=== PATIENT | female | born 1960 | race Two or more races ===

== ENCOUNTER 2017-09-08 18:27 | Inpatient (IN) | payer MEDICAID, OTHER ==
[~2017-09-08] VITALS: Ht 154.9 cm; Wt 67.6 kg
[~2017-09-08 18:27] MED LIST: ACET650S26 GT; ALBU2.5V13 IH; ALBU2.5V38 IH; ALEN70TA3 GT; AMIN30LI2 GT; ASCO-340 GT; BACL10TA GT; BISA-79 RC; CALC-34 GT; CARB-93 GT; CHOL100062 GT; DOCU-141 GT; DULO30CA2 GT; ENTA200T GT; EPOE1VIA6 SQ; FAMO20TA8 GT; FLUD0.1T3 GT; FOLI1TAB16 GT; INSU100V10 SQ; MAGN400O21 GT; METF500T4 GT; METO25TA6 GT; MULT1TAB11 GT; NA P133E RC; SIMV5TAB6 GT; TRAM50TA GT; ZINC220T GT
--- NOTE | 2017-09-08 18:40 | NUR ---
FROM SCR: WOUND TO BACK OF HEAD EVAL. PER [facility]ANS hot knife cutter REPORT "UNKNOWN, ETIOLOGY". DENY FALL. WOUND PRESENT FOR 2 DAYS. NAD NOTED, VSS, RESP EVEN AND UNLABORED, PT PUT ON MONITOR, WAITING FOR MD EVAL.
[2017-09-08] MEDS ORDERED: VANCOMYCIN 1 GM VIAL ONE ×2 (18:59→22:10)
[2017-09-08] MEDS ORDERED: ACETAMINOPHEN 650 MG/SUPP.RECT RC ONE ×3 (18:59→19:27)
[2017-09-08] MEDS ORDERED: VANCOMYCIN 1 GM in IV D5W 250 ML IV ONE (19:00)
[2017-09-08] MEDS ORDERED: IV NS 0.9% 500 ML BAG IV ONE (19:00)
[2017-09-08 19:16] LABS: BASOPHILS # (AUTO) 0.1 /CMM (0.0-0.2); BASOPHILS % (AUTO) 1.2 % (0.0-2.0); EOSINOPHILS # (AUTO) 0.1 /CMM (0.0-0.7); EOSINOPHILS % (AUTO) 0.7 % (0.0-6.0); HEMATOCRIT 29 % (33-45); HEMOGLOBIN 9.6 g/dL (11.5-14.8); LYMPHOCYTES % (AUTO) 23.1 % (20.0-44.0); MEAN CORPUSCULAR HEMOGLOBIN 29 PG (26.0-33.0); MEAN CORPUSCULAR HGB CONC 33 g/dl (31.0-36.0); MEAN CORPUSCULAR VOLUME 87 fL (82-100); MONOCYTES # (AUTO) 0.5 /CMM (0.1-1.30); MONOCYTES % (AUTO) 5.4 % (2.0-12.0); NEUTROPHILS # (AUTO) 5.8 /CMM (1.8-8.9); NEUTROPHILS % (AUTO) 69.6 % (43.0-81.0); PLATELET COUNT (AUTO) 94 /CMM (150-450); RDW COEFFICIENT OF VARIATION 21.2 (11.5-15.0); RED BLOOD CELL COUNT(AUTO) 3.31 MIL/uL (4.0-5.2); WHITE BLOOD COUNT (AUTO) 8.5 K/uL (4.3-11.0)
[2017-09-08] MEDS ORDERED: CYCL5TAB GT (19:22)
[2017-09-08] MEDS ORDERED: BLOO-668 IN (19:22)
[2017-09-08] MEDS ORDERED: INSU100I26 SQ (19:22)
[2017-09-08] MEDS ORDERED: NUT.237L30 GT (19:22)
[2017-09-08] MEDS ORDERED: CLON0.1T GT (19:22)
[2017-09-08] MEDS ORDERED: INSU100V3 SQ (19:22)
[2017-09-08] MEDS ORDERED: OMEP20CA10 GT (19:22)
[2017-09-08] MEDS ORDERED: IPRA0.2S9 IH ×2 (19:22)
[2017-09-08] MEDS ORDERED: ATOR10TA GT (19:22)
[2017-09-08] MEDS ORDERED: POLY15DR40 EACHEYE (19:22)
[2017-09-08] MEDS ORDERED: LISI-607 GT (19:22)
[2017-09-08] MEDS ORDERED: ZINC220C8 GT (19:22)
[2017-09-08] MEDS ORDERED: CHLO473M5 MM (19:22)
[2017-09-08] MEDS ORDERED: MAGN400T26 GT (19:22)
[2017-09-08 19:29] LABS: CALCIUM, SERUM 8.9 mg/dL (8.5-10.1); CARBON DIOXIDE 24 mmol/L (21-32); CHLORIDE 94 mmol/L (98-107); CREATININE 0.8 mg/dL (0.6-1.3); GLUCOSE 204 mg/dL (74-106); POTASSIUM 4.8 mmol/L (3.5-5.1); SODIUM SERUM 126 mmol/L (136-145); UREA NITROGEN, BLOOD 47 mg/dL (7-18)
[2017-09-08 19:34] LABS: ALANINE AMINOTRANSFERASE 9 U/L (12-78); ALBUMIN 2.6 g/dL (3.4-5.0); ALKALINE PHOSPHATASE 111 U/L (46-116); ASPARTATE AMINOTRANSFERASE 15 U/L (15-37); BILIRUBIN,DIRECT 0.2 mg/dL (0.0-0.2); BILIRUBIN,TOTAL 0.4 mg/dL (0.2-1.0)
[2017-09-08 19:37] LABS: INR 0.95 (0.85-1.15); TROPONIN I < 0.017 ng/mL (0.00-0.056)
[2017-09-08 20:07] LABS: BAND % (MANUAL) 4 % (0.0-5.0); LYMPHOCYTES % (MANUAL) 17 % (16-48); MONOCYTES % (MANUAL) 6 % (0-11.0); NEUTROPHILS % (MANUAL) 73 (42-76)
--- NOTE | 2017-09-08 20:19 | NUR ---
PT GOING TO RM 116-2, REPORT GIVEN TO ALVA DHALIWAL
[2017-09-08] MEDS ORDERED: IV NS 0.9% 1,000 ML IV PRN (20:52)
[2017-09-08] MEDS ORDERED: MAG HYDROX/AL HYDROX/SIMETH 30 ML UDC GT PRN (21:00)
[2017-09-08] MEDS ORDERED: ONDANSETRON HCL/PF 4 MG/2 ML VIAL IVP PRN (21:00)
[2017-09-08] MEDS: ENOXAPARIN SODIUM 30 MG/0.3 ML DISP.SYRIN SQ SCH (21:00)
[2017-09-08] MEDS ORDERED: HYDROCODONE/APAP 5/325MG 1 EACH TABLET GT PRN (21:00)
[2017-09-08] MEDS ORDERED: MAGNESIUM HYDROXIDE 30 ML UDC GT PRN (21:00)
[2017-09-08] MEDS: PIPERACILLIN /TAZOBACTAM 3.375 G in IV D5W 50 ML IV SCH (21:00)
[2017-09-08] MEDS ORDERED: Z GUARD REMEDY 2 OZ OINT TP PRN (21:00)
[2017-09-08] MEDS ORDERED: MORPHINE SULFATE INJ 2 MG/ML DISP.SYRIN IV PRN (21:00)
[2017-09-08 21:30] VITALS: BP 143/72
[2017-09-08] MEDS ORDERED: ALBUTEROL FS 2.5 MG/0.5 ML VIAL.NEB NEB PRN (21:30)
[2017-09-08] MEDS ORDERED: IPRATROPIUM NEB FS 0.5 MG/2.5 ML AMPUL.NEB NEB PRN (21:30)
--- NOTE | 2017-09-08 21:30 | NUR ---
RN NOTE RECEIVED PATIENT FROM ER VIA GREYS[facility], DX CELLULITIS OF THE HEAD, PATIENT IS OBTUNDED, AWAKE, NO RESPIRATORY DISTRESS NOTED, MULTIPLE WOUNDS ON THE BACK OF THE HEAD AND ON THE SIDE, PICTURES TAKEN, DR LING ORDERED WOUND CARE CONSULT, VITAL SIGNS TAKEN, NO S/S OF PAIN NOTED, RIGHT AC 18 GAUGE, NO S/S OF INFECTION/INFILTRATION NOTED, ALL SAFETY MEASURES TAKEN, CALL LIGHT WITHIN REACH, SIDE RAILS UP X 2, BED IN THE LOWEST POSITION, WILL CONTINUE TO MONITOR PATIENT
[2017-09-08] MEDS: VANCOMYCIN 1 GM in IV D5W 250 ML IV ONE ×2 (22:00→22:46)
[2017-09-08] MEDS ORDERED: PIPERACILLIN /TAZOBACTAM 3.375 G VIAL IV ONE (22:10)
--- NOTE | 2017-09-08 22:12 | NUR ---
RN NOTE LOW PLATELETS, LOW PTT Addendum: 09/08/17 at 2356 by PEPE AGUILAR RN lovenox was not administered
--- NOTE | 2017-09-08 22:30 | NUR ---
rn note patient received vanco in er
[2017-09-08] MEDS: GLYTROL 1,000 ML BAG GT PRN (23:23)
[2017-09-08] MEDS ORDERED: DEXTROSE 50%-WATER 50 ML DISP.SYRIN IV PRN (23:30)
[2017-09-09] VITALS: BP 104/58
[2017-09-09] MEDS ORDERED: IPRATROPIUM NEB FS 0.5 MG/2.5 ML AMPUL.NEB IH PRN
[2017-09-09] MEDS ORDERED: CLONIDINE HCL 0.1 MG TABLET GT PRN
[2017-09-09] MEDS ORDERED: BLOOD SUGAR DIAGNOSTIC 1 EACH STRIP IN SCH
[2017-09-09] MEDS ORDERED: BISACODYL (5 MG) 5 MG TABLET.DR GT PRN
[2017-09-09] MEDS ORDERED: MAGNESIUM HYDROXIDE 30 ML UDC GT PRN
[2017-09-09] MEDS ORDERED: CYCLOBENZAPRINE 10 MG TABLET PO PRN
[2017-09-09] MEDS ORDERED: ALBUTEROL FS 2.5 MG/3 ML VIAL.NEB IH PRN
[2017-09-09] MEDS ORDERED: EPOETIN ALFA (10,000 UNIT) 10,000 UNIT/ML VIAL SQ SCH
[2017-09-09] MEDS ORDERED: NA PHOS,M-B/NA PHOS,DI-BA 1 EA ENEMA RC PRN
[2017-09-09] MEDS: INSULIN REGULAR, HUMAN 100 UNIT/ML 3 ML VIAL SQ PRN ×5 (00:16→23:17)
[2017-09-09] MEDS: BACLOFEN (10 MG) 10 MG TABLET GT SCH ×5 (00:17→23:09)
[2017-09-09] MEDS: ALBUTEROL FS 2.5 MG/0.5 ML VIAL.NEB IH SCH ×4 (01:52→19:23)
[2017-09-09] MEDS: IPRATROPIUM NEB FS 0.5 MG/2.5 ML AMPUL.NEB IH SCH ×4 (01:52→19:23)
[2017-09-09 03:50] LABS: APPEARANCE,URINE CLEAR (CLEAR); BILIRUBIN,URINE NEGATIVE (NEGATIVE); BLOOD, URINE NEGATIVE Ery/uL (NEGATIVE); COLOR,URINE YELLOW (YELLOW); KETONES,URINE NEGATIVE (NEGATIVE); LEUKOCYTE ESTERASE ,URINE NEGATIVE (NEGATIVE); NITRITE, URINE NEGATIVE (NEGATIVE); PROTEIN,URINE NEGATIVE (NEGATIVE); UGLUCOSE NEGATIVE (NEGATIVE); UROBILINOGEN,URINE 0.2 EU/dL (0.2)
[2017-09-09] MEDS ORDERED: PIPERACILLIN /TAZOBACTAM 3.375 G VIAL IV ONE (03:56)
[2017-09-09 04:00] VITALS: BP_SYST 113; BP_SYST 99; BP_DIAS 51; BP_DIAS 64
[2017-09-09] MEDS: PIPERACILLIN /TAZOBACTAM 3.375 G in IV D5W 50 ML IV SCH ×3 (04:46→17:43)
[2017-09-09] MEDS: TRAMADOL HCL 50 MG TABLET GT SCH ×3 (04:46→21:31)
[2017-09-09] MEDS: BLOOD SUGAR DIAGNOSTIC 1 EACH STRIP IN SCH ×5 (05:35→23:15)
--- NOTE | 2017-09-09 06:40 | NUR ---
RN NOTE NO ACUTE CHANGES DURING MY SHIFT, OBTUNDED, NO RESPIRATORY DISTRESS NOTED, ONGOING IV FLUIDS, ONGOING G-TUBE FEEDING, ALL SAFETY MEASURES TAKEN, CALL LIGHT WITHIN REACH, BED IN THE LOWEST POSITION, WILL ENDORSE TO AM SHIFT
[2017-09-09 06:58] LABS: BASOPHILS % (AUTO) 0.2 % (0.0-2.0); EOSINOPHILS % (AUTO) 0.5 % (0.0-6.0); HEMATOCRIT 28 % (33-45); HEMOGLOBIN 9.3 g/dL (11.5-14.8); LYMPHOCYTES # (AUTO) 0.9 /CMM (0.8-4.8); MEAN CORPUSCULAR HEMOGLOBIN 29 PG (26.0-33.0); MEAN CORPUSCULAR HGB CONC 33 g/dl (31.0-36.0); MEAN CORPUSCULAR VOLUME 88 fL (82-100); MONOCYTES # (AUTO) 0.4 /CMM (0.1-1.30); MONOCYTES % (AUTO) 4.3 % (2.0-12.0); NEUTROPHILS # (AUTO) 7.6 /CMM (1.8-8.9); PLATELET COUNT (AUTO) 83 /CMM (150-450); RDW COEFFICIENT OF VARIATION 21.6 (11.5-15.0); RED BLOOD CELL COUNT(AUTO) 3.17 MIL/uL (4.0-5.2); WHITE BLOOD COUNT (AUTO) 8.9 K/uL (4.3-11.0)
[2017-09-09 07:00] LABS: THYROID STIMULATING HORMONE 1.689 uIU/mL (0.358-3.74)
[2017-09-09 07:02] LABS: CALCIUM, SERUM 7.8 mg/dL (8.5-10.1); CREATININE 0.8 mg/dL (0.6-1.3); PHOSPHORUS 4.2 mg/dL (2.5-4.9); POTASSIUM 4.9 mmol/L (3.5-5.1)
[2017-09-09] MEDS ORDERED: FEE PK DOSING 1 MIN EA MC ONE (07:37)
[2017-09-09 08:00] VITALS: BP 103/56
--- NOTE | 2017-09-09 08:00 | NUR ---
SENIOR ENGINEERING ASSOCIATE NOTE PATIENT IN BED , OBTUNDED WITH TRACH TO VENT SETTING ORDERED AMBU BAG AT HOB AT ALL MARIKA, ON TELE MONITOR SR 76 , WITH JACINTO CATH TO GRAVITY WITH YELLOW COLOR URINE, ON IVF ORDERED WITH G TUBE FEEDING ORDERED , KEEP HOB ELEVATED AT ALL TIME, BED IN LOWEST AND LOCKED POSITION ,WILL CONT TO MONITOR CLOSELY
[2017-09-09 08:20] LABS: BAND % (MANUAL) 1 % (0.0-5.0); LYMPHOCYTES % (MANUAL) 5 % (16-48); MONOCYTES % (MANUAL) 5 % (0-11.0); NEUTROPHILS % (MANUAL) 89 (42-76)
[2017-09-09] MEDS: MAGNESIUM OXIDE 400 MG TABLET GT SCH ×2 (08:54→17:00)
[2017-09-09] MEDS: CHLORHEXIDINE GLUCONATE 15 ML UDC MM SCH ×2 (08:54→21:30)
[2017-09-09] MEDS: METFORMIN 500 MG TABLET GT SCH ×2 (08:54→17:00)
[2017-09-09] MEDS: LACTOBACILLUS RHAMNOSUS GG 1 EACH CAP.SPRINK GT SCH ×2 (08:54→17:00)
[2017-09-09] MEDS: ZINC SULFATE 220 MG CAPSULE GT SCH (08:54)
[2017-09-09] MEDS: CARBIDOPA/LEVODOPA 25/100 MG 1 UDTAB GT SCH ×3 (08:54→17:00)
[2017-09-09] MEDS: CHOLECALCIFEROL 1,000 UNIT TABLET (VIT D3) GT SCH (08:54)
[2017-09-09] MEDS: DOCUSATE SODIUM 100 MG CAPSULE PO SCH ×2 (08:54→17:00)
[2017-09-09] MEDS ORDERED: EPOETIN ALFA (10,000 UNIT) 10,000 UNIT/ML VIAL SQ ONE (09:00)
[2017-09-09] MEDS: MULTIVITAMIN LIQ 5 ML UDC GT SCH (09:00)
[2017-09-09] MEDS: LISINOPRIL (5MG) 5 MG TABLET GT SCH (09:00)
[2017-09-09] MEDS ORDERED: ASCORBIC ACID SYRUP 500 MG/5 ML UDC GT SCH (09:00)
[2017-09-09] MEDS: PROSOURCE / PROSTAT (PYXIS) 30 ML UDC GT SCH (09:01)
[2017-09-09] MEDS: VANCOMYCIN 1 GM in IV D5W 250 ML IV SCH ×2 (10:06→21:30)
--- NOTE | 2017-09-09 11:24 | NUR ---
PATIENT IS UNSTABLE. NURSE WILL LET US KNOW WHEN PATIENT IS MORE STABLE.
[2017-09-09 12:00] VITALS: BP_SYST 136; BP_DIAS 65; BP_DIAS 69
--- NOTE | 2017-09-09 12:00 | NUR ---
POCKETBOOK MAKER NOTE SPOKE WITH JOHNIE COOPER NOTIFIED THAT T 101.1. TYLENOL AND COOLING MEASURE GIVEN ALSO AWARE THAT PER NIGH SHIFT NURSE LOVENOX WAS HELD PLATELETS 94 STATED ITS OK , CONSENT FOR HEAD DEBRIDEMENT WOUND DONE , MARK CALLE INDUSTRIAL SALES REPRESENTATIVE DONE AT BEDSIDE
[2017-09-09] MEDS: ACETAMINOPHEN 650 MG/20.3 ML UDC GT PRN (12:03)
--- NOTE | 2017-09-09 15:27 | NUR ---
OBSTETRICS NURSE PRACTITIONER NOTE SPOKE WITH DIETITIAN OK TO INCREAS TO 50 ML PER HOUR G TUBE MAX GOAL 60, ALSO NOTED THAT G TUBE WITH BABOON IS OUT ,CALLED TO MARIKA COOPER RN DNP STATED THAT WILL COME SOON TO INSERT OTHER G TUBE, WILL F\U
[2017-09-09 16:00] VITALS: BP 113/64
--- NOTE | 2017-09-09 16:50 | NUR ---
YRIS CALLE NOTE MOMO COOPER DNP AT BEDSIDE, NEW G TUBE PLACED , WILL F\U WITH X RAY OF ABDOMEN TO VERIFY PLACEMENT HOLD ALL MEDS TILL G TUBE PLACEMENT IS VERIFIED Addendum: 09/09/17 at 1707 by STEPHANIE GREEN RN CT HEAD DONE ORDERED
[2017-09-09] MEDS ORDERED: DIATR MEGLU/DIATRIZOATE SODIUM 30 ML BOTTLE (GASTROGRAPHIN) ONE (17:13)
[2017-09-09] MEDS: IV LR 1000 ML 1,000 ML IV PRN (17:28)
[2017-09-09 20:00] VITALS: BP 107/59
[2017-09-09] MEDS: ENOXAPARIN SODIUM 30 MG/0.3 ML DISP.SYRIN SQ SCH (21:00)
--- NOTE | 2017-09-09 21:11 | NUR ---
RN NOTE HELD LOVENOX DUE TO LOW PLATELETS, IS AWARE
--- NOTE | 2017-09-09 21:52 | NUR ---
RN NOTE LANTUS IS NOT AVAILABLE, CAR STOWER TUSHAR WILL BRING MED ONCE AVAILABLE
[2017-09-09] MEDS ORDERED: INSULIN GLARGINE, 100 UNIT/ML CARTRIDGE SQ SCH (22:00)
[2017-09-09] MEDS ORDERED: ATORVASTATIN 10 MG TABLET GT SCH (22:00)
[2017-09-09] MEDS ORDERED: INSULIN GLARGINE, 100 UNIT/ML CARTRIDGE SQ ONE (22:19)
[2017-09-10] VITALS: BP 108/65
[2017-09-10] MEDS: PIPERACILLIN /TAZOBACTAM 3.375 G in IV D5W 50 ML IV SCH ×3 (01:28→12:29)
[2017-09-10] MEDS: IPRATROPIUM NEB FS 0.5 MG/2.5 ML AMPUL.NEB IH SCH ×3 (01:43→13:09)
[2017-09-10] MEDS: ALBUTEROL FS 2.5 MG/0.5 ML VIAL.NEB IH SCH ×3 (01:43→13:09)
[2017-09-10 04:00] VITALS: BP 122/68
[2017-09-10] MEDS: TRAMADOL HCL 50 MG TABLET GT SCH ×2 (05:07→12:33)
[2017-09-10] MEDS: BACLOFEN (10 MG) 10 MG TABLET GT SCH ×2 (05:07→12:29)
[2017-09-10] MEDS: ACETAMINOPHEN 650 MG/20.3 ML UDC GT PRN (05:07)
[2017-09-10] MEDS: GLYTROL 1,000 ML BAG GT PRN (05:08)
[2017-09-10] MEDS: IV LR 1000 ML 1,000 ML IV PRN (05:08)
[2017-09-10] MEDS: BLOOD SUGAR DIAGNOSTIC 1 EACH STRIP IN SCH ×2 (05:09→12:33)
[2017-09-10] MEDS: INSULIN REGULAR, HUMAN 100 UNIT/ML 3 ML VIAL SQ PRN ×2 (05:14→12:30)
--- NOTE | 2017-09-10 07:13 | NUR ---
RN NOTE PATIENT IS STABLE, NO CHANGES ON MY SHIFT, NO RESPIRATORY DISTRESS NOTED, NO PAIN OR DISCOMFORT, ALL SAFETY MEASURES TAKEN, CALL LIGHT WITHIN REACH, BED IN THE LOWEST POSITION, WILL ENDORSE TO AM SHIFT
[2017-09-10 07:34] LABS: BASOPHILS % (AUTO) 0.2 % (0.0-2.0); EOSINOPHILS # (AUTO) 0.1 /CMM (0.0-0.7); HEMATOCRIT 26 % (33-45); HEMOGLOBIN 8.6 g/dL (11.5-14.8); MEAN CORPUSCULAR HEMOGLOBIN 29 PG (26.0-33.0); MEAN CORPUSCULAR HGB CONC 33 g/dl (31.0-36.0); MEAN CORPUSCULAR VOLUME 89 fL (82-100); MONOCYTES # (AUTO) 0.3 /CMM (0.1-1.30); MONOCYTES % (AUTO) 5.3 % (2.0-12.0); NEUTROPHILS # (AUTO) 4.2 /CMM (1.8-8.9); NEUTROPHILS % (AUTO) 75.5 % (43.0-81.0); PLATELET COUNT (AUTO) 87 /CMM (150-450); RDW COEFFICIENT OF VARIATION 21.4 (11.5-15.0); RED BLOOD CELL COUNT(AUTO) 2.96 MIL/uL (4.0-5.2); WHITE BLOOD COUNT (AUTO) 5.6 K/uL (4.3-11.0)
[2017-09-10 07:55] LABS: CALCIUM, SERUM 7.7 mg/dL (8.5-10.1); CREATININE 0.7 mg/dL (0.6-1.3); PHOSPHORUS 3.1 mg/dL (2.5-4.9); POTASSIUM 4.1 mmol/L (3.5-5.1)
[2017-09-10 08:00] VITALS: BP 107/55
--- NOTE | 2017-09-10 08:14 | NUR ---
CANCER REGISTRY COORDINATOR NOTE PATIENT IN BED , OBTUNDED WITH TRACH TO VENT SETTING ORDERED AMBU BAG AT HOB AT ALL MARIKA, ON TELE MONITOR SR 98, WITH JACINTO CATH TO GRAVITY WITH YELLOW COLOR URINE, ON IVF ORDERED WITH G TUBE FEEDING ORDERED , KEEP HOB ELEVATED AT ALL TIME, BED IN LOWEST AND LOCKED POSITION ,WILL CONT TO MONITOR CLOSELY ,FACE IS LIGHTLY EDEMATOUS MARIKA ALLISON DNP AT BEDSIDE, NO NEW ORDER GIVEN , RT AC HL INTACT ,ON IVF ORDERED
[2017-09-10 08:46] LABS: LYMPHOCYTES % (MANUAL) 20 % (16-48); MONOCYTES % (MANUAL) 5 % (0-11.0); NEUTROPHILS % (MANUAL) 75 (42-76)
[2017-09-10] MEDS ORDERED: LACT1CAP72 GT (08:51)
[2017-09-10] MEDS ORDERED: ENOX30DI SQ (08:51)
[2017-09-10] MEDS ORDERED: RXVAN XX (08:51)
[2017-09-10] MEDS ORDERED: PIPE3.379 IV (08:51)
[2017-09-10] MEDS ORDERED: ALLA266C2 TP (08:51)
--- NOTE | 2017-09-10 08:58 | NUR ---
discharge order in,cm notified ,rn alerted.
[2017-09-10] MEDS ORDERED: ASCORBIC ACID 500 MG TABLET GT SCH (09:00)
[2017-09-10] MEDS: MULTIVITAMIN LIQ 5 ML UDC GT SCH (09:00)
[2017-09-10] MEDS: LISINOPRIL (5MG) 5 MG TABLET GT SCH (09:00)
--- NOTE | 2017-09-10 09:00 | NUR ---
SENIOR INSTRUMENTATION ENGINEER NOTE SEEN B MARIKA COOPER DNP AWARE THAT FACE IS EDEMATOUS NO NEW ORDER GIVEN AT THSF TIME WILL F\U
[2017-09-10] MEDS: CHOLECALCIFEROL 1,000 UNIT TABLET (VIT D3) GT SCH (09:29)
[2017-09-10] MEDS: METFORMIN 500 MG TABLET GT SCH (09:29)
[2017-09-10] MEDS: DOCUSATE SODIUM 100 MG CAPSULE PO SCH (09:30)
[2017-09-10] MEDS: ZINC SULFATE 220 MG CAPSULE GT SCH (09:30)
[2017-09-10] MEDS: LACTOBACILLUS RHAMNOSUS GG 1 EACH CAP.SPRINK GT SCH (09:31)
[2017-09-10] MEDS: CARBIDOPA/LEVODOPA 25/100 MG 1 UDTAB GT SCH ×2 (09:33→12:29)
[2017-09-10] MEDS: MAGNESIUM OXIDE 400 MG TABLET GT SCH (09:33)
[2017-09-10] MEDS: PROSOURCE / PROSTAT (PYXIS) 30 ML UDC GT SCH (09:33)
[2017-09-10] MEDS: VANCOMYCIN 1 GM in IV D5W 250 ML IV SCH (09:39)
[2017-09-10] MEDS: CHLORHEXIDINE GLUCONATE 15 ML UDC MM SCH (09:41)
--- NOTE | 2017-09-10 11:00 | NUR ---
DIRECTOR OF EDUCATION NOTE RT AC HL NOTED WITH SWELLING , NEW HL ON RT NAND LEW 24 INSERTED WITH GOOD BLOOD RETURN ,WILL MONITOR CLOSELY
--- NOTE | 2017-09-10 11:00 | NUR ---
ADA ACCOMMODATION CONSULTANT NOTE CALLED TO [facility], REPORT GIVEN SPOKE WITH TYREE CALLE Addendum: 09/10/17 at 1159 by STEPHANIE GREEN RN DAUGHTER WAS NOTIFIED BY CHARGE NURSE CY THAT PATIENT WILL BE TRANSFER TO [facility]
[2017-09-10 12:00] VITALS: BP 105/55
--- NOTE | 2017-09-10 14:52 | NUR ---
OFFICE HELPER NOTE ALL NEEDS ATTENDED STILL FACE EDESEDEMATOUS MARIKA COOPER DNP AWARE
[2017-09-10 16:00] VITALS: BP 105/55
--- NOTE | 2017-09-10 16:13 | NUR ---
COMPUTER APPLICATION DEVELOPER NOTE AMBULANCE ARRIVED REPOT GIVEN ,TELE REMOVED OK TO LEAVE HL O RT HAND PATIENT, WILL HAVE IV ATB, WENT TO SNF WITH STABLE CONDITION. T RECHECK 98.9 Addendum: 09/10/17 at 1616 by STEPHANIE GREEN RN HL O RT HAND INTACT NO REDNESS ,NO SWELLING NO BLEEDING NOTED
[2017-09-10] MEDS ORDERED: VANCOMYCIN 0.75 GM in IV D5W 250 ML IV SCH (21:00)
[2017-09-11] MEDS ORDERED: MULTIVIT, IRON, MIN NO. 8, FA 1 TAB GT SCH (09:00)
[2017-09-11] MEDS ORDERED: EPOETIN ALFA (10,000 UNIT) 10,000 UNIT/ML VIAL SQ SCH (15:00)
[2017-09-14] MEDS ORDERED: ALENDRONATE 70 MG TABLET GT SCH
== END 2017-09-10 16:05 | DRG 720 ==
LOC: ER 18:30 → TELE1 20:37
PROVIDERS: ADMIT Nurse Practitioner Acute Care; ATTEND Nurse Practitioner Acute Care
PROC: 5A1945Z Respiratory Ventilation, 24-96 Consecutive Hours (ICD-10-PCS; principal; 2017-09-08)
PROC: 0JB10ZZ Excision of Face Subcutaneous Tissue and Fascia, Open Approach (ICD-10-PCS; 2017-09-09)
PROC: 0JB00ZZ Excision of Scalp Subcutaneous Tissue and Fascia, Open Approach (ICD-10-PCS; 2017-09-09)
DX: A41.9 Sepsis, unspecified organism (principal); E43 Unspecified severe protein-calorie malnutrition; Z99.11 Dependence on respirator [ventilator] status; J96.10 Chronic respiratory failure, unspecified whether with hypoxia or hypercapnia; R53.2 Functional quadriplegia; G35 Multiple sclerosis; E87.2 Acidosis; D68.59 Other primary thrombophilia; F03.90 Unspecified dementia, unspecified severity, without behavioral disturbance, psychotic disturbance, mood disturbance, and anxiety; R13.10 Dysphagia, unspecified; E87.1 Hypo-osmolality and hyponatremia; G20 Parkinson's disease; L03.811 Cellulitis of head [any part, except face]; H60.11 Cellulitis of right external ear; D63.8 Anemia in other chronic diseases classified elsewhere; E11.9 Type 2 diabetes mellitus without complications; E66.9 Obesity, unspecified; E78.5 Hyperlipidemia, unspecified; Z86.73 Personal history of transient ischemic attack (TIA), and cerebral infarction without residual deficits; I10 Essential (primary) hypertension; E86.1 Hypovolemia; Z74.01 Bed confinement status; F09 Unspecified mental disorder due to known physiological condition; E88.09 Other disorders of plasma-protein metabolism, not elsewhere classified; Z68.28 Body mass index [BMI] 28.0-28.9, adult; Z79.4 Long term (current) use of insulin
CPT/HCPCS: 31720; 36415; 70450-TC; 71045-TC; 74018; 80048-TC; 80061-TC; 80076-TC; 80202-TC; 81000-TC; 82746; 82962-TC; 83540-TC; 83605-TC; 83735-TC; 84100-TC; 84443-TC; 84484-TC; 85025-TC; 85730-TC; 87040-TC; 87070-TC; 87081-TC; 87086-TC; 87186-TC; 94003-TC; 94760-TC; 99082-TC; A4606; A6253; A6402; A6403; J0885; J1815; J2543; J3370; J7030; J7040; J7060; J7120; Q9963; Z7610

== ENCOUNTER 2020-06-24 20:55 | Inpatient (IN) | payer MEDICAID, OTHER ==
[~2020-06-24] VITALS: Ht 152.4 cm; Wt 62.6 kg
[~2020-06-24 20:55] MED LIST changes: +ALLA266C2 TP; +ATOR10TA GT; +BLOO-668 IN; -CALC-34 GT; +CHLO473M5 MM; +CLON0.1T GT; +CYCL5TAB GT; -DULO30CA2 GT; +ENOX30DI SQ; -ENTA200T GT; -FAMO20TA8 GT; -FLUD0.1T3 GT; -FOLI1TAB16 GT; +INSU100I26 SQ; -INSU100V10 SQ; +INSU100V3 SQ; +IPRA0.2S9 IH; +LACT1CAP72 GT; +LISI-607 GT; +MAGN400T26 GT; +METF-440 GT; -METF500T4 GT; -METO25TA6 GT; +NUT.237L30 GT; +OMEP20CA15 GT; +PIPE3.379 IV; +POLY15DR40 EACHEYE; +RXVAN XX; -SIMV5TAB6 GT; +ZINC1CAP2 GT; -ZINC220T GT
--- NOTE | 2020-06-24 21:11 | NUR ---
[facility] FROM [facility] FOR EVALUATION OF FECER AND TACHYCARDIA. PT WAS TESTED + FOR COVID TWO DAYS AGO. PT W/ RESPIRATORY FAILURE AND VENT DEPENDENT. WAS TRANSFERRED TO BED 6. RT AT BED SIDE TO SET UP THE VENTILATOR. PT WAS PLACED ON B[employer]ODUCTS CHECKER.
[2020-06-24] MEDS ORDERED: PIPERACILLIN /TAZOBACTAM 3.375 G in IV D5W 50 ML IV ONE (21:30)
[2020-06-24] MEDS ORDERED: IV NS 0.9% 500 ML BAG IV ONE (21:30)
[2020-06-24] MEDS ORDERED: VANCOMYCIN HCL 1.25 GM in IV D5W 260 ML IV ONE (21:30)
[2020-06-24] MEDS ORDERED: HYDR-4384 PO (21:39)
[2020-06-24] MEDS ORDERED: CYAN500T64 GT (21:39)
[2020-06-24] MEDS ORDERED: APIX2.5T GT (21:39)
[2020-06-24] MEDS ORDERED: ALBU6.7H9 INH ×2 (21:39)
[2020-06-24] MEDS ORDERED: OMEG1CAP GT (21:39)
[2020-06-24] MEDS ORDERED: GABA-532 PO (21:39)
[2020-06-24] MEDS ORDERED: NUT.250L18 GT (21:39)
--- NOTE | 2020-06-24 21:58 | NUR ---
RT pt received on mechanical vent with current settings. trached, portex 8. vent plugged in to red outlet. trach secure and patent. ambu bag and spare trach at bedside. has MDI tx accdto transport RT. alarms on and audible. small peace thick secretions suctioned via trach. no sob, no resp distress. will continue to monitor t/o shift. Addendum: 06/24/20 at 2158 by SHANE HERNANDEZ RT Amended: Links added.
[2020-06-24] MEDS ORDERED: PIPERACILLIN /TAZOBACTAM 3.375 G VIAL IV ONE (22:02)
[2020-06-24] MEDS ORDERED: VANCOMYCIN 1 GM VIAL ONE (22:02)
[2020-06-24] MEDS ORDERED: VANCOMYCIN 500 MG VIAL ONE (22:02)
[2020-06-24 22:05] LABS: BILIRUBIN,URINE NEGATIVE (NEGATIVE); COLOR,URINE YELLOW (YELLOW); LEUKOCYTE ESTERASE ,URINE LARGE (NEGATIVE); NITRITE, URINE NEGATIVE (NEGATIVE); PH,URINE 6.5 (5.0-8.0); PROTEIN,URINE NEGATIVE (NEGATIVE); UGLUCOSE NEGATIVE (NEGATIVE); UROBILINOGEN,URINE 0.2 EU/dL (0.2)
[2020-06-24] MEDS ORDERED: CEFTRIAXONE 1 G in IV D5W 50 ML IV ONE (22:30)
[2020-06-24] MEDS ORDERED: IV NS 0.9% 1,000 ML BAG IV ONE ×2 (22:30→23:00)
[2020-06-24 22:44] LABS: BACTERIA,URINE Many /HPF (None Seen); SQUAMOUS EPITHELIAL CELL,UR Moderate /HPF (None Seen); WBC,URINE 51-80 /HPF (0-3)
[2020-06-24 23:02] LABS: BASOPHILS % (AUTO) 0.3 % (0.0-2.0); LYMPHOCYTES # (AUTO) 1.9 /CMM (0.8-4.8); MONOCYTES # (AUTO) 0.3 /CMM (0.1-1.30); NEUTROPHILS # (AUTO) 3.6 /CMM (1.8-8.9)
[2020-06-24 23:06] LABS: EOSINOPHILS % (AUTO) 0.6 % (0.0-6.0); HEMATOCRIT 31 % (33-45); HEMOGLOBIN 9.8 g/dL (11.5-14.8); LYMPHOCYTES % (AUTO) 32.2 % (20.0-44.0); MEAN CORPUSCULAR HGB CONC 31 g/dl (31.0-36.0); MEAN CORPUSCULAR VOLUME 91 fL (82-100); MONOCYTES % (AUTO) 5.4 % (2.0-12.0); NEUTROPHILS % (AUTO) 61.5 % (43.0-81.0); PLATELET COUNT (AUTO) 90 /CMM (150-450); RED BLOOD CELL COUNT(AUTO) 3.46 MIL/uL (4.0-5.2); WHITE BLOOD COUNT (AUTO) 5.8 K/uL (4.3-11.0)
[2020-06-24 23:24] LABS: CALCIUM, SERUM 8.2 mg/dL (8.5-10.1); CARBON DIOXIDE 20 mmol/L (21-32); CHLORIDE 110 mmol/L (98-107); CREATININE 0.7 mg/dL (0.6-1.3); GLUCOSE 92 mg/dL (74-106); POTASSIUM 4.3 mmol/L (3.5-5.1); SODIUM SERUM 144 mmol/L (136-145); UREA NITROGEN, BLOOD 23 mg/dL (7-18)
[2020-06-24 23:37] LABS: ALANINE AMINOTRANSFERASE 41 U/L (12-78); ALBUMIN 1.9 g/dL (3.4-5.0); ALKALINE PHOSPHATASE 262 U/L (46-116); ASPARTATE AMINOTRANSFERASE 52 U/L (15-37); B-TYPE NATRIURETIC PEPTIDE 517 PG/ML (0-125); BILIRUBIN,DIRECT 0.2 mg/dL (0.0-0.2); BILIRUBIN,TOTAL 0.3 mg/dL (0.2-1.0); TOTAL PROTEIN, SERUM 5.9 g/dL (6.4-8.2)
[2020-06-24] MEDS ORDERED: CEFTRIAXONE 1GM BAG (ER ONLY) 50 ML IV ONE (23:43)
[2020-06-25 00:48] LABS: BAND % (MANUAL) 1 % (0.0-5.0); LYMPHOCYTES % (MANUAL) 38 % (16-48); MONOCYTES % (MANUAL) 6 % (0-11.0); NEUTROPHILS % (MANUAL) 55 (42-76)
[2020-06-25] MEDS ORDERED: MORPHINE SULFATE INJ 10 MG/ML DISP.SYRIN IV PRN (01:30)
[2020-06-25] MEDS ORDERED: ONDANSETRON HCL/PF 4 MG/2 ML VIAL IV PRN (01:30)
[2020-06-25] MEDS ORDERED: DEXTROSE 50%-WATER 50 ML DISP.SYRIN IV PRN (01:30)
[2020-06-25] MEDS ORDERED: LORAZEPAM INJ 2 MG/ML VIAL IV PRN (01:30)
[2020-06-25] MEDS: IV NS 0.9% 1,000 ML IV PRN (01:36)
--- NOTE | 2020-06-25 06:06 | NUR ---
PT WAS CLEANED , DRIED AND REPOSITIONED. WARM BLANKET APPLIED AND KEPT PT IN COMFORTABLE POSITION. WILL CONT TO MONITOR ,
[2020-06-25 06:28] LABS: BASOPHILS % (AUTO) 0.2 % (0.0-2.0); EOSINOPHILS % (AUTO) 0.1 % (0.0-6.0); HEMATOCRIT 30 % (33-45); HEMOGLOBIN 9.6 g/dL (11.5-14.8); LYMPHOCYTES % (AUTO) 13.8 % (20.0-44.0); MEAN CORPUSCULAR HGB CONC 32 g/dl (31.0-36.0); MEAN CORPUSCULAR VOLUME 90 fL (82-100); MONOCYTES # (AUTO) 0.4 /CMM (0.1-1.30); MONOCYTES % (AUTO) 5.6 % (2.0-12.0); NEUTROPHILS # (AUTO) 5.9 /CMM (1.8-8.9); NEUTROPHILS % (AUTO) 80.3 % (43.0-81.0); PLATELET COUNT (AUTO) 87 /CMM (150-450); RED BLOOD CELL COUNT(AUTO) 3.36 MIL/uL (4.0-5.2); WHITE BLOOD COUNT (AUTO) 7.4 K/uL (4.3-11.0)
[2020-06-25 06:40] LABS: CALCIUM, SERUM 7.8 mg/dL (8.5-10.1); CREATININE 0.7 mg/dL (0.6-1.3); MAGNESIUM 2.3 mg/dL (1.8-2.4); POTASSIUM 3.8 mmol/L (3.5-5.1)
[2020-06-25] MEDS: BLOOD SUGAR DIAGNOSTIC 1 EACH STRIP IN SCH ×3 (06:49→19:17)
[2020-06-25] MEDS ORDERED: PANTOPRAZOLE 40 MG VIAL ONE (08:42)
[2020-06-25] MEDS ORDERED: ENOXAPARIN SODIUM 30 MG/0.3 ML DISP.SYRIN ONE (08:42)
[2020-06-25] MEDS ORDERED: PANTOPRAZOLE 40 MG VIAL IV SCH (09:00)
[2020-06-25] MEDS ORDERED: ENOXAPARIN SODIUM 30 MG/0.3 ML DISP.SYRIN SQ SCH (09:00)
[2020-06-25] MEDS ORDERED: CEFTRIAXONE 2 G in IV D5W 50 ML IV SCH (09:00)
--- NOTE | 2020-06-25 11:34 | NUR ---
DR. PASCAL AT BEDSIDE. NOTIFIED ABOUT LOW PLATELET FOR LOVENOX USE. ORDERED TO HOLD LOVENOX. NOTED AND CARRIED OUT
[2020-06-25] MEDS ORDERED: BISACODYL (5 MG) 5 MG TABLET.DR GT PRN (12:30)
[2020-06-25] MEDS: ALBUTEROL FS 2.5 MG/3 ML VIAL.NEB NEB SCH ×2 (13:30→19:30)
--- NOTE | 2020-06-25 16:16 | NUR ---
PT CARE RENDERED. REPOSITIONED. PT HAD A SMALL FORMED BOWEL MOVEMENT. VSS
[2020-06-25] MEDS ORDERED: HYDROCODONE/APAP 5/325MG TABLET ONE (17:26)
[2020-06-25] MEDS ORDERED: BACLOFEN (10 MG) 10 MG TABLET ONE (17:26)
[2020-06-25] MEDS ORDERED: DOCUSATE SODIUM LIQ 100 MG/10 ML UDC ONE (17:26)
[2020-06-25] MEDS: DOCUSATE SODIUM 100 MG CAPSULE PO SCH (17:30)
[2020-06-25] MEDS: MAGNESIUM OXIDE 400 MG TABLET GT SCH (17:30)
[2020-06-25] MEDS ORDERED: GLUCERNA 1.2 1,000 ML BOTTLE NG PRN (17:30)
[2020-06-25] MEDS: BACLOFEN (10 MG) 10 MG TABLET GT SCH (17:31)
[2020-06-25] MEDS: HYDROCODONE/APAP 5/325MG TABLET PO SCH (17:31)
[2020-06-25] MEDS: APIXABAN 2.5 MG TABLET GT SCH (17:40)
--- NOTE | 2020-06-25 19:21 | NUR ---
ASSUMED CARE. PT AAOX1, O2 SAT 100%. PT TOLERATING CURRENT VENT SETTING AC-16, TV-500, FIO2-40%, PEEP-5. NO ACUTE DISTRESS NOTED, RESP EVEN AND UNLABORED. NO PAIN OR DISCOMFORT NOTED AT THIS TIME. PT REMAINS ON CARDIAC MONITORING, CONTINUOUS POX. CALL LIGHT WITHIN REACH. WILL CONTINUE TO MONITOR PT CLOSELY. REPOSITIONED PT FOR COMFORT.
[2020-06-25] MEDS: GLUCERNA 1.2 1,000 ML BOTTLE NG PRN (19:28)
[2020-06-25] MEDS: INSULIN GLARGINE, 100 UNIT/ML CARTRIDGE SQ SCH (21:10)
--- NOTE | 2020-06-25 22:58 | NUR ---
PT RESTING QUIETLY, NO ACUTE DISTRESS NOTED, RESP EVEN AND UNLABORE. NO PAIN OR DISCOMFORT NOTED AT THIS TIME. CALL LIGHT WITHIN REACH. WILL CONTINUE TO MONITOR PT CLOSELY.
--- NOTE | 2020-06-25 23:46 | NUR ---
TOTAL PT CARE DONE. REPOSITIONED PT FOR COMFORT. SUCTIONED PT ORALLY.
[2020-06-26] MEDS ORDERED: HYDROCODONE/APAP 5/325MG TABLET ONE ×2 (00:02→06:41)
[2020-06-26] MEDS ORDERED: BACLOFEN (10 MG) 10 MG TABLET ONE ×2 (00:03→06:41)
[2020-06-26] MEDS: HYDROCODONE/APAP 5/325MG TABLET PO SCH ×4 (00:35→17:10)
[2020-06-26] MEDS: BACLOFEN (10 MG) 10 MG TABLET GT SCH ×4 (00:35→17:11)
--- NOTE | 2020-06-26 00:36 | NUR ---
PT MEDICATED ORDERED.
[2020-06-26] MEDS: BLOOD SUGAR DIAGNOSTIC 1 EACH STRIP IN SCH ×4 (00:40→17:17)
[2020-06-26] MEDS: ALBUTEROL FS 2.5 MG/3 ML VIAL.NEB NEB SCH ×4 (01:06→20:27)
--- NOTE | 2020-06-26 02:13 | NUR ---
TOTAL PT CARE DONE. REPOSITIONED PT FOR COMFORT. SUCTIONED PT ORALLY.
[2020-06-26 05:11] LABS: BASOPHILS % (AUTO) 0.3 % (0.0-2.0); EOSINOPHILS % (AUTO) 0.3 % (0.0-6.0); HEMATOCRIT 28 % (33-45); HEMOGLOBIN 8.9 g/dL (11.5-14.8); LYMPHOCYTES # (AUTO) 1.8 /CMM (0.8-4.8); LYMPHOCYTES % (AUTO) 23.3 % (20.0-44.0); MEAN CORPUSCULAR HGB CONC 32 g/dl (31.0-36.0); MEAN CORPUSCULAR VOLUME 91 fL (82-100); MONOCYTES # (AUTO) 0.4 /CMM (0.1-1.30); MONOCYTES % (AUTO) 4.7 % (2.0-12.0); NEUTROPHILS # (AUTO) 5.6 /CMM (1.8-8.9); NEUTROPHILS % (AUTO) 71.4 % (43.0-81.0); PLATELET COUNT (AUTO) 101 /CMM (150-450); RED BLOOD CELL COUNT(AUTO) 3.11 MIL/uL (4.0-5.2); WHITE BLOOD COUNT (AUTO) 7.9 K/uL (4.3-11.0)
[2020-06-26 05:33] LABS: CALCIUM, SERUM 7.6 mg/dL (8.5-10.1); CREATININE 0.5 mg/dL (0.6-1.3); POTASSIUM 3.6 mmol/L (3.5-5.1)
--- NOTE | 2020-06-26 06:15 | NUR ---
TOTAL PT CARE DONE. REPOSITIONED PT FOR COMFORT. SUCTIONED PT ORALLY.
[2020-06-26] MEDS ORDERED: DEXTROSE 50%-WATER 50 ML DISP.SYRIN ONE (06:38)
--- NOTE | 2020-06-26 06:39 | NUR ---
lab called regarding bs-54. donna ariza dnp made aware. pt medicated 1amp d50 as ordered.
--- NOTE | 2020-06-26 07:42 | NUR ---
report given to am shift chris daniel
[2020-06-26] MEDS ORDERED: ALBUTEROL FS 2.5 MG/0.5 ML VIAL.NEB ONE (08:00)
[2020-06-26] MEDS ORDERED: IPRATROPIUM NEB FS 0.5 MG/2.5 ML AMPUL.NEB ONE ×2 (08:00→13:16)
[2020-06-26] MEDS: INSULIN GLARGINE, 100 UNIT/ML CARTRIDGE SQ SCH ×2 (09:00→21:00)
[2020-06-26] MEDS: DOCUSATE SODIUM 100 MG CAPSULE PO SCH ×2 (09:00→17:10)
[2020-06-26] MEDS: MAGNESIUM OXIDE 400 MG TABLET GT SCH ×2 (09:00→17:10)
[2020-06-26] MEDS: APIXABAN 2.5 MG TABLET GT SCH ×2 (11:16→17:00)
[2020-06-26] MEDS: FAMOTIDINE/PF INJ 20 MG/2 ML VIAL IV SCH ×2 (11:20→21:56)
[2020-06-26] MEDS: METFORMIN 500 MG TABLET GT SCH (11:20)
[2020-06-26] MEDS ORDERED: FAMOTIDINE/PF INJ 20 MG/2 ML VIAL IV ONE (11:21)
[2020-06-26] MEDS ORDERED: ALBUTEROL FS 2.5 MG/3 ML VIAL.NEB ONE (13:15)
[2020-06-26] MEDS ORDERED: ENOXAPARIN SODIUM 40 MG/0.4 ML DISP.SYRIN SQ SCH (14:00)
--- NOTE | 2020-06-26 14:02 | NUR ---
report given to kris perez for tayo.
--- NOTE | 2020-06-26 14:30 | NUR ---
TELE/RN NOTES RECEIVED REPORT FROM ALBERT ADAME RN. PATIENT IS ON TRACH VENT DEPENDENT AT THE PRESCRIBED SETTINGS. INITIAL ASSESSMENT WAS DONE. INITIAL V/S BP 103/64 P 91 TEMP 98.2 SAO2 100. PATIENT IN NO APPARENT RESPIRATORY DISTRESS NOTED. NO SIGN AND SYMPTOM OF PAIN NOTED AT THIS TIME. WILL CONTINUE TO MONITOR.
--- NOTE | 2020-06-26 17:08 | NUR ---
TELE/RN NOTES HGB8.9 HCT 28 PLATELET 101 ELIQUIS 2.5 WAS WITH HELD.
[2020-06-26] MEDS: IV NS 0.9% 1,000 ML IV PRN (17:25)
--- NOTE | 2020-06-26 18:43 | NUR ---
TELE/RN NOTES PATIENT IS ON BED. PATIENT IS ON TRACH VENT DEPENDENT AT THE PRESCRIBED SETTINGS. PATIENT IN NO APPARENT RESPIRATORY DISTRESS NOTED. NO SIGN AND SYMPTOM OF PAIN NOTED AT THIS TIME. TELE MONITOR. READING SINUS RHYTHM/SINUS TACH 109 BPM. SAFETY PRECAUTION WAS IN PLACED. SIDE RAILS UP X2. CALL LIGHT WITHIN REACH. WILL ENDORSED TO JAVA PROGRAMMER FOR [place].
[2020-06-26] MEDS ORDERED: DEXTROSE 50%-WATER 50 ML DISP.SYRIN IV PRN (19:00)
[2020-06-26] MEDS ORDERED: INSULIN REGULAR, HUMAN 100 UNIT/ML 3 ML VIAL SQ PRN (19:00)
--- NOTE | 2020-06-26 19:30 | NUR ---
TELE/RN OPENING NOTES RECEIVED PATIENT IN BED RESTING. PATIENT IS ALERT AND ORIENTED X 0 NON VERBAL. PATIENT IS TOLERATING VENT SETTING WELL, PATIENT IN NO SIGNS OF DISTRESS NOTED. PATIENT HAS IV ACCESS ON RIGHT WRIST #18G RUNNING NS AT 75ML/HR AND G TUBE IN PLACE RUNNING GLUCERNA 1.2 AT 55ML/HR. SAFETY MEASURES ARE IN PLACE, BED IS LOCKED AND PLACED IN THE LOWEST POSITION, SIDE RAILS UP X 3, CALL LIGHT IS WITHIN REACH. WILL CONTINUE TO MONITOR THROUGH OUT SHIFT.
[2020-06-26 22:00] VITALS: BP 108/59
[2020-06-26] MEDS ORDERED: CEFTRIAXONE 2 G in IV D5W 50 ML IV SCH (22:00)
[2020-06-27] VITALS: BP 125/69
[2020-06-27] MEDS ORDERED: BLOOD SUGAR DIAGNOSTIC 1 EACH STRIP IN SCH
[2020-06-27] MEDS: BACLOFEN (10 MG) 10 MG TABLET GT SCH ×4 (00:21→19:00)
[2020-06-27] MEDS: HYDROCODONE/APAP 5/325MG TABLET PO SCH ×4 (00:22→19:01)
--- NOTE | 2020-06-27 00:22 | NUR ---
RT TRACHED PT RECVD WITH PORTEX 8 CUFFED TRACH ON [facility] VENT ON ORDERED SETTINGS. VENT PLUGGED INTO RED OUTLET. ALARMS ON AND AUDIBLE WITH SPARE TRACH AND AMBU BAG AT BEDSIDE. SUCTION PRN. NO SOB OR RESPIRATORY DISTRESS NOTED AT THIS TIME. Addendum: 06/27/20 at 0428 by HARI FIELD RT Amended: Links added.
[2020-06-27] MEDS: BLOOD SUGAR DIAGNOSTIC 1 EACH STRIP IN SCH ×4 (00:44→19:02)
[2020-06-27] MEDS: ALBUTEROL FS 2.5 MG/3 ML VIAL.NEB NEB SCH ×4 (01:30→18:58)
[2020-06-27 04:00] VITALS: BP 115/65
[2020-06-27] MEDS: GLUCERNA 1.2 1,000 ML BOTTLE NG PRN (05:59)
[2020-06-27] MEDS: IV NS 0.9% 1,000 ML IV PRN ×2 (06:00→20:01)
--- NOTE | 2020-06-27 06:40 | NUR ---
TELE/RN CLOSING NOTES PATIENT IN BED RESTING. PATIENT IS ALERT AND ORIENTED X 0 NON VERBAL. PATIENT IS TOLERATING VENT SETTING WELL, PATIENT IN NO SIGNS OF DISTRESS NOTED. PATIENT HAS IV ACCESS ON RIGHT WRIST #18G RUNNING NS AT 75ML/HR AND G TUBE IN PLACE RUNNING GLUCERNA 1.2 AT 55ML/HR TOLERATING WELL. ALL PATIENTS NEEDS HAVE BEEN MET DURING SHIFT. SAFETY MEASURES ARE IN PLACE, BED IS LOCKED AND PLACED IN THE LOWEST POSITION, SIDE RAILS UP X 3, CALL LIGHT IS WITHIN REACH. WILL ENDORSE CARE TO DAY SHIFT NURSE.
[2020-06-27 07:00] LABS: BASOPHILS % (AUTO) 0.5 % (0.0-2.0); EOSINOPHILS % (AUTO) 0.5 % (0.0-6.0); HEMATOCRIT 29 % (33-45); HEMOGLOBIN 8.6 g/dL (11.5-14.8); LYMPHOCYTES # (AUTO) 1.6 /CMM (0.8-4.8); MEAN CORPUSCULAR HGB CONC 30 g/dl (31.0-36.0); MEAN CORPUSCULAR VOLUME 94 fL (82-100); MONOCYTES # (AUTO) 0.3 /CMM (0.1-1.30); NEUTROPHILS # (AUTO) 2.4 /CMM (1.8-8.9); PLATELET COUNT (AUTO) 71 /CMM (150-450); RED BLOOD CELL COUNT(AUTO) 3.08 MIL/uL (4.0-5.2); WHITE BLOOD COUNT (AUTO) 4.3 K/uL (4.3-11.0)
[2020-06-27 07:35] LABS: CALCIUM, SERUM 7.8 mg/dL (8.5-10.1); CREATININE 0.5 mg/dL (0.6-1.3); MAGNESIUM 2.7 mg/dL (1.8-2.4); POTASSIUM 4.3 mmol/L (3.5-5.1)
[2020-06-27 08:00] VITALS: BP 99/51
--- NOTE | 2020-06-27 08:00 | NUR ---
TELE/RN OPENING NOTES RECEIVED PATIENT IN BED RESTING. PATIENT IS ALERT AND ORIENTED X 0 NON VERBAL. PATIENT IS TOLERATING ORDERED VENT SETTINGS WELL, PATIENT IN NO SIGNS OF DISTRESS NOTED. PATIENT HAS IV ACCESS ON RIGHT WRIST #18G RUNNING NS AT 75ML/HR AND G TUBE IN PLACE RUNNING GLUCERNA 1.2 AT 55ML/HR. HOB ELEVATED. ON DROPLET ISOLATION PRECAUTIONS.SAFETY MEASURES ARE IN PLACE, BED IS LOCKED AND PLACED IN THE LOWEST POSITION, SIDE RAILS UP X 3, CALL LIGHT IS WITHIN REACH. WILL CONTINUE TO MONITOR
[2020-06-27] MEDS: MAGNESIUM OXIDE 400 MG TABLET GT SCH ×2 (11:12→19:03)
[2020-06-27] MEDS: DOCUSATE SODIUM 100 MG CAPSULE PO SCH ×2 (11:13→19:03)
[2020-06-27] MEDS: METFORMIN 500 MG TABLET GT SCH (11:13)
[2020-06-27] MEDS: FAMOTIDINE/PF INJ 20 MG/2 ML VIAL IV SCH ×2 (11:13→22:26)
[2020-06-27] MEDS: INSULIN GLARGINE, 100 UNIT/ML CARTRIDGE SQ SCH ×2 (11:22→22:45)
[2020-06-27] MEDS: APIXABAN 2.5 MG TABLET GT SCH ×2 (11:23→18:27)
--- NOTE | 2020-06-27 11:40 | NUR ---
RT TRACH CHANGE WITH PORTEX 8 CUFFED TRACH DONE DUE TO BROKEN CLIENT EXPERIENCE ADMINISTRATOR BALLOON WITH LEAD RT AT BEDSIDE. PT INFORMED OF PROCEDURE AND PT IS PRE HYPEROXYGENATED. TRACH CHANGED WITH NO COMPLICATIONS AND MINIMAL BLEEDING. CUFF INFLATED, TRACH PATENT AND SECURED. BILATERAL BREATH SOUNDS AND BILATERAL CHEST RISE OBSERVED. NO SOB OR RESPIRATORY DISTRESS NOTED AT THIS TIME. SPARE TRACH AND AMBU BAG AT BEDSIDE. ALVA LING AND STAGE BUILDER INFORMED. Addendum: 06/27/20 at 1149 by HARI FIELD RT Amended: Links added.
[2020-06-27 12:00] VITALS: BP 108/68
[2020-06-27 13:22] LABS: BAND % (MANUAL) 1 % (0.0-5.0); LYMPHOCYTES % (MANUAL) 37 % (16-48); MONOCYTES % (MANUAL) 8 % (0-11.0); NEUTROPHILS % (MANUAL) 54 (42-76)
[2020-06-27 16:00] VITALS: BP 99/50
--- NOTE | 2020-06-27 16:30 | NUR ---
RT HHN tx not given at this time due to pending PCR results. No signs of SOB or respiratory distress noted.
[2020-06-27 20:00] VITALS: BP 125/59
[2020-06-27] MEDS ORDERED: CEFTRIAXONE 2 G in IV D5W 50 ML IV SCH (21:00)
--- NOTE | 2020-06-27 23:48 | NUR ---
PT RESTING IN BED ON MECH VENT TOLERATING VENT SETTINGS ORDERED. WITH NO DISTRESS NOTED.PT IS AFEBRILE.WITH BUE/BLE CONTRACTURES WITH SWOLLEN BUE AND RT ARM MULTIPLE BLISTERS (MOSTLY OPEN AND SOME ARE STILL UNOPEN) WITH WEEPING THE WHOLE SHIFT.INITIAL WOUND TX DONE BY CLEANSING WITH NS,COVERED WITH VASELINE DRESSING AND WRAPPED WITH KERLIX.AWAITING FOR WOUND CONSULT.ELEVATED BUE /BLE AFLOAT WITH PILLOWS.TURNED EVERY TWO HRS. ENDORSED TO NIGHT NURSE CARE.
--- NOTE | 2020-06-27 23:49 | NUR ---
RN NOTE ASSUMED CARE OF PT FROM ALVA LING. WILL MONITOR PATIENT
[2020-06-28] VITALS (7 sets, daily range): BP systolic 86–138; BP diastolic 43–80
[2020-06-28] MEDS: BACLOFEN (10 MG) 10 MG TABLET GT SCH ×5 (00:34→23:38)
[2020-06-28] MEDS: HYDROCODONE/APAP 5/325MG TABLET PO SCH ×5 (00:34→17:46)
[2020-06-28] MEDS: BLOOD SUGAR DIAGNOSTIC 1 EACH STRIP IN SCH ×5 (00:46→23:46)
[2020-06-28] MEDS: ALBUTEROL FS 2.5 MG/3 ML VIAL.NEB NEB SCH ×4 (01:30→19:30)
--- NOTE | 2020-06-28 03:00 | NUR ---
RN NOTE PT SLEEPING IN BED COMFORTABLY WITHOUT SIGNS OF DISTRESS, PAIN OR DISCOMFORT. TOLERATING VENT SETTINGS WELL, SAFETY MEASURES IN PLACE, WILL CONTINUE TO MONITOR.
[2020-06-28] MEDS: GLUCERNA 1.2 1,000 ML BOTTLE NG PRN (04:01)
--- NOTE | 2020-06-28 06:53 | NUR ---
RN NOTE NO ACUTE CHANGES OBSERVED OVERNIGHT. NON VERBAL BUT RESPONSIVE TO VERBAL AND TACTILE STIMULI. PT RESTING IN BED ON MECH VENT AND TOLERATING SETTINGS. WITH NO SIGNS DISTRESS NOTED. NO SIGNS OF PAIN OR DISCOMFORT. JACINTO CATHETER PATENT AND IN PLACE DRAINING CLEAR YELLOW URINE. SR ON THE MONITOR. GT PATENT AND FLUSHED. WITH TUBE FEEDING RUNNING ORDERED @55CC/HOUR AND TOLERATING WELL WITHOUT RESIDUAL. WITH IVF RUNNING ORDERED WITHOUT COMPLICATIONS NOTED AT SITE. WOUND CONSULT PENDING, TURNED AND REPOSITIONED TOLERATED, ALL NEEDS MET AND ATTENDED TO, SAFETY MEASURES IN PLACE PER PROTOCOL, BED LOCKED AND IN LOW POSITION, SIDE RAILS UP X 2, WILL ENDORSE TO MORNING RN FOR [place].
--- NOTE | 2020-06-28 07:30 | NUR ---
RN OPENING NOTE PT IS OBTUNDED AND RESTING IN BED ON MECH VENT TOLERATING VENT SETTINGS ORDERED. PT SHOWS NO DISTRESS AND BREATHING IS EVEN AND UNLABORED. PT HAS VENESSA #18 THAT IS RUNNING NS AT 75 ML/HR AND WITH NO SIGNS OF INFILTRATION OR INFECTION. . PT HAS G TUBE RUNNING GLUCERNA 1.2 AT 55ML/HR, CHECKED FOR PLACEMENT AND PATENCY. JACINTO CATH DRAINING CLEAR AND YELLOW URINE TO GRAVITY. PT HAS PT IS AFEBRILE WITH BUE/BLE CONTRACTURES WITH SWOLLEN BUE AND RT ARM MULTIPLE BLISTERS (MOSTLY OPEN AND SOME ARE STILL CLOSED) WITH WEEPING NOTED, IS COVERED WITH DRSG AND KERLIX. WOUND CONSULT ORDERED FOR THURSDAY 06/29. BUE /BLE ARE ELEVATED WITH PILLOWS. PT WILL TURNED EVERY TWO HRS. ALL SAFETY PRECAUTIONS IN PLACE. WILL MONITOR PT
[2020-06-28] MEDS: METFORMIN 500 MG TABLET GT SCH (09:26)
[2020-06-28] MEDS: FAMOTIDINE/PF INJ 20 MG/2 ML VIAL IV SCH ×2 (09:26→20:43)
[2020-06-28] MEDS: DOCUSATE SODIUM 100 MG CAPSULE PO SCH (09:27)
[2020-06-28] MEDS: MAGNESIUM OXIDE 400 MG TABLET GT SCH ×2 (09:27→17:29)
[2020-06-28] MEDS: APIXABAN 2.5 MG TABLET GT SCH ×2 (09:30→17:30)
[2020-06-28] MEDS: INSULIN GLARGINE, 100 UNIT/ML CARTRIDGE SQ SCH ×2 (09:39→20:53)
[2020-06-28] MEDS ORDERED: DOCUSATE SODIUM LIQ 100 MG/10 ML UDC PO SCH (10:37)
[2020-06-28] MEDS: IV NS 0.9% 1,000 ML IV PRN (12:57)
--- NOTE | 2020-06-28 13:49 | NUR ---
RN NOTE PT TEMP OF 99.9 F; WILL ADMIN TYLENOL PER PROTOCOL
[2020-06-28] MEDS: ACETAMINOPHEN 650 MG/20.3 ML UDC GT PRN (13:50)
--- NOTE | 2020-06-28 14:00 | NUR ---
RN NOTE ADMINISTERED TYLENOL 650MG AND COOLING MEASURES WERE PUT IN PLACE. WILL REASSESS TEMP IN 1HR
[2020-06-28] MEDS: MEROPENEM 1 G in IV NS 0.9% 100 ML IV SCH ×2 (16:00→20:16)
[2020-06-28] MEDS: DOCUSATE SODIUM LIQ 100 MG/10 ML UDC GT SCH (17:29)
--- NOTE | 2020-06-28 18:11 | NUR ---
RN NOTE PT TEMP OF 99.5 F. COOLING MEASURES STILL IN PLACE. WILL CONTINUE TO MONITOR
--- NOTE | 2020-06-28 18:12 | NUR ---
RN NOTE PT TEMP 99.7. WILL ENDORSE TYLENOL 650MG DUE AT 1950 TO ONCOMING NURSE
--- NOTE | 2020-06-28 19:00 | NUR ---
RN CLOSING NOTE PT STABLE. NO SOB OR RESP DISTRESS, MECHANICAL VENT SETTINGS PER MD ORDER. OTHER THAN LOW GRADE FEVER, NO CHANGES TO PT STATUS DURING SHIFT. COOLING MEASURES IMPLEMENTED AND ENDORSED [place] TO ONCOMING NURSE. ALL PT SAFETY PRECAUTIONS IN PLACE
--- NOTE | 2020-06-28 19:20 | NUR ---
RN OPENING NOTE RECEIVED PATIENT IN BED RESTING OBTUNDED,ON MECHANICAL VENT ON SETTING TRACH PORTEX #8 AC 16 FIO2 40% PEEP 5 O2:100% ON G-TUBE FEEDING GLUCERNA 1.2 55CC/HR CHECKED PLACEMENT IN PLACE NO RESIDUAL NOTED ON JACINTO CATHETER URINE RUNNING YELLOW AND CLEAR BY GRAVITY,IV SITE IS ON LEFT UPPER ARM MID LINE ON NORMAL SALINE 0.9% IV HYDRATION 75CC/HR HEAD OF BED ELEVATED,SAFETY MEASURE IMPLEMENT CONTINUE TO MONITOR
--- NOTE | 2020-06-28 21:00 | NUR ---
RN NOTE HELD INSULIN LANTUS LONG ACTING 20 UNIT BLOOD SUGAR IS 72 CONTINUE TO MONITOR.
[2020-06-28] MEDS: INSULIN REGULAR, HUMAN 100 UNIT/ML 3 ML VIAL SQ PRN (23:47)
[2020-06-29] VITALS: BP 143/71
[2020-06-29] MEDS: HYDROCODONE/APAP 5/325MG TABLET PO SCH ×4 (00:09→17:43)
[2020-06-29] MEDS: ALBUTEROL FS 2.5 MG/3 ML VIAL.NEB NEB SCH ×4 (01:30→19:23)
[2020-06-29] MEDS: GLUCERNA 1.2 1,000 ML BOTTLE NG PRN ×2 (03:03→22:30)
[2020-06-29] MEDS: IV NS 0.9% 1,000 ML IV PRN ×2 (03:35→22:44)
[2020-06-29 04:00] VITALS: BP 145/85
[2020-06-29] MEDS: MEROPENEM 1 G in IV NS 0.9% 100 ML IV SCH ×3 (04:18→20:01)
[2020-06-29] MEDS: BLOOD SUGAR DIAGNOSTIC 1 EACH STRIP IN SCH ×4 (05:17→23:45)
[2020-06-29] MEDS: INSULIN REGULAR, HUMAN 100 UNIT/ML 3 ML VIAL SQ PRN ×2 (05:20→12:07)
[2020-06-29] MEDS: BACLOFEN (10 MG) 10 MG TABLET GT SCH ×3 (05:38→18:00)
--- NOTE | 2020-06-29 06:43 | NUR ---
RN CLOSING NOTE PATIENT REMAINS ON MECHANICAL VENT ON SETTING TRACH PORTEX #8 AC 16 TV [id number] 40% PEEP 5 O2:100% ON G-TUBE FEEDING GLUCERNA 1.2 55CC/HR ON JACINTO CATHETER URINE RUNNING YELLOW AND CLEAR BY GRAVITY,IV SITE IS ON LEFT UPPER ARM MID LINE ON NORMAL SALINE 0.9% IV HYDRATION 75CC/HR HEAD OF BED ELEVATED ALL THE TIME,ALL DUE MEDS GIVEN MD ORDERED,SAFETY MEASURE IMPLEMENTED,ENDORSE NEXT COMING SHIFT FOR CONTINUATION OF CARE.
--- NOTE | 2020-06-29 07:00 | NUR ---
RN Opening note PT IS OBTUNDED AND RESTING IN BED ON MECH VENT TOLERATING VENT SETTINGS ORDERED. PT SHOWS NO DISTRESS AND BREATHING IS EVEN AND UNLABORED. HOB ELEVATED AT ALL TIMES. PT HAS VENESSA #18 THAT IS RUNNING NS AT 75 ML/HR AND WITH NO SIGNS OF INFILTRATION OR INFECTION. . PT HAS G TUBE RUNNING GLUCERNA 1.2 AT 55ML/HR, CHECKED FOR PLACEMENT AND PATENCY. JACINTO CATH DRAINING CLEAR AND YELLOW URINE TO GRAVITY. PT IS AFEBRILE WITH BUE/BLE CONTRACTURES WITH SWOLLEN BUE AND RT ARM MULTIPLE BLISTERS (MOSTLY OPEN AND SOME ARE STILL CLOSED) WITH WEEPING NOTED, IS COVERED WITH DRSG AND KERLIX. BUE /BLE ARE ELEVATED WITH PILLOWS. PT WILL TURNED EVERY TWO HRS. ALL SAFETY PRECAUTIONS IN PLACE. WILL CONT TO MONITOR
[2020-06-29 08:00] VITALS: BP 153/80
[2020-06-29] MEDS: DOCUSATE SODIUM LIQ 100 MG/10 ML UDC GT SCH ×2 (09:33→16:40)
[2020-06-29] MEDS: FAMOTIDINE/PF INJ 20 MG/2 ML VIAL IV SCH ×2 (09:34→20:01)
[2020-06-29] MEDS: METFORMIN 500 MG TABLET GT SCH (09:34)
[2020-06-29] MEDS: APIXABAN 2.5 MG TABLET GT SCH ×2 (09:34→16:43)
[2020-06-29] MEDS: MAGNESIUM OXIDE 400 MG TABLET GT SCH ×2 (09:34→16:41)
[2020-06-29] MEDS: INSULIN GLARGINE, 100 UNIT/ML CARTRIDGE SQ SCH ×2 (09:37→20:26)
[2020-06-29 12:00] VITALS: BP 112/60
[2020-06-29 16:00] VITALS: BP 112/60
[2020-06-29] MEDS: ACETAMINOPHEN 650 MG/20.3 ML UDC GT PRN (16:40)
--- NOTE | 2020-06-29 18:56 | NUR ---
RN CLOSING NOTE PT IS OBTUNDED AND RESTING IN BED ON MECH VENT TOLERATING VENT SETTINGS ORDERED. PT SHOWS NO DISTRESS AND BREATHING IS EVEN AND UNLABORED. BLOOD SUGAR WITHIN NORMAL LIMITS. NOTED WITH TEMP OF 99.1 , ADMINISTERED TYLENOL PER MAR. HOB ELEVATED AT ALL TIMES. PT HAS VENESSA #18 THAT IS RUNNING NS AT 75 ML/HR AND WITH NO SIGNS OF INFILTRATION OR INFECTION. . PT HAS G TUBE RUNNING GLUCERNA 1.2 AT 55ML/HR, CHECKED FOR PLACEMENT AND PATENCY. JACINTO CATH DRAINING CLEAR AND YELLOW URINE TO GRAVITY. PT WITH BUE/BLE CONTRACTURES WITH SWOLLEN BUE AND RT ARM MULTIPLE BLISTERS (MOSTLY OPEN AND SOME ARE STILL CLOSED) WITH WEEPING NOTED, IS COVERED WITH DRSG AND KERLIX. BUE /BLE ARE ELEVATED WITH PILLOWS. PT WILL TURNED EVERY TWO HRS. PATIENT HAD A LARGE BM. ALL SAFETY PRECAUTIONS IN PLACE. ENDORSED TO COMPLIANCE DIRECTOR ALVA REYNA.
--- NOTE | 2020-06-29 19:00 | NUR ---
RN OPENING NOTE RECEIVED PATIENT IN BED RESTING OBTUNDED,ON MECHANICAL VENT ON SETTING TRACH PORTEX #8 AC 16 FIO2 40% PEEP 5 O2:97% ON G-TUBE FEEDING GLUCERNA 1.2 55CC/HR CHECKED PLACEMENT IN PLACE NO RESIDUAL NOTED ON JACINTO CATHETER URINE RUNNING YELLOW AND CLEAR BY GRAVITY,IV SITE IS ON LEFT UPPER ARM MID LINE,AND RIGHT FOOT INTACT PATIENT ON NORMAL SALINE 0.9% IV HYDRATION 75CC/HR HEAD OF BED ELEVATED,SAFETY MEASURE IMPLEMENT,BUE AND BLE EDEMA +2 CONTINUE TO MONITOR
[2020-06-29 20:00] VITALS: BP 110/62
--- NOTE | 2020-06-29 20:52 | NUR ---
RN NOTE HELD INSULIN LANTUS 20 UNIT BLOOD SUGAR IS 91 CONTINUE TO MONITOR
[2020-06-30] VITALS: BP 113/62
[2020-06-30] MEDS: HYDROCODONE/APAP 5/325MG TABLET PO SCH ×5 (00:11→23:22)
[2020-06-30] MEDS: BACLOFEN (10 MG) 10 MG TABLET GT SCH ×5 (00:11→23:22)
[2020-06-30] MEDS: ALBUTEROL FS 2.5 MG/3 ML VIAL.NEB NEB SCH ×4 (01:40→22:00)
[2020-06-30 04:00] VITALS: BP 146/77
--- NOTE | 2020-06-30 04:00 | NUR ---
RN NOTE ACETAMINOPHEN 650MG PRN GIVEN FOR TEMP 100.0 CONTINUE TO MONITOR.
[2020-06-30] MEDS: MEROPENEM 1 G in IV NS 0.9% 100 ML IV SCH (04:29)
[2020-06-30] MEDS: ACETAMINOPHEN 650 MG/20.3 ML UDC GT PRN (04:35)
[2020-06-30] MEDS: BLOOD SUGAR DIAGNOSTIC 1 EACH STRIP IN SCH ×4 (05:46→23:22)
[2020-06-30] MEDS: INSULIN REGULAR, HUMAN 100 UNIT/ML 3 ML VIAL SQ PRN ×3 (05:50→18:24)
--- NOTE | 2020-06-30 06:00 | NUR ---
RN NOTE TEMPERATURE IS 98.9 CONTINUE TO MONITOR.
--- NOTE | 2020-06-30 06:40 | NUR ---
RN CLOSING NOTE PATIENT REMAINS ON OBTUNDED CONFUSED ON MECHANICAL VENT NO SOB NOT ACUTE DISTRESS NOTED,ALL DUE MEDS GIVEN MD ORDERED KEPT CLEAN AND DRY ALL THE TIME,ON G-TUBE FEEDING GLUCERNA 1.2 55CC/HR,JACINTO CATHETER IN PLACE,URINE DRAINING YELLOW AND CLEAR,KEPT COMFORTABLE,HEAD OF THE BED ELEVATED ALL THE TIME FOR PREVENT ASPIRATION,ALL NEEDS MET.ENDORSE NEXT COMING SHIFT FOR CONTINUATION OF CARE
--- NOTE | 2020-06-30 07:30 | NUR ---
BUILDING SPECIALIST OPENING NOTES Patient received in bed and in obtunded state. Patient is on mechanical vent and does not show any s/s of. Gtube feeding of Glucerna running at 55 cc/hour. Livingston intact and patent and draining clear yellow urine. Gtube placement checked and patent. Head of bed kept elevated for aspiration precaution. respiratory distress. Patient will be monitored. Bed is in lowest and locked position.
[2020-06-30 08:00] VITALS: BP 129/70
[2020-06-30] MEDS: MAGNESIUM OXIDE 400 MG TABLET GT SCH ×2 (09:28→18:06)
[2020-06-30] MEDS: DOCUSATE SODIUM LIQ 100 MG/10 ML UDC GT SCH ×2 (09:28→18:06)
[2020-06-30] MEDS: FAMOTIDINE/PF INJ 20 MG/2 ML VIAL IV SCH (09:29)
[2020-06-30] MEDS: INSULIN GLARGINE, 100 UNIT/ML CARTRIDGE SQ SCH ×2 (09:33→21:39)
[2020-06-30] MEDS: METFORMIN 500 MG TABLET GT SCH (09:37)
--- NOTE | 2020-06-30 09:50 | NUR ---
Spoke to Dr Lovett regarding patient's eliquis bid. Informed MD of patient's last platletts count. Per MD to give the eliquis. No s/s of bleeding noted.
--- NOTE | 2020-06-30 10:15 | NUR ---
WOUND CARE CONSULT: REVIEWED CHART, NURSING DOCUMENTATION AND PHOTOS WHICH INDICATE RT ARM BLISTERING AND SKIN TEAR WHICH WAS PRESENT ON ADMISSION. RECOMMENDATIONS MADE FOR WOUND CARE AND SKIN PROTECTION. DISCUSSED WITH NURSING STAFF. FIRST STEP LOW AIRLOSS MATTRESS ORDERED. MD IN AGREEMENT WITH PLAN OF CARE.
[2020-06-30] MEDS ORDERED: Z GUARD REMEDY 2 OZ OINT TP PRN (10:30)
[2020-06-30] MEDS: Z GUARD REMEDY 2 OZ OINT TP SCH (11:10)
[2020-06-30] MEDS: APIXABAN 2.5 MG TABLET GT SCH ×2 (11:17→18:23)
[2020-06-30 12:00] VITALS: BP 146/87
[2020-06-30] MEDS ORDERED: DOSING PER PHARMACY-AMIKACI IV XX PRN (12:30)
[2020-06-30] MEDS ORDERED: AMIKACIN 800 MG in IV D5W 100 ML IV SCH (14:00)
[2020-06-30 15:16] LABS: CREATININE 0.7 mg/dL (0.6-1.3); POTASSIUM 4.7 mmol/L (3.5-5.1)
[2020-06-30] MEDS: IV NS 0.9% 1,000 ML IV PRN (15:23)
[2020-06-30] MEDS: GLUCERNA 1.2 1,000 ML BOTTLE NG PRN (15:23)
[2020-06-30 18:00] VITALS: BP 113/70
--- NOTE | 2020-06-30 19:42 | NUR ---
COIL INSPECTOR CLOSING NOTES Patient resting in bed and is in obtunded state. Patient is on mechanical vent and does not show any s/s of respiratory distress. Gtube placement checked and patent.Gtube feeding of Glucerna running at 55 cc/hour. Livingston intact and patent and draining clear yellow urine and noted with 1300 cc of clear yellow urine during shift. IV site patent and free of s.s of infiltration. Patient noted with one BM which was formed in consistency. Gtube placement checked and patent. Head of bed kept elevated for aspiration precaution.Bed is in lowest and locked position. Endorsed to next shift for [place].
[2020-06-30 20:00] VITALS: BP_SYST 113; BP_SYST 131; BP_DIAS 62; BP_DIAS 70
[2020-06-30] MEDS ORDERED: FAMOTIDINE (20 MG) 20 MG TABLET GT SCH (21:00)
[2020-07-01] VITALS (7 sets, daily range): BP systolic 90–158; BP diastolic 48–97
[2020-07-01] MEDS: ALBUTEROL FS 2.5 MG/3 ML VIAL.NEB NEB SCH ×4 (01:55→21:37)
[2020-07-01] MEDS: HYDROCODONE/APAP 5/325MG TABLET PO SCH ×4 (06:36→23:10)
[2020-07-01] MEDS: BACLOFEN (10 MG) 10 MG TABLET GT SCH ×4 (06:37→23:09)
[2020-07-01] MEDS: BLOOD SUGAR DIAGNOSTIC 1 EACH STRIP IN SCH ×4 (06:37→23:27)
[2020-07-01] MEDS: INSULIN REGULAR, HUMAN 100 UNIT/ML 3 ML VIAL SQ PRN ×3 (06:51→23:11)
--- NOTE | 2020-07-01 07:30 | NUR ---
PT RECEIVED RESTING COMFORTABLY IN BED. NO S/S OR C/O PAIN OR DISCOMFORT NOTED. SIDE RAILS UP X2, CALL LIGHT LEFT WITHIN REACH. WILL CONTINUE PLAN OF CARE.
[2020-07-01] MEDS: DOCUSATE SODIUM LIQ 100 MG/10 ML UDC GT SCH ×2 (08:22→16:58)
[2020-07-01] MEDS: METFORMIN 500 MG TABLET GT SCH (08:22)
[2020-07-01] MEDS: PANTOPRAZOLE 40 MG/PACK PACK GT SCH (08:22)
[2020-07-01] MEDS: MAGNESIUM OXIDE 400 MG TABLET GT SCH ×2 (08:22→16:58)
[2020-07-01] MEDS: APIXABAN 2.5 MG TABLET GT SCH ×2 (08:23→17:00)
[2020-07-01] MEDS: Z GUARD REMEDY 2 OZ OINT TP SCH (08:34)
[2020-07-01] MEDS: INSULIN GLARGINE, 100 UNIT/ML CARTRIDGE SQ SCH ×2 (08:37→21:02)
[2020-07-01 13:22] LABS: CALCIUM, SERUM 8.6 mg/dL (8.5-10.1); CREATININE 0.6 mg/dL (0.6-1.3); POTASSIUM 4.9 mmol/L (3.5-5.1)
--- NOTE | 2020-07-01 19:17 | NUR ---
CHANGE OF SHIFT REPORT PT RESTING COMFORTABLY IN BED. NO S/S OR C/O PAIN OR DISTRESS NOTED. SIDE RAILS UP X2, CALL LIGHT LEFT WITHIN REACH. PT KEPT CLEAN, DRY, AND COMFORTABLE. NO SIGNIFICANT CHANGES SINCE PREVIOUS SHIFT. WILL GIVE REPORT TO BING CALLE.
--- NOTE | 2020-07-01 20:11 | NUR ---
SALES DESIGNER OPENING NOTE Patient is obtund. HOB elevated. Vent dependent: Portex8 AC16 TV500 HnI125% PEEP5. Tele monitor reading sinus rhythm. No acute distress or SOB noted. Skin is warm, pink, dry, appropriate for ethnicity. Skin tear noted on right arm. Dressing clean, dry, intact. 2+ edema noted on bilateral upper and lower extremities. IV site VENESSA midline, saline locked. IV patent and intact, no signs of redness or infiltration. G tube in place, patent and intact, no residual. Gtube feeding running glucerna @ 55 ml/hr. Patient tolerating well. No redness around G-tube site. Livingston catheter in place. Urine output clear and yellow, no sediment. Bed in low position, wheels locked, turn and reposition q2h, side rails up x2, call light within reach.
[2020-07-02] VITALS (7 sets, daily range): BP systolic 80–116; BP diastolic 45–71
[2020-07-02] MEDS: ALBUTEROL FS 2.5 MG/3 ML VIAL.NEB NEB SCH ×4 (01:45→19:51)
[2020-07-02] MEDS: AMIKACIN 750 MG in IV D5W 100 ML IV SCH (02:17)
[2020-07-02] MEDS: INSULIN REGULAR, HUMAN 100 UNIT/ML 3 ML VIAL SQ PRN ×4 (05:16→23:12)
[2020-07-02] MEDS: BLOOD SUGAR DIAGNOSTIC 1 EACH STRIP IN SCH ×4 (05:16→23:12)
[2020-07-02] MEDS: BACLOFEN (10 MG) 10 MG TABLET GT SCH ×4 (05:17→23:12)
[2020-07-02] MEDS: HYDROCODONE/APAP 5/325MG TABLET PO SCH ×4 (05:22→23:12)
--- NOTE | 2020-07-02 06:19 | NUR ---
CAFETERIA CLERK CLOSING NOTE Patient is obtund. HOB elevated. Vent dependent: Portex8 AC16 TV500 FwD822% PEEP5. Tele monitor reading sinus rhythm. No acute distress or SOB noted. Afebrile. Wound dressing changed. IV site VENESSA midline, saline locked. IV patent and intact, no signs of redness or infiltration. G tube in place, patent and intact, no residual. Gtube feeding running glucerna @ 55 ml/hr. Patient tolerating well. No redness around G-tube site. Livingston catheter in place. Urine output clear and yellow, output 1000 ml. Bed in low position, wheels locked, turn and reposition q2h, side rails up x2, call light within reach. Will endorse to oncoming nurse.
[2020-07-02 06:22] LABS: CALCIUM, SERUM 8.6 mg/dL (8.5-10.1); CREATININE 0.7 mg/dL (0.6-1.3); POTASSIUM 4.6 mmol/L (3.5-5.1)
--- NOTE | 2020-07-02 07:30 | NUR ---
RN OPENING NOTE PT LYING IN BED OBTUNDED ON VENT SETTINGS ORDERED PER MD, PORTEX 8, 16, TV 500, FIO2 40%, PEEP 5, TOLERATING WELL, NO SIGN OF RESP DISTRESS OR SOB. PT IS AFEBRILE. PT HAS VENESSA MIDLINE FLUSHED, INTACT AND PATENT WITH NO SIGNS OF INFILTRATION OR INFECTION. G TUBE CHECKED FOR PLACEMENT, INTACT AND PATENT, GLUCERNA 1.2 RUNNING AT 55ML/HR. JACINTO CATH IN PLACE, DRAINING CLEAR YELLOW URINE TO GRAVITY. ALL PT SAFETY PRECAUTIONS IN PLACE, BED LOCKED AND IN LOWEST POSITION, SR UP x3, BED ALARM ON, CALL TSANG WITHIN REACH. WILL CONTINUE TO MONITOR
[2020-07-02] MEDS: DOCUSATE SODIUM LIQ 100 MG/10 ML UDC GT SCH ×2 (09:01→16:21)
[2020-07-02] MEDS: MAGNESIUM OXIDE 400 MG TABLET GT SCH ×2 (09:01→16:21)
[2020-07-02] MEDS: Z GUARD REMEDY 2 OZ OINT TP SCH (09:01)
[2020-07-02] MEDS: PANTOPRAZOLE 40 MG/PACK PACK GT SCH (09:02)
[2020-07-02] MEDS: METFORMIN 500 MG TABLET GT SCH (09:02)
[2020-07-02] MEDS: APIXABAN 2.5 MG TABLET GT SCH ×2 (09:36→16:24)
[2020-07-02] MEDS: INSULIN GLARGINE, 100 UNIT/ML CARTRIDGE SQ SCH ×2 (09:38→20:56)
[2020-07-02] MEDS ORDERED: AMIKACIN IV (12:44)
[2020-07-02] MEDS: GLUCERNA 1.2 1,000 ML BOTTLE NG PRN (12:47)
[2020-07-02] MEDS: ACETAMINOPHEN 650 MG/20.3 ML UDC GT PRN ×2 (13:57→20:51)
[2020-07-02 14:05] LABS: CALCIUM, SERUM 8.7 mg/dL (8.5-10.1); CREATININE 0.7 mg/dL (0.6-1.3); POTASSIUM 4.9 mmol/L (3.5-5.1)
--- NOTE | 2020-07-02 15:12 | NUR ---
RN NOTE PT GIVEN TYLENOL 650MG AT 1400 FOR 99.5 F TEMP, COOLING MEASURES IN PLACE. AT 1500 TEMP OF 100.8 F AND BP OF 82/44, PER DR PASCAL ORDER NS 500MG BOLUS AT 125ML/HR, COOLING MEASURES STILL IN PLACE. WILL REASSESS SHORTLY
[2020-07-02] MEDS ORDERED: IV NS 0.9% 500 ML IV ONE (15:30)
--- NOTE | 2020-07-02 16:15 | NUR ---
RN NOTE PER DR. PASCAL, PT NOT TO BE DISCHARGED TODAY; POSSIBLY TOMORROW. PT TEMP OF 100.9 F, AND BP OF NS 500ML BOLUS @ 125 ML/HR. COOLING MEASURES IN PLACE. WILL CONTIMUE TO MONITOR
--- NOTE | 2020-07-02 19:00 | NUR ---
RN CLOSING NOTE PT IN STABLE CONDITION. PT ON VENT SETTINGS PER MD ORDER, NO SIGNS OF RESP DISTRESS OR SOB. PT TEMP NOW AT 98.7 F AND BP OF 90/48. PT NS BOLUS AT 125ML/HR STILL RUNNING. ALL PT SAFETY PRECAUTIONS IN PLACE. POSSIBLE DISCHARGE TOMORROW 07/03. WILL ENDORSE [place] TO ONCOMING NURSE
--- NOTE | 2020-07-02 19:15 | NUR ---
kiln furniture saw tender opening notes received patient in bed obtunded eyes open . vent dependent tolerating well, no respiratory distress present, continuous pulse ox at bedside 02 sat 100%. vent alarms audible, ambu bag at bedside, plugged into red emergency plug, head of elevated for aspiration precautions, gtube intact with proper placement, no residuals tolerating well, nguyen catheter intact and draining with proper alignment. on phototypesetting equipment monitor sr 72, oriented to staff and call light and kept within reach, all needs attended at this time, will continue to monitor and attend to needs. iv site to left foot removed not working.no s/s of infiltration, midline to left upper arm intact and patent.
--- NOTE | 2020-07-02 20:57 | NUR ---
thresher broomcorn notes accucheck is 86 lantus held to prevent hypoglycemic episode, will continue to monitor. tylenol prn given noted with low grade fever 99.4. cooling measures maintained will continue to monitor.
[2020-07-03] VITALS (9 sets, daily range): BP systolic 90–125; BP diastolic 42–74
[2020-07-03] MEDS: ALBUTEROL FS 2.5 MG/3 ML VIAL.NEB NEB SCH ×4 (01:58→20:53)
[2020-07-03] MEDS: GLUCERNA 1.2 1,000 ML BOTTLE NG PRN ×2 (03:40→23:52)
[2020-07-03] MEDS: HYDROCODONE/APAP 5/325MG TABLET PO SCH ×4 (05:10→23:46)
[2020-07-03] MEDS: BACLOFEN (10 MG) 10 MG TABLET GT SCH ×4 (05:10→23:46)
[2020-07-03] MEDS: BLOOD SUGAR DIAGNOSTIC 1 EACH STRIP IN SCH ×4 (05:18→23:46)
[2020-07-03] MEDS: INSULIN REGULAR, HUMAN 100 UNIT/ML 3 ML VIAL SQ PRN ×4 (05:20→23:48)
--- NOTE | 2020-07-03 06:45 | NUR ---
hospitality internship closing notes patient in bed obtunded eyes open . vent dependent tolerating well, no respiratory distress present, continuous pulse ox at bedside 02 sat 100%. vent alarms audible, ambu bag at bedside, plugged into red emergency plug, head of elevated for aspiration precautions, gtube intact with proper placement, no residuals tolerating well, nguyen catheter intact and draining with proper alignment. on phototypesetting equipment monitor sr 74, call light kept within reach, all needs attended at this time, will continue to monitor and attend to needs.no s/s of infiltration, midline to left upper arm intact and patent, repositioned q2hr sacral skin remains intact. remains afebrile at this time.
[2020-07-03 07:58] LABS: CREATININE 0.7 mg/dL (0.6-1.3); POTASSIUM 4.7 mmol/L (3.5-5.1)
[2020-07-03] MEDS: APIXABAN 2.5 MG TABLET GT SCH ×2 (09:00→17:59)
[2020-07-03] MEDS: PANTOPRAZOLE 40 MG/PACK PACK GT SCH (09:15)
[2020-07-03] MEDS: DOCUSATE SODIUM LIQ 100 MG/10 ML UDC GT SCH ×2 (09:15→17:59)
[2020-07-03] MEDS: MAGNESIUM OXIDE 400 MG TABLET GT SCH ×2 (09:15→18:00)
[2020-07-03] MEDS: METFORMIN 500 MG TABLET GT SCH (09:15)
[2020-07-03] MEDS: INSULIN GLARGINE, 100 UNIT/ML CARTRIDGE SQ SCH ×2 (09:49→23:47)
[2020-07-03] MEDS: Z GUARD REMEDY 2 OZ OINT TP SCH (09:51)
[2020-07-03 12:45] LABS: CALCIUM, SERUM 8.8 mg/dL (8.5-10.1); CREATININE 0.7 mg/dL (0.6-1.3); POTASSIUM 4.5 mmol/L (3.5-5.1)
[2020-07-03] MEDS: AMIKACIN 750 MG in IV D5W 100 ML IV SCH (15:02)
[2020-07-03] MEDS: ACETAMINOPHEN 650 MG/20.3 ML UDC GT PRN (15:50)
--- NOTE | 2020-07-03 16:51 | NUR ---
TELE/RN NOTE DR PASCAL IS MADE AWARE OF ALL VITAL SIGNS (STARTING 1600). WAITING FOR A NEW ORDER FROM MD. Addendum: 07/03/20 at 1739 by JODIE MARTINEZ RN RN NOTE PER DR PASCAL NO NEW ORDERS DESPITE THE TEMP STILL 100F. CASE MANAGEMENT IS AWARE.
--- NOTE | 2020-07-03 17:55 | NUR ---
RN NOTE BLOOD SUGAR 124. NO COVERAGE GIVEN.
--- NOTE | 2020-07-03 17:55 | NUR ---
RN NOTE PER DR NAIDA GORE TO GIVE ELIQUIS 2.5 MG.
--- NOTE | 2020-07-03 19:00 | NUR ---
ALVA NOTE TEMP STILL 100F DESPITE COOLING MEASURES AND TYLENOL ADMINISTRATION. Addendum: 07/03/20 at 1919 by JODIE MARTINEZ RN INSIDE SALES CONSULTANT ENDORSED.
--- NOTE | 2020-07-03 19:18 | NUR ---
TELE/RN CLOSING NOTE THE PATIENT IS TRACH AND VENT DEPENDENT AND TOLERATES SETTINGS WELL. OBTUNDED. GT FEEDING GLUCERNA 1.2 INFUSING AT 55ML/HR AND NO RESIDUAL NOTED. ABDOMEN SOFT AND NON-DISTENDED. JACINTO CATH PRESENT AND DRAINING CLEAR, YELLOW COLOR URINE. NO BLADDER DISTENSION NOTED. VENESSA MIDLINE G 18 PATENT AND SALINE LOCKED. BED LOW AND LOCKED. SIDE RAILS UP X3. CALL LIGHT WITHIN REACH. WILL ENDORSE TO POTABLE WATER TREATMENT OPERATOR.
--- NOTE | 2020-07-03 20:31 | NUR ---
TARUN/RN PATIENT HAS TEMP, 101.9, OBTAINED ORDER TO HOLD D/C FROM DR. HYMAN, CLINICAL DOCUMENT IMPROVEMENT EDUCATOR FOR DR. PASCAL. OBTAINED BLOOD CULTURE X2, UA AND CULTURE, AND LABS WELL.
[2020-07-03 21:10] LABS: BASOPHILS % (AUTO) 0.5 % (0.0-2.0); EOSINOPHILS % (AUTO) 0.7 % (0.0-6.0); HEMATOCRIT 25 % (33-45); HEMOGLOBIN 7.8 g/dL (11.5-14.8); LYMPHOCYTES # (AUTO) 1.2 /CMM (0.8-4.8); LYMPHOCYTES % (AUTO) 24.1 % (20.0-44.0); MEAN CORPUSCULAR HGB CONC 31 g/dl (31.0-36.0); MEAN CORPUSCULAR VOLUME 89 fL (82-100); MONOCYTES # (AUTO) 0.3 /CMM (0.1-1.30); MONOCYTES % (AUTO) 5.2 % (2.0-12.0); NEUTROPHILS # (AUTO) 3.6 /CMM (1.8-8.9); NEUTROPHILS % (AUTO) 69.5 % (43.0-81.0); PLATELET COUNT (AUTO) 90 /CMM (150-450); RED BLOOD CELL COUNT(AUTO) 2.81 MIL/uL (4.0-5.2); WHITE BLOOD COUNT (AUTO) 5.2 K/uL (4.3-11.0)
[2020-07-03 21:26] LABS: CALCIUM, SERUM 8.6 mg/dL (8.5-10.1); CARBON DIOXIDE 26 mmol/L (21-32); CHLORIDE 106 mmol/L (98-107); CREATININE 0.7 mg/dL (0.6-1.3); GLUCOSE 187 mg/dL (74-106); POTASSIUM 5.1 mmol/L (3.5-5.1); SODIUM SERUM 140 mmol/L (136-145); UREA NITROGEN, BLOOD 22 mg/dL (7-18)
[2020-07-03 21:32] LABS: ALANINE AMINOTRANSFERASE 29 U/L (12-78); ALBUMIN 1.8 g/dL (3.4-5.0); ALKALINE PHOSPHATASE 230 U/L (46-116); ASPARTATE AMINOTRANSFERASE 26 U/L (15-37); BILIRUBIN,TOTAL 0.3 mg/dL (0.2-1.0); MAGNESIUM 1.9 mg/dL (1.8-2.4); PHOSPHORUS 4.7 mg/dL (2.5-4.9); TOTAL PROTEIN, SERUM 5.6 g/dL (6.4-8.2)
[2020-07-03 21:56] LABS: BAND % (MANUAL) 6 % (0.0-5.0); EOSINOPHILS % (MANUAL) 1 % (0-4); LYMPHOCYTES % (MANUAL) 23 % (16-48); MONOCYTES % (MANUAL) 5 % (0-11.0); NEUTROPHILS % (MANUAL) 65 (42-76)
--- NOTE | 2020-07-03 22:13 | NUR ---
TARUN/RN TEMP 101.9, TYLENOL ORDERED WAS GIVEN, COOLING MEASURES STARTED, URINE SPECIMEN FROM F/C WAS OBTAINED ORDERED.
[2020-07-04] VITALS: BP 119/59
[2020-07-04 00:20] LABS: BILIRUBIN,DIRECT 0.2 mg/dL (0.0-0.2)
[2020-07-04 01:42] LABS: BILIRUBIN,URINE NEGATIVE (NEGATIVE); COLOR,URINE YELLOW (YELLOW); LEUKOCYTE ESTERASE ,URINE TRACE (NEGATIVE); NITRITE, URINE NEGATIVE (NEGATIVE); PH,URINE 7.5 (5.0-8.0); PROTEIN,URINE NEGATIVE (NEGATIVE); UGLUCOSE NEGATIVE (NEGATIVE); UROBILINOGEN,URINE 0.2 EU/dL (0.2)
[2020-07-04] MEDS: ALBUTEROL FS 2.5 MG/3 ML VIAL.NEB NEB SCH ×4 (02:32→19:47)
[2020-07-04 02:47] LABS: BACTERIA,URINE Moderate /HPF (None Seen); RBC,URINE 0-2 /HPF (0-2); SQUAMOUS EPITHELIAL CELL,UR Few /HPF (None Seen); WBC,URINE 21-50 /HPF (0-3); YEAST,URINE Many /HPF (None Seen)
[2020-07-04 04:26] VITALS: BP 141/68
--- NOTE | 2020-07-04 05:52 | NUR ---
TARUN/RN MORNING CARE WAS DONE, TOTAL LINEN CHANGED DONE, GOOD SKIN CARE DONE, REPOSITIONED TO COMFORT, HOB ELEVATED, ALL NEEDS ATTENDED AT THIS TIME, WILL CONTINUE TO MONITOR.
[2020-07-04] MEDS: INSULIN REGULAR, HUMAN 100 UNIT/ML 3 ML VIAL SQ PRN ×4 (06:21→23:29)
[2020-07-04] MEDS: BLOOD SUGAR DIAGNOSTIC 1 EACH STRIP IN SCH ×4 (06:23→23:28)
[2020-07-04] MEDS: HYDROCODONE/APAP 5/325MG TABLET PO SCH ×4 (06:24→23:35)
[2020-07-04] MEDS: BACLOFEN (10 MG) 10 MG TABLET GT SCH ×4 (06:24→23:35)
[2020-07-04 07:17] LABS: CALCIUM, SERUM 9.1 mg/dL (8.5-10.1); CREATININE 0.6 mg/dL (0.6-1.3); POTASSIUM 4.4 mmol/L (3.5-5.1)
--- NOTE | 2020-07-04 07:30 | NUR ---
RN CLOSING NOTE THE PATIENT IS TRACH AND VENT DEPENDENT AND TOLERATES SETTINGS WELL. OBTUNDED. GT FEEDING GLUCERNA 1.2 INFUSING AT 55ML/HR AND NO RESIDUAL NOTED. ABDOMEN SOFT AND NON-DISTENDED. JACINTO CATH PRESENT AND DRAINING CLEAR, YELLOW COLOR URINE. NO BLADDER DISTENSION NOTED. VENESSA MIDLINE G 18 PATENT AND SALINE LOCKED. BED LOW AND LOCKED. SIDE RAILS UP X3. CALL LIGHT WITHIN REACH. WILL MONITOR AND PROVIDE TREATMENT. Addendum: 07/04/20 at 0941 by BELTRAN JOINER RN RN OPENING NOTE
[2020-07-04 08:00] VITALS: BP 128/75
[2020-07-04] MEDS: MAGNESIUM OXIDE 400 MG TABLET GT SCH ×2 (08:57→17:21)
[2020-07-04] MEDS: METFORMIN 500 MG TABLET GT SCH (08:57)
[2020-07-04] MEDS: PANTOPRAZOLE 40 MG/PACK PACK GT SCH (08:57)
[2020-07-04] MEDS: DOCUSATE SODIUM LIQ 100 MG/10 ML UDC GT SCH ×2 (08:57→17:21)
[2020-07-04] MEDS: INSULIN GLARGINE, 100 UNIT/ML CARTRIDGE SQ SCH ×2 (08:59→21:00)
[2020-07-04] MEDS: Z GUARD REMEDY 2 OZ OINT TP SCH (09:00)
[2020-07-04] MEDS: APIXABAN 2.5 MG TABLET GT SCH ×2 (09:43→17:23)
--- NOTE | 2020-07-04 09:50 | NUR ---
DOCTOR INFORMED OF LOW LATELET COUNT (90). MD ORDERED TO GIVE PRESCRIBED ELIQUIS 2.5MG. MEDICATION ADMINISTERED, WILL CONT TO MONITOR PATIENT.
[2020-07-04 12:00] VITALS: BP 83/48
[2020-07-04] MEDS: ACETAMINOPHEN 650 MG/20.3 ML UDC GT PRN ×2 (15:52→20:54)
[2020-07-04 16:00] VITALS: BP 91/43
[2020-07-04 17:18] LABS: BASOPHILS % (AUTO) 0.8 % (0.0-2.0); EOSINOPHILS % (AUTO) 0.8 % (0.0-6.0); HEMATOCRIT 27 % (33-45); HEMOGLOBIN 8.3 g/dL (11.5-14.8); LYMPHOCYTES # (AUTO) 1.8 /CMM (0.8-4.8); MEAN CORPUSCULAR HGB CONC 31 g/dl (31.0-36.0); MEAN CORPUSCULAR VOLUME 91 fL (82-100); MONOCYTES # (AUTO) 0.4 /CMM (0.1-1.30); MONOCYTES % (AUTO) 7.4 % (2.0-12.0); NEUTROPHILS # (AUTO) 2.7 /CMM (1.8-8.9); PLATELET COUNT (AUTO) 96 /CMM (150-450); RED BLOOD CELL COUNT(AUTO) 2.97 MIL/uL (4.0-5.2)
[2020-07-04 17:24] LABS: CREATININE 0.8 mg/dL (0.6-1.3); POTASSIUM 4.8 mmol/L (3.5-5.1)
[2020-07-04 18:04] LABS: BAND % (MANUAL) 10 % (0.0-5.0); EOSINOPHILS % (MANUAL) 1 % (0-4); LYMPHOCYTES % (MANUAL) 34 % (16-48); MONOCYTES % (MANUAL) 7 % (0-11.0); NEUTROPHILS % (MANUAL) 48 (42-76)
--- NOTE | 2020-07-04 18:32 | NUR ---
RN CLOSING NOTE THE PATIENT IS TRACH AND VENT DEPENDENT AND TOLERATES SETTINGS WELL. OBTUNDED. GT FEEDING GLUCERNA 1.2 INFUSING AT 55ML/HR AND NO RESIDUAL NOTED. ABDOMEN SOFT AND NON-DISTENDED. JACINTO CATH PRESENT AND DRAINING CLEAR, YELLOW COLOR URINE. NO BLADDER DISTENSION NOTED. VENESSA MIDLINE G 18 PATENT AND SALINE LOCKED. BED LOW AND LOCKED. SIDE RAILS UP X3. CALL LIGHT WITHIN REACH. WILL ENDORSE TO STEEL SPAR OPERATOR NURSE FOR [place]
--- NOTE | 2020-07-04 19:00 | NUR ---
RN NOTE RECEIVED PATIENT IN BED, OBTUNDED. PATIENT IN NO S/SX OF ACUTE DISTRESS AT THIS TIME. PATIENT IS TRACHE CONNECTED TO MECHANICAL VENT WITH SETTINGS PRESCRIBED, TOLERATING WELL, SATURATION AT 99%. PATIENT SR ON THE MONITOR, HR IS 76. NOTED VENESSA MIDLINE, PATENT AND FLUSHING WELL. NO S/S OF INFECTION. NOTED GTUBE INTACT AND PATENT, WITH TUBE FEEDING OF GLUCERNA REGULATED AT 55 ML/HR. JACINTO CATHETER CONNECTED DRAINING TO A CLEAR, YELLOW OUTPUT. SAFETY MEASURES IMPLEMENTED PER PROTOCOL. PATIENT BED ALARM IS ON. HEAD OF BED ELEVATED. BED IS LOCKED, IN LOWEST POSITION AND SIDE RAILS UP. CALL LIGHT WITHIN REACH OF THE PATIENT. WILL CONTINUE TO MONITOR AND REASSESS FOR ANY CHANGES.
[2020-07-04 20:00] VITALS: BP 111/68
--- NOTE | 2020-07-04 20:00 | NUR ---
RN NOTE NOTED T 103 DEG F, COOLING MEASURES PROVIDED. PRN ACETAMINOPHEN ADMINISTERED PER ORDERS. WILL CONTINUE TO MONITOR STATUS.
[2020-07-04] MEDS ORDERED: MEROPENEM 500 MG in IV NS 0.9% 50 ML IV ONE (21:00)
[2020-07-04] MEDS: GLUCERNA 1.2 1,000 ML BOTTLE NG PRN (23:35)
[2020-07-05] VITALS: BP 86/42
--- NOTE | 2020-07-05 | NUR ---
RN NOTE NOTED TEMP 102.9 DEG. CONTINUOUS COOLING MEASURES PROVIDED. WILL CONTINUE TO MONITOR. Addendum: 07/05/20 at 0338 by GREG VALLADARES RN TEMP RECHECKED, 100.1. CONTINUOUS COOLING MEASURES GIVEN. CURRENT BP 86/42. REPOSITIONED AND BLE ELEVATED. BP RECHECKED, REVEALED 100/49.
[2020-07-05] MEDS: ALBUTEROL FS 2.5 MG/3 ML VIAL.NEB NEB SCH ×4 (01:34→19:47)
[2020-07-05] MEDS: ACETAMINOPHEN 650 MG/20.3 ML UDC GT PRN ×3 (03:08→16:36)
[2020-07-05 04:00] VITALS: BP 93/45
--- NOTE | 2020-07-05 04:15 | NUR ---
METAL TESTER NOTES Patient noted with fever of 102, provided non medical nursing interventions such as cooling measures and also given prn tylenol. Informed PATTERN KEEPER Demitry with no new orders and to continue to monitor. Patient rechecked and noted with temp of 99.1.
[2020-07-05] MEDS ORDERED: MEROPENEM 1 G in IV NS 0.9% 100 ML IV SCH (05:00)
[2020-07-05] MEDS: MEROPENEM 500 MG in IV NS 0.9% 100 ML IV SCH ×2 (05:25→12:53)
[2020-07-05] MEDS: BACLOFEN (10 MG) 10 MG TABLET GT SCH ×3 (05:26→17:55)
[2020-07-05] MEDS: HYDROCODONE/APAP 5/325MG TABLET PO SCH ×3 (05:26→17:58)
[2020-07-05] MEDS: BLOOD SUGAR DIAGNOSTIC 1 EACH STRIP IN SCH ×3 (06:33→17:55)
[2020-07-05] MEDS: INSULIN REGULAR, HUMAN 100 UNIT/ML 3 ML VIAL SQ PRN ×3 (06:36→17:57)
--- NOTE | 2020-07-05 06:52 | NUR ---
RN NOTE SPUTUM FOR RESPIRATORY CULTURE COLLECTED BY RT. PLACED IN FRIDGE. LAB WAS NOTIFIED.
[2020-07-05 07:17] LABS: BASOPHILS # (AUTO) 0.1 /CMM (0.0-0.2); BASOPHILS % (AUTO) 0.8 % (0.0-2.0); EOSINOPHILS % (AUTO) 0.8 % (0.0-6.0); HEMATOCRIT 24 % (33-45); HEMOGLOBIN 7.4 g/dL (11.5-14.8); LYMPHOCYTES % (AUTO) 22.3 % (20.0-44.0); MEAN CORPUSCULAR HGB CONC 31 g/dl (31.0-36.0); MEAN CORPUSCULAR VOLUME 92 fL (82-100); MONOCYTES # (AUTO) 0.3 /CMM (0.1-1.30); MONOCYTES % (AUTO) 3.7 % (2.0-12.0); NEUTROPHILS # (AUTO) 6.6 /CMM (1.8-8.9); NEUTROPHILS % (AUTO) 72.4 % (43.0-81.0); PLATELET COUNT (AUTO) 86 /CMM (150-450); RED BLOOD CELL COUNT(AUTO) 2.57 MIL/uL (4.0-5.2); WHITE BLOOD COUNT (AUTO) 9.1 K/uL (4.3-11.0)
[2020-07-05 07:29] LABS: CALCIUM, SERUM 8.7 mg/dL (8.5-10.1); PHOSPHORUS 4.1 mg/dL (2.5-4.9)
--- NOTE | 2020-07-05 07:40 | NUR ---
ELECTRICAL LOGGER OPENING NOTES Patient received in bed in stable condition. Patient is on mechanical ventilator with 02 saturation of 97%. Livingston cath intact and hanging to gravity with clear yellow urine. HOB kept elevated for aspiration precautions. Gtube patent and placement checked. No facial grimacing noted. Gtube feeding running at 55 cc/hour , suzy well with residual of 5 cc. Will continue to monitor. Call light with in reach
[2020-07-05 08:00] VITALS: BP 86/51
[2020-07-05] MEDS: APIXABAN 2.5 MG TABLET GT SCH ×2 (09:00→16:29)
[2020-07-05] MEDS: MAGNESIUM OXIDE 400 MG TABLET GT SCH ×2 (10:32→16:36)
[2020-07-05] MEDS: PANTOPRAZOLE 40 MG/PACK PACK GT SCH (10:32)
[2020-07-05] MEDS: METFORMIN 500 MG TABLET GT SCH (10:32)
[2020-07-05] MEDS: DOCUSATE SODIUM LIQ 100 MG/10 ML UDC GT SCH ×2 (10:32→16:36)
[2020-07-05] MEDS: INSULIN GLARGINE, 100 UNIT/ML CARTRIDGE SQ SCH (10:54)
[2020-07-05] MEDS: Z GUARD REMEDY 2 OZ OINT TP SCH (10:55)
[2020-07-05 12:00] VITALS: BP 93/53
[2020-07-05 12:32] LABS: BAND % (MANUAL) 5 % (0.0-5.0); LYMPHOCYTES % (MANUAL) 19 % (16-48); MONOCYTES % (MANUAL) 1 % (0-11.0); NEUTROPHILS % (MANUAL) 75 (42-76)
[2020-07-05 13:54] LABS: CALCIUM, SERUM 8.3 mg/dL (8.5-10.1); CREATININE 0.9 mg/dL (0.6-1.3); POTASSIUM 4.9 mmol/L (3.5-5.1)
[2020-07-05 16:00] VITALS: BP 116/57
--- NOTE | 2020-07-05 16:50 | NUR ---
KEY SANDER NOTES Patient noted with fever of 102, provided non medical nursing interventions such as cooling measures and also given prn tylenol. Informed SHEET METAL WORKER Demitry with no new orders and to continue to monitor. Patient rechecked and noted with temp of 99.1.
--- NOTE | 2020-07-05 19:40 | NUR ---
WATER VALVE REPAIRER CLOSING NOTES Patient in bed in stable condition. Patient is on mechanical ventilator with 02 saturation of 95%. Livingston cath intact and hanging to gravity with clear yellow urine and noted with output of 800 cc during shift. HOB kept elevated for aspiration precautions. Gtube feeding running at 55cc /hour.Will endorse to next shift for [place]
[2020-07-05 20:00] VITALS: BP 92/54
[2020-07-06] VITALS (7 sets, daily range): BP systolic 91–116; BP diastolic 46–63
[2020-07-06] MEDS: MEROPENEM 500 MG in IV NS 0.9% 100 ML IV SCH ×4 (00:46→23:08)
[2020-07-06] MEDS: ACETAMINOPHEN 650 MG/20.3 ML UDC GT PRN ×3 (00:47→23:08)
[2020-07-06] MEDS: INSULIN GLARGINE, 100 UNIT/ML CARTRIDGE SQ SCH ×3 (01:17→23:56)
[2020-07-06] MEDS: INSULIN REGULAR, HUMAN 100 UNIT/ML 3 ML VIAL SQ PRN ×5 (01:17→23:57)
[2020-07-06] MEDS: HYDROCODONE/APAP 5/325MG TABLET PO SCH ×4 (01:21→17:38)
[2020-07-06] MEDS: BACLOFEN (10 MG) 10 MG TABLET GT SCH ×5 (01:21→23:07)
[2020-07-06] MEDS: BLOOD SUGAR DIAGNOSTIC 1 EACH STRIP IN SCH ×4 (01:22→17:31)
[2020-07-06] MEDS: ALBUTEROL FS 2.5 MG/3 ML VIAL.NEB NEB SCH ×4 (01:31→18:49)
[2020-07-06 06:22] LABS: BASOPHILS % (AUTO) 0.5 % (0.0-2.0); EOSINOPHILS % (AUTO) 0.2 % (0.0-6.0); HEMATOCRIT 27 % (33-45); HEMOGLOBIN 8.4 g/dL (11.5-14.8); LYMPHOCYTES # (AUTO) 1.3 /CMM (0.8-4.8); LYMPHOCYTES % (AUTO) 20.2 % (20.0-44.0); MEAN CORPUSCULAR HGB CONC 32 g/dl (31.0-36.0); MEAN CORPUSCULAR VOLUME 89 fL (82-100); MONOCYTES # (AUTO) 0.4 /CMM (0.1-1.30); MONOCYTES % (AUTO) 5.3 % (2.0-12.0); NEUTROPHILS # (AUTO) 4.9 /CMM (1.8-8.9); NEUTROPHILS % (AUTO) 73.8 % (43.0-81.0); PLATELET COUNT (AUTO) 89 /CMM (150-450); RED BLOOD CELL COUNT(AUTO) 2.98 MIL/uL (4.0-5.2); WHITE BLOOD COUNT (AUTO) 6.7 K/uL (4.3-11.0)
[2020-07-06 07:05] LABS: CALCIUM, SERUM 8.4 mg/dL (8.5-10.1); CREATININE 0.8 mg/dL (0.6-1.3); POTASSIUM 4.3 mmol/L (3.5-5.1)
--- NOTE | 2020-07-06 07:30 | NUR ---
RN OPENING NOTE RECEIVED PT IN BED, OBTUNDED. ON VENT SETTINGS PORTEX 8, AC:16, TV: 500, FIO2: 40%, PEEP :5 TOLERATING WELL. NO SOB OR ANY SIGNS OF RESP DISTRESS. VENESSA MIDLINE INTACT, PATENT AND FLUSHED. G TUBE CHECKED FOR PLACEMENT, INTACT AND PATENT. NO RESIDUAL. GLUCERNA 1.2 RUNNING AT 55ML/HR, TOLERATING FEEDING WELL. JACINTO CATH IN PLACE, DRAINING CLEAR YELLOW URINE TO GRAVITY. SAFETY PRECAUTIONS IN PLACE. CALL LIGHT WITHIN REACH. BED LOCKED AND IN LOWEST POSITION WITH SIDE RAILS UP x3. BED ALARM ON. WILL CONTINUE TO MONITOR
[2020-07-06] MEDS: MAGNESIUM OXIDE 400 MG TABLET GT SCH ×2 (08:27→17:36)
[2020-07-06] MEDS: PANTOPRAZOLE 40 MG/PACK PACK GT SCH (08:27)
[2020-07-06] MEDS: METFORMIN 500 MG TABLET GT SCH (08:29)
[2020-07-06] MEDS: DOCUSATE SODIUM LIQ 100 MG/10 ML UDC GT SCH ×2 (08:29→17:36)
[2020-07-06] MEDS: Z GUARD REMEDY 2 OZ OINT TP SCH (09:23)
[2020-07-06] MEDS: APIXABAN 2.5 MG TABLET GT SCH ×2 (09:41→17:38)
--- NOTE | 2020-07-06 10:49 | NUR ---
MANAGER OF PLANNING NOTE RECEIVED PATIENT FROM RYLAND CALLE. PATIENT IN BED RESTING COMFORTABLY. PATIENT ON VENT, TOLERATING VENT SETTINGS WELL. PATIENT IN NO ACUTE DISTRESS. NO SOB NOTED. PATIENT BREATHING IS EVEN AND UNLABORED. PATIENT BED IS LOCKED AND IN LOWEST POSITION. CALL LIGHT WITHIN REACH. WILL CONTINUE TO MONITOR.
--- NOTE | 2020-07-06 10:51 | NUR ---
GAVE REPORT TO ALVA TURNER FOR TRANSFER OF CARE.
[2020-07-06] MEDS: GLUCERNA 1.2 1,000 ML BOTTLE NG PRN (11:05)
[2020-07-06 13:36] LABS: CREATININE 0.8 mg/dL (0.6-1.3); POTASSIUM 4.5 mmol/L (3.5-5.1)
--- NOTE | 2020-07-06 16:30 | NUR ---
WAGE AND SALARY SPECIALIST NOTE PATIENT TEMPERATURE 102F. IMPLEMENTED COOLING MEASURES.
--- NOTE | 2020-07-06 18:48 | NUR ---
COMMUNICATIONS PROGRAM MANAGER CLOSING NOTE PATIENT IN BED RESTING COMFORTABLY. PATIENT ON VENT, TOLERATING VENT SETTINGS WELL. PATIENT IN NO ACUTE DISTRESS. NO SOB NOTED. PATIENT BREATHING IS EVEN AND UNLABORED. PATIENT KEPT CLEAN, DRY, AND COMFORTABLE THROUGHOUT SHIFT. TURNED AND REPOSITIONED Q2H. PATIENT BED IS LOCKED AND IN LOWEST POSITION. CALL LIGHT WITHIN REACH. WILL ENDORSE CARE TO PM SHIFT FOR [place].
--- NOTE | 2020-07-06 19:00 | NUR ---
RN OPENING NOTE RECEIVED PATIENT IN BED RESTING OBTUNDED,CONTRACTED,ON MECHANICAL VENT ON TRACH SETTING PORTEX #8 AC 16 TV500 FIO2:40% PEEP 5 ON G-TUBE FEEDING GLUCERNA 1.2 55CC/HR CHECKED PLACEMENT IN PLACE,NO RESIDUAL, HEAD THE BED ELEVATED,JACINTO CATHETER IN PLACE URINE DRAINING YELLOW AND CLEAR,IV SITE IS ON LEFT UPPER ARM MID LINE INTACT PATENT,CONTINUE TO MONITOR.
--- NOTE | 2020-07-06 20:00 | NUR ---
RN CLOSING NOTE REPORT GIVEN TO LUIS MIGUEL CALLE PATIENT TRANSFER TO [facility] UN[facility] ROOM 329.
[2020-07-07] VITALS: BP 103/55
[2020-07-07] MEDS: BLOOD SUGAR DIAGNOSTIC 1 EACH STRIP IN SCH ×4 (00:04→17:48)
--- NOTE | 2020-07-07 00:40 | NUR ---
MS/TELE/RN NORCO NOT ADMINISTERED AT 00:00 PATIENT WAS COMFORTABLE AND SLEEPING.
[2020-07-07] MEDS: ALBUTEROL FS 2.5 MG/3 ML VIAL.NEB NEB SCH ×4 (00:55→19:23)
--- NOTE | 2020-07-07 01:05 | NUR ---
MS/TELE/RN PATIENT WAS RECEIVED AT AROUND 20:10 Addendum: 07/07/20 at 0112 by TOREY RUANO RN PATIENT WAS RECEIVED AT AROUND 20:10 BY BED FROM [facility]. PATIENT WAS AWAKE, NON VERBAL, ON MECHANICAL VENTILATOR, ON GTUBE FEEDING, NO DISTRESS NOTED, MADE COMFORTABLE IN BED, HOB ELEVATED, TYLENOL 650 MG VIA G TUBE WAS GIVEN FOR TEMP 102.7, COOLING MEASURES STARTED, WILL MONITOR.
[2020-07-07 04:00] VITALS: BP 104/45
[2020-07-07] MEDS: MEROPENEM 500 MG in IV NS 0.9% 100 ML IV SCH ×3 (05:06→21:35)
[2020-07-07] MEDS: HYDROCODONE/APAP 5/325MG TABLET PO SCH ×4 (06:00→18:00)
[2020-07-07] MEDS: BACLOFEN (10 MG) 10 MG TABLET GT SCH ×3 (07:35→17:33)
[2020-07-07] MEDS: INSULIN REGULAR, HUMAN 100 UNIT/ML 3 ML VIAL SQ PRN ×3 (07:38→17:48)
--- NOTE | 2020-07-07 07:38 | NUR ---
PULP GRINDER AND BLENDER OPENING NOTES RECEIVED PATIENT IN BED AWAKE IN NO ACUTE SIGNS OF DISTRESS. HOB ELEVATED. OBTUNDED, NON-VERBAL AND RESPONSIVE TO TACTILE AND PAIN STIMULI. ON TRACH CONNECTED TO MECHANICAL VENT AT SETTINGS OF : PORTEX #8 AC 16 TV 500 FIO2 40% AND PEEP 5, TOLERATING SETTINGS WELL WITH NO SOB NOTED. EXTERNAL DOCK ATTENDANT SHOWS NSR WITH HR ON THE 70'S. G-TUBE IN PLACE WITH FEEDING OF GLUCERNA 1.2 AT 55 ML/HR, TOLERATING WELL. ASPIRATION PRECAUTIONS MAINTAINED. LEFT UPPER ARM MID LINE INTACT PATENT. JACINTO CATHETER IN PLACE DRAINING YELLOW AND CLEAR URINE TO GRAVITY. ALL SAFETY MEASURES IN PLACE; BED IN LOWEST LOCKED POSITION W/ SR UP X2. CALL LIGHT W/IN REACH. WILL CONTINUE TO MONITOR PT.
[2020-07-07 08:00] VITALS: BP 115/73
[2020-07-07 08:17] LABS: CALCIUM, SERUM 8.2 mg/dL (8.5-10.1); CREATININE 0.8 mg/dL (0.6-1.3); POTASSIUM 4.5 mmol/L (3.5-5.1)
[2020-07-07] MEDS: DOCUSATE SODIUM LIQ 100 MG/10 ML UDC GT SCH ×2 (08:57→17:33)
[2020-07-07] MEDS: MAGNESIUM OXIDE 400 MG TABLET GT SCH ×2 (08:57→17:33)
[2020-07-07] MEDS: METFORMIN 500 MG TABLET GT SCH (08:58)
[2020-07-07] MEDS: APIXABAN 2.5 MG TABLET GT SCH ×2 (08:58→17:34)
[2020-07-07] MEDS: PANTOPRAZOLE 40 MG/PACK PACK GT SCH (08:58)
[2020-07-07] MEDS: Z GUARD REMEDY 2 OZ OINT TP SCH (08:59)
[2020-07-07] MEDS: INSULIN GLARGINE, 100 UNIT/ML CARTRIDGE SQ SCH ×2 (09:06→21:58)
[2020-07-07] MEDS: GLUCERNA 1.2 1,000 ML BOTTLE NG PRN (09:15)
[2020-07-07] MEDS: ACETAMINOPHEN 650 MG/20.3 ML UDC GT PRN (09:24)
--- NOTE | 2020-07-07 09:24 | NUR ---
RN NOTES PT NOTED WITH ELEVATED TEMP OF 99.9F THIS MORNING. PRN TYLENOL 650 MG/20.3 ML ADMINISTERED VIA GT. COOLING MEASURES DONE. WILL CONTINUE TO MONITOR PT.
[2020-07-07 12:00] VITALS: BP 117/57
[2020-07-07 16:00] VITALS: BP 104/53
--- NOTE | 2020-07-07 16:31 | NUR ---
RN NOTES COVID 19 RAPID TESTING DONE AND BROUGHT SPECIMEN TO LAB. WILL F/U RESULTS
--- NOTE | 2020-07-07 19:01 | NUR ---
SUGAR CANE PLANTER CLOSING NOTES PATIENT IN BED AWAKE AT THIS TIME. HOB ELEVATED. NON-VERBAL AND RESPONSIVE TO TACTILE AND PAIN STIMULI. ON TRACH CONNECTED TO MECHANICAL VENT AT SETTINGS OF : PORTEX #8 AC 16 TV 500 FIO2 40% AND PEEP 5, TOLERATING SETTINGS WELL WITH NO SOB NOTED. EXTERNAL MOVEMENT ASSEMBLER SHOWS NSR WITH HR ON THE 70'S. G-TUBE IN PLACE WITH FEEDING OF GLUCERNA 1.2 AT 55 ML/HR, TOLERATING WELL. ASPIRATION PRECAUTIONS MAINTAINED. LEFT UPPER ARM MID LINE INTACT PATENT. JACINTO CATHETER IN PLACE DRAINING YELLOW AND CLEAR URINE TO GRAVITY, JACINTO CARE DONE. PT TURNED AND REPOSITIONED Q 2HRS AND PRN. KEPT CLEAN, DRY AND COMFORTABLE. ALL SAFETY MEASURES IN PLACE; BED IN LOWEST LOCKED POSITION W/ SR UP X2. CALL LIGHT W/IN REACH. WILL ENDORSE TO SUPERINTENDENT DRIVERS NURSE FOR [place].
[2020-07-07 20:00] VITALS: BP 128/82
--- NOTE | 2020-07-07 20:56 | NUR ---
MS/TELE/RN DURING INITIAL SHIFT ROUNDING, PATIENT WAS SLEEPING, APPEAR COMFORTABLE, NO SIGNS OF DISTRESS NOTED, MECHANICAL VENTILATOR WORKING WELL, G TUBE FEEDING INFUSING, HOB ELEVATED. WILL MONITOR.
[2020-07-08] VITALS: BP 102/51
[2020-07-08] MEDS: INSULIN REGULAR, HUMAN 100 UNIT/ML 3 ML VIAL SQ PRN ×2 (00:59→06:32)
[2020-07-08] MEDS: BLOOD SUGAR DIAGNOSTIC 1 EACH STRIP IN SCH ×3 (01:00→12:15)
[2020-07-08] MEDS: BACLOFEN (10 MG) 10 MG TABLET GT SCH ×3 (01:01→12:00)
[2020-07-08] MEDS: HYDROCODONE/APAP 5/325MG TABLET PO SCH ×3 (01:02→12:00)
[2020-07-08] MEDS: ALBUTEROL FS 2.5 MG/3 ML VIAL.NEB NEB SCH ×2 (01:15→08:55)
[2020-07-08] MEDS: GLUCERNA 1.2 1,000 ML BOTTLE NG PRN (03:41)
[2020-07-08 04:00] VITALS: BP 130/67
--- NOTE | 2020-07-08 04:24 | NUR ---
MS/TELE/RN MORNING CARE WAS DONE, TOTAL LINEN CHANGE, SKIN CARE DONE. ORAL CARE DONE, REPOSITIONED TO COMFORT. WILL CONTINUE TO MONITOR.
[2020-07-08] MEDS: MEROPENEM 500 MG in IV NS 0.9% 100 ML IV SCH ×2 (04:50→13:00)
[2020-07-08 08:00] VITALS: BP 110/71
[2020-07-08] MEDS: DOCUSATE SODIUM LIQ 100 MG/10 ML UDC GT SCH (08:14)
[2020-07-08] MEDS: Z GUARD REMEDY 2 OZ OINT TP SCH (08:15)
[2020-07-08] MEDS: METFORMIN 500 MG TABLET GT SCH (08:15)
[2020-07-08] MEDS: PANTOPRAZOLE 40 MG/PACK PACK GT SCH (08:15)
[2020-07-08] MEDS: MAGNESIUM OXIDE 400 MG TABLET GT SCH (08:15)
[2020-07-08] MEDS: APIXABAN 2.5 MG TABLET GT SCH (08:16)
[2020-07-08] MEDS: INSULIN GLARGINE, 100 UNIT/ML CARTRIDGE SQ SCH (08:17)
--- NOTE | 2020-07-08 11:00 | NUR ---
BURN NURSE NOTES REPORT GIVEN TO JORDYN CALLE AT THE DISCHARGING FACILITY.
--- NOTE | 2020-07-08 12:30 | NUR ---
BROOM HANDLE DIPPER NOTES PATIENT DISCHARGED TO [facility] IN STABLE CONDITION. SAFETY MEASURES IN PLACE. MIDLINE LEFT IN PLACE PATIENT TO CONTINUE IV MEDICATIONS AT THE FACILITY. DISCHARGE PROTOCOL FOLLOWED. PATIENT DISCHARGED WITH AMBULANCE WITH RT. PATIENT WITH NO BELONGINGS.
== END 2020-07-08 12:00 | DRG 720 ==
LOC: ER 20:58 → TRANSITION 06-25 01:43 → TELE1 06-26 14:11 → TELE 07-06 20:14
PROVIDERS: ADMIT Legal Medicine; ATTEND Legal Medicine
PROC: 5A1955Z Respiratory Ventilation, Greater than 96 Consecutive Hours (ICD-10-PCS; principal; 2020-06-25)
PROC: 05HY33Z Insertion of Infusion Device into Upper Vein, Percutaneous Approach (ICD-10-PCS; 2020-06-27)
DX: A41.51 Sepsis due to Escherichia coli [E. coli] (principal); J96.20 Acute and chronic respiratory failure, unspecified whether with hypoxia or hypercapnia; Z93.1 Gastrostomy status; N39.0 Urinary tract infection, site not specified; E78.5 Hyperlipidemia, unspecified; I48.20 Chronic atrial fibrillation, unspecified; Z79.01 Long term (current) use of anticoagulants; Z86.73 Personal history of transient ischemic attack (TIA), and cerebral infarction without residual deficits; Z99.11 Dependence on respirator [ventilator] status; G93.1 Anoxic brain damage, not elsewhere classified; R53.2 Functional quadriplegia; G92 Toxic encephalopathy; Z20.822 Contact with and (suspected) exposure to COVID-19; D68.59 Other primary thrombophilia; E11.36 Type 2 diabetes mellitus with diabetic cataract; Z93.0 Tracheostomy status; Z79.4 Long term (current) use of insulin; R13.10 Dysphagia, unspecified; G20 Parkinson's disease; F02.80 Dementia in other diseases classified elsewhere, unspecified severity, without behavioral disturbance, psychotic disturbance, mood disturbance, and anxiety; Z79.899 Other long term (current) drug therapy; Z79.83 Long term (current) use of bisphosphonates; Z16.12 Extended spectrum beta lactamase (ESBL) resistance; Z88.8 Allergy status to other drugs, medicaments and biological substances; Z79.51 Long term (current) use of inhaled steroids; I48.91 Unspecified atrial fibrillation; F09 Unspecified mental disorder due to known physiological condition; I10 Essential (primary) hypertension; D69.6 Thrombocytopenia, unspecified; D63.8 Anemia in other chronic diseases classified elsewhere
CPT/HCPCS: 31720; 36415; 71045-TC; 80048-TC; 80053-TC; 80076-TC; 80150; 80202-TC; 81001; 82248-TC; 82728-TC; 82962-TC; 83605-TC; 83735-TC; 83880; 84100-TC; 84484-TC; 85025-TC; 85730-TC; 87040-TC; 87070-TC; 87081-TC; 87086-TC; 87186-TC; 94003-TC; 94760-TC; 94762-TC; 94799-TC; 99082-TC; A4623; A6253; A6403; A7526; C9113; C9803; G0378; J0278; J0696; J1650; J1815; J2185; J2543; J3370; J3490; J7030; J7040; J7050; J7060; U0003

== ENCOUNTER 2022-05-06 16:10 | Inpatient (IN) | payer MEDICAID ==
[~2022-05-06] VITALS: Ht 154.9 cm; Wt 69.4 kg
[~2022-05-06 16:10] MED LIST changes: -ACET650S26 GT; -ALBU2.5V13 IH; -ALBU2.5V38 IH; +ALBU6.7H9 INH; -ALLA266C2 TP; +APIX2.5T GT; -ASCO-340 GT; -ATOR10TA GT; -CARB-93 GT; -CHLO473M5 MM; -CHOL100062 GT; -CLON0.1T GT; +CYAN500T9 GT; -CYCL5TAB GT; -ENOX30DI SQ; +GABA-532 PO; +HYDR-4384 PO; -IPRA0.2S9 IH; -LACT1CAP72 GT; -LISI-607 GT; -MULT1TAB11 GT; -NUT.237L30 GT; +NUT.250L18 GT; +OMEG1CAP GT; -PIPE3.379 IV; -POLY15DR40 EACHEYE; -RXVAN XX; -TRAM50TA GT; -ZINC1CAP2 GT
--- NOTE | 2022-05-06 16:17 | NUR ---
THERESE PETERSON Unit 19 "From [facility] and rehab Abnormal Labs Low H/H Needs Tx". To ER bed 12, hooked to monitor, RT at bedside, vent settings of AC/VC, Fio2: 40%, VT 500ml, Rate: 12 PEEP: 5. kept comfortable. awating md irizarry
--- NOTE | 2022-05-06 17:16 | NUR ---
dr Mason at bedside
[2022-05-06 17:49] LABS: BASOPHILS % (AUTO) 0.4 % (0.0-2.0); EOSINOPHILS % (AUTO) 1.1 % (0.0-6.0); HEMATOCRIT 23 % (33-45); LYMPHOCYTES # (AUTO) 0.9 K/uL (0.8-4.8); LYMPHOCYTES % (AUTO) 24.5 % (20.0-44.0); MEAN CORPUSCULAR HGB CONC 31 g/dl (31.0-36.0); MEAN CORPUSCULAR VOLUME 89 fL (82-100); MONOCYTES # (AUTO) 0.3 K/uL (0.1-1.30); MONOCYTES % (AUTO) 7.8 % (2.0-12.0); NEUTROPHILS # (AUTO) 2.3 K/uL (1.8-8.9); NEUTROPHILS % (AUTO) 66.2 % (43.0-81.0); RED BLOOD CELL COUNT(AUTO) 2.53 MIL/uL (4.0-5.2); WHITE BLOOD COUNT (AUTO) 3.5 K/uL (4.3-11.0)
[2022-05-06 17:53] LABS: CALCIUM, SERUM 9.3 mg/dL (8.5-10.1); CARBON DIOXIDE 26 mmol/L (21-32); CHLORIDE 107 mmol/L (98-107); CREATININE 0.5 mg/dL (0.6-1.3); GLUCOSE 73 mg/dL (74-106); POTASSIUM 3.7 mmol/L (3.5-5.1); SODIUM SERUM 141 mmol/L (136-145); UREA NITROGEN, BLOOD 34 mg/dL (7-18)
[2022-05-06 17:59] LABS: ALANINE AMINOTRANSFERASE 79 U/L (12-78); ALBUMIN 2.6 g/dL (3.4-5.0); ALKALINE PHOSPHATASE 283 U/L (46-116); ASPARTATE AMINOTRANSFERASE 55 U/L (15-37); BILIRUBIN,DIRECT 0.2 mg/dL (0.0-0.2); BILIRUBIN,TOTAL 0.5 mg/dL (0.2-1.0); LIPASE 23 U/L (73-393); TOTAL PROTEIN, SERUM 7.6 g/dL (6.4-8.2)
[2022-05-06 18:03] LABS: HEMOGLOBIN 6.9 g/dL (11.5-14.8); PLATELET COUNT (AUTO) 48 K/uL (150-450)
--- NOTE | 2022-05-06 18:14 | NUR ---
rapid covid swab done and sent to lab
[2022-05-06] MEDS ORDERED: ALBU4TAB6 GT (18:15)
[2022-05-06] MEDS ORDERED: SENN-175 GT (18:15)
[2022-05-06] MEDS ORDERED: PIOG30TA10 GT (18:15)
[2022-05-06] MEDS ORDERED: ATOR20TA GT (18:15)
[2022-05-06] MEDS ORDERED: ALOG6.25 GT (18:15)
[2022-05-06] MEDS ORDERED: CALC-1180 GT (18:15)
[2022-05-06] MEDS ORDERED: ASCO500C17 GT (18:15)
[2022-05-06] MEDS ORDERED: MULT-134 GT (18:15)
[2022-05-06] MEDS ORDERED: FLUD0.1T GT (18:15)
[2022-05-06] MEDS ORDERED: FERR325T23 GT (18:15)
[2022-05-06] MEDS ORDERED: ARGI1POW13 GT (18:15)
[2022-05-06] MEDS ORDERED: CHLO473M3 MM (18:15)
--- NOTE | 2022-05-06 19:17 | NUR ---
ENDORSEMENT GIVEN TO KIMANI CALLE FOR [place]
--- NOTE | 2022-05-06 19:50 | NUR ---
RT pt received on mechanical vent with current settings. trach, shiley 8 coviden. small peace thick secretions suctioned via trach. vent plugged in to red outlet. ambu bag at bedside. no sob, no resp distress.
[2022-05-06] MEDS ORDERED: VANCOMYCIN 1 GM in IV D5W 250 ML IV ONE (20:00)
[2022-05-06] MEDS ORDERED: PIPERACILLIN /TAZOBACTAM 3.375 G in IV D5W 50 ML IV ONE (20:00)
[2022-05-06] MEDS ORDERED: PIPERACILLIN /TAZOBACTAM 3.375 G VIAL IV ONE (20:02)
[2022-05-06] MEDS ORDERED: VANCOMYCIN 1 GM VIAL ONE (20:22)
--- NOTE | 2022-05-06 21:42 | NUR ---
VERBAL TELEPHONE CONSENT OBTAINED FROM DAUGHTER ANURADHA VASQUEZ. WITNESSED BY TWO RNS. CONSENT FORM SIGNED AND PLACED IN PT CHART.
--- NOTE | 2022-05-06 22:00 | NUR ---
PT PRETRANSFUSION RECTAL TEMP 94.4. DR WILDER MADE AWARE AND INFORMED TO PROCEED WITH INITIATING TRANSFUSION AND APPLYING WARMING MEASURES FOR PATIENT.
--- NOTE | 2022-05-06 22:05 | NUR ---
PRBC BLOOD TRANSFUSION STARTED. BP 136/77 P59 T R16 T 94.4. SHER WILDER AWARE OF HYPOTHERMAI. WILL MONITOR FOR ANY ADVERSE REACTIONS.
--- NOTE | 2022-05-06 22:07 | NUR ---
Walter baltazar in ED - 05/06/22 at 2207 by ROSEMARYBBSHIRLEY PT PLACED ON BEAR HUGGER FOR WARMING
--- NOTE | 2022-05-06 22:08 | NUR ---
PT PLACED ON BEAR HUGGER FOR TREATMENT OF HYPOTHERMIA
[2022-05-06 22:41] LABS: BAND % (MANUAL) 7 % (0.0-5.0); BASOPHILS % (MANUAL) 0 % (0.0-2.0); EOSINOPHILS % (MANUAL) 2 % (0-4); LYMPHOCYTES % (MANUAL) 19 % (16-48); MONOCYTES % (MANUAL) 8 % (0-11.0); NEUTROPHILS % (MANUAL) 64 (42-76)
[2022-05-06] MEDS ORDERED: BISACODYL (5 MG) 5 MG TABLET.DR GT PRN (23:00)
--- NOTE | 2022-05-06 23:20 | NUR ---
CALLED OFFICE OF DR PASCAL, LEFT VOICEMAIL FOR ADMISSION
--- NOTE | 2022-05-06 23:29 | NUR ---
PT CONTINUE WITH BLOOD TRANSFUSION, NO REACTIONS NOTED.
[2022-05-07] MEDS ORDERED: MAG HYDROX/AL HYDROX/SIMETH 30 ML UDC PO PRN
[2022-05-07] MEDS ORDERED: MAGNESIUM HYDROXIDE 30 ML UDC PO PRN
[2022-05-07] MEDS ORDERED: IV NS 0.9% 1,000 ML IV ONE
[2022-05-07] MEDS ORDERED: ALBUTEROL FS 2.5 MG/3 ML VIAL.NEB NEB PRN
[2022-05-07] MEDS ORDERED: ONDANSETRON HCL/PF 4 MG/2 ML VIAL IVP PRN
[2022-05-07] MEDS ORDERED: Z GUARD REMEDY 4 OZ OINT TP PRN
[2022-05-07] MEDS ORDERED: IPRATROPIUM NEB FS 0.5 MG/2.5 ML AMPUL.NEB NEB PRN
[2022-05-07] MEDS ORDERED: ACETAMINOPHEN 325 MG TABLET PO PRN
[2022-05-07] MEDS ORDERED: ZOLPIDEM TARTRATE 5 MG TABLET PO PRN
--- NOTE | 2022-05-07 00:20 | NUR ---
PALLET STONE INSERTER NOTE RECEIVED REPORT FROM WIND TURBINE PERFORMANCE ENGINEER DENISHA FOR THIS PATIENT. PATIENT'S ADMITTING DIAGNOSIS IS SEVERE SEPSIS AND ANEMIA. PATIENT HAS CRITICAL LAB VALUE FOR PLATELET: 48; PATIENT'S BODY TEMPERATURE WAS 94.4F @2200 ACCORDING TO ER RECORD. THEN, PATIENT WAS ON "BEAR HUGGER" TO INCREASE HER BODY TEMPERATURE. PATIENT'S BODY TEMPERATURE NOW IS 95.0 F RECTALLY. CONCERNING THE PATIENT'S CRITICAL CONDITION, REPORTED TO CHARGE NURSE ALVA BURGOS. PER MY NURSING JUDGEMENT, IT IS NOT SAFE TO PUT THIS PATIENT INTO TELEMETRY UNIT. THIS PATIENT NEEDS HIGHER LEVEL OF CARE. CHARGE NURSE NOE CALLED ALVA PENA, CHEF ASSISTANT OZ. WAITING FOR RESULT.
[2022-05-07] MEDS ORDERED: IV NS 0.9% 500 ML BAG IV ONE (00:30)
--- NOTE | 2022-05-07 00:38 | NUR ---
NOTED WITH BP IN 80S 85/50 HR 55. NOTIFIED STOKER MECHANIC MEÑO. WITH ORDER TO GIVE 1L NS BOLUS.
--- NOTE | 2022-05-07 00:45 | NUR ---
DONE WITH BLOOD TRANSFUSION. NO REACTIONS NOTED. BOLUS IS BEING GIVEN DUE TO LOW BP.
--- NOTE | 2022-05-07 00:45 | NUR ---
JACINTO CATH INSERTED, URINE COLLECTED, SENT TO LAB
[2022-05-07] MEDS ORDERED: PIPERACILLIN /TAZOBACTAM 3.375 G in IV D5W 50 ML IV SCH ×2 (02:00→12:00)
--- NOTE | 2022-05-07 02:00 | NUR ---
REPORT GIVEN TO ALVA HILARIO. PT GOING TO ROOM 111-1
--- NOTE | 2022-05-07 02:18 | NUR ---
PT TRANSFERRED TO 111-1 PER ACLS PROTOCOL. NO DISTRESS NOTED
--- NOTE | 2022-05-07 02:18 | NUR ---
RT pt transported to floor via ambu bag with no complications. placed back on vent with settings. no sob or distress noted.
--- NOTE | 2022-05-07 02:20 | NUR ---
RN NOTES ADMITTED A FEMALE PATIENT FROM ER VIA [facility] WITH DIAGNOSIS OF ANEMIA. WITH TRACH CONNECTED TO MV WITH PRESCRIBED SETTINGS. VITAL SIGNS TAKEN AND RECORDED. SAFELY TRANSFER TO BED. BODY ASSESSMENT DONE. PICTURE TAKEN AND FILED. IV ACCESS AT R UA #18 PATENT FLUSHES WELL. WITH JACINTO CONNECTED TO URINE BAG DRAINING YELLOWISH URINE. ALL SAFETY MEASURES IN PLACE. HOB ELEVATED. CALL LIGHT WITHIN REACH. WILL CLOSELY MONITOR THE PATIENT
[2022-05-07] MEDS: EPOETIN ALFA (10,000 UNIT) 10,000 UNIT/ML VIAL SQ SCH (03:00)
[2022-05-07] MEDS ORDERED: PIPERACILLIN /TAZOBACTAM 3.375 G VIAL IV ONE (03:05)
--- NOTE | 2022-05-07 03:36 | NUR ---
RN CLEINA Called [facility] to verify if Epogen was given yesterday, Monday. Spoke to Fatimah and she confirmed that Epogen dose was given at the facility yesterday May 06, 2022. Primary RN Елена made notified
[2022-05-07 04:00] VITALS: BP 110/60
[2022-05-07 04:57] LABS: ABG BASE EXCESS -4.3 mmol/L; ABG OXYGEN SATURATION 99.1 % (92.0-98.5); ABG PCO2 28.7 mmHg (35.0-45.0); ABG PH 7.442 (7.350-7.450); ABG PO2 158.6 mmHg (75.0-100.0); AaDO2 93.6 mmHg; COHb 0.4 % (0.5-1.5); MetHb 0.3 % (0.0-1.5); O2Hb 98.4 % (94.0-97.0); PEEP,BG 5 cm H2O; SITE, ABG Right Radial; VT, ABG 500 mL
[2022-05-07] MEDS: BLOOD SUGAR DIAGNOSTIC 1 EACH STRIP IN SCH ×4 (05:23→18:42)
[2022-05-07] MEDS: BACLOFEN (10 MG) 10 MG TABLET GT SCH ×3 (05:23→20:23)
[2022-05-07] MEDS: INSULIN REGULAR, HUMAN 100 UNIT/ML 3 ML VIAL SQ PRN (05:34)
[2022-05-07 06:46] LABS: BASOPHILS % (AUTO) 0.3 % (0.0-2.0); EOSINOPHILS % (AUTO) 0.5 % (0.0-6.0); HEMATOCRIT 24 % (33-45); HEMOGLOBIN 7.5 g/dL (11.5-14.8); LYMPHOCYTES # (AUTO) 0.6 K/uL (0.8-4.8); LYMPHOCYTES % (AUTO) 15.5 % (20.0-44.0); MEAN CORPUSCULAR HGB CONC 32 g/dl (31.0-36.0); MEAN CORPUSCULAR VOLUME 89 fL (82-100); MONOCYTES # (AUTO) 0.3 K/uL (0.1-1.30); MONOCYTES % (AUTO) 7.5 % (2.0-12.0); NEUTROPHILS # (AUTO) 2.9 K/uL (1.8-8.9); NEUTROPHILS % (AUTO) 76.2 % (43.0-81.0); RED BLOOD CELL COUNT(AUTO) 2.66 MIL/uL (4.0-5.2); WHITE BLOOD COUNT (AUTO) 3.8 K/uL (4.3-11.0)
[2022-05-07 06:54] LABS: BILIRUBIN,URINE NEGATIVE (NEGATIVE); COLOR,URINE YELLOW (YELLOW); LEUKOCYTE ESTERASE ,URINE 3+ (NEGATIVE); NITRITE, URINE POSITIVE (NEGATIVE); PH,URINE 7.5 (5.0-8.0); PROTEIN,URINE 2+ mg/dl (NEGATIVE); UGLUCOSE NEGATIVE (NEGATIVE); UROBILINOGEN,URINE 0.2 EU/dL (0.2)
[2022-05-07 06:55] LABS: PLATELET COUNT (AUTO) 42 K/uL (150-450)
[2022-05-07 07:04] LABS: CALCIUM, SERUM 8.4 mg/dL (8.5-10.1); CREATININE 0.5 mg/dL (0.6-1.3); POTASSIUM 3.9 mmol/L (3.5-5.1)
[2022-05-07 07:09] LABS: ALBUMIN 2.3 g/dL (3.4-5.0); BILIRUBIN,DIRECT 0.2 mg/dL (0.0-0.2); BILIRUBIN,TOTAL 0.6 mg/dL (0.2-1.0); MAGNESIUM 2.1 mg/dL (1.8-2.4); PHOSPHORUS 4.9 mg/dL (2.5-4.9); TOTAL PROTEIN, SERUM 6.9 g/dL (6.4-8.2)
[2022-05-07 07:12] LABS: BACTERIA,URINE 4+ /HPF (None Seen); WBC,URINE TOO NUMEROUS TO COUN /HPF (0-3)
[2022-05-07 07:14] LABS: THYROID STIMULATING HORMONE 87.002 uIU/mL (0.358-3.74)
[2022-05-07 08:00] VITALS: BP 112/71
[2022-05-07] MEDS: CALCIUM CARB 600MG /VIT D 1 EACH TABLET GT SCH (08:24)
[2022-05-07] MEDS: DOCUSATE SODIUM 100 MG CAPSULE PO SCH ×2 (08:24→17:20)
[2022-05-07] MEDS: CHLORHEXIDINE GLUCONATE 15 ML UDC MM SCH ×2 (08:24→20:23)
[2022-05-07] MEDS: FERROUS SULFATE (325 MG) 325 MG/TAB TABLET GT SCH (08:24)
[2022-05-07] MEDS: FLUDROCORTISONE 0.1 MG TABLET GT SCH (08:24)
[2022-05-07] MEDS: PANTOPRAZOLE 40 MG VIAL IV SCH (08:25)
[2022-05-07] MEDS: VANCOMYCIN 1 GM in IV D5W 250ml IV SCH ×2 (09:52→17:19)
[2022-05-07] MEDS: LEVOTHYROXINE INJ 100 MCG VIAL IV SCH (09:52)
--- NOTE | 2022-05-07 11:13 | NUR ---
procalcitonin 2.8 md notified.
[2022-05-07 12:00] VITALS: BP 108/71
[2022-05-07] MEDS ORDERED: GLUCERNA 1.2 1,000 ML BOTTLE GT SCH (13:30)
[2022-05-07 13:36] LABS: LYMPHOCYTES % (MANUAL) 15 % (16-48); MONOCYTES % (MANUAL) 4 % (0-11.0); NEUTROPHILS % (MANUAL) 81 (42-76)
[2022-05-07] MEDS: MEROPENEM 500 MG in IV NS 0.9% 50 ML IV SCH ×2 (14:13→20:24)
[2022-05-07] MEDS: INSULIN GLARGINE, 100 UNIT/ML CARTRIDGE SQ SCH ×2 (14:16→20:41)
[2022-05-07 16:00] VITALS: BP 116/73
[2022-05-07] MEDS: GLUCERNA 1.2 1,000 ML BOTTLE GT SCH (16:55)
[2022-05-07] MEDS: CYANOCOBALAMIN 500 MCG TABLET GT SCH (17:20)
--- NOTE | 2022-05-07 19:00 | NUR ---
RN CLOSING NOTE VENT PATIENT WITH TRACH CONNECTED TO MV WITH PRESCRIBED SETTINGS. PATIENT IS OBTUNDED A/O X1. VITAL SIGNS WITHIN DERIK. NO S/S OF SOB OR DISTRESS. IV ACCESS AT R UA #18 PATENT FLUSHES WELL. G TUBE FEEDING GLUCERNA RATE OF 40ML/HOUR. JACINTO CONNECTED TO URINE BAG DRAINING YELLOWISH URINE. ALL SAFETY MEASURES IN PLACE. HOB ELEVATED. CALL LIGHT WITHIN REACH. PATIENT ENDORSED TO THE FITTER PLACER NURSE FOR [place].
--- NOTE | 2022-05-07 19:20 | NUR ---
RN NOTES RECEIVED REPORT FROM MORNING SHIFT. PATIENT IN BED OBTUNDED. WITH TRACH CONNECTED TO MV WITH PRESCRIBED SETTINGS. GT PATENT CONNECTED TO CONTINUOS GT FEEDING. JACINTO CATH CONNECTED TO URINE BAG DRAINING YELLOWISH URINE. VITAL SIGNS TAKEN AND RECORDED. ALL SAFETY IN PLACE AT ALL TIMES. HOB ELEVATED CALL LIGHT WITHIN REACH. WILL CLOSELY MONITOR THE PATIENT
[2022-05-07 20:00] VITALS: BP 101/61
[2022-05-07] MEDS: SENNOSIDES 8.6 MG TABLET GT SCH (22:09)
[2022-05-08] VITALS: BP 122/66
[2022-05-08] MEDS: BLOOD SUGAR DIAGNOSTIC 1 EACH STRIP IN SCH ×4 (00:39→18:26)
[2022-05-08] MEDS: VANCOMYCIN 1 GM in IV D5W 250ml IV SCH ×3 (00:40→16:42)
[2022-05-08] MEDS: INSULIN REGULAR, HUMAN 100 UNIT/ML 3 ML VIAL SQ PRN ×2 (00:40→05:10)
--- NOTE | 2022-05-08 01:01 | NUR ---
RN NOTES SPIRAL TUBE WINDER CAME TO DRAW VANCOMYCIN TROUGH, VANCOMYCIN ALREADY STARTED WILL READ FALSE HIGH RESULT. WILL INFORMED PHARMACY IN THE MORNING.
[2022-05-08 04:00] VITALS: BP 99/60
[2022-05-08] MEDS: MEROPENEM 500 MG in IV NS 0.9% 50 ML IV SCH ×3 (04:14→21:31)
[2022-05-08] MEDS: BACLOFEN (10 MG) 10 MG TABLET GT SCH ×3 (04:19→21:32)
[2022-05-08 05:51] LABS: BASOPHILS % (AUTO) 0.9 % (0.0-2.0); EOSINOPHILS % (AUTO) 0.5 % (0.0-6.0); HEMATOCRIT 27 % (33-45); HEMOGLOBIN 8.4 g/dL (11.5-14.8); LYMPHOCYTES # (AUTO) 0.8 K/uL (0.8-4.8); LYMPHOCYTES % (AUTO) 17.1 % (20.0-44.0); MEAN CORPUSCULAR HGB CONC 32 g/dl (31.0-36.0); MEAN CORPUSCULAR VOLUME 92 fL (82-100); MONOCYTES # (AUTO) 0.3 K/uL (0.1-1.30); MONOCYTES % (AUTO) 5.8 % (2.0-12.0); NEUTROPHILS # (AUTO) 3.4 K/uL (1.8-8.9); NEUTROPHILS % (AUTO) 75.7 % (43.0-81.0); RED BLOOD CELL COUNT(AUTO) 2.89 MIL/uL (4.0-5.2); WHITE BLOOD COUNT (AUTO) 4.5 K/uL (4.3-11.0)
[2022-05-08 06:18] LABS: PLATELET COUNT (AUTO) 41 K/uL (150-450)
--- NOTE | 2022-05-08 07:00 | NUR ---
WORKFORCE SERVICES REPRESENTATIVE OPENING NOTES: RECEIVED PT IN BED OBTUNDED ON MECHANICAL VENT PRESCRIBED CHEST RISING SYMMETRICALLY. NO S/S OF RESPIRATORY DISTRESS. PULP MILL TEAM LEADER READS SB WITH HR41 BPM AT THIS TIME. PT. ON JACINTO CATH DRAINING YELLOW URINE VIA GRAVITY. PT. HAS GTUBE WITH GLUCERNA RUNNING AT 40ML/HR. NO RESIDUAL NOTED. IV ACCESS ON RICKY SALINE LOCK GAUGE 18 PATENT AND FLUSHING WELL. IV SITE DRESSINGS C/D/I, WITH NO S/S OF INFILTRATION. SAFETY MEASURES IN PLACE: BED IN LOWEST & LOCKED POSITION, HOB ELEVATED AT 30 DEGREES, SIDE RAILS UP X3. WILL CONTINUE TO MONITOR PT. FOR ANY CHANGES.
[2022-05-08] MEDS: LEVOTHYROXINE INJ 100 MCG VIAL IV SCH (07:48)
[2022-05-08 08:00] VITALS: BP 118/54
[2022-05-08] MEDS: DOCUSATE SODIUM 100 MG CAPSULE PO SCH ×2 (08:17→17:01)
[2022-05-08] MEDS: FLUDROCORTISONE 0.1 MG TABLET GT SCH (08:17)
[2022-05-08] MEDS: FERROUS SULFATE (325 MG) 325 MG/TAB TABLET GT SCH (08:17)
[2022-05-08] MEDS: CALCIUM CARB 600MG /VIT D 1 EACH TABLET GT SCH (08:17)
[2022-05-08] MEDS: CHLORHEXIDINE GLUCONATE 15 ML UDC MM SCH ×2 (08:17→21:31)
[2022-05-08] MEDS: PANTOPRAZOLE 40 MG VIAL IV SCH (08:17)
[2022-05-08 08:45] LABS: CALCIUM, SERUM 8.4 mg/dL (8.5-10.1); CARBON DIOXIDE 22 mmol/L (21-32); CREATININE 0.7 mg/dL (0.6-1.3); GLUCOSE 113 mg/dL (74-106); MAGNESIUM 2.4 mg/dL (1.8-2.4); PHOSPHORUS 4.2 mg/dL (2.5-4.9); POTASSIUM 3.9 mmol/L (3.5-5.1); SODIUM SERUM 143 mmol/L (136-145); UREA NITROGEN, BLOOD 27 mg/dL (7-18)
[2022-05-08] MEDS: INSULIN GLARGINE, 100 UNIT/ML CARTRIDGE SQ SCH ×2 (08:52→21:00)
[2022-05-08 09:04] LABS: EOSINOPHILS % (MANUAL) 1 % (0-4); LYMPHOCYTES % (MANUAL) 17 % (16-48); MONOCYTES % (MANUAL) 2 % (0-11.0); NEUTROPHILS % (MANUAL) 80 (42-76)
[2022-05-08 12:00] VITALS: BP 121/58
[2022-05-08 16:00] VITALS: BP 97/42
[2022-05-08] MEDS: CYANOCOBALAMIN 500 MCG TABLET GT SCH (17:01)
[2022-05-08] MEDS: DEXTROSE 50%-WATER 50 ML DISP.SYRIN IV PRN (18:26)
--- NOTE | 2022-05-08 18:42 | NUR ---
RN NOTES: CHECKED BLOOD SUGAR 35 REPEAT IT 42 MG/DL.D50 GIVEN IV THEN RECHECKED BS 108 MG/DL
--- NOTE | 2022-05-08 19:13 | NUR ---
RN CLOSING NOTE VENT PATIENT WITH TRACH CONNECTED TO MV WITH PRESCRIBED SETTINGS. PATIENT IS OBTUNDED A/O X1. VITAL SIGNS WITHIN DERIK. NO S/S OF SOB OR DISTRESS. IV ACCESS AT R UA #18 PATENT FLUSHES WELL. G TUBE FEEDING GLUCERNA RATE OF 40ML/HOUR. JACINTO CONNECTED TO URINE BAG DRAINING YELLOWISH URINE. ALL SAFETY MEASURES IN PLACE. HOB ELEVATED. CALL LIGHT WITHIN REACH. PATIENT ENDORSED TO THE TALLOW MAKER NURSE FOR [place].
--- NOTE | 2022-05-08 19:15 | NUR ---
RN OPENING NOTES RECEIVED PATIENT ON BED AWAKE,OBTUNDED, ON MECHANICAL VENTILATOR WITH SETTINGS AC- 16, TV- 500, FIO2- 40%, PEEP- 5, SATING ST 98%. RESPIRATORY EVEN AND UNLABORED, NO SOB NOTED. NO S/S OF DISTRESS NOTED. AFEBRILE. NOTED WITH RICKY #18 PERIPHERAL LINE, INTACT, PATENT. FLUSHED WITH NS. G-TUBE PATENT AND INTACT, VERIFIED PLACEMENT BY AUSCULTATION, NO RESIDUAL NOTED UPON ASPIRATION, RUNNING WIT GLUCERNA 1.2 @ 40 ML/HR. HEAD OF BED WILL KEEP ELEVATED. JACINTO CATHETER INTACT, PATENT DRAINING WITH CLEAR YELLOW URINE OUTPUT VIA GRAVITY. ALL SAFETY PRECAUTION PROVIDED. BED IN LOWEST POSITION, LOCKED. CALL LIGHT WITH IN REACH. CONTINUE TO MONITOR
[2022-05-08 20:00] VITALS: BP 143/72
[2022-05-08] MEDS: SENNOSIDES 8.6 MG TABLET GT SCH (21:32)
--- NOTE | 2022-05-08 21:45 | NUR ---
RN NOTES PATIENT NOTED WITH BLOOD SUGAR 108 mg/dL, NOTIFIED DYE HOUSE WHEEL OPERATOR KIYA WILDER, HOLD LANTUS 38 UNITS.
[2022-05-09] VITALS: BP 134/69
[2022-05-09] MEDS: INSULIN REGULAR, HUMAN 100 UNIT/ML 3 ML VIAL SQ PRN ×2 (00:34→05:57)
[2022-05-09] MEDS: BLOOD SUGAR DIAGNOSTIC 1 EACH STRIP IN SCH ×4 (00:34→18:02)
--- NOTE | 2022-05-09 00:35 | NUR ---
RN NOTES BLOOD SUGAR 71 mg/dL, NO INSULIN COVERAGE PER SLIDING SCALE, NO S/S OF HYPOGLYCEMIA NOTED. CONTINUE TO MONITOR
[2022-05-09] MEDS: GLUCERNA 1.2 1,000 ML BOTTLE GT SCH (00:37)
[2022-05-09 04:00] VITALS: BP 125/65
[2022-05-09] MEDS: BACLOFEN (10 MG) 10 MG TABLET GT SCH ×3 (04:50→22:01)
[2022-05-09] MEDS: MEROPENEM 500 MG in IV NS 0.9% 50 ML IV SCH ×3 (04:51→22:01)
[2022-05-09] MEDS: DEXTROSE 50%-WATER 50 ML DISP.SYRIN IV PRN (05:45)
--- NOTE | 2022-05-09 05:45 | NUR ---
RN NOTES NOTED WITH BLOOD SUGAR 32 mg/dL, D50 GIVEN. CONTINUE TO MONITOR.
[2022-05-09 06:22] LABS: BASOPHILS % (AUTO) 0.5 % (0.0-2.0); EOSINOPHILS % (AUTO) 1.1 % (0.0-6.0); HEMATOCRIT 30 % (33-45); HEMOGLOBIN 9.4 g/dL (11.5-14.8); LYMPHOCYTES # (AUTO) 1.5 K/uL (0.8-4.8); LYMPHOCYTES % (AUTO) 32.4 % (20.0-44.0); MEAN CORPUSCULAR HGB CONC 31 g/dl (31.0-36.0); MEAN CORPUSCULAR VOLUME 93 fL (82-100); MONOCYTES # (AUTO) 0.5 K/uL (0.1-1.30); MONOCYTES % (AUTO) 10.8 % (2.0-12.0); NEUTROPHILS # (AUTO) 2.5 K/uL (1.8-8.9); NEUTROPHILS % (AUTO) 55.2 % (43.0-81.0); RED BLOOD CELL COUNT(AUTO) 3.26 MIL/uL (4.0-5.2); WHITE BLOOD COUNT (AUTO) 4.6 K/uL (4.3-11.0)
--- NOTE | 2022-05-09 06:29 | NUR ---
RN NOTES BLOOD SUGAR RECHECKED, OBTAINED 132 mg/dL, NO S/S OF HYPOGLYCEMIA NOTED. CONTINUE TO MONITOR.
[2022-05-09 06:45] LABS: CALCIUM, SERUM 8.2 mg/dL (8.5-10.1); CREATININE 0.7 mg/dL (0.6-1.3); MAGNESIUM 2.7 mg/dL (1.8-2.4); PHOSPHORUS 4.3 mg/dL (2.5-4.9); POTASSIUM 4.2 mmol/L (3.5-5.1)
--- NOTE | 2022-05-09 07:04 | NUR ---
SOC FROM THE LAB CALLED TO INFORM OF PLATELET COUNT OF 41. INFORMED, NO FURTHER ORDERS NOTED.
[2022-05-09 07:05] LABS: PLATELET COUNT (AUTO) 41 K/uL (150-450)
--- NOTE | 2022-05-09 07:20 | NUR ---
AM TELE OPENING NOTES: RECEIVED PATIENT IN BED, ASLEEP BUT EASILY AROUSES TO VOICE AND TACTILE STIMULI. PATIENT IS OBTUNDED. ON MECHANICAL VENT WITH SETTING FOLLOWS: AC 16, TV 500, FI02 40%, PEEP 5. NO RESPIRATORY DISTRESS NOTED, WITH OXYGEN SATURATION OF 100%. ON SB WITH HR OF 58 ON TELE MONITOR. HAS IV ACCESS ON RIGHT UPPER ARM MIDLINE, INTACT, FLUSHES WELL, WITH NO S/S INFILTRATION NOTED. G-TUBE FEEDING OF GLUCERNA 1.2 RUNNING @ 40 ML/HR. G-TUBE SITE PATENT, IN PLACE, FLUSHES WELL, NO RESIDUAL NOTED. HOB KEPT ELEVATED. BED LOCKED AND IN LOWEST POSITION. ALL SAFETY MEASURES IN PLACE. CALL LIGHT WITHIN REACH. WILL CONTINUE TO MONITOR PATIENT THROUGHOUT SHIFT.
[2022-05-09] MEDS: LEVOTHYROXINE SODIUM 100 MCG TABLET GT SCH (07:49)
[2022-05-09 08:00] VITALS: BP 137/65
[2022-05-09] MEDS: FLUDROCORTISONE 0.1 MG TABLET GT SCH (08:08)
[2022-05-09] MEDS: CALCIUM CARB 600MG /VIT D 1 EACH TABLET GT SCH (08:08)
[2022-05-09] MEDS: DOCUSATE SODIUM 100 MG CAPSULE PO SCH ×2 (08:08→16:05)
[2022-05-09] MEDS: FERROUS SULFATE (325 MG) 325 MG/TAB TABLET GT SCH (08:08)
[2022-05-09] MEDS: PANTOPRAZOLE 40 MG VIAL IV SCH (08:09)
[2022-05-09] MEDS: CHLORHEXIDINE GLUCONATE 15 ML UDC MM SCH ×2 (08:09→22:01)
[2022-05-09] MEDS: INSULIN GLARGINE, 100 UNIT/ML CARTRIDGE SQ SCH ×2 (08:15→21:00)
--- NOTE | 2022-05-09 08:34 | NUR ---
LANTUS INSULIN NOT GIVEN DUE TO LOW BLOOD GLUCOSE EARLIER, CHECKED PATIENT'S BLOOD GLUCOSE RIGHT NOW AND IT WAS 108 MG/DL.
[2022-05-09] MEDS ORDERED: VANCOMYCIN 1 GM in IV D5W 250ml IV SCH (10:00)
[2022-05-09] MEDS ORDERED: GLUCERNA 1.2 1,000 ML BOTTLE GT SCH (10:30)
[2022-05-09 12:00] VITALS: BP 141/66
--- NOTE | 2022-05-09 12:18 | NUR ---
WOUND CARE CONSULT: PT PRESETS WITH SACRAL SCARRING AND DEEP TISSUE INJURY AROUND SCAR, OCCIPITAL UNSTAGEABLE PRESSURE ULCER WELL SCARRING/DISCOLORATION TO HEELS WITH ESCHAR TO LEFT HEEL, ALL PRESENT ON ADMISSION. DR MCCANN AND DR GRIGSBY CALLED FOR SURGICAL AND DPM CONSULTS. RECOMMENDATIONS MADE FOR SKIN PROTECTION. DISCUSSED WITH NURSING STAFF. MD IN AGREEMENT WITH PLAN OF CARE. Addendum: 05/09/22 at 1223 by JAIME ESCAMILLA WNDNU SCARRING ALSO NOTED TO HIPS.
[2022-05-09 16:00] VITALS: BP 139/62
[2022-05-09] MEDS: CYANOCOBALAMIN 500 MCG TABLET GT SCH (17:10)
--- NOTE | 2022-05-09 18:47 | NUR ---
METER READING CLERK CLOSING NOTES: PATIENT IN BED, OBTUNDED WITH MECHANICAL VENT WITH SETTINGS ORDERED. NO RESPIRATORY DISTRESS NOTED THROUGHOUT SHIFT. RIGHT UPPER ARM MIDLINE INTACT, FLUSHES WELL, NO S/S INFILTRATION NOTED. HOB KEPT ELEVATED. G-TUBE IN PLACE, NO RESIDUAL AND FLUSHES WELL. ON GLUCERNA 1.2 @ 55 ML/HR ORDERED BY MD. CALL LIGHT WITHIN REACH. ALL NEEDS MET AND ANTICIPATED. BED LOCKED AND IN LOWEST POSITION. WILL ENDORSE TO INCOMING NURSE FOR CONTINUITY OF CARE.
[2022-05-09 20:00] VITALS: BP 150/76
[2022-05-09] MEDS: SENNOSIDES 8.6 MG TABLET GT SCH (22:01)
--- NOTE | 2022-05-09 22:24 | NUR ---
DR. KIYA WILDER INFORMED BLOOD GLUCOSE 122 DUE FOR LANTUS 38 UNITS WITH NO PARAMETERS WITH ORDER TO HOLD DOSE FOR 05/09/22 2100 DOSE.
[2022-05-09] MEDS: EPOETIN ALFA (10,000 UNIT) 10,000 UNIT/ML VIAL SQ SCH (22:39)
[2022-05-10] VITALS: BP 151/83
[2022-05-10] MEDS: BLOOD SUGAR DIAGNOSTIC 1 EACH STRIP IN SCH ×4 (00:40→17:42)
[2022-05-10 04:00] VITALS: BP 156/82
[2022-05-10] MEDS: MEROPENEM 500 MG in IV NS 0.9% 50 ML IV SCH ×2 (05:14→12:04)
[2022-05-10] MEDS: BACLOFEN (10 MG) 10 MG TABLET GT SCH ×2 (05:14→12:01)
[2022-05-10] MEDS: INSULIN REGULAR, HUMAN 100 UNIT/ML 3 ML VIAL SQ PRN ×3 (06:38→17:49)
[2022-05-10] MEDS: VANCOMYCIN 500 MG in IV D5W 100ml IV SCH ×2 (06:59→17:45)
--- NOTE | 2022-05-10 07:00 | NUR ---
RN CLOSING NOTES: OBTUNDED, TRACH AND VENT WORKING AT PRESCRIBED SETTINGS. GT PATENT IN PLACE, IV ON RICKY INTACT, NO COMPLICATIONS. NO SIDE EFFECTS TO ABX. HOB ELEVATED SEMI-ZAMORA POSITION, BILATERAL HALF SIDE RAILS UPX2, BED IN LOW POSITION, LOCKED, EXIT ALARM ON. CALL LIGHT IN REACH. JACINTO CATH IN PLACE YELLOW CLEAN URINE. KEPT CLEAN AND COMFORTABLE. ALL NEEDS MET.
--- NOTE | 2022-05-10 07:00 | NUR ---
SPOKE TO [facility] PHARMACIST INFORMED VANCOMYCIN ORDER STATES IF VANCO THROUGH MORE THAN 20, HOLD AND CALL PHARMACY AND THAT [facility] WAS INFORMED THAT VANCO THROUGH WAS 42 ON 05/09/22 0530AM PER AKILAH [facility] IS OK TO GIVE VANCOMYCIN DOSE OF 500MG SCHEDULED 0600 DUE TO "ITS BEEN MORE THAN 24 HOURS." DANYELL PHARMACIST STATED: "OK TO GIVE BECAUSE ITS A RE-DOSE AND ITS BEEN HOLD FOR 24 HOURS."
[2022-05-10 07:19] LABS: BASOPHILS % (AUTO) 0.3 % (0.0-2.0); EOSINOPHILS % (AUTO) 0.9 % (0.0-6.0); HEMATOCRIT 31 % (33-45); HEMOGLOBIN 9.7 g/dL (11.5-14.8); LYMPHOCYTES # (AUTO) 0.9 K/uL (0.8-4.8); LYMPHOCYTES % (AUTO) 16.4 % (20.0-44.0); MEAN CORPUSCULAR HGB CONC 32 g/dl (31.0-36.0); MEAN CORPUSCULAR VOLUME 92 fL (82-100); MONOCYTES # (AUTO) 0.4 K/uL (0.1-1.30); MONOCYTES % (AUTO) 8.1 % (2.0-12.0); NEUTROPHILS % (AUTO) 74.3 % (43.0-81.0); RED BLOOD CELL COUNT(AUTO) 3.34 MIL/uL (4.0-5.2); WHITE BLOOD COUNT (AUTO) 5.4 K/uL (4.3-11.0)
--- NOTE | 2022-05-10 07:25 | NUR ---
AM TELE OPENING NOTES: RECEIVED PATIENT IN BED, ASLEEP BUT RESPONDS TO VOICE AND TOUCH. PATINE IS OBTUNDED WITH MECHANICAL VENT WITH PORTEX # 8 WITH VENT SETTING FOLLOWS: AC 16, TV 500, FI02 40%, PEEP 5. NO SOB NOTED, BREATHING EVEN AND UNLABORED. WITH OXYGEN SATURATION OF 100%. ON SR WITH HR OF 66 ON TELE MONITOR. PATIENT HAS IV ACCESS ON RIGHT UPPER ARM MIDLINE, INTACT, FLUSHES WELL, WITH NO S/S INFILTRATION NOTED. G-TUBE SITE PATENT, IN PLACE, FLUSHES WELL, WITH 10 ML OF RESIDUAL NOTED. G-TUBE FEEDING OF GLUCERNA 1.2 RUNNING @ 55 ML/HR. . HOB KEPT ELEVATED. BED LOCKED AND IN LOWEST POSITION. ALL SAFETY MEASURES IMPLEMENTED. CALL LIGHT WITHIN REACH. WILL CONTINUE TO MONITOR PATIENT THROUGHOUT SHIFT.
[2022-05-10 07:27] LABS: PLATELET COUNT (AUTO) 46 K/uL (150-450)
[2022-05-10 07:32] LABS: CALCIUM, SERUM 8.4 mg/dL (8.5-10.1); CREATININE 0.8 mg/dL (0.6-1.3); MAGNESIUM 2.6 mg/dL (1.8-2.4); PHOSPHORUS 3.8 mg/dL (2.5-4.9); POTASSIUM 4.5 mmol/L (3.5-5.1)
[2022-05-10] MEDS: LEVOTHYROXINE SODIUM 100 MCG TABLET GT SCH (07:49)
[2022-05-10 08:00] VITALS: BP 143/66
[2022-05-10] MEDS ORDERED: PANTOPRAZOLE 40 MG/PACK PACK GT SCH (09:00)
[2022-05-10] MEDS: FLUDROCORTISONE 0.1 MG TABLET GT SCH (09:22)
[2022-05-10] MEDS: FERROUS SULFATE (325 MG) 325 MG/TAB TABLET GT SCH (09:22)
[2022-05-10] MEDS: DOCUSATE SODIUM 100 MG CAPSULE PO SCH ×2 (09:22→17:23)
[2022-05-10] MEDS: CALCIUM CARB 600MG /VIT D 1 EACH TABLET GT SCH (09:22)
[2022-05-10] MEDS: CHLORHEXIDINE GLUCONATE 15 ML UDC MM SCH (09:23)
[2022-05-10] MEDS: INSULIN GLARGINE, 100 UNIT/ML CARTRIDGE SQ SCH (09:42)
[2022-05-10 12:00] VITALS: BP 142/77
[2022-05-10 12:47] LABS: OCCULT BLOOD STOOL NEGATIVE (NEGATIVE)
--- NOTE | 2022-05-10 14:06 | NUR ---
RECEIVED DISCHARGE ORDER FOR THE PATIENT PER DR. PASCAL. DISCHARGE PAPERWORK STARTED. TRIED TO CALL FAMILY MEMBER BUT UNABLE TO SPEAK WITH A RELATIVE, CHARGE NURSE TRIED SEVERAL TIMES. [facility] , SPOKE WITH FLAKITA WILSON RN AND GAVE FULL REPORT FOR THE PATIENT AND THE EXPECTED BODY TRIMMER UPHOLSTERER TIME FROM THE FACILITY @ 4:00 PM.
--- NOTE | 2022-05-10 15:15 | NUR ---
CLEANED THE PATIENT AND GOT HER READY FOR THE TRANSFER. TOOK PICTURES OF THE PATIENT'S SKIN CONDITION FOR DOCUMENTATION PURPOSES AND PLACED IN THE CHART. JUVENCIO HAS NO RESPIRATORY DISTRESS NOTED.
[2022-05-10 16:00] VITALS: BP 121/69
[2022-05-10 17:12] LABS: BASOPHILS % (MANUAL) 0 % (0.0-2.0); EOSINOPHILS % (MANUAL) 1 % (0-4); LYMPHOCYTES % (MANUAL) 14 % (16-48); MONOCYTES % (MANUAL) 6 % (0-11.0); NEUTROPHILS % (MANUAL) 79 (42-76)
[2022-05-10] MEDS: CYANOCOBALAMIN 500 MCG TABLET GT SCH (17:23)
--- NOTE | 2022-05-10 18:47 | NUR ---
RN CLOSING NOTES: PATINE IN BED WITH MECHANICAL VENT ORDERED. NO RESPIRATORY DISTRESS NOTED THROUGHPUT SHIFT WITH OXYGEN SATURATION OF 100%. ON SR WITH HR OF 60 ON TELE MONITOR. IV SITE INTACT ON RIGHT UPPER ARM MIDLINE. G-TUBE FEEDING ORDERED, G-TUBE IN PLACE, INTACT AND NO RESIDUAL NOTED. HOB KEPT ELEVATED. ALL NEEDS MET AND ANTICIPATED. CALL LIGHT WITHIN REACH.
--- NOTE | 2022-05-10 19:30 | NUR ---
RECEIVED PATIENT IN BED, ASLEEP BUT RESPONDS TO VOICE AND TOUCH. PATINE IS OBTUNDED WITH MECHANICAL VENT WITH PORTEX # 8 WITH VENT SETTING FOLLOWS: AC 16, TV 500, FI02 40%, PEEP 5. NO SOB NOTED, BREATHING EVEN AND UNLABORED. WITH OXYGEN SATURATION OF 100%. ON SR WITH HR at 60's ON TELE MONITOR. PATIENT HAS IV ACCESS ON RIGHT UPPER ARM MIDLINE, INTACT, FLUSHES WELL, WITH NO S/S INFILTRATION NOTED. G-TUBE SITE PATENT, IN PLACE, FLUSHES WELL, WITH 10 ML OF RESIDUAL NOTED. G-TUBE FEEDING OF GLUCERNA 1.2 infusing @ 55 ML/HR. . HOB KEPT ELEVATED. BED LOCKED AND IN LOWEST POSITION. ALL SAFETY MEASURES IMPLEMENTED. CALL LIGHT WITHIN REACH. WILL CONTINUE PLAN OF CARE.
[2022-05-10 20:00] VITALS: BP 129/62
--- NOTE | 2022-05-10 20:10 | NUR ---
RECEIVED DISCHARGE ORDER FOR THE PATIENT PER DR. PASCAL. DISCHARGE PAPERWORK DONE. [facility] BY AM RN. ML AND FC KEPT IN PLACE REQUESTED. TELE MONITOR REMOVED. PATIENT STABLE. V/S TAKEN. T 97.7, HR 60, RESP, 16, SPO2 97, BP 129/62. DISCHARGED VIA GURNEY WITH PAPERS AND REPORT GIVEN TO [facility] PERSONNEL.
[2022-05-11] MEDS ORDERED: ALENDRONATE 70 MG TABLET PO SCH (06:00)
== END 2022-05-10 23:55 | DRG 720 ==
LOC: ER 16:12 → TELE 22:34 → TELE1 05-07 01:18
PROVIDERS: ADMIT Nurse Practitioner Acute Care; ATTEND Nurse Practitioner Acute Care
PROC: 5A1955Z Respiratory Ventilation, Greater than 96 Consecutive Hours (ICD-10-PCS; principal; 2022-05-06)
PROC: 30233N1 Transfusion of Nonautologous Red Blood Cells into Peripheral Vein, Percutaneous Approach (ICD-10-PCS; 2022-05-06)
DX: A41.9 Sepsis, unspecified organism (principal); J95.851 Ventilator associated pneumonia; J44.0 Chronic obstructive pulmonary disease with (acute) lower respiratory infection; G93.41 Metabolic encephalopathy; R40.3 Persistent vegetative state; L89.156 Pressure-induced deep tissue damage of sacral region; G93.1 Anoxic brain damage, not elsewhere classified; D61.818 Other pancytopenia; R65.20 Severe sepsis without septic shock; Z93.0 Tracheostomy status; R53.2 Functional quadriplegia; I48.0 Paroxysmal atrial fibrillation; L89.896 Pressure-induced deep tissue damage of other site; L03.811 Cellulitis of head [any part, except face]; R13.10 Dysphagia, unspecified; Z93.1 Gastrostomy status; Z79.83 Long term (current) use of bisphosphonates; Z79.899 Other long term (current) drug therapy; G35 Multiple sclerosis; J96.10 Chronic respiratory failure, unspecified whether with hypoxia or hypercapnia; Z99.11 Dependence on respirator [ventilator] status; L90.5 Scar conditions and fibrosis of skin; Z86.73 Personal history of transient ischemic attack (TIA), and cerebral infarction without residual deficits; Z74.01 Bed confinement status; E11.36 Type 2 diabetes mellitus with diabetic cataract; E78.5 Hyperlipidemia, unspecified; G20 Parkinson's disease; F02.80 Dementia in other diseases classified elsewhere, unspecified severity, without behavioral disturbance, psychotic disturbance, mood disturbance, and anxiety; I11.0 Hypertensive heart disease with heart failure; I50.9 Heart failure, unspecified; M81.0 Age-related osteoporosis without current pathological fracture; F32.A Depression, unspecified; R74.01 Elevation of levels of liver transaminase levels; Z20.822 Contact with and (suspected) exposure to COVID-19; F09 Unspecified mental disorder due to known physiological condition
CPT/HCPCS: 31720; 36415; 36600; 71045-TC; 80048-TC; 80061-TC; 80076-TC; 80202-TC; 81001; 82272-TC; 82803-TC; 82962-TC; 83540-TC; 83605-TC; 83690-TC; 83735-TC; 84100-TC; 84443-TC; 84484-TC; 85025-TC; 85730-TC; 86850-TC; 87040-TC; 87081-TC; 87086-TC; 94002-TC; 94003-TC; 94760-TC; 94762-TC; 94799-TC; A6253; A6403; A7526; C9113; C9803; G0378; J0885; J1815; J2185; J2543; J3370; J7030; J7050; J7060; P9016

== ENCOUNTER 2022-05-24 19:31 | Inpatient (IN) | payer MEDICAID ==
[~2022-05-24] VITALS: Ht 172.7 cm; Wt 72.1 kg
[~2022-05-24 19:31] MED LIST changes: +ALBU4TAB6 GT; +ALOG6.25 GT; -APIX2.5T GT; +ARGI1POW13 GT; +ASCO500C17 GT; +ATOR20TA GT; +CALC-1180 GT; +CHLO473M3 MM; +FERR325T23 GT; +FLUD0.1T GT; -GABA-532 PO; +HYDR-4384 GT; -HYDR-4384 PO; -MAGN400T26 GT; -METF-440 GT; +MULT-134 GT; -OMEG1CAP GT; +PIOG30TA10 GT; +SENN-175 GT
--- NOTE | 2022-05-24 19:35 | NUR ---
SABINA Garcia FROM [facility] FOR BRADYCARDIA. PT TRACH; RT AT PT'S BEDSIDE SETTING UP VENT SETTINGS. GTUBE INTACT. PT AWAKE AND NONVERBAL. CONNECTED PT TO POX AND MONITOR. SAFETY MEASURES IN PLACE.
--- NOTE | 2022-05-24 19:37 | NUR ---
PT TOLERATING VENT SETTINGS WELL AT 100% A/C VC FIO2 40% VT 500 RR 16 PEEP 5
--- NOTE | 2022-05-24 19:40 | NUR ---
DR. LAW CORNEJO AT PT'S BEDSIDE FOR EVAL
--- NOTE | 2022-05-24 19:45 | NUR ---
rt called to er for vent dependent pt. pt placed on vent on settings received from the facility. ac 16 500 40% +5. Addendum: 05/24/22 at 2036 by BLANCA SÁNCHEZ RT Amended: Links added.
--- NOTE | 2022-05-24 20:05 | NUR ---
JAYA #22G S/L. SHUTTLE FILLER AT PT'S BEDSIDE. COVID ANTIGEN SWAB COLLECTED AND SENT TO LAB
--- NOTE | 2022-05-24 20:07 | NUR ---
NURSING ASSOCIATE AT PT'S BEDSIDE
--- NOTE | 2022-05-24 20:11 | NUR ---
COVID SWAB COLLECTED
--- NOTE | 2022-05-24 20:28 | NUR ---
RECTAL TEMP 92.0F; DR. LAW CORNEJO AWARE. INITIATED WARMING MEASURES AND WILL REASSESS.
--- NOTE | 2022-05-24 20:45 | NUR ---
APPLIED BEAR HUGGER BLANKET FOR WARMING MEASURES
[2022-05-24 20:48] LABS: BASOPHILS % (AUTO) 0.2 % (0.0-2.0); HEMATOCRIT 22 % (33-45); LYMPHOCYTES # (AUTO) 0.7 K/uL (0.8-4.8); LYMPHOCYTES % (AUTO) 24.2 % (20.0-44.0); MEAN CORPUSCULAR HGB CONC 31 g/dl (31.0-36.0); MEAN CORPUSCULAR VOLUME 92 fL (82-100); MONOCYTES # (AUTO) 0.2 K/uL (0.1-1.30); MONOCYTES % (AUTO) 5.8 % (2.0-12.0); NEUTROPHILS % (AUTO) 68.8 % (43.0-81.0); RED BLOOD CELL COUNT(AUTO) 2.38 MIL/uL (4.0-5.2)
[2022-05-24 20:54] LABS: MAGNESIUM 3.5 mg/dL (1.8-2.4)
[2022-05-24 21:02] LABS: HEMOGLOBIN 6.8 g/dL (11.5-14.8); PLATELET COUNT (AUTO) 26 K/uL (150-450)
[2022-05-24 21:11] LABS: ALANINE AMINOTRANSFERASE 33 U/L (12-78); ALBUMIN 2.3 g/dL (3.4-5.0); ALKALINE PHOSPHATASE 307 U/L (46-116); ASPARTATE AMINOTRANSFERASE 25 U/L (15-37); BILIRUBIN,DIRECT 0.2 mg/dL (0.0-0.2); BILIRUBIN,TOTAL 0.4 mg/dL (0.2-1.0); CALCIUM, SERUM 8.2 mg/dL (8.5-10.1); CARBON DIOXIDE 30 mmol/L (21-32); CHLORIDE 100 mmol/L (98-107); CREATININE 0.8 mg/dL (0.6-1.3); GLUCOSE 145 mg/dL (74-106); POTASSIUM 3.9 mmol/L (3.5-5.1); SODIUM SERUM 134 mmol/L (136-145); TOTAL PROTEIN, SERUM 6.8 g/dL (6.4-8.2); UREA NITROGEN, BLOOD 77 mg/dL (7-18)
--- NOTE | 2022-05-24 21:17 | NUR ---
[facility] PAGED PER DR DE LA CRUZ
--- NOTE | 2022-05-24 21:26 | NUR ---
PROGRAM DIRECTOR/AIR PERSONALITY AT PT'S BEDSIDE
--- NOTE | 2022-05-24 21:26 | NUR ---
DR PSACAL PAGEAbdulaziz
[2022-05-24] MEDS ORDERED: LEVOTHYROXINE INJ 100 MCG VIAL IV SCH (21:30)
[2022-05-24 21:31] LABS: EOSINOPHILS % (MANUAL) 2 % (0-4); LYMPHOCYTES % (MANUAL) 27 % (16-48); MONOCYTES % (MANUAL) 7 % (0-11.0); NEUTROPHILS % (MANUAL) 64 (42-76)
[2022-05-24 21:43] LABS: DIGOXIN < 0.20 ng/mL (0.90-2.00)
[2022-05-24] MEDS ORDERED: ONDANSETRON HCL/PF 4 MG/2 ML VIAL IV PRN (22:00)
[2022-05-24] MEDS ORDERED: ACETAMINOPHEN 650 MG/20.3 ML UDC GT PRN (22:00)
[2022-05-24] MEDS ORDERED: MORPHINE SULFATE INJ 2 MG/ML DISP.SYRIN IV PRN (22:00)
--- NOTE | 2022-05-24 22:40 | NUR ---
GAINED PHONE VERBAL CONSENT FROM ANURADHA VASQUEZ (DAUGHTER) [phone] WITH 2 RN WITNESS. ANURADHA VERBALIZED UNDERSTANDING.
--- NOTE | 2022-05-24 23:43 | NUR ---
SYNTHROID 200MCG NOT AVAILABLE. JAMIE CALLE PIPE MAKER AWARE AND WILL CONTACT ON-CALL PHARMACY
[2022-05-24] MEDS: BLOOD SUGAR DIAGNOSTIC 1 EACH STRIP IN SCH (23:55)
--- NOTE | 2022-05-25 03:15 | NUR ---
INITIATED RBC BLOOD TRANSFUSION X1 UNIT @ RAC #20G S/L PATENT AND INTACT. BP 156/77 HR 53 RR16 RECTAL TEMP 92.0. BEAR HUGGER WARMING MEASURES CONTINUED. WILL MONITOR FOR ADVERSE REACTIONS
--- NOTE | 2022-05-25 03:45 | NUR ---
INITIATED F/C 16FR WITH URINE RETURNED. LARGE INCONTINENT URINE AND SMALL BM NOTED. PT KEPT CLEAN AND DRY. REPOSITIONED PT. SAFETY MEASURES CONTINUED.
--- NOTE | 2022-05-25 04:15 | NUR ---
PT TOLERATING BLOOD TRANSFUSION WELL. VSS. NO ADVERSE REACTIONS NOTED. NO PHLEBITIST OR IV INFILTRATION NOTED TO RAC #20G. WILL CONTINUE BLOOD TRANSFUSION AND MONITOR CLOSELY.
--- NOTE | 2022-05-25 05:10 | NUR ---
PER RBC PROTOCOL, MORNING LABS 0500 TO BE DRAWN AFTER RBC 1 UNIT COMPLETED; LAB AWARE. RBC STILL TRANFUSING; PT TOLERATING WELL.
[2022-05-25] MEDS: BLOOD SUGAR DIAGNOSTIC 1 EACH STRIP IN SCH ×2 (06:16→12:00)
--- NOTE | 2022-05-25 06:30 | NUR ---
RBC BLOOD X1 UNIT TRANSFUSION COMPLETED. NO ADVERSE REACTION NOTED. VSS
[2022-05-25] MEDS: IV D5/ 0.9% NACL 1,000 ML IV PRN ×2 (07:15→22:04)
--- NOTE | 2022-05-25 07:19 | NUR ---
DR. JEEVAN CORNEJO CARDIO AT PT'S BEDSIDE
[2022-05-25] MEDS ORDERED: ASCO500T10 GT (08:10)
[2022-05-25] MEDS ORDERED: ACET650S26 GT (08:10)
[2022-05-25] MEDS ORDERED: CALC1TAB30 GT (08:10)
[2022-05-25] MEDS ORDERED: ACET-2605 GT (08:10)
[2022-05-25 08:52] LABS: BASOPHILS % (AUTO) 0.2 % (0.0-2.0); EOSINOPHILS % (AUTO) 0.3 % (0.0-6.0); HEMATOCRIT 23 % (33-45); LYMPHOCYTES # (AUTO) 0.5 K/uL (0.8-4.8); LYMPHOCYTES % (AUTO) 18.5 % (20.0-44.0); MEAN CORPUSCULAR HGB CONC 31 g/dl (31.0-36.0); MEAN CORPUSCULAR VOLUME 91 fL (82-100); MONOCYTES # (AUTO) 0.2 K/uL (0.1-1.30); MONOCYTES % (AUTO) 6.2 % (2.0-12.0); NEUTROPHILS % (AUTO) 74.8 % (43.0-81.0); RED BLOOD CELL COUNT(AUTO) 2.47 MIL/uL (4.0-5.2); WHITE BLOOD COUNT (AUTO) 2.7 K/uL (4.3-11.0)
[2022-05-25 09:19] LABS: PLATELET COUNT (AUTO) 33 K/uL (150-450)
[2022-05-25 09:30] LABS: CALCIUM, SERUM 8.3 mg/dL (8.5-10.1); CREATININE 0.8 mg/dL (0.6-1.3); MAGNESIUM 3.5 mg/dL (1.8-2.4); POTASSIUM 3.5 mmol/L (3.5-5.1)
[2022-05-25] MEDS ORDERED: ACETAMINOPHEN 650 MG/20.3 ML UDC GT PRN (10:00)
[2022-05-25] MEDS ORDERED: BISACODYL (5 MG) 5 MG TABLET.DR GT PRN (10:00)
[2022-05-25] MEDS ORDERED: MAGNESIUM HYDROXIDE 30 ML UDC GT PRN (10:00)
[2022-05-25] MEDS ORDERED: ACETAMINOPHEN ES 500 MG TABLET GT PRN (10:00)
[2022-05-25] MEDS ORDERED: PANTOPRAZOLE 40 MG VIAL ONE (10:58)
[2022-05-25] MEDS: PANTOPRAZOLE 40 MG VIAL IV SCH (11:00)
[2022-05-25] MEDS: LEVOTHYROXINE INJ 100 MCG VIAL IV SCH (11:10)
[2022-05-25] MEDS ORDERED: BACLOFEN (10 MG) 10 MG TABLET ONE (15:38)
[2022-05-25] MEDS ORDERED: HYDROCODONE/APAP 5/325MG TABLET ONE (15:38)
[2022-05-25] MEDS: BACLOFEN (10 MG) 10 MG TABLET GT SCH ×2 (15:50→20:25)
[2022-05-25] MEDS: HYDROCODONE/APAP 5/325MG TABLET GT SCH ×2 (15:50→20:24)
[2022-05-25 16:00] LABS: BAND % (MANUAL) 1 % (0.0-5.0); LYMPHOCYTES % (MANUAL) 20 % (16-48); NEUTROPHILS % (MANUAL) 75 (42-76)
[2022-05-25 16:01] LABS: MONOCYTES % (MANUAL) 4 % (0-11.0)
--- NOTE | 2022-05-25 16:47 | NUR ---
room assigned. 111.2 admitting aware.
--- NOTE | 2022-05-25 16:53 | NUR ---
report given to Pam CALLE to continue care.
--- NOTE | 2022-05-25 18:50 | NUR ---
BIG DATA PLATFORM ARCHITECT NOTE ADMIT 62 YEARS OLD FEMALE TO TARUN UNIT FOR TARUN MONITORING AT ROOM 112-1 CONTRACTED,NON VERBAL ON MECHANICAL VENT SETTING PRESCIBED HAS G-TUBE SITE JACINTO IN PLACE,URINE DRAINING BY GRAVITY,WILL ENDORSE NEXT COMING SHIFT FOR CONTINUATION OF CARE.
--- NOTE | 2022-05-25 18:53 | NUR ---
wheeled patient via gurney accompanied by RN and emt in no distress. RN assigned at bedside to assume care.
[2022-05-25 19:10] VITALS: BP 113/62
[2022-05-25 20:00] VITALS: BP 132/75
[2022-05-25] MEDS: ALBUTEROL FS 2.5 MG/3 ML VIAL.NEB NEB SCH (20:46)
[2022-05-25] MEDS ORDERED: INSULIN GLARGINE, 100 UNIT/ML CARTRIDGE SQ SCH (21:00)
[2022-05-25] MEDS: ATORVASTATIN 10 MG TABLET GT SCH (22:00)
[2022-05-25] MEDS: SENNOSIDES 8.6 MG TABLET GT SCH (22:00)
[2022-05-25] MEDS: CHLORHEXIDINE GLUCONATE 15 ML UDC MM SCH (22:03)
[2022-05-26] VITALS: BP 152/86
[2022-05-26] MEDS: BLOOD SUGAR DIAGNOSTIC 1 EACH STRIP IN SCH ×4 (00:03→17:17)
[2022-05-26] MEDS: DEXTROSE 50%-WATER 50 ML DISP.SYRIN IV PRN (00:11)
--- NOTE | 2022-05-26 00:33 | NUR ---
RN NOTE INFORMED DR. PASCAL THAT PATIENT HAD A HYPOGLYCEMIC EPISODE FOR MIDNIGHT ACCU CHECK. BS 45, REPEAT BS 47. PATIENT WAS NOT ON IVF D/T NEEDING NEW IV LINE. NEW LINE INSERTED AND GIVEN D10 PER PROTOCOL. WILL REASSESS BS AFTER INFUSION AND CONTINUE D5NS@75.
[2022-05-26] MEDS: ALBUTEROL FS 2.5 MG/3 ML VIAL.NEB NEB SCH ×4 (01:34→19:43)
[2022-05-26 04:00] VITALS: BP 147/90
[2022-05-26] MEDS: HYDROCODONE/APAP 5/325MG TABLET GT SCH ×3 (04:29→21:00)
[2022-05-26] MEDS: BACLOFEN (10 MG) 10 MG TABLET GT SCH ×3 (04:29→21:00)
[2022-05-26] MEDS: INSULIN REGULAR, HUMAN 100 UNIT/ML 3 ML VIAL SQ PRN ×2 (06:39→17:25)
--- NOTE | 2022-05-26 07:30 | NUR ---
TD RN AM NOTE PATIENT IN BED, OBTUNDED, PT WITH SHILEY 8 CUFFED TRACH TO MECHANICAL VENT, SETTING ORDERED, AC 16 TV 500 FIO2 40 PEEP 5. O2 SAT 100%. NO SOB, NO DISTRESS, BREATHING EVEN, RESPIRATION UNLABORED.SR HR 60, ON MONITOR, NO SIGNS OF PAIN, WITH RIGHT HAND G 22 IV ACCESS WITH D5NS AT 75 ML/HR INFUSING WELL. LEFT AC IV ACCESS PULLED OUT. RIGHT AC G 22 FLUSHES WELL, SITE CLEAR. G TUBE CLAMPED AT THIS TIME, CHECKED FOR PLACEMENT, FLUSHED BUT LEAKING. JACINTO CATH IN PLACE, DRAINING TO YELLOW COLORED URINE.SEE NURSING FLOWSHEET FOR SKIN ISSUES. HAS MULTIPLE WOUNDS, FOR WOUND CONSULT, SAFETY MEASURES IN PLACE. BED LOW/LOCKED. HOB 3O DEG, SR UP X 2, CALL LIGHT WITHIN REACH. WILL CONTINUE TO MONITOR.
--- NOTE | 2022-05-26 07:41 | NUR ---
RN CLOSING NOTE OBTUNDED. ON MECHANICAL VENT. NO CHANGES IN VENT SETTINGS. NO S/S PAIN NOTED. SINUS TOI/ SINUS RHYTHM ON THE MONITOR. GTUBE CLAMPED, LEAKING AT INSERTION SITE. IVF NOW RUNNING. WOUND PHOTOS TAKEN, WOUND CONSULT PENDING.
[2022-05-26 08:00] VITALS: BP 141/81
[2022-05-26] MEDS ORDERED: OMEPRAZOLE 20 MG CAPSULE.DR GT SCH (09:00)
[2022-05-26] MEDS: PIOGLITAZONE HCL 15 MG TABLET GT SCH (09:00)
[2022-05-26] MEDS: CHLORHEXIDINE GLUCONATE 15 ML UDC MM SCH ×2 (09:19→21:19)
[2022-05-26] MEDS: PANTOPRAZOLE 40 MG VIAL IV SCH (09:19)
--- NOTE | 2022-05-26 09:30 | NUR ---
RN NOTES UNABLE TO GIVE ALL MEDICATIONS VIA GTUBE DUE TO LEAKING.
[2022-05-26 09:40] LABS: CALCIUM, SERUM 8.4 mg/dL (8.5-10.1); CREATININE 0.8 mg/dL (0.6-1.3); POTASSIUM 2.9 mmol/L (3.5-5.1)
[2022-05-26 10:07] LABS: THYROID STIMULATING HORMONE 28.937 uIU/mL (0.358-3.74)
--- NOTE | 2022-05-26 10:45 | NUR ---
RN NOTES DR. PASCAL AT BEDSIDE. WILL REPLETE POTASSIUM ONCE MIDLINE IS PLACED. AWARE THAT G TUBE IS LEAKING.
[2022-05-26 12:00] VITALS: BP 139/80
[2022-05-26] MEDS: LEVOTHYROXINE INJ 100 MCG VIAL IV SCH (12:05)
[2022-05-26] MEDS: IV D5/ 0.9% NACL 1,000 ML IV PRN (12:28)
[2022-05-26 16:00] VITALS: BP 160/91
[2022-05-26] MEDS: POTASSIUM CL. PREMIX PERIPHER. 50 ML IV SCH ×2 (16:35→17:16)
[2022-05-26] MEDS: CYANOCOBALAMIN 500 MCG TABLET GT SCH (17:16)
[2022-05-26] MEDS: FLUDROCORTISONE 0.1 MG TABLET GT SCH (17:16)
--- NOTE | 2022-05-26 18:31 | NUR ---
TD RN CLOSING NOTE PATIENT IN BED, OBTUNDED, PT WITH SHILEY 8 CUFFED TRACH TO MECHANICAL VENT, SETTING ORDERED, AC 16 TV 500 FIO2 40 PEEP 5. O2 SAT 100%. NO SOB, NO DISTRESS, BREATHING EVEN, RESPIRATION UNLABORED.SR HR 60, ON MONITOR, NO SIGNS OF PAIN, WITH LEFT UPPER ARM MIDLINE G 18 WITH D5NS AT 75 ML/HR INFUSING WELL. RIGHT AC G 22 AND LEFT HAND G 22 IV ACCESS, BOTH, FLUSHES WELL, SITE CLEAR. G TUBE CLAMPED AT THIS TIME, CHECKED FOR PLACEMENT, FLUSHED BUT LEAKING. JACINTO CATH IN PLACE, DRAINING TO YELLOW COLORED URINE. 600 ML OUTPUT. HAS MULTIPLE WOUNDS, FOR WOUND CONSULT, SAFETY MEASURES IN PLACE. BED LOW/LOCKED. HOB 3O DEG, SR UP X 2, CALL LIGHT WITHIN REACH. PM CARE AND WOUND TREATMENT PERFORMED EARLIER, TURNED AND REPOSITIONED Q 2 HOURS. CALL LIGHT WITHIN REACH. WILL ENDORSE TO NEXT SHIFT FOR [place].
--- NOTE | 2022-05-26 19:34 | NUR ---
RN OPENING NOTE PT OBTUNDED. SKIN IS PALE AND DRY. RESPIRATIONS EVEN AND UNLABORED ON VENT. WOUNDS NOTED ON R HEEL, SACRUM, HEAD, AND R AC. PT IS NPO AND GTUBE CLAMPED DUE TO LEAKING. VENESSA MIDLINE INTACT AND PATENT. BED LOCKED AND AT LOWEST POSITION. X2 SIDE RAILS UP AND CALL LIGHT WITHIN REACH.
[2022-05-26 20:00] VITALS: BP 160/89
[2022-05-26] MEDS: SENNOSIDES 8.6 MG TABLET GT SCH (21:11)
[2022-05-26] MEDS: ATORVASTATIN 10 MG TABLET GT SCH (21:11)
--- NOTE | 2022-05-26 22:19 | NUR ---
RN NOTE UNABLE TO ADMINISTER GTUBE MEDICATIONS DUE TO LEAKING. MD AWARE.
[2022-05-27] VITALS: BP 159/94
[2022-05-27] MEDS: BLOOD SUGAR DIAGNOSTIC 1 EACH STRIP IN SCH ×4 (00:28→23:19)
[2022-05-27] MEDS: INSULIN REGULAR, HUMAN 100 UNIT/ML 3 ML VIAL SQ PRN ×4 (00:34→23:23)
--- NOTE | 2022-05-27 00:37 | NUR ---
BLOOD SUGAR AT 12MN IS 217 MG/DL 4 UNITS OF REGULAR INSULIN GIVEN PER SLIDING .PTS ON D5 NS
[2022-05-27] MEDS: ALBUTEROL FS 2.5 MG/3 ML VIAL.NEB NEB SCH ×4 (01:38→19:46)
[2022-05-27] MEDS: IV D5/ 0.9% NACL 1,000 ML IV PRN ×2 (02:24→19:01)
--- NOTE | 2022-05-27 03:13 | NUR ---
RN NOTE WOUNDS LOCATED ON HEAD, SACRUM AND R AC. WOUNDS COVERED WITH DRESSING AND PICTURES TAKEN AND PLACED IN PT CHART.
[2022-05-27 04:00] VITALS: BP 157/93
[2022-05-27] MEDS: HYDROCODONE/APAP 5/325MG TABLET GT SCH ×3 (05:00→21:00)
[2022-05-27] MEDS: BACLOFEN (10 MG) 10 MG TABLET GT SCH ×3 (05:00→21:00)
--- NOTE | 2022-05-27 07:33 | NUR ---
RN OPENING NOTE PT OBTUNDED. SKIN IS PALE AND DRY. RESPIRATIONS EVEN AND UNLABORED ON VENT. WOUNDS NOTED ON SACRUM, HEAD, AND R AC. WOUNDS WERE CLEANED AND DRESSING APPLIED. GTUBE REMAINS CLAMPED DUE TO LEAKING. WAS UNABLE TO GIVE MEDS DUE TO GTUBE ISSUES. VENESSA MIDLINE INTACT AND PATENT. BED LOCKED AND AT LOWEST POSITION. X2 SIDE RAILS UP AND CALL LIGHT WITHIN REACH.
[2022-05-27 08:00] VITALS: BP 122/75
--- NOTE | 2022-05-27 08:14 | NUR ---
RN NOTE PT RECEIVED IN BED, OBTUNDED. TRACH IN PLACE WITH VENT SETTINGS TOLERATED WELL. PT IN NPO STATUS. VENESSA ML IN PLACE WITH IVF D5 NS @75CC/HR. SAFETY MEASURES FOLLOWED. WILL CONTINUE TO MONITOR.
--- NOTE | 2022-05-27 08:46 | NUR ---
WOUND CARE CONSULT; PT RESTING AT THIS TIME. REVIEWED CHART, NURSING DOCUMENTATION AND PHOTOS WHICH INDICATE MULTIPLE SKIN ISSUES. AREAS OF DISCOLORATION, SCARRING AND WOUNDS, PRESENT ON ADMISSION. DEFER TO SURGICAL TEAM OF DR MCCANN FOR WOUND TREATMENT. DISCUSSED SKIN PROTECTION WITH NURSING STAFF. PT IS ON [place] ISOFLEX LOW AIRLOSS BED. MD IN AGREEMENT WITH PLAN OF CARE.
[2022-05-27] MEDS: Z GUARD REMEDY 4 OZ OINT TP SCH (09:00)
[2022-05-27] MEDS: PIOGLITAZONE HCL 15 MG TABLET GT SCH (09:00)
[2022-05-27] MEDS ORDERED: Z GUARD REMEDY 4 OZ OINT TP PRN (09:00)
[2022-05-27 09:38] LABS: BASOPHILS % (AUTO) 0.3 % (0.0-2.0); EOSINOPHILS % (AUTO) 0.1 % (0.0-6.0); HEMATOCRIT 24 % (33-45); HEMOGLOBIN 7.1 g/dL (11.5-14.8); LYMPHOCYTES # (AUTO) 0.8 K/uL (0.8-4.8); LYMPHOCYTES % (AUTO) 16.7 % (20.0-44.0); MEAN CORPUSCULAR HGB CONC 30 g/dl (31.0-36.0); MEAN CORPUSCULAR VOLUME 95 fL (82-100); MONOCYTES # (AUTO) 0.3 K/uL (0.1-1.30); MONOCYTES % (AUTO) 6.4 % (2.0-12.0); NEUTROPHILS # (AUTO) 3.9 K/uL (1.8-8.9); NEUTROPHILS % (AUTO) 76.5 % (43.0-81.0); RED BLOOD CELL COUNT(AUTO) 2.52 MIL/uL (4.0-5.2); WHITE BLOOD COUNT (AUTO) 5.1 K/uL (4.3-11.0)
[2022-05-27 09:48] LABS: CALCIUM, SERUM 7.7 mg/dL (8.5-10.1); CREATININE 0.7 mg/dL (0.6-1.3); POTASSIUM 3.2 mmol/L (3.5-5.1)
[2022-05-27 09:55] LABS: ALBUMIN 2.1 g/dL (3.4-5.0); BILIRUBIN,TOTAL 0.6 mg/dL (0.2-1.0); MAGNESIUM 2.8 mg/dL (1.8-2.4); PHOSPHORUS 2.5 mg/dL (2.5-4.9); TOTAL PROTEIN, SERUM 6.7 g/dL (6.4-8.2)
[2022-05-27 10:52] LABS: PLATELET COUNT (AUTO) 38 K/uL (150-450)
[2022-05-27 11:01] LABS: BAND % (MANUAL) 15 % (0.0-5.0); LYMPHOCYTES % (MANUAL) 21 % (16-48); MONOCYTES % (MANUAL) 4 % (0-11.0); NEUTROPHILS % (MANUAL) 60 (42-76)
[2022-05-27] MEDS: PANTOPRAZOLE 40 MG VIAL IV SCH (11:04)
[2022-05-27] MEDS: CHLORHEXIDINE GLUCONATE 15 ML UDC MM SCH ×2 (11:04→21:39)
[2022-05-27] MEDS: LEVOTHYROXINE INJ 100 MCG VIAL IV SCH (11:04)
[2022-05-27 12:00] VITALS: BP 131/71
[2022-05-27 16:00] VITALS: BP 143/79
[2022-05-27] MEDS: POTASSIUM CL. PREMIX PERIPHER. 50 ML IV SCH ×4 (16:34→19:48)
[2022-05-27] MEDS: FLUDROCORTISONE 0.1 MG TABLET GT SCH (18:00)
[2022-05-27] MEDS: CYANOCOBALAMIN 500 MCG TABLET GT SCH (18:00)
--- NOTE | 2022-05-27 19:28 | NUR ---
RN NOTES RECEIVED PT FOR CONTINUITY OF CARE. PATIENT A/OX0 IN NO S/SX OF ACUTE DISTRESS AT THIS TIME; CURRENTLY ON MECHANICAL VENT; SETTING PRESCRIBED, WITH 02 SAT >95% AT THIS TIME. WITH IV ACCESS ON L UA MIDLINE#18 PATENT, INTACT AND FLUSHING WELL. WITH RUNNING FLUID PRESCRIBED. ON NPO. WITH PEG TUBE ; CLAMPED AT THIS TIME. WILL ENSURE SAFETY MEASURES WITHIN THE SHIFT. PATIENT BED ALARM IS ON. HEAD OF BED ELEVATED. BED IS LOCKED, IN LOWEST POSITION AND SIDE RAILS UP. CALL LIGHT WITHIN REACH OF THE PATIENT. WILL CONTINUE TO MONITOR AND REASSESS FOR ANY CHANGES AND WILL CARRY OUT ANY ONGOING AND ACTIVE MD ORDER.
[2022-05-27 20:00] VITALS: BP 145/89
--- NOTE | 2022-05-27 20:01 | NUR ---
RN NOTE PT RESTING IN BED, OBTUNDED. TRACH IN PLACE WITH VENT SETTINGS TOLERATED WELL. PT IN NPO STATUS. VENESSA ML IN PLACE WITH IVF D5 NS @75CC/HR. DUE MEDICATIONS GIVEN, AM/PM CARE DONE. SAFETY MEASURES FOLLOWED. WILL CONTINUE TO MONITOR.
[2022-05-27] MEDS: SENNOSIDES 8.6 MG TABLET GT SCH (21:40)
[2022-05-27] MEDS: ATORVASTATIN 10 MG TABLET GT SCH (21:40)
[2022-05-27] MEDS ORDERED: SILVER NITRATE APPLICATOR 1 EA BOX TP SCH (22:00)
[2022-05-28] VITALS (7 sets, daily range): BP systolic 122–161; BP diastolic 63–93
[2022-05-28] MEDS: ALBUTEROL FS 2.5 MG/3 ML VIAL.NEB NEB SCH ×4 (01:52→19:43)
--- NOTE | 2022-05-28 04:00 | NUR ---
RN NOTES PATIENT REMAINED TO BE IN NO SIGNS OF ACUTE RESPIRATORY DISTRESS , VITAL SIGNS STABLE AT THIS TIME. REGULAR TURNING AND REPOSITIONING DONE, SUCTIONING DONE, WOUND CARE AND AM PATIENT CARE RENDERED WILL CONTINUE TO MONITOR AND REASSESS FOR ANY CHANGES THROUGHOUT THE SHIFT.
[2022-05-28] MEDS: HYDROCODONE/APAP 5/325MG TABLET GT SCH ×3 (04:15→21:00)
[2022-05-28] MEDS: BACLOFEN (10 MG) 10 MG TABLET GT SCH ×3 (04:15→21:00)
[2022-05-28] MEDS: IV D5/ 0.9% NACL 1,000 ML IV PRN ×2 (04:44→18:05)
[2022-05-28] MEDS: BLOOD SUGAR DIAGNOSTIC 1 EACH STRIP IN SCH ×3 (05:22→17:28)
[2022-05-28] MEDS: INSULIN REGULAR, HUMAN 100 UNIT/ML 3 ML VIAL SQ PRN ×2 (05:24→17:30)
--- NOTE | 2022-05-28 06:21 | NUR ---
RT Pt recvd on current vent settings of AC rr 16, vt 500, Fio2 40% peep +5 and trach is patent and secured. Suction done Q2/PRN, Neb tx given and suzy well. trach care done and buck changed. No SOB or respiratory distress noted throughout shift. Vent is plugged into red outlet with alarms on and audible. Spare trach and ambu bag at bedside.
--- NOTE | 2022-05-28 06:25 | NUR ---
RN NOTES CALLED [phone] (BRADY;PT'S SISTER) TO SECURE CONSENT FOR WOUND DEBRIDEMENT OF THE SCALP, SHE MENTIONED TO CALL PT'S DAUGHTER. CALLED [phone] (ANURADHA; PT'S DAUGHTER) ROUTED TO , FULL. WILL ENDORSE TO AM SHIFT TO FOLLOW THROUGH AND SECURE CONSENT. GEOPHYSICAL PARTY CHIEF MADE AWARE.
--- NOTE | 2022-05-28 06:38 | NUR ---
RN CLOSING NOTE: PATIENT REMAINS IN ROOM IN NO SIGNS OF RESPIRATORY DISTRESS, PATIENT STILL ON MECH VENT; SETTINGS PRESCRIBED;TOLERATING WELL SATURATING @ >95% SP02. SAFETY MEASURES IMPLEMENTED, BED IN LOWEST POSITION, LOCKED, SIDE RAILS UP, CALL LIGHT WITHIN REACH. ALL NEEDS AND ORDERS ADDRESSED DURING THE SHIFT. IV ACCESS MAINTAINED INTACT, SECURED AND FLUSHING WELL. PATIENT KEPT CLEAN AND COMFORTABLE WITHIN THE SHIFT. PLAN FOR WOUND DEBRIDEMENT OF SCALP; NEEDS TO SECURE CONSENT. PATIENT ENDORSED TO INCOMING SHIFT RN WITH STABLE VITAL SIGN AND FOR CONTINUITY OF CARE.
[2022-05-28] MEDS: PANTOPRAZOLE 40 MG VIAL IV SCH (08:09)
[2022-05-28] MEDS: CHLORHEXIDINE GLUCONATE 15 ML UDC MM SCH (08:09)
[2022-05-28] MEDS: LEVOTHYROXINE INJ 100 MCG VIAL IV SCH (08:10)
[2022-05-28] MEDS: Z GUARD REMEDY 4 OZ OINT TP SCH (08:16)
[2022-05-28] MEDS: PIOGLITAZONE HCL 15 MG TABLET GT SCH (08:16)
--- NOTE | 2022-05-28 11:30 | NUR ---
telephone consent for serial wound debridement of scalp. agreed by daughter Leslie Del Rosario. confirmed by 2 rn's.
[2022-05-28] MEDS ORDERED: ALBUTEROL FS 2.5 MG/0.5 ML VIAL.NEB NEB PRN (15:30)
[2022-05-28] MEDS: FLUDROCORTISONE 0.1 MG TABLET GT SCH (17:29)
[2022-05-28] MEDS: CYANOCOBALAMIN 500 MCG TABLET GT SCH (17:29)
--- NOTE | 2022-05-28 18:17 | NUR ---
RN NOTE PT RESTING IN BED, OBTUNDED. TRACH IN PLACE WITH VENT SETTINGS TOLERATED WELL. PT IN NPO STATUS. VENESSA ML IN PLACE WITH IVF D5 NS @75CC/HR. DUE MEDICATION TAKEN. AM/PM CARE DONE. SAFETY MEASURES FOLLOWED. WILL CONTINUE TO MONITOR. V/S STABLE. PT NOT IN DISTRESS.
--- NOTE | 2022-05-28 20:06 | NUR ---
CRYOGENICS REPAIRER OPENING NOTES: RECEIVED PATIENT AWAKE IN BED BED IN LOW POSITION CALL LIGHTS WITHIN REACH, NO COMPLAIN OF PAIN AND DISCOMFORT AT THIS TIME, ON MECHANICAL VENT SATURATING WELL, G TUBE FEEDING WAS LEAKING ON NPO, ON [id number] WITH FIRST DEGREE AV BLOCK NO SYMPTOMS WAS OBSERVED, PATIENT ON JACINTO CATHETER-100CC URINE OUTPUT, PATIENT KEPT CLEAN AND DRY ALL NEEDS MET WILL CONTINUE TO MONITOR.
[2022-05-28] MEDS: SENNOSIDES 8.6 MG TABLET GT SCH (22:00)
[2022-05-28] MEDS: ATORVASTATIN 10 MG TABLET GT SCH (22:00)
--- NOTE | 2022-05-28 22:30 | NUR ---
RN NOTES: ROUTINE AND BEDTIME MEDICATION VIA G TUBE NOT GIVEN , PATIENT ON NPO HOLD DUE TO G TUBE LEAKING.
[2022-05-29] VITALS (10 sets, daily range): BP systolic 114–170; BP diastolic 50–88
[2022-05-29] MEDS: CHLORHEXIDINE GLUCONATE 15 ML UDC MM SCH ×3 (00:33→21:35)
[2022-05-29] MEDS: INSULIN REGULAR, HUMAN 100 UNIT/ML 3 ML VIAL SQ PRN ×3 (00:40→12:05)
--- NOTE | 2022-05-29 00:41 | NUR ---
RN NOTES: BLOOD SUGAR-148/ NO INSULIN GIVEN PATIENT ON NPO.
[2022-05-29] MEDS: ALBUTEROL FS 2.5 MG/3 ML VIAL.NEB NEB SCH ×4 (01:36→19:52)
[2022-05-29] MEDS: hydrALAZINE HCL IV 20 MG VIAL IV PRN ×2 (02:32→08:45)
[2022-05-29] MEDS: BACLOFEN (10 MG) 10 MG TABLET GT SCH ×3 (05:00→20:08)
[2022-05-29] MEDS: HYDROCODONE/APAP 5/325MG TABLET GT SCH ×3 (05:00→20:08)
--- NOTE | 2022-05-29 05:06 | NUR ---
RN NOTES: ROUTINE MEDICATION FOR 0500AM NOT GIVEN PATIENT ON NPO, G TUBE FEEDING IS LEAKING,
[2022-05-29] MEDS: BLOOD SUGAR DIAGNOSTIC 1 EACH STRIP IN SCH ×4 (06:00→17:25)
--- NOTE | 2022-05-29 06:45 | NUR ---
LOGISTICS PLANNER CLOSING NOTES: PATIENT SLEEP IN BED COMFORTABLY, AROUSABLE TO VERBAL STIMULI, PATIENT IS OBTUNDED OPENS EYES, NO COMPLAIN OF PAIN AND DISCOMFORT AT THIS TIME, ON MECHANICAL VENT SATURATING WELL, ON TELE MONITOR- SR60, IV LINE AT VENESSA ML WITH ONGOING D5 1/2 NSS@75ML/HR INFUSING WELL, PATIENT ON NPO DUE TO G TUBE LEAKING FOR GI CONSULTATION FOR FURTHER EVAL, PATIENT REMAIN STABLE THROUGHOUT THE SHIFT, PATIENT KEPT CLEAN AND DRY ALL NEEDS MET ENDORSE TO INCOMING SHIFT.
--- NOTE | 2022-05-29 07:00 | NUR ---
RN NOTES: BLOOD SUGAR-161/ 3 UNITS REGULAR INSULIN GIVEN PER SLIDING SCALE
--- NOTE | 2022-05-29 07:41 | NUR ---
HOME RESTORATION SERVICE CLEANER OPENING NOTES: RECEIVED PT AWAKE IN BED. NON VERBAL AND UNABLE TO FOLLOW COMMAND. NO SIGNS OF PAIN OR DISCOMFORT AT THIS TIME. PT IS ON A VENTILATOR ON PRESCRIBED SETTINGS AND TOLERATING IT WELL. IV ACCESS ON VENESSA MIDLINE PATENT AND INTACT. ENDORSED FROM PREVIOUS SHIFT THAT PT GT IS LEAKING AWAITING GI CONSULT SO PT REMAINS NPO. HOB ELEVATED TO 30-45 DEGREES. SIDERAILS UP AT ALL TIMES. BET SET AT ITS LOWEST SETTING. WILL CONTINUE TO MONITOR.
[2022-05-29 07:58] LABS: BASOPHILS % (AUTO) 0.2 % (0.0-2.0); EOSINOPHILS % (AUTO) 0.4 % (0.0-6.0); HEMATOCRIT 22 % (33-45); LYMPHOCYTES # (AUTO) 0.5 K/uL (0.8-4.8); LYMPHOCYTES % (AUTO) 12.2 % (20.0-44.0); MEAN CORPUSCULAR HGB CONC 30 g/dl (31.0-36.0); MEAN CORPUSCULAR VOLUME 93 fL (82-100); MONOCYTES # (AUTO) 0.3 K/uL (0.1-1.30); MONOCYTES % (AUTO) 7.4 % (2.0-12.0); NEUTROPHILS # (AUTO) 3.3 K/uL (1.8-8.9); NEUTROPHILS % (AUTO) 79.8 % (43.0-81.0); WHITE BLOOD COUNT (AUTO) 4.1 K/uL (4.3-11.0)
[2022-05-29 08:14] LABS: HEMOGLOBIN 6.8 g/dL (11.5-14.8); PLATELET COUNT (AUTO) 27 K/uL (150-450)
[2022-05-29 08:22] LABS: CALCIUM, SERUM 7.6 mg/dL (8.5-10.1); CREATININE 0.7 mg/dL (0.6-1.3)
[2022-05-29] MEDS: PIOGLITAZONE HCL 15 MG TABLET GT SCH (08:27)
--- NOTE | 2022-05-29 08:27 | NUR ---
TECHNICAL MANAGER CHEMICAL PLANT NOTE UNABLE TO ADMINISTER N MEDS VIA G TUBE G TUBE SITE IS LEAKING AWAITING T FOR GI CONSULT
[2022-05-29] MEDS: PANTOPRAZOLE 40 MG VIAL IV SCH (08:31)
[2022-05-29] MEDS: LEVOTHYROXINE INJ 100 MCG VIAL IV SCH (08:34)
[2022-05-29] MEDS: Z GUARD REMEDY 4 OZ OINT TP SCH (08:39)
[2022-05-29] MEDS: IV D5/ 0.9% NACL 1,000 ML IV PRN (08:51)
[2022-05-29 08:56] LABS: POTASSIUM 2.6 mmol/L (3.5-5.1)
[2022-05-29] MEDS: POTASSIUM CL. PREMIX PERIPHER. 50 ML IV SCH ×4 (09:34→12:43)
--- NOTE | 2022-05-29 09:54 | NUR ---
NURSE PRN NOTES: NOTIFIED MD FAIZA JAMIL THAT PT POTASSIUM IS AT 2.6. MD ORDERED POTASSIUM 40MED IV DRIP. ALSO INFORMED MD THAT HGB IS AT 6.8. MD ORDERED 1 PACKED RBC. NOTED AND CARRIED OUT.
--- NOTE | 2022-05-29 11:58 | NUR ---
telephone operator chief note rounds made ,still leakage from g tube site dr thompson rn separator operator notified will monitor keep clean dry
--- NOTE | 2022-05-29 12:33 | NUR ---
FRUIT PITTER NOTES: PT SEEN AND EVALUATED BY FAIZA JAMIL NP AND STATED IT IS OK TO GIVE MEDICATION ONLY THROUGH THE GT UNTIL GI CONSULT.
--- NOTE | 2022-05-29 13:15 | NUR ---
CONFLICTS ANALYST NOTES: PT SEEN BY DR. ARITA REGARDING PTS GT SITE LEAKING YELLOW BILE. STATED WOULD NEED SURGICAL CONSULT. AWAITING FOR FURTHER ORDERS.
--- NOTE | 2022-05-29 14:52 | NUR ---
telegraph editor note called to blood bank blood not ready yet will f\u
--- NOTE | 2022-05-29 16:00 | NUR ---
telecommunications professional note blood transfusion 1 unit prbc started to infuse, no adverse reaction noted at this time
[2022-05-29] MEDS: FLUDROCORTISONE 0.1 MG TABLET GT SCH (17:00)
[2022-05-29] MEDS: CYANOCOBALAMIN 500 MCG TABLET GT SCH (17:00)
--- NOTE | 2022-05-29 17:00 | NUR ---
telemetry monitor note unable to administer med via g tube ,g tube site with leaking will f\u
[2022-05-29] MEDS: DEXTROSE 50%-WATER 50 ML DISP.SYRIN IV PRN (17:42)
--- NOTE | 2022-05-29 18:25 | NUR ---
SHEEP CLIPPER NOTES: BLOOD SUGAR RECHECKED AND WAS 79 AT THIS TIME. WILL CONTINUE TO MONITOR.
--- NOTE | 2022-05-29 18:26 | NUR ---
DOG HAIR CLIPPER NOTE CONT ON BLOOD TRANSFUSIONS [id number], G TUBE SITE IS LEAKING ,DRY DRESSING APPLIED , WITH TRACH TO VENT SETTING ORDERED , TRACH CARE DONE ORAL AND TRACH SUCTION DONE , BED IN LOWEST AND LOCKED POSITION , VENESSA MID LINE IN PLACE ,WILL CONT TO MONITOR CLOSELY
--- NOTE | 2022-05-29 19:02 | NUR ---
BIOMEDICAL ENGINEERING PROFESSOR NOTES: BLOOD TRANSFUSION 1 UNIT PACKED RBC ENDED. TOLERATED INFUSION WELL WITH NO ADVERSE REACTION NOTED.
--- NOTE | 2022-05-29 19:30 | NUR ---
RADAR ENGINEER OPENING NOTES: RECEIVED PATIENT AWAKE IN BED. NO DISCOMFORT AT THIS TIME, ON MECHANICAL VENT SATURATING WELL, G TUBE FEEDING WAS LEAKING ON NPO, ON TELE MONITOR READING SR-64 WITH FIRST DEGREE AV BLOCK NO SYMPTOMS WAS OBSERVED, PATIENT ON JACINTO CATHETER PATIENT KEPT CLEAN AND DRY ALL NEEDS MET WILL CONTINUE TO MONITOR.
--- NOTE | 2022-05-29 20:10 | NUR ---
RN NOTE GTUBE SITE LEAKING, UNABLE TO GIVE MEDS
[2022-05-29] MEDS: SENNOSIDES 8.6 MG TABLET GT SCH (22:00)
[2022-05-29] MEDS: ATORVASTATIN 10 MG TABLET GT SCH (22:00)
[2022-05-30] VITALS: BP 145/82
[2022-05-30] MEDS: BLOOD SUGAR DIAGNOSTIC 1 EACH STRIP IN SCH ×4 (00:02→17:52)
[2022-05-30] MEDS: INSULIN REGULAR, HUMAN 100 UNIT/ML 3 ML VIAL SQ PRN ×3 (00:02→13:13)
[2022-05-30] MEDS: ALBUTEROL FS 2.5 MG/3 ML VIAL.NEB NEB SCH ×4 (02:11→20:02)
[2022-05-30 02:28] LABS: BAND % (MANUAL) 10 % (0.0-5.0); BASOPHILS % (MANUAL) 0 % (0.0-2.0); EOSINOPHILS % (MANUAL) 0 % (0-4); LYMPHOCYTES % (MANUAL) 14 % (16-48); MONOCYTES % (MANUAL) 7 % (0-11.0); NEUTROPHILS % (MANUAL) 69 (42-76)
[2022-05-30 04:00] VITALS: BP 135/67
[2022-05-30] MEDS: BACLOFEN (10 MG) 10 MG TABLET GT SCH ×4 (05:00→21:47)
[2022-05-30] MEDS: HYDROCODONE/APAP 5/325MG TABLET GT SCH ×4 (05:00→21:40)
--- NOTE | 2022-05-30 06:36 | NUR ---
RN CLOSING NOTE PT SLEEPING IN BED. NO SIGNIFICANT CHANGE T/O THE NIGHT. VS STABLE. ALL PO MEDS HELD DUE TO LEAKING G TUBE. . PM CARE DONE, TURN AND REPOSITIONED. WILL ENDORSE TO AM SHIFT FOR [place].
--- NOTE | 2022-05-30 07:20 | NUR ---
RN note Received patient in bed. On mechanical ventilation, SpO2 100% with Fio2 40%. Suction and repositioning have been done. IV site is dry and intact with D5NS running at 75mL/hr. Call bai is placed within reach. Bed is locked and placed in the lowest position. All safety measures have been implemented. Will continue care and monitoring.
[2022-05-30] MEDS: IV D5/ 0.9% NACL 1,000 ML IV PRN (07:39)
[2022-05-30 08:00] VITALS: BP 147/80
[2022-05-30] MEDS: PANTOPRAZOLE 40 MG VIAL IV SCH (09:00)
[2022-05-30] MEDS: CHLORHEXIDINE GLUCONATE 15 ML UDC MM SCH ×2 (09:18→21:42)
[2022-05-30] MEDS: Z GUARD REMEDY 4 OZ OINT TP SCH (09:18)
[2022-05-30 12:00] VITALS: BP 154/81
[2022-05-30] MEDS: LEVOTHYROXINE INJ 100 MCG VIAL IV SCH (12:12)
--- NOTE | 2022-05-30 15:37 | NUR ---
RN notes Dressing to G-tube was changed this morning and observed that there's no leakage from the site since this morning. Aspirated the g-tube and there is yellowish fluid from the tube. Instilled 20mL normal saline without any leakage noted. Informed charge nurse Soon. Also noticed that there's leakage from the nguyen catheter. Patency of the nguyen is confirmed and the nguyen balloon is fully inflated. Still has leakage from nguyen. Removed the nguyen and will wait for passage of urine. Informed Dr. Lovett about all these findings at 15:33.
--- NOTE | 2022-05-30 15:50 | NUR ---
RN notes Obtained order from Dr. Lovett that I can start administering medications via the G-tube. Will continue to monitor the leakage.
[2022-05-30 16:00] VITALS: BP 159/80
[2022-05-30] MEDS: Potassium Chloride 20 MEQ in IV D5W 1,000 ML IV SCH (16:24)
[2022-05-30] MEDS: FLUDROCORTISONE 0.1 MG TABLET GT SCH (17:53)
[2022-05-30] MEDS: CYANOCOBALAMIN 500 MCG TABLET GT SCH (17:53)
--- NOTE | 2022-05-30 18:06 | NUR ---
RN notes Medications have been administered via G-tube. Aspirated 5mL yellowish fluid without leakage noted. Will continue monitoring.
--- NOTE | 2022-05-30 18:40 | NUR ---
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 Consent is obtained from daughter Leslie Del Rosario ([phone]), witnessed by charge nurse Soon.
--- NOTE | 2022-05-30 19:28 | NUR ---
RN note Patient is resting in bed without signs of distress. On mechanical ventilation, SpO2 100% with Fio2 40%. Suction and repositioning have been done. Tracheostomy care has been performed. IV site is dry and intact with D5 & KCL 20mEq running at 75mL/hr. Call bai is placed within reach. Bed is locked and placed in the lowest position. All safety measures have been implemented. For NPO tonight at [place]. Will endorse PM nurse to continue care and monitoring.
--- NOTE | 2022-05-30 19:30 | NUR ---
ICT PROJECT MANAGER OPENING NOTES: RECEIVED PATIENT AWAKE IN BED. NO DISCOMFORT AT THIS TIME, ON MECHANICAL VENT SATURATING WELL, G TUBE FEEDING INTACT, NO RESIDUAL AT THIS TIME. PER MORNING RN OK TO GIVE MEDS VIA GTUBE, NO LONGER LEAKING, ON TELE MONITOR READING SR. IV ACCESS VENESSA M/L RUNNING D5+KCI@75ML/HR. ALL SAFETY MEASURES IN PLACE: BED LOCKED AND IN LOWEST POSITION, CALL LIGHT WITHIN REACH, SIDE RAILS UP, BED ALARM ON.WILL CONTINUE TO MONITOR FOR [place].
--- NOTE | 2022-05-30 19:48 | NUR ---
RN NOTE DR. RODRIGUEZ CALLED AND ORDERED STAT H&H AND BMP. IF HGB IS BELOW 7.0 SPEAK WITH PRIMARY TEAM FOR TRANSFUSION. BMP TO VERIFY K+ LEVEL.
[2022-05-30 20:00] VITALS: BP_SYST 133; BP_SYST 156; BP_DIAS 43; BP_DIAS 62
[2022-05-30 20:35] LABS: HEMOGLOBIN 8.4 g/dL (11.5-14.8)
[2022-05-30 20:43] LABS: CALCIUM, SERUM 7.5 mg/dL (8.5-10.1); CREATININE 0.7 mg/dL (0.6-1.3); POTASSIUM 3.2 mmol/L (3.5-5.1)
[2022-05-30] MEDS: SENNOSIDES 8.6 MG TABLET GT SCH (21:40)
[2022-05-30] MEDS: ATORVASTATIN 10 MG TABLET GT SCH (21:42)
[2022-05-31] VITALS (9 sets, daily range): BP systolic 109–172; BP diastolic 64–88
[2022-05-31] MEDS: BLOOD SUGAR DIAGNOSTIC 1 EACH STRIP IN SCH ×4 (00:05→17:17)
[2022-05-31] MEDS: INSULIN REGULAR, HUMAN 100 UNIT/ML 3 ML VIAL SQ PRN ×3 (00:06→12:10)
[2022-05-31] MEDS: ALBUTEROL FS 2.5 MG/3 ML VIAL.NEB NEB SCH ×4 (01:20→20:12)
[2022-05-31] MEDS: Potassium Chloride 20 MEQ in IV D5W 1,000 ML IV SCH ×2 (03:42→17:18)
[2022-05-31] MEDS: BACLOFEN (10 MG) 10 MG TABLET GT SCH ×3 (04:18→21:45)
[2022-05-31] MEDS: HYDROCODONE/APAP 5/325MG TABLET GT SCH ×3 (04:18→21:45)
[2022-05-31 06:09] LABS: CALCIUM, SERUM 7.9 mg/dL (8.5-10.1); CREATININE 0.6 mg/dL (0.6-1.3); POTASSIUM 3.1 mmol/L (3.5-5.1)
[2022-05-31 06:21] LABS: BASOPHILS % (AUTO) 0.2 % (0.0-2.0); EOSINOPHILS % (AUTO) 0.9 % (0.0-6.0); HEMATOCRIT 28 % (33-45); HEMOGLOBIN 8.6 g/dL (11.5-14.8); LYMPHOCYTES # (AUTO) 0.7 K/uL (0.8-4.8); LYMPHOCYTES % (AUTO) 17.1 % (20.0-44.0); MEAN CORPUSCULAR HGB CONC 31 g/dl (31.0-36.0); MEAN CORPUSCULAR VOLUME 93 fL (82-100); MONOCYTES # (AUTO) 0.2 K/uL (0.1-1.30); MONOCYTES % (AUTO) 4.7 % (2.0-12.0); NEUTROPHILS # (AUTO) 3.1 K/uL (1.8-8.9); NEUTROPHILS % (AUTO) 77.1 % (43.0-81.0); RED BLOOD CELL COUNT(AUTO) 2.98 MIL/uL (4.0-5.2); WHITE BLOOD COUNT (AUTO) 4.1 K/uL (4.3-11.0)
--- NOTE | 2022-05-31 06:45 | NUR ---
DOPE WEIGH OPERATOR CLOSING NOTES NO SIGNIFICANT CHANGES NOTED ON THIS SHIFT, WILL ENDORSE TO MORNING SHIFT NURSE FOR CONTINUITY OF CARE .
[2022-05-31 07:49] LABS: PLATELET COUNT (AUTO) 23 K/uL (150-450)
--- NOTE | 2022-05-31 08:11 | NUR ---
DAIRY HUSBANDMAN OPENING NOTES: RECEIVED PATIENT AWAKE IN BED. NO DISCOMFORT AT THIS TIME, ON MECHANICAL VENT SATURATING WELL, NO RESIDUAL AT THIS TIME. , ON TELE MONITOR READING SR. IV ACCESS VENESSA M/L RUNNING D5+KCI@75ML/HR. ALL SAFETY MEASURES IN PLACE: BED LOCKED AND IN LOWEST POSITION, CALL LIGHT WITHIN REACH, SIDE RAILS UP, BED ALARM ON.
[2022-05-31] MEDS: PANTOPRAZOLE 40 MG VIAL IV SCH (08:46)
[2022-05-31] MEDS: CHLORHEXIDINE GLUCONATE 15 ML UDC MM SCH ×2 (08:46→21:00)
[2022-05-31] MEDS: Z GUARD REMEDY 4 OZ OINT TP SCH (08:47)
[2022-05-31] MEDS: LEVOTHYROXINE INJ 100 MCG VIAL IV SCH (08:47)
[2022-05-31] MEDS: PIOGLITAZONE HCL 15 MG TABLET GT SCH (08:48)
[2022-05-31 11:14] LABS: BAND % (MANUAL) 12 % (0.0-5.0); LYMPHOCYTES % (MANUAL) 22 % (16-48); MONOCYTES % (MANUAL) 5 % (0-11.0); NEUTROPHILS % (MANUAL) 61 (42-76)
[2022-05-31] MEDS: POTASSIUM CL. PREMIX PERIPHER. 50 ML IV SCH ×2 (12:10→13:17)
[2022-05-31] MEDS: CYANOCOBALAMIN 500 MCG TABLET GT SCH (17:17)
[2022-05-31] MEDS: FLUDROCORTISONE 0.1 MG TABLET GT SCH (17:17)
--- NOTE | 2022-05-31 18:41 | NUR ---
RN OPENING NOTES: RECEIVED PATIENT AWAKE IN BED. NO DISCOMFORT AT THIS TIME, ON MECHANICAL VENT SATURATING WELL, G TUBE FEEDING INTACT, NO RESIDUAL AT THIS TIME. PER MORNING RN OK TO GIVE MEDS VIA GTUBE, NO LONGER LEAKING, ON TELE MONITOR READING SR. IV ACCESS VENESSA M/L RUNNING D5+KCI@75ML/HR. [facility] ARE PENDING CALLED BLOOD BACK AT 1800 PER TECH THEY HAVE BEEN ORDERED AND WILL THAW FOR APPROX 2-3HRS. ALL SAFETY MEASURES IN PLACE: BED LOCKED AND IN LOWEST POSITION, CALL LIGHT WITHIN REACH, SIDE RAILS UP, BED ALARM ON.WILL ENDORSE TO NIGHT NURSE FOR [place]
[2022-05-31] MEDS: SENNOSIDES 8.6 MG TABLET GT SCH (21:45)
[2022-05-31] MEDS: ATORVASTATIN 10 MG TABLET GT SCH (21:46)
[2022-06-01] VITALS (7 sets, daily range): BP systolic 126–156; BP diastolic 62–87
--- NOTE | 2022-06-01 00:28 | NUR ---
RN NOTE PT PLASMA TRANSFUSION COMPLTE. PT TOLERATED WELL NO REACTION
[2022-06-01] MEDS: INSULIN REGULAR, HUMAN 100 UNIT/ML 3 ML VIAL SQ PRN ×4 (00:30→17:29)
[2022-06-01] MEDS: BLOOD SUGAR DIAGNOSTIC 1 EACH STRIP IN SCH ×4 (00:30→17:28)
[2022-06-01] MEDS: ALBUTEROL FS 2.5 MG/3 ML VIAL.NEB NEB SCH ×4 (01:18→20:01)
[2022-06-01] MEDS: BACLOFEN (10 MG) 10 MG TABLET GT SCH ×3 (05:00→20:59)
[2022-06-01] MEDS: HYDROCODONE/APAP 5/325MG TABLET GT SCH ×3 (05:00→20:59)
[2022-06-01] MEDS: Potassium Chloride 20 MEQ in IV D5W 1,000 ML IV SCH ×2 (06:29→21:05)
--- NOTE | 2022-06-01 06:56 | NUR ---
SUPERVISOR POWDERED METAL CLOSING NOTES NO SIGNIFICANT CHANGES NOTED ON THIS SHIFT, WILL ENDORSE TO MORNING SHIFT NURSE FOR CONTINUITY OF CARE .
[2022-06-01 07:45] LABS: BASOPHILS % (AUTO) 0.1 % (0.0-2.0); EOSINOPHILS % (AUTO) 0.9 % (0.0-6.0); HEMATOCRIT 27 % (33-45); HEMOGLOBIN 8.6 g/dL (11.5-14.8); LYMPHOCYTES # (AUTO) 0.6 K/uL (0.8-4.8); LYMPHOCYTES % (AUTO) 10.6 % (20.0-44.0); MEAN CORPUSCULAR HGB CONC 32 g/dl (31.0-36.0); MEAN CORPUSCULAR VOLUME 92 fL (82-100); MONOCYTES # (AUTO) 0.2 K/uL (0.1-1.30); MONOCYTES % (AUTO) 4.4 % (2.0-12.0); NEUTROPHILS # (AUTO) 4.7 K/uL (1.8-8.9); RED BLOOD CELL COUNT(AUTO) 2.96 MIL/uL (4.0-5.2); WHITE BLOOD COUNT (AUTO) 5.6 K/uL (4.3-11.0)
[2022-06-01 07:48] LABS: CREATININE 0.6 mg/dL (0.6-1.3); MAGNESIUM 1.9 mg/dL (1.8-2.4); PHOSPHORUS 3.3 mg/dL (2.5-4.9); POTASSIUM 3.6 mmol/L (3.5-5.1)
[2022-06-01] MEDS: CHLORHEXIDINE GLUCONATE 15 ML UDC MM SCH ×2 (08:14→20:59)
[2022-06-01] MEDS: PANTOPRAZOLE 40 MG VIAL IV SCH (08:14)
[2022-06-01] MEDS: LEVOTHYROXINE INJ 100 MCG VIAL IV SCH (08:14)
[2022-06-01] MEDS: Z GUARD REMEDY 4 OZ OINT TP SCH (08:14)
[2022-06-01] MEDS: PIOGLITAZONE HCL 15 MG TABLET GT SCH (08:14)
[2022-06-01 08:48] LABS: PLATELET COUNT (AUTO) 42 K/uL (150-450)
--- NOTE | 2022-06-01 17:00 | NUR ---
RN NOTE LEFT MESSAGE IN DR. PASCAL OFFICE TO CALL DR GRIGSBY REGARDING TOMORROWS PROCEDURE (PEG PLACEMENT), ALSO SENT MESSAGE WITH DR BLOOM NUMBER.
[2022-06-01 17:20] LABS: BAND % (MANUAL) 8 % (0.0-5.0); EOSINOPHILS % (MANUAL) 3 % (0-4); LYMPHOCYTES % (MANUAL) 9 % (16-48); MONOCYTES % (MANUAL) 4 % (0-11.0); NEUTROPHILS % (MANUAL) 76 (42-76)
[2022-06-01] MEDS: FLUDROCORTISONE 0.1 MG TABLET GT SCH (17:28)
[2022-06-01] MEDS: CYANOCOBALAMIN 500 MCG TABLET GT SCH (17:28)
[2022-06-01] MEDS: ATORVASTATIN 10 MG TABLET GT SCH (21:06)
[2022-06-01] MEDS: SENNOSIDES 8.6 MG TABLET GT SCH (21:06)
[2022-06-02 00:13] VITALS: BP 125/71
[2022-06-02] MEDS: BLOOD SUGAR DIAGNOSTIC 1 EACH STRIP IN SCH ×4 (00:19→18:06)
[2022-06-02] MEDS: INSULIN REGULAR, HUMAN 100 UNIT/ML 3 ML VIAL SQ PRN ×2 (00:22→18:07)
[2022-06-02] MEDS: ALBUTEROL FS 2.5 MG/3 ML VIAL.NEB NEB SCH ×4 (01:53→20:03)
[2022-06-02] MEDS: BACLOFEN (10 MG) 10 MG TABLET GT SCH ×3 (05:00→21:04)
[2022-06-02] MEDS: HYDROCODONE/APAP 5/325MG TABLET GT SCH ×3 (05:00→21:04)
[2022-06-02 05:27] VITALS: BP 135/84
--- NOTE | 2022-06-02 07:15 | NUR ---
RN notes Received patient in bed. Patient is obtunded, facial expression is normal. Telemetry showed SR 60/min. Spo2 100% with FiO2 40% through mechanical ventilator. Left UA ML is dry and intact with D5 + 20mEq Kcl running at 75mL/hr. Kept NPO for surgery today. Call bai is placed within reach. Bed is locked and placed in the lowest position. All safety measures have been implemented. Will continue monitoring and care.
[2022-06-02 08:00] VITALS: BP 159/84
[2022-06-02] MEDS: PIOGLITAZONE HCL 15 MG TABLET GT SCH (09:00)
[2022-06-02] MEDS: LEVOTHYROXINE INJ 100 MCG VIAL IV SCH (09:19)
[2022-06-02] MEDS: PANTOPRAZOLE 40 MG VIAL IV SCH (09:19)
[2022-06-02] MEDS: CHLORHEXIDINE GLUCONATE 15 ML UDC MM SCH ×2 (09:19→21:03)
[2022-06-02] MEDS: Z GUARD REMEDY 4 OZ OINT TP SCH (09:19)
--- NOTE | 2022-06-02 10:00 | NUR ---
RN notes- blood taking Anesthesiologist ordered blood taking for CBC, chemistry and INR. Would follow.
--- NOTE | 2022-06-02 10:30 | NUR ---
RN notes Blood is taken and sent.
[2022-06-02 11:04] LABS: BASOPHILS % (AUTO) 0.2 % (0.0-2.0); EOSINOPHILS % (AUTO) 1.3 % (0.0-6.0); HEMATOCRIT 26 % (33-45); HEMOGLOBIN 7.9 g/dL (11.5-14.8); LYMPHOCYTES # (AUTO) 0.5 K/uL (0.8-4.8); LYMPHOCYTES % (AUTO) 13.8 % (20.0-44.0); MEAN CORPUSCULAR HGB CONC 30 g/dl (31.0-36.0); MEAN CORPUSCULAR VOLUME 94 fL (82-100); MONOCYTES # (AUTO) 0.2 K/uL (0.1-1.30); NEUTROPHILS # (AUTO) 3.2 K/uL (1.8-8.9); NEUTROPHILS % (AUTO) 80.7 % (43.0-81.0)
[2022-06-02 11:28] LABS: CREATININE 0.7 mg/dL (0.6-1.3); POTASSIUM 3.7 mmol/L (3.5-5.1)
[2022-06-02] MEDS: Potassium Chloride 20 MEQ in IV D5W 1,000 ML IV SCH (11:36)
[2022-06-02 11:39] LABS: PLATELET COUNT (AUTO) 37 K/uL (150-450)
[2022-06-02 12:00] VITALS: BP 150/82
[2022-06-02] MEDS ORDERED: ANESTHESIA TRAY IN PYXIS 1 EA TRAY MC ONE (12:04)
[2022-06-02 12:39] LABS: BAND % (MANUAL) 6 % (0.0-5.0); BASOPHILS % (MANUAL) 0 % (0.0-2.0); EOSINOPHILS % (MANUAL) 0 % (0-4); LYMPHOCYTES % (MANUAL) 9 % (16-48); MONOCYTES % (MANUAL) 4 % (0-11.0); NEUTROPHILS % (MANUAL) 81 (42-76)
--- NOTE | 2022-06-02 12:46 | NUR ---
RN note - surgery preparation Received phone calls from OR nurse Maurice about witholding surgery for now with respect to low platelet count in patient. Further, type and screen has and we need to take another one. Outlet Manager ordered one unit of platelet to be infused in the OR. Will inform OR staff once we got the T&S and platelet ready note from lab staff. Will follow.
[2022-06-02 16:00] VITALS: BP 129/57
--- NOTE | 2022-06-02 17:39 | NUR ---
Rn notes- Order from Anesthesiologist Dr. Tamayo Received a call from Dr. Tamayo about the preparation of patient for surgery. Told doctor that the unit of platelet that we requested was not given yet because surgery staff told us that they would give the platelet to patient. Dr. Tamayo ordered transfusion of one unit of platelet tomorrow at 0400, and have blood drawn at 0600 for CBC & BMP. At 0900, they will send the patient for surgery.
[2022-06-02] MEDS: CYANOCOBALAMIN 500 MCG TABLET GT SCH (18:06)
[2022-06-02] MEDS: FLUDROCORTISONE 0.1 MG TABLET GT SCH (18:06)
--- NOTE | 2022-06-02 18:34 | NUR ---
RN notes Patient is obtunded, facial expression is normal. Telemetry showed SR 69/min. Spo2 100% with FiO2 40% through mechanical ventilator. Left UA ML is dry and intact with D5 + 20mEq Kcl running at 75mL/hr. Meds given at 1800, continue NPO for surgery.. Call bai is placed within reach. Bed is locked and placed in the lowest position. All safety measures have been implemented. Will continue monitoring and care.
--- NOTE | 2022-06-02 19:10 | NUR ---
RN NOTES RECEIVED REPORT FROM MORNING RN. PATIENT IN BED. ON TRACH CONNECTED TO MV WITH PRESCRIBED SETTINGS. WITH IV ACCESS AT VENESSA MIDLINE WITH ONGOING IVF D5 WITH 20 MEQ KCL RUNNING AT 75ML/HR. WITH GT PATIENT STILL ON NPO EXCEPT MEDS. FOR POSSIBLE GT PLACEMENT IN AM. FOR PLATELET TRANSFUSION PRIOR TO SURGERY. ALL SAFETY MEASURES IN PLACE AT ALL TIMES. HOB ELEVATED AT ALL TIMES. CALL LIGHT WITHIN REACH. WILL CLOSELY MONITOR THE PATIENT
[2022-06-02 20:00] VITALS: BP 145/57
[2022-06-02] MEDS: SENNOSIDES 8.6 MG TABLET GT SCH (21:04)
[2022-06-02] MEDS: ATORVASTATIN 10 MG TABLET GT SCH (21:04)
[2022-06-03] VITALS: BP 139/74
[2022-06-03] MEDS: BLOOD SUGAR DIAGNOSTIC 1 EACH STRIP IN SCH ×5 (00:27→23:24)
[2022-06-03] MEDS: INSULIN REGULAR, HUMAN 100 UNIT/ML 3 ML VIAL SQ PRN ×5 (00:28→23:28)
[2022-06-03] MEDS: Potassium Chloride 20 MEQ in IV D5W 1,000 ML IV SCH ×2 (00:30→11:29)
[2022-06-03] MEDS: ALBUTEROL FS 2.5 MG/3 ML VIAL.NEB NEB SCH ×4 (01:18→20:22)
[2022-06-03 04:00] VITALS: BP 132/68
[2022-06-03] MEDS: HYDROCODONE/APAP 5/325MG TABLET GT SCH ×3 (05:00→20:28)
[2022-06-03] MEDS: BACLOFEN (10 MG) 10 MG TABLET GT SCH ×3 (05:00→20:27)
--- NOTE | 2022-06-03 05:55 | NUR ---
RN NOTES 1 UNIT PLATELET STARTED. NO TRANSFUSION REACTION NOTED AT THIS TIME. WILL CONTINUE TO MONITOR
--- NOTE | 2022-06-03 06:45 | NUR ---
RN NOTES PLATELET COMPLETED NO REACTION NOTED.
--- NOTE | 2022-06-03 07:07 | NUR ---
RN NOTES PATIENT ON TRACH CONNECTED TO MV TOLERATING WELL. FOR OR TODAY FOR PEG INSERTION CONSENT 2 CHART. PATIENT ON NPO. IV ACCESS AT L UA PATENT RUNNING D5 WITH 30 MEQ KCL @70ML/HR. ALL SAFETY MEASURES IN PLACE. HOB ELEVATED. CALL LIGHT WITHIN REACH. WILL ENDORSED TO MORNING SHIFT FOR [place]
--- NOTE | 2022-06-03 07:20 | NUR ---
RN OPEN NOTE PATIENT IS IN BED OBTUNED PATIENT ON TRACH CONNECTED TO MV TOLERATING WELL.PATIENTR SCHEDULED FOR PEG INSERTION CONSENT IN CHART . PATIENT IS NPO BUT MEDS IV ACCESS AT L UA PATENT RUNNING D5 WITH 20 MEQ KCL @75ML/HR. ALL SAFETY MEASURES IN PLACE. HOB ELEVATED. CALL LIGHT WITHIN REACH. WILL CONTINUE TO MONITOR
[2022-06-03 08:00] VITALS: BP 141/84
[2022-06-03 08:16] LABS: BASOPHILS % (AUTO) 0.7 % (0.0-2.0); EOSINOPHILS % (AUTO) 0.8 % (0.0-6.0); HEMATOCRIT 26 % (33-45); HEMOGLOBIN 8.2 g/dL (11.5-14.8); LYMPHOCYTES # (AUTO) 0.7 K/uL (0.8-4.8); LYMPHOCYTES % (AUTO) 15.7 % (20.0-44.0); MEAN CORPUSCULAR HGB CONC 31 g/dl (31.0-36.0); MEAN CORPUSCULAR VOLUME 90 fL (82-100); MONOCYTES # (AUTO) 0.2 K/uL (0.1-1.30); MONOCYTES % (AUTO) 5.6 % (2.0-12.0); NEUTROPHILS # (AUTO) 3.3 K/uL (1.8-8.9); NEUTROPHILS % (AUTO) 77.2 % (43.0-81.0); PLATELET COUNT (AUTO) 92 K/uL (150-450); RED BLOOD CELL COUNT(AUTO) 2.92 MIL/uL (4.0-5.2); WHITE BLOOD COUNT (AUTO) 4.3 K/uL (4.3-11.0)
[2022-06-03 08:31] LABS: CALCIUM, SERUM 7.5 mg/dL (8.5-10.1); CREATININE 0.6 mg/dL (0.6-1.3); POTASSIUM 3.8 mmol/L (3.5-5.1)
[2022-06-03] MEDS ORDERED: FENTANYL PF 100MCG/2ML AMPUL ONE (08:33)
[2022-06-03] MEDS ORDERED: ROCURONIUM BROMIDE 50 MG/5 ML ONE (08:34)
[2022-06-03] MEDS: CHLORHEXIDINE GLUCONATE 15 ML UDC MM SCH ×2 (08:46→20:27)
[2022-06-03] MEDS: PIOGLITAZONE HCL 15 MG TABLET GT SCH (08:46)
[2022-06-03] MEDS: PANTOPRAZOLE 40 MG VIAL IV SCH (08:46)
[2022-06-03] MEDS: LEVOTHYROXINE INJ 100 MCG VIAL IV SCH (08:47)
[2022-06-03] MEDS: Z GUARD REMEDY 4 OZ OINT TP SCH (08:59)
[2022-06-03] MEDS ORDERED: BUPIVACAINE MPF 0.5% W/EPI INJ 30 ML VIAL ONE (09:05)
[2022-06-03] MEDS ORDERED: BUPIVACAINE MPF W/EPI 0.25% 30 ML VIAL ONE (09:05)
[2022-06-03] MEDS ORDERED: BACITRACIN ZINC OINT PACKET 1 EA PACKET TP ONE (09:06)
[2022-06-03] MEDS ORDERED: LIDOCAINE 1% INJ 50 ML MDV IJ ONE (09:06)
--- NOTE | 2022-06-03 10:15 | NUR ---
rn note patient taken to the or for peg placement
--- NOTE | 2022-06-03 11:19 | NUR ---
rn note patient is back from the or . Bp 145/75 , hr 76 , resp 18 , temp 97.8 , o2 sat 98 % . order received to start D=G tube feeding at 30 ml /hr at 2 pm
[2022-06-03 12:08] VITALS: BP 137/78
[2022-06-03 12:54] LABS: BAND % (MANUAL) 11 % (0.0-5.0); LYMPHOCYTES % (MANUAL) 20 % (16-48); MONOCYTES % (MANUAL) 4 % (0-11.0); NEUTROPHILS % (MANUAL) 65 (42-76)
[2022-06-03] MEDS ORDERED: GLUCERNA 1.2 1,000 ML BOTTLE GT SCH ×2 (14:30→15:02)
[2022-06-03 16:00] VITALS: BP 96/59
[2022-06-03] MEDS: CYANOCOBALAMIN 500 MCG TABLET GT SCH (17:13)
[2022-06-03] MEDS: FLUDROCORTISONE 0.1 MG TABLET GT SCH (17:13)
--- NOTE | 2022-06-03 18:36 | NUR ---
RN CLOSING NOTE PATIENT IS IN BED OBTUNED PATIENT ON TRACH CONNECTED TO MV TOLERATING WELL. PATIENT HAS PEG PLACMENT TODAY AND STARTED ON GLUCERNA 20 ML /HR GRADUALLY INCREASE TOLARETD TO 40 ML/HR IV ACCESS AT VENESSA PATENT RUNNING D5 WITH 20 MEQ KCL @75ML/HR. ALL SAFETY MEASURES IN PLACE. HOB ELEVATED. CALL LIGHT WITHIN REACH. WILL ENDORSE SONG LYRICIST NURSE TO FALLOW POC
--- NOTE | 2022-06-03 19:30 | NUR ---
RN OPENING NOTE RECEIVED PATIENT IN BED, AWAKE, OBTUNDED. ON TRACH CONNECTED TO MV WITH PRESCRIBED SETTINGS, TOLERATING WELL. O2 SAT @ 99%. SR ON TELE MONITOR. NO S/SX OF ACUTE RESPI DISTRESS NOTED AT THIS TIME. NO SOB, BREATHING IS EVEN AND UNLABORED. IV ACCESS AT VENESSA MIDLINE, PATENT AND INTACT RUNNING D5 WITH 20 MEQ KCL AT 75 ML/HR. GT NOTED RUNNING GLUCERNA @ 20 CC/HJR, TOLERATING WELL. RESIDUAL OF 5 CC NOTED. ALL SAFETY MEASURES IN PLACE: BED LOCKED IN LOW POSITION, BED ALARM ON, HOB ELEVATED, CALL LIGHT WITHIN REACH. WILL CLOSELY MONITOR THE PATIENT
[2022-06-03 20:00] VITALS: BP 147/68
[2022-06-03] MEDS: SENNOSIDES 8.6 MG TABLET GT SCH (21:11)
[2022-06-03] MEDS: ATORVASTATIN 10 MG TABLET GT SCH (21:11)
[2022-06-04] VITALS: BP 134/69
[2022-06-04] MEDS: Potassium Chloride 20 MEQ in IV D5W 1,000 ML IV SCH ×2 (01:12→15:27)
[2022-06-04] MEDS: ALBUTEROL FS 2.5 MG/3 ML VIAL.NEB NEB SCH ×4 (01:46→19:57)
[2022-06-04 04:00] VITALS: BP 129/77
[2022-06-04] MEDS: HYDROCODONE/APAP 5/325MG TABLET GT SCH ×3 (04:34→21:48)
[2022-06-04] MEDS: BACLOFEN (10 MG) 10 MG TABLET GT SCH ×3 (04:35→21:47)
--- NOTE | 2022-06-04 04:42 | NUR ---
RN NOTE INCREASED GTF RATE @ 60 CC/HR FROM 20 CC/HR PER DOCTOR'S NOTE.
[2022-06-04] MEDS: BLOOD SUGAR DIAGNOSTIC 1 EACH STRIP IN SCH ×3 (05:40→17:20)
[2022-06-04] MEDS: INSULIN REGULAR, HUMAN 100 UNIT/ML 3 ML VIAL SQ PRN ×2 (05:42→17:45)
--- NOTE | 2022-06-04 05:57 | NUR ---
RN NOTE NO SIGNIFICANT CHANGE T/O THE NIGHT. PT REMAINED STABLE. GTF TOLERATING WELL. ALL DUE MEDS GIVEN. PM CARE DONE. TURNED AND REPOSITIONED, WILL ENDORSE TO AM SHIFT NURSE FOR [place].
[2022-06-04 08:00] VITALS: BP 121/64
[2022-06-04] MEDS: PANTOPRAZOLE 40 MG VIAL IV SCH (08:21)
[2022-06-04] MEDS: LEVOTHYROXINE INJ 100 MCG VIAL IV SCH (08:22)
[2022-06-04] MEDS: PIOGLITAZONE HCL 15 MG TABLET GT SCH (08:22)
[2022-06-04] MEDS: CHLORHEXIDINE GLUCONATE 15 ML UDC MM SCH ×2 (08:22→21:48)
[2022-06-04] MEDS: Z GUARD REMEDY 4 OZ OINT TP SCH (09:57)
[2022-06-04 12:00] VITALS: BP 108/61
[2022-06-04 16:00] VITALS: BP 123/65
[2022-06-04] MEDS: FLUDROCORTISONE 0.1 MG TABLET GT SCH (17:20)
[2022-06-04] MEDS: CYANOCOBALAMIN 500 MCG TABLET GT SCH (17:20)
--- NOTE | 2022-06-04 18:21 | NUR ---
RN NOTE PT IN BED, TRACH IN PLACE WITH VENT SETTINGS TOLERATING WELL. PT OBTUNDED. GT IN PLACE WITH FEEDING GLUCERNA 1.2 @60/HR. ASPIRATION PREC MAINTAINED. RESIDUALS LESS THAN 20CC. DUE MEDICATIONS GIVEN. AM/PM CARE RENDERED. V/S STABLE. WILL CONTINUE TO MONITOR.
[2022-06-04 20:33] VITALS: BP 118/65
[2022-06-04] MEDS: ATORVASTATIN 10 MG TABLET GT SCH (21:48)
[2022-06-04] MEDS: SENNOSIDES 8.6 MG TABLET GT SCH (21:48)
[2022-06-05] VITALS (25 sets, daily range): BP systolic 62–161; BP diastolic 35–120
[2022-06-05] MEDS: BLOOD SUGAR DIAGNOSTIC 1 EACH STRIP IN SCH ×5 (00:30→23:39)
[2022-06-05] MEDS: INSULIN REGULAR, HUMAN 100 UNIT/ML 3 ML VIAL SQ PRN ×2 (00:36→07:03)
[2022-06-05] MEDS: ALBUTEROL FS 2.5 MG/3 ML VIAL.NEB NEB SCH ×4 (02:18→19:57)
[2022-06-05] MEDS: Potassium Chloride 20 MEQ in IV D5W 1,000 ML IV SCH ×2 (03:41→17:42)
[2022-06-05] MEDS: BACLOFEN (10 MG) 10 MG TABLET GT SCH ×3 (06:13→21:00)
[2022-06-05] MEDS: HYDROCODONE/APAP 5/325MG TABLET GT SCH ×3 (06:13→21:00)
--- NOTE | 2022-06-05 07:25 | NUR ---
cornetist opening note received pt in bed. pt is obtunded and nonverbal. no signs of pain or discomfort noted at this time.pt is on trach with ordered settings tolerating well. pt has gtube. gtube intact, patent.no residual volume noted at this time. aspiration precautions maintained. all safety measures in place. bed locked and in lowest position. side rails up x2. bed alarm on.
[2022-06-05] MEDS: PIOGLITAZONE HCL 15 MG TABLET GT SCH (09:03)
[2022-06-05] MEDS: PANTOPRAZOLE 40 MG VIAL IV SCH (09:04)
[2022-06-05] MEDS: CHLORHEXIDINE GLUCONATE 15 ML UDC MM SCH ×2 (09:04→21:34)
[2022-06-05] MEDS: Z GUARD REMEDY 4 OZ OINT TP SCH (09:14)
[2022-06-05] MEDS: LEVOTHYROXINE INJ 100 MCG VIAL IV SCH (09:14)
--- NOTE | 2022-06-05 11:37 | NUR ---
rn note made rounds with Dr. Olmos. pt having watery stool/liquid diarrhea. ordered cdiff sample and to hold tube feeding for now. notified that bs is 234 and to hold insulin coverage for now
[2022-06-05 15:09] LABS: BASOPHILS % (AUTO) 0.1 % (0.0-2.0); EOSINOPHILS % (AUTO) 0.2 % (0.0-6.0); HEMATOCRIT 24 % (33-45); HEMOGLOBIN 7.3 g/dL (11.5-14.8); LYMPHOCYTES # (AUTO) 0.3 K/uL (0.8-4.8); MEAN CORPUSCULAR HGB CONC 31 g/dl (31.0-36.0); MEAN CORPUSCULAR VOLUME 91 fL (82-100); MONOCYTES # (AUTO) 0.1 K/uL (0.1-1.30); MONOCYTES % (AUTO) 4.7 % (2.0-12.0); NEUTROPHILS # (AUTO) 2.3 K/uL (1.8-8.9); RED BLOOD CELL COUNT(AUTO) 2.59 MIL/uL (4.0-5.2); WHITE BLOOD COUNT (AUTO) 2.7 K/uL (4.3-11.0)
[2022-06-05 15:25] LABS: CALCIUM, SERUM 7.9 mg/dL (8.5-10.1); CREATININE 0.7 mg/dL (0.6-1.3); MAGNESIUM 1.6 mg/dL (1.8-2.4); PHOSPHORUS 3.3 mg/dL (2.5-4.9); POTASSIUM 3.6 mmol/L (3.5-5.1)
[2022-06-05 16:23] LABS: PLATELET COUNT (AUTO) 48 K/uL (150-450)
--- NOTE | 2022-06-05 16:34 | NUR ---
rn note notified dr. vaca that platelet is 48 and manual bp is 79/50. will followup Addendum: 06/05/22 at 1753 by FEI LINDSEY RN ordered 500 ml normal saline bolus. orders noted and carried out
[2022-06-05] MEDS: FLUDROCORTISONE 0.1 MG TABLET GT SCH (17:15)
[2022-06-05] MEDS: CYANOCOBALAMIN 500 MCG TABLET GT SCH (17:15)
--- NOTE | 2022-06-05 17:30 | NUR ---
rn note held insulin coverage for 1800 per md
[2022-06-05] MEDS ORDERED: IV NS 0.9% 500 ML IV ONE ×3 (18:00→18:30)
--- NOTE | 2022-06-05 18:30 | NUR ---
rn note after 500 ml normal saline, bp remains 80/54.notified dr. vaca. ordered stat chest x-ray, another 500 ml normal saline bolus and to be transferred to ICU
--- NOTE | 2022-06-05 18:50 | NUR ---
rn note transferred patient to ICU via ACLS protocol. gave report to Marlin CALLE for continuity of care.notified dr. vaca gave orders for a stat chest xray, thoracentesis for tomorrow, Levophed and to keep MAP above 65. orders noted and endorsed to Marlin CALLE for continuity of care
--- NOTE | 2022-06-05 18:50 | NUR ---
RN NOTES GET PATIENT TRANSFERRED FROM [facility] ON LOW BP 66/39, P-70, PATIENT TOTAL CARE TRACHEA/VENT DEPENDENT. SHILEY-8, TV-500, P-5, AC-18, FIO2-40%, PATIENT TOLERATING SETTING WELL. GT CLAMPED, PER HOSPITALIST ORDER. PATIENT USING DIAPER. ASSIST TURN AND REPOSTION Q 2 HR. ENDORSED ONCOMING NURSE [place]. GET ORDER LEVOPHED, AND PICC LINE INSERTION.
[2022-06-05] MEDS ORDERED: NOREPINEPHRINE 8 MG in IV NS 0.9% 242 ML IV PRN (19:00)
[2022-06-05] MEDS ORDERED: NOREPINEPHRINE 32 MG in IV NS 0.9% 218 ML IV PRN (19:00)
[2022-06-05] MEDS: NOREPINEPHRINE 32 MG in IV NS 0.9% 218 ML IV PRN (19:24)
--- NOTE | 2022-06-05 20:00 | NUR ---
CORPORATE ETHICS OFFICER PER NUT SIFTER LOULOU OKAY TO TAKE OFF PEEP FOR HYPOTENSION; RT NOTIFIED
[2022-06-05] MEDS ORDERED: PHENYLEPHRINE 100 MG in IV NS 0.9% 240 ML IV PRN (21:00)
[2022-06-05] MEDS: ATORVASTATIN 10 MG TABLET GT SCH (21:31)
[2022-06-05] MEDS: SENNOSIDES 8.6 MG TABLET GT SCH (21:32)
[2022-06-06] VITALS (100 sets, daily range): BP systolic 72–149; BP diastolic 33–104
[2022-06-06] MEDS: ALBUTEROL FS 2.5 MG/3 ML VIAL.NEB NEB SCH ×4 (01:16→20:12)
[2022-06-06 03:51] LABS: BAND % (MANUAL) 9 % (0.0-5.0); BASOPHILS % (MANUAL) 0 % (0.0-2.0); EOSINOPHILS % (MANUAL) 0 % (0-4); LYMPHOCYTES % (MANUAL) 10 % (16-48); MONOCYTES % (MANUAL) 6 % (0-11.0); NEUTROPHILS % (MANUAL) 75 (42-76)
[2022-06-06 04:54] LABS: EOSINOPHILS % (AUTO) 0.3 % (0.0-6.0); HEMATOCRIT 22 % (33-45); LYMPHOCYTES # (AUTO) 0.6 K/uL (0.8-4.8); LYMPHOCYTES % (AUTO) 10.8 % (20.0-44.0); MEAN CORPUSCULAR HGB CONC 32 g/dl (31.0-36.0); MEAN CORPUSCULAR VOLUME 90 fL (82-100); MONOCYTES # (AUTO) 0.3 K/uL (0.1-1.30); MONOCYTES % (AUTO) 5.3 % (2.0-12.0); NEUTROPHILS # (AUTO) 4.3 K/uL (1.8-8.9); NEUTROPHILS % (AUTO) 83.6 % (43.0-81.0); PLATELET COUNT (AUTO) 56 K/uL (150-450); RED BLOOD CELL COUNT(AUTO) 2.42 MIL/uL (4.0-5.2); WHITE BLOOD COUNT (AUTO) 5.2 K/uL (4.3-11.0)
[2022-06-06 04:57] LABS: HEMOGLOBIN 6.9 g/dL (11.5-14.8)
[2022-06-06] MEDS: HYDROCODONE/APAP 5/325MG TABLET GT SCH ×3 (05:00→21:21)
[2022-06-06] MEDS: BACLOFEN (10 MG) 10 MG TABLET GT SCH ×3 (05:00→21:21)
[2022-06-06 05:18] LABS: CALCIUM, SERUM 7.7 mg/dL (8.5-10.1); CREATININE 0.7 mg/dL (0.6-1.3); MAGNESIUM 1.5 mg/dL (1.8-2.4); POTASSIUM 3.9 mmol/L (3.5-5.1)
[2022-06-06] MEDS: BLOOD SUGAR DIAGNOSTIC 1 EACH STRIP IN SCH ×3 (05:40→17:00)
[2022-06-06] MEDS: INSULIN REGULAR, HUMAN 100 UNIT/ML 3 ML VIAL SQ PRN ×3 (05:41→17:14)
--- NOTE | 2022-06-06 07:15 | NUR ---
STRAP CUTTING MACHINE OPERATOR Bedside report taken from [facility] nurse Hayde RN. pt awake, obtunded, nonverbal, moves bue and ble 0/5, contracted in ble. does not follow commands. perrla. pt has trach to vent, tolerating well, spo2 97%, aaron lung sounds clear/ diminished at bases. pt NSR on monitor, bue and ble pulses present. pt has peg, clamped at this time, pt NPO . pt incontinent , diaper in place. pt has wounds noted, see flow sheet. all lines traced. all drips verified. safety measures in place. will continue to monitor.
[2022-06-06 08:08] LABS: BAND % (MANUAL) 30 % (0.0-5.0); LYMPHOCYTES % (MANUAL) 13 % (16-48); METAMYELOCYTES % 3 % (0-0); MONOCYTES % (MANUAL) 1 % (0-11.0); MYELOCYTES % 3 % (0-0); NEUTROPHILS % (MANUAL) 50 (42-76)
[2022-06-06] MEDS: Potassium Chloride 20 MEQ in IV D5W 1,000 ML IV SCH ×2 (08:12→21:21)
[2022-06-06] MEDS: CHLORHEXIDINE GLUCONATE 15 ML UDC MM SCH ×2 (08:12→21:20)
[2022-06-06] MEDS: PIOGLITAZONE HCL 15 MG TABLET GT SCH (08:12)
[2022-06-06] MEDS: PANTOPRAZOLE 40 MG VIAL IV SCH (08:12)
[2022-06-06] MEDS: LEVOTHYROXINE INJ 100 MCG VIAL IV SCH (08:12)
[2022-06-06] MEDS: Z GUARD REMEDY 4 OZ OINT TP SCH (08:13)
[2022-06-06] MEDS: Magnesium 1GM/D5W 100ML PREMIX 100 ML IV SCH ×2 (09:21→10:04)
--- NOTE | 2022-06-06 16:15 | NUR ---
MACHINIST MATE Pt bathed and cleaned. linen change done. wound care and dressing change done per protocol. skin check done, no new wounds noted. pt tolerated well. vitals stable. will continue to monitor.
[2022-06-06] MEDS: FLUDROCORTISONE 0.1 MG TABLET GT SCH (17:00)
[2022-06-06] MEDS: CYANOCOBALAMIN 500 MCG TABLET GT SCH (17:00)
--- NOTE | 2022-06-06 19:13 | NUR ---
CLIENT RENEWAL SPECIALIST Bedside report given to [facility] nurse Sher CALLE. pt asleep, but arousable, opens eyes, nonverbal, does not track or follow commands. pt has trach to vent, pt tolerating well spo2 98%. all lines traced. all drips verified. pt clean and dry. safety measures in place. no signs of acute distress at this time.
[2022-06-06] MEDS: NOREPINEPHRINE 32 MG in IV NS 0.9% 218 ML IV PRN (19:44)
[2022-06-06] MEDS: SENNOSIDES 8.6 MG TABLET GT SCH (21:21)
[2022-06-06] MEDS: ATORVASTATIN 10 MG TABLET GT SCH (21:24)
[2022-06-07] VITALS (42 sets, daily range): BP systolic 105–136; BP diastolic 59–84
[2022-06-07] MEDS: BLOOD SUGAR DIAGNOSTIC 1 EACH STRIP IN SCH ×4 (00:24→17:07)
[2022-06-07] MEDS: INSULIN REGULAR, HUMAN 100 UNIT/ML 3 ML VIAL SQ PRN ×4 (00:26→17:43)
[2022-06-07] MEDS: ALBUTEROL FS 2.5 MG/3 ML VIAL.NEB NEB SCH ×4 (02:01→19:26)
[2022-06-07 04:02] LABS: BASOPHILS % (AUTO) 0.3 % (0.0-2.0); EOSINOPHILS % (AUTO) 0.7 % (0.0-6.0); HEMATOCRIT 23 % (33-45); HEMOGLOBIN 7.1 g/dL (11.5-14.8); LYMPHOCYTES # (AUTO) 0.4 K/uL (0.8-4.8); LYMPHOCYTES % (AUTO) 13.9 % (20.0-44.0); MEAN CORPUSCULAR HGB CONC 32 g/dl (31.0-36.0); MEAN CORPUSCULAR VOLUME 87 fL (82-100); MONOCYTES # (AUTO) 0.2 K/uL (0.1-1.30); MONOCYTES % (AUTO) 6.2 % (2.0-12.0); NEUTROPHILS % (AUTO) 78.9 % (43.0-81.0); RED BLOOD CELL COUNT(AUTO) 2.59 MIL/uL (4.0-5.2); WHITE BLOOD COUNT (AUTO) 2.6 K/uL (4.3-11.0)
[2022-06-07 04:15] LABS: CALCIUM, SERUM 7.6 mg/dL (8.5-10.1); CREATININE 0.8 mg/dL (0.6-1.3); PHOSPHORUS 2.7 mg/dL (2.5-4.9); POTASSIUM 4.1 mmol/L (3.5-5.1)
[2022-06-07 04:19] LABS: PLATELET COUNT (AUTO) 29 K/uL (150-450)
[2022-06-07] MEDS: BACLOFEN (10 MG) 10 MG TABLET GT SCH ×3 (05:18→20:35)
[2022-06-07] MEDS: HYDROCODONE/APAP 5/325MG TABLET GT SCH ×3 (05:18→20:35)
--- NOTE | 2022-06-07 07:40 | NUR ---
ICU/RN PT IS CHRONIC TRACH ON THE VENT AC MODE,FIO2-30%,SAT O2-99%.V/S STABLE.AFEBRILE.OFF LEVOPHED.PT IS OPEN EYES NOT FOLLOWS COMMAND.RIGHT UPPER ARM PICC LINE AND LEFT ARM ML. IV INFUSING ORDERED. NEW G-TUBE CLAMPED.F/C DRAINING WITH CLEAR YELLOW URINE.WONDS COVERED WITH DRESSING.SUCTION PROVIDED ,REPOSITION FOR COMFORT.LABS REVIEW. NOTIFIED.
[2022-06-07] MEDS: PANTOPRAZOLE 40 MG VIAL IV SCH (08:26)
[2022-06-07] MEDS: LEVOTHYROXINE INJ 100 MCG VIAL IV SCH (08:26)
[2022-06-07] MEDS: PIOGLITAZONE HCL 15 MG TABLET GT SCH (08:27)
[2022-06-07] MEDS: GLUCERNA 1.2 1,000 ML BOTTLE GT SCH (08:27)
[2022-06-07] MEDS: CHLORHEXIDINE GLUCONATE 15 ML UDC MM SCH ×2 (08:27→20:35)
[2022-06-07] MEDS: Z GUARD REMEDY 4 OZ OINT TP SCH (08:28)
[2022-06-07] MEDS: Potassium Chloride 20 MEQ in IV D5W 1,000 ML IV SCH ×2 (08:47→23:56)
--- NOTE | 2022-06-07 09:04 | NUR ---
ICU/RN DUE MEDS ARE GIVEN ORDERED. OK TO USE G-TUBE, FEEDING RESTARTED .
[2022-06-07 11:11] LABS: BAND % (MANUAL) 35 % (0.0-5.0); LYMPHOCYTES % (MANUAL) 22 % (16-48); MONOCYTES % (MANUAL) 6 % (0-11.0); NEUTROPHILS % (MANUAL) 32 (42-76)
[2022-06-07 11:12] LABS: EOSINOPHILS % (MANUAL) 1 % (0-4); METAMYELOCYTES % 2 % (0-0); MYELOCYTES % 2 % (0-0)
--- NOTE | 2022-06-07 14:49 | NUR ---
ICU/AIRCRAFT PARTS ASSEMBLER DRESSING DONE ORDERED.POST SURGICAL ABDOMINAL WOUND HAS SOME S/S DISCHARGE.NEW DRESSING APPLIED.PM CARE PROVIDED.REPOSITION FOR COMFORT.
--- NOTE | 2022-06-07 15:41 | NUR ---
ICU/RN OK TRANSFER PT TO TELE UNIT.WAITING FOR THE BED
[2022-06-07] MEDS: FLUDROCORTISONE 0.1 MG TABLET GT SCH (17:41)
[2022-06-07] MEDS: CYANOCOBALAMIN 500 MCG TABLET GT SCH (17:41)
--- NOTE | 2022-06-07 18:24 | NUR ---
ICU/RN DUE MEDS ARE GIVEN ORDERED.V/S STABLE,AFEBRILE.NO PAIN REPORTED AT THIS TIME.PT TRANSFERED TO TELE UNIT WITH RT .REPORT GIVEN TO JOSEMANUEL/ALVA
[2022-06-07] MEDS: SENNOSIDES 8.6 MG TABLET GT SCH (21:29)
[2022-06-07] MEDS: ATORVASTATIN 10 MG TABLET GT SCH (21:30)
[2022-06-08] VITALS (24 sets, daily range): BP systolic 63–158; BP diastolic 38–84
[2022-06-08] MEDS: ALBUTEROL FS 2.5 MG/3 ML VIAL.NEB NEB SCH ×4 (01:05→19:42)
[2022-06-08] MEDS: BLOOD SUGAR DIAGNOSTIC 1 EACH STRIP IN SCH ×4 (01:10→18:46)
[2022-06-08] MEDS: INSULIN REGULAR, HUMAN 100 UNIT/ML 3 ML VIAL SQ PRN ×4 (01:12→18:46)
[2022-06-08] MEDS: HYDROCODONE/APAP 5/325MG TABLET GT SCH ×3 (05:21→20:49)
[2022-06-08] MEDS: BACLOFEN (10 MG) 10 MG TABLET GT SCH ×3 (05:21→20:49)
[2022-06-08 06:07] LABS: BASOPHILS % (AUTO) 0.1 % (0.0-2.0); EOSINOPHILS % (AUTO) 0.4 % (0.0-6.0); HEMATOCRIT 25 % (33-45); HEMOGLOBIN 7.7 g/dL (11.5-14.8); LYMPHOCYTES # (AUTO) 0.2 K/uL (0.8-4.8); LYMPHOCYTES % (AUTO) 7.7 % (20.0-44.0); MEAN CORPUSCULAR HGB CONC 31 g/dl (31.0-36.0); MEAN CORPUSCULAR VOLUME 89 fL (82-100); MONOCYTES # (AUTO) 0.2 K/uL (0.1-1.30); MONOCYTES % (AUTO) 5.1 % (2.0-12.0); NEUTROPHILS # (AUTO) 2.6 K/uL (1.8-8.9); NEUTROPHILS % (AUTO) 86.7 % (43.0-81.0); RED BLOOD CELL COUNT(AUTO) 2.83 MIL/uL (4.0-5.2)
--- NOTE | 2022-06-08 06:42 | NUR ---
ARMATURE AND ROTOR WINDER CLOSING NOTES, PT CONTINUE ON MECHANICAL VENTILATOR, NO SOB/ACUTE DISTRESS NOTED, WITH OPTIMAL O2 SATURATION LEVEL, ALL DUE MEDS ARE GIVEN ORDERED, NSR-SINUS TOI IN TELE MONITOR, GTF INFUSING ORDERED TOLERATED WELL, NO RESIDUAL NOTED, V/S STABLE WITH LOW TEMPERATURE AND PLACED PT ON EKSHAWN HUGGER AND TEMPERATURE NORMAL AT THIS TIME, OTHERWISE NO SIGNIFICANT CHANGE IN CONDITION, WILL ENDORSE ENDORSE CONTINUITY OF CARE TO ONCOMING NURSE.
[2022-06-08 06:53] LABS: PLATELET COUNT (AUTO) 33 K/uL (150-450)
[2022-06-08 06:59] LABS: CALCIUM, SERUM 7.8 mg/dL (8.5-10.1); CREATININE 0.8 mg/dL (0.6-1.3); POTASSIUM 4.9 mmol/L (3.5-5.1)
--- NOTE | 2022-06-08 07:30 | NUR ---
TD RN AM NOTES PATIENT IN BED, OBTUNDED, PT WITH SHILEY 8 CUFFED TRACH TO MECHANICAL VENT, SETTING ORDERED, AC 16 TV 500 FIO2 30 PEEP 5. O2 SAT 100%. NO SOB, NO DISTRESS, BREATHING EVEN, RESPIRATION UNLABORED.SR HR 60, ON MONITOR, NO SIGNS OF PAIN, WITH LEFT UPPER ARM MIDLINE G 18 WITH D5W + 20 MEQS KCL AT 75 ML/HR INFUSING WELL. RICKY PICC LINE FLUSHES WELL, SITE CLEAR CDI DRESSING. G TUBE FEEDING GLUCERNA 1.2 AT 60 ML/HR ONGOING. CHECKED FOR PLACEMENT, 0 RESIDUAL. JACINTO CATH IN PLACE, DRAINING TO YELLOW COLORED URINE. 600 ML OUTPUT. HAS MULTIPLE WOUNDS, SEE NURSING FLOWSHEET. WILL DO PRESCRIBED WOUND CARE IN A WHILE, SAFETY MEASURES IN PLACE. BED LOW/LOCKED. HOB 3O DEG, SR UP X 2, CALL LIGHT WITHIN REACH. WILL TURN AND REPOSITION Q 2 HOURS. CALL LIGHT WITHIN REACH. WILL CONT TO MONITOR.
[2022-06-08] MEDS: Z GUARD REMEDY 4 OZ OINT TP SCH (09:18)
[2022-06-08] MEDS: CHLORHEXIDINE GLUCONATE 15 ML UDC MM SCH ×2 (09:25→20:49)
[2022-06-08] MEDS: PIOGLITAZONE HCL 15 MG TABLET GT SCH (09:25)
--- NOTE | 2022-06-08 09:30 | NUR ---
RN NOTES DUE MEDS GIVEN
[2022-06-08] MEDS: PANTOPRAZOLE 40 MG VIAL IV SCH (09:34)
--- NOTE | 2022-06-08 09:51 | NUR ---
RN NOTES TRANSFER TELEMETRY
[2022-06-08] MEDS ORDERED: IV D5W 1,000 ML IV PRN (11:00)
[2022-06-08] MEDS: LEVOTHYROXINE INJ 100 MCG VIAL IV SCH (12:09)
--- NOTE | 2022-06-08 16:37 | NUR ---
RN NOTES DR. LOULOU KENDALL, NOTIFIED ABOUT PT'S BP FOLLOWS 80/40, 79/31, 75/29, HR 54, O2 SAT 99% NEW ORDER RECEIVED TO GIVE NS 250 ML BOLUS.
[2022-06-08 16:49] LABS: BAND % (MANUAL) 24 % (0.0-5.0); EOSINOPHILS % (MANUAL) 1 % (0-4); LYMPHOCYTES % (MANUAL) 4 % (16-48); METAMYELOCYTES % 5 % (0-0); MONOCYTES % (MANUAL) 6 % (0-11.0); NEUTROPHILS % (MANUAL) 60 (42-76)
[2022-06-08] MEDS ORDERED: NOREPINEPHRINE 8 MG in IV NS 0.9% 242 ML IV PRN (17:00)
[2022-06-08] MEDS ORDERED: MIDODRINE HCL (5MG) 5 MG TABLET GT SCH (17:00)
[2022-06-08] MEDS ORDERED: IV NS 0.9% 250 ML IV ONE ×3 (17:00)
--- NOTE | 2022-06-08 17:05 | NUR ---
RN NOTES PATIENT TRANSFERRED TO ICU 260. BED SIDE REPORT GIVEN
[2022-06-08] MEDS: FLUDROCORTISONE 0.1 MG TABLET GT SCH (17:49)
[2022-06-08] MEDS: MIDODRINE HCL (5MG) 5 MG TABLET GT SCH (17:50)
[2022-06-08] MEDS: CYANOCOBALAMIN 500 MCG TABLET GT SCH (17:50)
--- NOTE | 2022-06-08 18:47 | NUR ---
BEAD WRAPPER NOTE: PT.'S BG AT 1825 IS 137 MG/DL. WILL HOLD INSULIN COVERAGE. TUBE FEEDING HELD FOR NOW DUE TO UNSTABLE BP. WILL CONTINUE TO MONITOR PT. FOR ANY CHANGES.
[2022-06-08] MEDS: IV D5W 1,000 ML IV PRN (19:02)
--- NOTE | 2022-06-08 19:10 | NUR ---
INSULATION BOARD BACK TENDERBEATER OUT NOTE: RECEIVED PT. IN BED FROM [facility]. TRANSFERRED FOR HYPOTENSION. PT. ON VENT/TRACH - SHILEY #8; AC - 16; VT - 500; FIO2 - 30%; PEEP - 5. NO S/S OF RESPIRATORY DISTRESS. KIDNEY TRIMMER READS NSR WITH HR OF 69 BPM AT THIS TIME. MULTIPLE SKIN ISSUES NOTED, WOUND TREATMENT DONE ORDERED. PT. HAS G-TUBE, FEEDING HELD AT THIS TIME. NO GASTRIC RESIDUAL NOTED. HAS JACINTO CATH WITH ROLDAN CLOUDY URINE WITH SEDIMENT NOTED. TOTAL OF 650 ML THIS SHIFT. IV ACCESS ON VENESSA MIDLINE, PATENT AND SALINE LOCKED; RICKY PICC LINE WITH D5W RUNNING AT 75 ML/HR AND LEVOPHED AT 0.04 MCG/KG/MIN. BP STABLE AT THIS TIME. IV SITE DRESSINGS C/D/I WITH NO S/S OF INFILTRATION. SAFETY MEASURES MAINTAINED: BED IN LOWEST AND LOCKED POSITION, HOB ELEVATED AT 30 DEGREES, BED ALARM ON, CALL LIGHT WITHIN REACH, SIDE RAILS UP X2. TURNED AND REPOSITIONED IN BED.ENDORSED CONTINUITY OF CARE TO BEEF CATTLE SPECIALIST RN TARA.
--- NOTE | 2022-06-08 20:24 | NUR ---
DATA LEAD. INITIAL ASSESSMENT. RECEIVED THE PT REST IN BED. TRACH TO VENT CONNECTED. TRACH MYRA#8.AC 16,TV 500,FIO2 30%,PEEP 5. SAT 98%. BARTACKER SHOWING NSR. IV RT UPPER ARM PICC LINE. LT UPPER ARM MID LINE. HOB ELEVATED. GT INTACT. ARSALAN UPPER EXTREMITY FLACCID, ARSALAN LOWER EXTREMITY CONTRACTED. TEMPERATURE 100. FC PATENT. WILL CONTINUE TO MONITOR VITALS.
[2022-06-08] MEDS: GLUCERNA 1.2 1,000 ML BOTTLE GT SCH (20:55)
[2022-06-08] MEDS: SENNOSIDES 8.6 MG TABLET GT SCH (21:02)
[2022-06-08] MEDS: ATORVASTATIN 10 MG TABLET GT SCH (21:02)
[2022-06-09] VITALS (26 sets, daily range): BP systolic 85–138; BP diastolic 46–84
[2022-06-09] MEDS: BLOOD SUGAR DIAGNOSTIC 1 EACH STRIP IN SCH ×4 (01:19→17:55)
[2022-06-09] MEDS: INSULIN REGULAR, HUMAN 100 UNIT/ML 3 ML VIAL SQ PRN ×5 (01:20→23:59)
[2022-06-09] MEDS: ALBUTEROL FS 2.5 MG/3 ML VIAL.NEB NEB SCH ×4 (01:28→19:50)
[2022-06-09 03:46] LABS: HEMOGLOBIN 7.1 g/dL (11.5-14.8)
[2022-06-09 03:56] LABS: HEMATOCRIT 23 % (33-45); MEAN CORPUSCULAR HGB CONC 32 g/dl (31.0-36.0); MEAN CORPUSCULAR VOLUME 87 fL (82-100)
[2022-06-09 04:01] LABS: CALCIUM, SERUM 7.6 mg/dL (8.5-10.1); POTASSIUM 5.1 mmol/L (3.5-5.1)
[2022-06-09 05:00] LABS: PLATELET COUNT (AUTO) 30 K/uL (150-450)
[2022-06-09] MEDS: HYDROCODONE/APAP 5/325MG TABLET GT SCH ×3 (05:30→21:09)
[2022-06-09] MEDS: BACLOFEN (10 MG) 10 MG TABLET GT SCH ×3 (05:30→21:09)
--- NOTE | 2022-06-09 05:47 | NUR ---
horticulture superintendent. am care given. remaining same ivf and gt feeding running. hob elevated, . afebrile. fc patent. urine draining. turn and reposition q2h. levophed off at 0400. blood pressure is stable. will continue to monitor vitals.
[2022-06-09 06:24] LABS: BAND % (MANUAL) 21 % (0.0-5.0); NEUTROPHILS % (MANUAL) 54 (42-76)
[2022-06-09 06:25] LABS: BASOPHILS % (MANUAL) 0 % (0.0-2.0); EOSINOPHILS % (MANUAL) 0 % (0-4); LYMPHOCYTES % (MANUAL) 19 % (16-48); MONOCYTES % (MANUAL) 6 % (0-11.0)
--- NOTE | 2022-06-09 07:10 | NUR ---
TALK SHOW HOST OPENING NOTE: RECEIVED PT. IN BED, OBTUNDED, OPENS EYES TO PAINFUL STIMULI. ON VENT/TRACH - SHILEY #8; AC - 16; VT - 500; FIO2 - 30%; PEEP - 5. NO S/S OF RESPIRATORY DISTRESS. BLOW PIT HELPER READS NSR WITH HR OF 62 BPM AT THIS TIME. MULTIPLE SKIN ISSUES NOTED, WILL DO WOUND TREATMENT ORDERED. PT. HAS G-TUBE, WITH GLUCERNA 1.2 RUNNING AT 60 ML/HR, 95 ML GASTRIC RESIDUAL NOTED. HAS JACINTO CATH WITH CLOUDY YELLOW URINE WITH SEDIMENT NOTED. IV ACCESS ON VENESSA MIDLINE, PATENT AND SALINE LOCKED; RICKY PICC LINE WITH D5W RUNNING AT 75 ML/HR. IV SITE DRESSINGS C/D/I WITH NO S/S OF INFILTRATION. SAFETY MEASURES IN PLACE: BED IN LOWEST AND LOCKED POSITION, HOB ELEVATED AT 30 DEGREES, BED ALARM ON, CALL LIGHT WITHIN REACH, SIDE RAILS UP X2. WILL TURN AND REPOSITION IN BED AT LEAST Q2H.WILL CONTINUE TO MONITOR PT. FOR ANY CHANGES.
[2022-06-09] MEDS: IV D5W 1,000 ML IV PRN ×2 (07:21→21:16)
[2022-06-09] MEDS: PANTOPRAZOLE 40 MG VIAL IV SCH (09:12)
[2022-06-09] MEDS: CHLORHEXIDINE GLUCONATE 15 ML UDC MM SCH ×2 (09:12→21:09)
[2022-06-09] MEDS: MIDODRINE HCL (5MG) 5 MG TABLET GT SCH ×3 (09:12→17:04)
[2022-06-09] MEDS: LEVOTHYROXINE INJ 100 MCG VIAL IV SCH (09:12)
[2022-06-09] MEDS: Z GUARD REMEDY 4 OZ OINT TP SCH (09:13)
[2022-06-09] MEDS: PIOGLITAZONE HCL 15 MG TABLET GT SCH (09:13)
--- NOTE | 2022-06-09 13:00 | NUR ---
WELLNESS HEALTH COACH NOTE: PT. NOTED TO HAVE A GASTRIC RESIDUAL OF 250 ML LIGHT BROWN LIQUID THAT RESEMBLES TUBE FEEDING AT 0800. TUBE FEEDING STOPPED. RECHECKED AT 1200 AND GASTRIC RESIDUAL STILL AT 200 ML, SAME COLOR. NOTIFIED FAIZA RIOS AND ORDERED REGLAN 10 MG TID VIA GTUBE. WILL FOLLOW ORDERS AND CONTINUE TO MONITOR PT.'S GASTRIC RESIDUAL AND S/S OF ASPIRATION.
[2022-06-09] MEDS: METOCLOPRAMIDE HCL 10 MG TABLET GT SCH ×2 (13:11→17:04)
[2022-06-09] MEDS: CEFEPIME 1 GM in IV D5W 50 ML IV SCH ×2 (14:04→21:12)
[2022-06-09] MEDS: CYANOCOBALAMIN 500 MCG TABLET GT SCH (17:02)
[2022-06-09] MEDS: FLUDROCORTISONE 0.1 MG TABLET GT SCH (17:04)
--- NOTE | 2022-06-09 18:40 | NUR ---
WAREHOUSE RECEIVING SUPERVISORCORDAGE SALES REPRESENTATIVE NOTE: TRANSFERRED PT. TO TELE ROOM 105-1 VIA HOSPITAL BED AT 1830. REPORT GIVEN TO CARBON CUTTER STEVE AT BEDSIDE. PT. REMAINS IN BED, OBTUNDED, OPENS EYES TO PAINFUL STIMULI. ON VENT/TRACH - SHILEY #8; AC - 16; VT - 500; FIO2 - 30%; PEEP - 0. NO S/S OF RESPIRATORY DISTRESS. JIG AND FIXTURE MAKER READS SINUS TOI WITH HR OF 58 BPM AT THIS TIME. WOUND TREATMENT DONE ORDERED. G-TUBE, WITH GLUCERNA 1.2 RUNNING AT 60 ML/HR, 60 ML GASTRIC RESIDUAL NOTED. JACINTO CATH DRAINED 1,500 ML CLOUDY YELLOW URINE WITH SEDIMENT THIS SHIFT. IV ACCESS ON VENESSA MIDLINE, PATENT AND SALINE LOCKED; RICKY PICC LINE WITH D5W RUNNING AT 75 ML/HR. IV SITE DRESSINGS C/D/I WITH NO S/S OF INFILTRATION. SAFETY MEASURES MAINTAINED: BED IN LOWEST AND LOCKED POSITION, HOB ELEVATED AT 30 DEGREES, BED ALARM ON, CALL LIGHT WITHIN REACH, SIDE RAILS UP X2. TURNED AND REPOSITIONED PT. IN BED AT LEAST Q2H. PT. BELONGINGS, MEDICATIONS AND CHART HANDED OVER AT BEDSIDE TO CARBON CUTTER STEVE. ENDORSED CONTINUITY OF CARE.
--- NOTE | 2022-06-09 18:42 | NUR ---
COMMUNITY HEALTH PROGRAM REPRESENTATIVE NOTE: RECEIVED PT FROM ICU, RECEIVED REPORT FROM CHARLY RN, PATIENT IN BED, OBTUNDED, OPENS EYES TO PAINFUL STIMULI. ON VENT/TRACH - SHILEY #8; AC - 16; VT - 500; FIO2 - 30%; PEEP - 5. NO S/S OF RESPIRATORY DISTRESS. LANDING SUPPORT SPECIALIST READS SB WITH HR OF 59 BPM AT THIS TIME. BP 131/63 HR 59 T 98.0 RR 16 02 SAT 98% . MULTIPLE SKIN ISSUES NOTED. PT. HAS G-TUBE, PATENT AND INTACT, NO RESIDUAL NOTED, FLUSHES WELL. HAS JACINTO CATH WITH CLEAR YELLOW URINE, IV ACCESS ON VENESSA MIDLINE, PATENT AND SALINE LOCKED; RICKY PICC LINE WITH D5W RUNNING AT 75 ML/HR. IV SITE DRESSINGS C/D/I WITH NO S/S OF INFILTRATION. SAFETY MEASURES IN PLACE: BED IN LOWEST AND LOCKED POSITION, HOB ELEVATED AT 30 DEGREES, BED ALARM ON, CALL LIGHT WITHIN REACH, SIDE RAILS UP X2. WILL ENDORSE TO CIRCULATION REPRESENTATIVE NURSE FOR [place].
[2022-06-09] MEDS: GLUCERNA 1.2 1,000 ML BOTTLE GT SCH (18:59)
--- NOTE | 2022-06-09 19:10 | NUR ---
RN NOTES RECEIVED REPORT FROM MORNING RN. PATIENT ON TRACH CONNECTED TO MV WITH PRESCRIBED SETTINGS SATI NG 99% NO SOB NO DISTRESS NOTED AT THIS TIME. WITH IV ACCESS ON R UA PICC VENESSA MIDLINE PATENT FLSUSHES WELL RUNNING D5W@ 75 MOL/HR. GT PATENT FLUSHES WELL ON CONTINUOS GT FEEDING @30CC/HR NO GASTRIC RESIDUAL NOTED AT THIS TIME. WITH JACINTO CATHETER CONNECTED TO URINE BAG DRAINING YELLOWISH URINE OUTPUT. ALL SAFETY MEASURES IN PLACE AT ALL TIMES. HOB ELEVATED. CALL LIGHT WITHIN REACH. WILL MARILYN MONITOR THE PATIENT
[2022-06-09] MEDS: SENNOSIDES 8.6 MG TABLET GT SCH (21:09)
[2022-06-09] MEDS: ATORVASTATIN 10 MG TABLET GT SCH (21:09)
--- NOTE | 2022-06-09 23:30 | NUR ---
RN NOTES PATIENT GT RESIDUA CHECK WITH 180CC RESIDUAL. TURNED OFF FEEDING WILL RECHECK AFTER 1 HOUR
[2022-06-10] VITALS: BP 127/56
[2022-06-10] MEDS: ALBUTEROL FS 2.5 MG/3 ML VIAL.NEB NEB SCH ×4 (01:28→19:44)
--- NOTE | 2022-06-10 01:30 | NUR ---
RN NOTES RESIDUAL CHECK WITH 30CC RESIDUAL TUBE FEEDING RESUMED
[2022-06-10 04:00] VITALS: BP 129/55
[2022-06-10] MEDS: CEFEPIME 1 GM in IV D5W 50 ML IV SCH ×3 (04:56→21:15)
[2022-06-10] MEDS: HYDROCODONE/APAP 5/325MG TABLET GT SCH ×3 (04:56→21:16)
[2022-06-10] MEDS: BACLOFEN (10 MG) 10 MG TABLET GT SCH ×3 (04:56→21:16)
[2022-06-10] MEDS: INSULIN REGULAR, HUMAN 100 UNIT/ML 3 ML VIAL SQ PRN ×3 (05:12→18:38)
[2022-06-10] MEDS: BLOOD SUGAR DIAGNOSTIC 1 EACH STRIP IN SCH ×4 (05:24→18:36)
[2022-06-10 06:45] LABS: BASOPHILS % (AUTO) 0.4 % (0.0-2.0); EOSINOPHILS % (AUTO) 0.6 % (0.0-6.0); HEMATOCRIT 25 % (33-45); HEMOGLOBIN 7.7 g/dL (11.5-14.8); LYMPHOCYTES # (AUTO) 0.5 K/uL (0.8-4.8); LYMPHOCYTES % (AUTO) 16.7 % (20.0-44.0); MEAN CORPUSCULAR HGB CONC 31 g/dl (31.0-36.0); MEAN CORPUSCULAR VOLUME 88 fL (82-100); MONOCYTES # (AUTO) 0.2 K/uL (0.1-1.30); MONOCYTES % (AUTO) 7.2 % (2.0-12.0); NEUTROPHILS # (AUTO) 2.3 K/uL (1.8-8.9); NEUTROPHILS % (AUTO) 75.1 % (43.0-81.0); RED BLOOD CELL COUNT(AUTO) 2.82 MIL/uL (4.0-5.2); WHITE BLOOD COUNT (AUTO) 3.1 K/uL (4.3-11.0)
--- NOTE | 2022-06-10 06:47 | NUR ---
RN NOTES PATIENT ON TRACH CONNECTED TO MV, NO SOB NO DISTRESS GT PATENT WITH 60CC GASTRIC RESIDUAL. IV ACCES PATENT FLUSHES WELL RUNNING D5W 75CC/HR. ALL SAFETY MEASURES IN PLACE AT ALL TIMES. HOB ELEVATED. CALL LIGHT WITHIN REACH. WILL ENDORSED TO MORNING SHIFT FOR [place]
[2022-06-10 06:57] LABS: PLATELET COUNT (AUTO) 30 K/uL (150-450)
[2022-06-10 07:06] LABS: CALCIUM, SERUM 8.5 mg/dL (8.5-10.1); CREATININE 0.8 mg/dL (0.6-1.3); POTASSIUM 4.5 mmol/L (3.5-5.1)
--- NOTE | 2022-06-10 07:21 | NUR ---
garnetter opening note received pt in bed. pt is obtunded and nonverbal.pt is on tele monitor sinus rhytm 52. no signs of pain or discomfort noted at this time.pt is on trach with ordered settings tolerating well. pt has picc line. pt has gtube. gtube intact, patent. aspiration precautions maintained. all safety measures in place. bed locked and in lowest position. side rails up x2. bed alarm on.
[2022-06-10 08:00] VITALS: BP 141/65
[2022-06-10] MEDS: MIDODRINE HCL (5MG) 5 MG TABLET GT SCH ×4 (09:00→16:59)
[2022-06-10] MEDS: PIOGLITAZONE HCL 15 MG TABLET GT SCH (09:10)
[2022-06-10] MEDS: METOCLOPRAMIDE HCL 10 MG TABLET GT SCH ×3 (09:11→16:59)
[2022-06-10] MEDS: PANTOPRAZOLE 40 MG VIAL IV SCH (09:11)
[2022-06-10] MEDS: LEVOTHYROXINE INJ 100 MCG VIAL IV SCH (09:11)
[2022-06-10] MEDS: CHLORHEXIDINE GLUCONATE 15 ML UDC MM SCH ×2 (09:11→21:16)
--- NOTE | 2022-06-10 09:54 | NUR ---
rn note order ct chest without contrast. notified md that patient is not stable due to low hr. md aware, and once stable have it done Addendum: 06/10/22 at 1137 by FEI LINDSEY RN spoke with dr. gallardo. low hr is stable, and to send ct chest without contrast completed
[2022-06-10] MEDS: Z GUARD REMEDY 4 OZ OINT TP SCH (10:41)
[2022-06-10 10:58] LABS: BAND % (MANUAL) 14 % (0.0-5.0); BASOPHILS % (MANUAL) 0 % (0.0-2.0); EOSINOPHILS % (MANUAL) 1 % (0-4); LYMPHOCYTES % (MANUAL) 16 % (16-48); MONOCYTES % (MANUAL) 14 % (0-11.0); NEUTROPHILS % (MANUAL) 65 (42-76)
[2022-06-10 12:00] VITALS: BP 134/62
--- NOTE | 2022-06-10 12:43 | NUR ---
rn note pt has rectal temp 93.8, placed a bear hugger and notified luc ariza
[2022-06-10] MEDS ORDERED: MIDODRINE HCL (5MG) 5 MG TABLET GT SCH (14:30)
--- NOTE | 2022-06-10 14:30 | NUR ---
rn note spoke with automotive specialty technician donna about elevated blood pressure. said to continue to give midodrine. automotive specialty technician aware that pt is edematous upper and lower extremities, notified automotive specialty technician that pt has rectal temp 93.8.rechecked temperature 96.1. ordered consult with [facility]-infectious disease doctor.pt foams in the mouth and to suction as needed. automotive specialty technician aware.no new orders given.
[2022-06-10 16:00] VITALS: BP 107/42
[2022-06-10] MEDS: CYANOCOBALAMIN 500 MCG TABLET GT SCH (17:01)
[2022-06-10] MEDS: FLUDROCORTISONE 0.1 MG TABLET GT SCH (17:01)
[2022-06-10] MEDS: IV D5W 1,000 ML IV PRN (17:45)
--- NOTE | 2022-06-10 19:09 | NUR ---
CARDIOLOGY NURSE PRACTITIONER CLOSING NOTE PT IN BED. PT OPENS EYES AND NONVERBAL. PT IS ON VENT/TRACH WITH ORDERED SETTINGS TOLERATING WELL. PT ON TELE MONITOR SR/SB 58. NO SIGNS OF PAIN OR DISCOMFORT NOTED AT THIS TIME. WOUND CARE COMPLETED. CLEAN AND DRY. PT HAS GTUBE, PATENT AND INTACT. NO RESIDUAL VOLUME NOTED. PT HAS R PICC LINE AND LEFT UA MIDLINE. IV INTACT, PATENT AND FLUSHES WELL. PT JACINTO CATH.YELLOW COLOR DRAINING TO GRAVITY. ALL SAFETY MEASURES IN PLACE: BED IN LOWEST AND LOCKED POSITION, HOB ELEVATED AT ALL TIMES. BED ALARM ON, CALL LIGHT WITHIN REACH, SIDE RAILS UP X2. ENDORSED TO GAS LEAK TESTER RN FOR CONTINUITY OF CARE.
--- NOTE | 2022-06-10 19:10 | NUR ---
RN NOTES RECEIVED REPORT FROM MORNING RN. PATIENT ON TRACH CONNECTED TO MV WITH PRESCRIBED SETTINGS SATING 99% NO SOB NO DISTRESS NOTED AT THIS TIME. WITH IV ACCESS ON R UA PICC VENESSA MIDLINE PATENT FLUSHES WELL RUNNING D5W@ 75 MOL/HR. GT PATENT FLUSHES WELL ON CONTINUOS GT FEEDING @60CC/HR NO GASTRIC RESIDUAL NOTED AT THIS TIME. WITH JACINTO CATHETER CONNECTED TO URINE BAG DRAINING YELLOWISH URINE OUTPUT. ALL SAFETY MEASURES IN PLACE AT ALL TIMES. HOB ELEVATED. CALL LIGHT WITHIN REACH. WILL CLOSELY MONITOR THE PATIENT
[2022-06-10 20:00] VITALS: BP 113/75
[2022-06-10] MEDS: SENNOSIDES 8.6 MG TABLET GT SCH (21:16)
[2022-06-10] MEDS: ATORVASTATIN 10 MG TABLET GT SCH (21:16)
[2022-06-10] MEDS: DOXYCYCLINE HYCLATE (100 MG) 100 MG TABLET PO SCH (21:16)
--- NOTE | 2022-06-10 22:30 | NUR ---
RN NOTES REMOVED MIDLINE ORDERED, PRESSURE APPLIED
[2022-06-11] VITALS: BP 99/49
[2022-06-11] MEDS: BLOOD SUGAR DIAGNOSTIC 1 EACH STRIP IN SCH ×4 (00:34→17:08)
[2022-06-11] MEDS: INSULIN REGULAR, HUMAN 100 UNIT/ML 3 ML VIAL SQ PRN ×4 (00:38→18:24)
[2022-06-11] MEDS: ALBUTEROL FS 2.5 MG/3 ML VIAL.NEB NEB SCH ×4 (00:49→19:50)
[2022-06-11 04:00] VITALS: BP 91/40
[2022-06-11] MEDS: BACLOFEN (10 MG) 10 MG TABLET GT SCH ×3 (04:45→21:47)
[2022-06-11] MEDS: CEFEPIME 1 GM in IV D5W 50 ML IV SCH ×3 (04:52→21:48)
[2022-06-11] MEDS: HYDROCODONE/APAP 5/325MG TABLET GT SCH ×3 (04:52→21:47)
--- NOTE | 2022-06-11 06:31 | NUR ---
RN NOTES PATIENT ON TRACH CONNECTED TO MV, NO SOB NO DISTRESS GT PATENT WITH NO GASTRIC RESIDUAL RUNNING GLUCERNA @ 60CC/HR. IV ACCES PATENT FLUSHES WELL RUNNING D5W 75CC/HR. ALL SAFETY MEASURES IN PLACE AT ALL TIMES. HOB ELEVATED. CALL LIGHT WITHIN REACH. WILL ENDORSED TO MORNING SHIFT FOR [place]
[2022-06-11 06:42] LABS: BASOPHILS % (AUTO) 0.4 % (0.0-2.0); EOSINOPHILS % (AUTO) 0.7 % (0.0-6.0); HEMATOCRIT 26 % (33-45); LYMPHOCYTES # (AUTO) 0.5 K/uL (0.8-4.8); LYMPHOCYTES % (AUTO) 12.8 % (20.0-44.0); MEAN CORPUSCULAR HGB CONC 31 g/dl (31.0-36.0); MEAN CORPUSCULAR VOLUME 87 fL (82-100); MONOCYTES # (AUTO) 0.2 K/uL (0.1-1.30); MONOCYTES % (AUTO) 4.5 % (2.0-12.0); NEUTROPHILS # (AUTO) 3.2 K/uL (1.8-8.9); NEUTROPHILS % (AUTO) 81.6 % (43.0-81.0); RED BLOOD CELL COUNT(AUTO) 2.93 MIL/uL (4.0-5.2)
[2022-06-11] MEDS: GLUCERNA 1.2 1,000 ML BOTTLE GT SCH (06:43)
[2022-06-11 06:50] LABS: CALCIUM, SERUM 8.3 mg/dL (8.5-10.1); CREATININE 0.8 mg/dL (0.6-1.3); POTASSIUM 4.8 mmol/L (3.5-5.1)
--- NOTE | 2022-06-11 07:10 | NUR ---
RN NOTE RECEIVED PATIENT IN BED RESTING OBTUNDED ON MECHANICAL VENT SETTING PRESCIBED,ON G-TUBE FEEDING,GLUCERNA 1.2 60CCC/HR CHECKED PLACEMENT IN PLACE NO RESIDUAL NOTED,JACINTO CATH IN PLACE,IV SITE RIGHT UPPER ARM PICC LINE INTACT PATENT ON D5W IV HYDRATION 75CC/HR,SAFETY MEASURE IMPLEMENT,HEAD OF THE BED ELEVATED,BED IN LOW POSITION AND LOCKED CONTINUE TO MONITOR.
[2022-06-11 07:54] LABS: PLATELET COUNT (AUTO) 32 K/uL (150-450)
[2022-06-11 08:00] VITALS: BP 122/74
[2022-06-11] MEDS: PIOGLITAZONE HCL 15 MG TABLET GT SCH (08:15)
[2022-06-11] MEDS: MIDODRINE HCL (5MG) 5 MG TABLET GT SCH ×2 (08:15→16:14)
[2022-06-11] MEDS: PANTOPRAZOLE 40 MG VIAL IV SCH (08:16)
[2022-06-11] MEDS: CHLORHEXIDINE GLUCONATE 15 ML UDC MM SCH ×2 (08:17→21:48)
[2022-06-11] MEDS: METOCLOPRAMIDE HCL 10 MG TABLET GT SCH ×3 (08:18→16:12)
[2022-06-11] MEDS: DOXYCYCLINE HYCLATE (100 MG) 100 MG TABLET PO SCH ×2 (08:28→21:48)
[2022-06-11] MEDS: Z GUARD REMEDY 4 OZ OINT TP SCH (08:30)
[2022-06-11] MEDS: LEVOTHYROXINE INJ 100 MCG VIAL IV SCH (08:39)
[2022-06-11 12:00] VITALS: BP 140/86
[2022-06-11] MEDS: IV D5W 1,000 ML IV PRN (12:47)
[2022-06-11] MEDS: IV 1/2NS 1000 ML 1,000 ML IV PRN (13:25)
[2022-06-11] MEDS ORDERED: IV 1/2NS 1000 ML 1,000 ML IV ONE ×2 (13:30)
[2022-06-11 16:00] VITALS: BP 127/62
[2022-06-11] MEDS: FLUDROCORTISONE 0.1 MG TABLET GT SCH (16:13)
[2022-06-11] MEDS: CYANOCOBALAMIN 500 MCG TABLET GT SCH (16:13)
[2022-06-11 17:52] LABS: BAND % (MANUAL) 16 % (0.0-5.0); LYMPHOCYTES % (MANUAL) 17 % (16-48); METAMYELOCYTES % 2 % (0-0); MONOCYTES % (MANUAL) 1 % (0-11.0); NEUTROPHILS % (MANUAL) 64 (42-76)
--- NOTE | 2022-06-11 18:36 | NUR ---
RN NOTE PATIENT REMAINS ON MECHANICAL VENT NON VERBAL ON G-TUBE ON JACINTO CATH NO SOB NOT ACUTE DISTRESS NOTED,ALL DUE MEDS GIVEN MD ORDERED KEPT CLEAN AND DRY ALL THE TIME,TURNED AND REPOSITIONED EVERY 2 HOURS,KEPT HEAD OF THE BED ELEVATED,WILL ENDORSE TO NEXT COMING SHIFT FOR CONTINUEATION OF CARE
--- NOTE | 2022-06-11 19:00 | NUR ---
RN NOTE Patient in bed, on semi leahy's, obtunded, in no acute distress, on trach shiley#8 connected to mechanical vent with prescribed settings, saturation at 98%, SR on the monitor, HR is 64. RICKY PICC intact, all hubs flushing well with 1/2 NS infusing at 75 ml/hr. Gtube in place, positive placement noted, no residual with Glucerna at 60 ml/hr. [place] catheter draining to a clear, yellow output. Aspiration and safety measures implemented, bed is locked and at lowest position, hob elevated, will cont to monitor and reassess.
[2022-06-11 20:00] VITALS: BP 92/48
[2022-06-11] MEDS: ATORVASTATIN 10 MG TABLET GT SCH (21:48)
[2022-06-11] MEDS: SENNOSIDES 8.6 MG TABLET GT SCH (21:49)
[2022-06-12] VITALS (17 sets, daily range): BP systolic 94–140; BP diastolic 46–80
[2022-06-12] MEDS: BLOOD SUGAR DIAGNOSTIC 1 EACH STRIP IN SCH ×4 (00:10→17:21)
[2022-06-12] MEDS: IV 1/2NS 1000 ML 1,000 ML IV PRN (00:27)
[2022-06-12] MEDS: ALBUTEROL FS 2.5 MG/3 ML VIAL.NEB NEB SCH ×4 (01:41→20:31)
[2022-06-12] MEDS: HYDROCODONE/APAP 5/325MG TABLET GT SCH ×3 (05:00→21:24)
[2022-06-12] MEDS: BACLOFEN (10 MG) 10 MG TABLET GT SCH ×3 (05:48→21:23)
[2022-06-12] MEDS: CEFEPIME 1 GM in IV D5W 50 ML IV SCH ×3 (05:50→21:22)
[2022-06-12] MEDS: INSULIN REGULAR, HUMAN 100 UNIT/ML 3 ML VIAL SQ PRN ×3 (06:13→17:29)
[2022-06-12] MEDS: GLUCERNA 1.2 1,000 ML BOTTLE GT SCH (06:32)
--- NOTE | 2022-06-12 07:15 | NUR ---
rn paralegal opening note received pt in bed. pt is obtunded and nonverbal.pt is on tele monitor sinus rhythm 68. no signs of pain or discomfort noted at this time.pt is on trach with ordered settings tolerating well. pt has picc line RICKY. Patient is on g tube feeding Glucerna running at 60 ml/hr . gtube intact, patent. Patient has surgical wound from the previous g tube removal with mod drainage and scalp wound .Patient is on aspiration all safety measures in place. bed locked and in lowest position. side rails up x2. bed alarm on, will continue to monitor
[2022-06-12 07:38] LABS: CALCIUM, SERUM 7.4 mg/dL (8.5-10.1); POTASSIUM 4.7 mmol/L (3.5-5.1)
[2022-06-12] MEDS: METOCLOPRAMIDE HCL 10 MG TABLET GT SCH ×3 (08:25→16:19)
[2022-06-12] MEDS: LEVOTHYROXINE INJ 100 MCG VIAL IV SCH (08:25)
[2022-06-12] MEDS: PANTOPRAZOLE 40 MG VIAL IV SCH (08:25)
[2022-06-12] MEDS: DOXYCYCLINE HYCLATE (100 MG) 100 MG TABLET PO SCH ×2 (08:25→21:24)
[2022-06-12] MEDS: MIDODRINE HCL (5MG) 5 MG TABLET GT SCH ×2 (08:25→16:19)
[2022-06-12] MEDS: CHLORHEXIDINE GLUCONATE 15 ML UDC MM SCH ×2 (08:26→21:22)
[2022-06-12] MEDS: Z GUARD REMEDY 4 OZ OINT TP SCH (08:26)
[2022-06-12] MEDS: PIOGLITAZONE HCL 15 MG TABLET GT SCH (08:26)
[2022-06-12 09:04] LABS: BASOPHILS % (AUTO) 0.3 % (0.0-2.0); EOSINOPHILS % (AUTO) 0.5 % (0.0-6.0); HEMATOCRIT 22 % (33-45); LYMPHOCYTES # (AUTO) 0.9 K/uL (0.8-4.8); LYMPHOCYTES % (AUTO) 20.8 % (20.0-44.0); MEAN CORPUSCULAR HGB CONC 31 g/dl (31.0-36.0); MEAN CORPUSCULAR VOLUME 87 fL (82-100); MONOCYTES # (AUTO) 0.2 K/uL (0.1-1.30); MONOCYTES % (AUTO) 3.7 % (2.0-12.0); NEUTROPHILS # (AUTO) 3.1 K/uL (1.8-8.9); NEUTROPHILS % (AUTO) 74.7 % (43.0-81.0); RED BLOOD CELL COUNT(AUTO) 2.56 MIL/uL (4.0-5.2); WHITE BLOOD COUNT (AUTO) 4.2 K/uL (4.3-11.0)
[2022-06-12 09:12] LABS: HEMOGLOBIN 6.9 g/dL (11.5-14.8); PLATELET COUNT (AUTO) 35 K/uL (150-450)
[2022-06-12] MEDS: FLUDROCORTISONE 0.1 MG TABLET GT SCH (17:22)
[2022-06-12] MEDS: CYANOCOBALAMIN 500 MCG TABLET GT SCH (17:22)
--- NOTE | 2022-06-12 18:24 | NUR ---
MD UROLOGIST CLOSING NOTE PT IN BED. PT OPENS EYES NON VERBAL PT IS ON VENT/TRACH WITH ORDERED SETTINGS TOLERATING WELL. PT ON TELE MONITOR SR/SB 65. NO SIGNS OF PAIN OR DISCOMFORT NOTED AT THIS TIME. WOUND CARE COMPLETED. CLEAN AND DRY. PT HAS GTUBE, PATENT AND INTACT. NO RESIDUAL VOLUME NOTED PT HAS R PICC LINE . IV INTACT, PATENT AND FLUSHES WELL 1/2 NS WAS RUNNING AT 75 ML/HR TILL 1600 , BLOODN TRUNSFUSION RUNNING QT 100 ML/HR , PATIENT TOLERATING BLOOD TRANSFUSION WELL. PT JACINTO CATH.YELLOW COLOR DRAINING TO GRAVITY. ALL SAFETY MEASURES IN PLACE: BED IN LOWEST AND LOCKED POSITION, HOB ELEVATED AT ALL TIMES. BED ALARM ON, CALL LIGHT WITHIN REACH, SIDE RAILS UP X2. ENDORSED TO ASSOCIATE PROFESSOR OF COMMUNICATION RN FOR CONTINUITY OF CARE.
[2022-06-12 18:35] LABS: BAND % (MANUAL) 10 % (0.0-5.0); LYMPHOCYTES % (MANUAL) 17 % (16-48); METAMYELOCYTES % 1 % (0-0); MONOCYTES % (MANUAL) 5 % (0-11.0); NEUTROPHILS % (MANUAL) 67 (42-76)
--- NOTE | 2022-06-12 19:30 | NUR ---
GENERAL FARMWORKER OPENING NOTE RECEIVED PT IN BED. PT OPENS EYES NON VERBAL PT IS ON VENT/TRACH WITH ORDERED SETTINGS TOLERATING WELL. PT ON TELE MONITOR SR. NO SIGNS OF PAIN OR DISCOMFORT NOTED AT THIS TIME. PT HAS GTUBE, PATENT AND INTACT. NO RESIDUAL VOLUME NOTED, PT HAS R PICC LINE . IV INTACT, PATENT AND FLUSHES WELL 1/2 NS WAS RUNNING AT 75 ML/HR, WITH BLOOD TRUNSFUSION RUNNING QT 100 ML/HR , PATIENT TOLERATING BLOOD TRANSFUSION WELL. PT JACINTO CATH. YELLOW COLOR DRAINING TO GRAVITY. ALL SAFETY MEASURES IN PLACE: BED IN LOWEST AND LOCKED POSITION, HOB ELEVATED AT ALL TIMES. BED ALARM ON, CALL LIGHT WITHIN REACH, SIDE RAILS UP X2. WILL CONTINUE TO MONITOR THROUGHOUT THE SHIFT.
[2022-06-12] MEDS: SENNOSIDES 8.6 MG TABLET GT SCH (21:22)
[2022-06-12] MEDS: ATORVASTATIN 10 MG TABLET GT SCH (21:24)
[2022-06-13] VITALS: BP 115/62
[2022-06-13] MEDS: BLOOD SUGAR DIAGNOSTIC 1 EACH STRIP IN SCH ×5 (00:16→23:57)
[2022-06-13] MEDS: INSULIN REGULAR, HUMAN 100 UNIT/ML 3 ML VIAL SQ PRN ×5 (00:17→23:59)
[2022-06-13] MEDS: ALBUTEROL FS 2.5 MG/3 ML VIAL.NEB NEB SCH ×4 (02:32→20:12)
[2022-06-13 04:00] VITALS: BP 130/70
[2022-06-13] MEDS: GLUCERNA 1.2 1,000 ML BOTTLE GT SCH (04:12)
[2022-06-13] MEDS: IV 1/2NS 1000 ML 1,000 ML IV PRN ×2 (04:13→18:03)
[2022-06-13] MEDS: BACLOFEN (10 MG) 10 MG TABLET GT SCH ×3 (04:59→22:20)
[2022-06-13] MEDS: HYDROCODONE/APAP 5/325MG TABLET GT SCH ×3 (04:59→22:20)
[2022-06-13] MEDS: CEFEPIME 1 GM in IV D5W 50 ML IV SCH ×3 (05:01→22:20)
[2022-06-13 06:28] LABS: CALCIUM, SERUM 8.1 mg/dL (8.5-10.1); CREATININE 0.7 mg/dL (0.6-1.3); POTASSIUM 4.1 mmol/L (3.5-5.1)
[2022-06-13 06:33] LABS: BASOPHILS % (AUTO) 0.5 % (0.0-2.0); EOSINOPHILS % (AUTO) 0.6 % (0.0-6.0); HEMATOCRIT 26 % (33-45); LYMPHOCYTES # (AUTO) 0.7 K/uL (0.8-4.8); LYMPHOCYTES % (AUTO) 15.9 % (20.0-44.0); MEAN CORPUSCULAR HGB CONC 32 g/dl (31.0-36.0); MEAN CORPUSCULAR VOLUME 87 fL (82-100); MONOCYTES # (AUTO) 0.1 K/uL (0.1-1.30); MONOCYTES % (AUTO) 3.3 % (2.0-12.0); NEUTROPHILS # (AUTO) 3.4 K/uL (1.8-8.9); NEUTROPHILS % (AUTO) 79.7 % (43.0-81.0); RED BLOOD CELL COUNT(AUTO) 2.92 MIL/uL (4.0-5.2); WHITE BLOOD COUNT (AUTO) 4.2 K/uL (4.3-11.0)
--- NOTE | 2022-06-13 06:53 | NUR ---
APPLICATION SUPPORT ANALYST CLOSING NOTE PT IN BED SLEEPING, OPENS EYES WHEN AROUSED, NON VERBAL PT ON VENT/TRACH WITH ORDERED SETTINGS TOLERATING WELL. PT ON TELE MONITOR SR. NO SIGNS OF PAIN OR DISCOMFORT NOTED AT THIS TIME. PT HAS GTUBE, PATENT AND INTACT WITH 20 RESIDUAL NOTED, PT HAS R PICC LINE . IV INTACT, PATENT AND FLUSHES WELL 1/2 NS WAS RUNNING AT 75 ML/HR, PT JACINTO CATH. YELLOW COLOR DRAINING TO GRAVITY. ALL DUE MEDS GIVEN, KEPT DRY AND CLEAN, ALL SAFETY MEASURES IN PLACE: BED IN LOWEST AND LOCKED POSITION, HOB ELEVATED AT ALL TIMES. BED ALARM ON, CALL LIGHT WITHIN REACH, SIDE RAILS UP X2. WILL ENDORSE TO AM SHIFT NURSE FOR CONTINUITY OF CARE.
--- NOTE | 2022-06-13 07:00 | NUR ---
CLINICAL PROJECT COORDINATOR OPENING NOTES: RECEIVED PATIENT IN BED ASLEEP, EASILY AROUSED WITH STIMULI. OBTUNDED. NO SOB OR CARDIAC DISTRESS NOTED,ON MECHANICAL VENT WITH CURRENT READING OF TV 500,FI02 30,AC 16. ON NEUROLOGY MANAGER WITH CURRENT READING OF SINUS RHYTHM @80 BPM. IV ACCESS ON RICKY MIDLINE PATENT, INTACT AND INFUSING 1/2 NS @75ML/HR. ON G TUBE FEEDING GLUCERNA 60ML/HR X 24 HRS. SAFETY MEASURES MAINTAINED: BED LOCKED AND IN LOWEST POSITION, SIDE RAILS UP X 3,CALL LIGHT IN EASY REACH AND WILL MONITOR PT ACCORDINGLY.
[2022-06-13 07:10] LABS: PLATELET COUNT (AUTO) 30 K/uL (150-450)
--- NOTE | 2022-06-13 07:30 | NUR ---
RN NOTES: PLATELET 30,REPORTED TO DR PASCAL,PENDING RESPONSE
[2022-06-13 08:00] VITALS: BP 121/60
[2022-06-13 08:04] LABS: BAND % (MANUAL) 10 % (0.0-5.0); LYMPHOCYTES % (MANUAL) 8 % (16-48); MONOCYTES % (MANUAL) 4 % (0-11.0); NEUTROPHILS % (MANUAL) 78 (42-76)
[2022-06-13] MEDS: CHLORHEXIDINE GLUCONATE 15 ML UDC MM SCH ×2 (08:33→22:21)
[2022-06-13] MEDS: PANTOPRAZOLE 40 MG VIAL IV SCH (08:33)
[2022-06-13] MEDS: DOXYCYCLINE HYCLATE (100 MG) 100 MG TABLET PO SCH ×2 (08:33→22:21)
[2022-06-13] MEDS: PIOGLITAZONE HCL 15 MG TABLET GT SCH (08:34)
[2022-06-13] MEDS: LEVOTHYROXINE INJ 100 MCG VIAL IV SCH (08:34)
[2022-06-13] MEDS: METOCLOPRAMIDE HCL 10 MG TABLET GT SCH ×3 (08:34→17:06)
[2022-06-13] MEDS: MIDODRINE HCL (5MG) 5 MG TABLET GT SCH ×2 (08:50→17:00)
[2022-06-13] MEDS: Z GUARD REMEDY 4 OZ OINT TP SCH (09:35)
[2022-06-13 12:00] VITALS: BP 119/62
--- NOTE | 2022-06-13 13:39 | NUR ---
RN NOTES: RECEIVED A CALL FROM LAB ([facility]) PROCALCITONIN 2.12, REPORT TO DR SON,ORDERED REPEAT BMP TOMORROW. ORDERS NOTED AND CARRIED OUT.
[2022-06-13 16:00] VITALS: BP 133/69
[2022-06-13] MEDS: CYANOCOBALAMIN 500 MCG TABLET GT SCH (17:05)
[2022-06-13] MEDS: FLUDROCORTISONE 0.1 MG TABLET GT SCH (17:06)
--- NOTE | 2022-06-13 18:47 | NUR ---
HEAD PIECE ASSEMBLER CLOSING NOTES:105 PATIENT IN BED ASLEEP, EASILY AROUSED WITH STIMULI. OBTUNDED. NO SOB OR CARDIAC DISTRESS NOTED,ON MECHANICAL VENT WITH CURRENT READING OF TV 500,FI02 30,AC 16. ON SPOT FACER WITH CURRENT READING OF SINUS RHYTHM @88 BPM. IV ACCESS ON RICKY MIDLINE PATENT, INTACT AND INFUSING 1/2 NS @75ML/HR. ON G TUBE FEEDING GLUCERNA 60ML/HR X 24 HRS NO RESIDUAL NOTED PRIOR GIVING MEDS.. ON ROUTINE PAIN MANAGEMENT ORDERED, WOUND CARE TREATMENT DONE.TURNED AND REPOSITIONED ORDERED AND NEEDED. SAFETY MEASURES MAINTAINED: BED LOCKED AND IN LOWEST POSITION, SIDE RAILS UP X 3,CALL LIGHT IN EASY REACH AND WILL MONITOR PT ACCORDINGLY.
[2022-06-13 20:00] VITALS: BP 155/89
[2022-06-13] MEDS: ATORVASTATIN 10 MG TABLET GT SCH (22:19)
[2022-06-13] MEDS: SENNOSIDES 8.6 MG TABLET GT SCH (22:20)
[2022-06-13] MEDS: hydrALAZINE HCL IV 20 MG VIAL IV PRN (22:33)
[2022-06-14] VITALS: BP_SYST 101; BP_SYST 106; BP_DIAS 53; BP_DIAS 63
[2022-06-14] MEDS: ALBUTEROL FS 2.5 MG/3 ML VIAL.NEB NEB SCH ×4 (01:20→20:05)
[2022-06-14] MEDS: GLUCERNA 1.2 1,000 ML BOTTLE GT SCH ×2 (01:52→20:30)
[2022-06-14 04:00] VITALS: BP 96/61
[2022-06-14] MEDS: CEFEPIME 1 GM in IV D5W 50 ML IV SCH ×3 (05:09→20:21)
[2022-06-14 05:47] LABS: BASOPHILS % (AUTO) 0.4 % (0.0-2.0); EOSINOPHILS % (AUTO) 0.4 % (0.0-6.0); HEMATOCRIT 24 % (33-45); HEMOGLOBIN 7.6 g/dL (11.5-14.8); LYMPHOCYTES # (AUTO) 0.6 K/uL (0.8-4.8); LYMPHOCYTES % (AUTO) 12.5 % (20.0-44.0); MEAN CORPUSCULAR HGB CONC 32 g/dl (31.0-36.0); MEAN CORPUSCULAR VOLUME 88 fL (82-100); MONOCYTES # (AUTO) 0.2 K/uL (0.1-1.30); MONOCYTES % (AUTO) 3.5 % (2.0-12.0); NEUTROPHILS # (AUTO) 4.1 K/uL (1.8-8.9); NEUTROPHILS % (AUTO) 83.2 % (43.0-81.0); WHITE BLOOD COUNT (AUTO) 4.9 K/uL (4.3-11.0)
--- NOTE | 2022-06-14 06:00 | NUR ---
RN CLOSING NOTE: OBTUNDED. TRACH AND VENT WORKING AT PRESCRIBED SETTINGS. GT IN PLACE PATENT, NO RESIDUAL. TOLERATED GT FORMULA WELL. ASPIRATION PRECAUTIONS MAINTAINED. ABDOMINAL SURGICAL WOUND WITH NAHOMY. WOUND CARE DONE ON AFFECTED AREAS. TOTAL CARE PROVIDED. IVF WITH PICC LINE ON RIGHT UPPER ARM PATENT WITH IVF. CONTINUES WITH GENERALIZED EDEMA. ELEVATED EXTREMITIES. KEPT CLEAN AND DRY. TURNED AND REPOSITIONED. HOB ELEVATED SEMI-ZAMORA'S POSITION, BILATERAL HALF SIDE RAILS UP X2. BED IN LOW POSITION, LOCKED, BED EXIT ALARM ON, CALL LIGHT IN REACH.
[2022-06-14 06:01] LABS: CREATININE 0.7 mg/dL (0.6-1.3); MAGNESIUM 1.7 mg/dL (1.8-2.4); PHOSPHORUS 3.6 mg/dL (2.5-4.9); POTASSIUM 4.4 mmol/L (3.5-5.1)
[2022-06-14] MEDS: BACLOFEN (10 MG) 10 MG TABLET GT SCH ×3 (06:03→20:22)
[2022-06-14] MEDS: HYDROCODONE/APAP 5/325MG TABLET GT SCH ×3 (06:04→20:22)
[2022-06-14 06:14] LABS: PLATELET COUNT (AUTO) 34 K/uL (150-450)
[2022-06-14] MEDS: BLOOD SUGAR DIAGNOSTIC 1 EACH STRIP IN SCH ×4 (06:35→23:41)
[2022-06-14] MEDS: INSULIN REGULAR, HUMAN 100 UNIT/ML 3 ML VIAL SQ PRN ×4 (06:37→23:44)
--- NOTE | 2022-06-14 07:39 | NUR ---
SUPERVISOR TURKEY FARM OPENING NOTES RECEIVED PT AWAKE IN BED. NON VERBAL AND UNABLE TO FOLLOW COMMAND. NO SIGNS OF PAIN OR DISCOMFORT AT THIS TIME. RESPIRATIONS ARE EQUAL AND UNLABORED WITH NO SOB. PT IS ON A VENTILATOR ON PRESCRIBED SETTINGS TOLERATING IT WELL. GT IS PATENT AND INTACT WITH NO RESIDUAL NOTED GTF GLUCERNA 60ML/HR RUNNING ORDERED. HOB ELEVATED TO 30-45 DEGREES. SIDERAILS UP AT ALL TIMES. CALL LIGHT WITHIN REACH. WILL CONTINUE CURRENT PLAN OF CARE.
[2022-06-14 08:00] VITALS: BP 96/53
[2022-06-14] MEDS: LEVOTHYROXINE INJ 100 MCG VIAL IV SCH (08:23)
[2022-06-14] MEDS: PANTOPRAZOLE 40 MG VIAL IV SCH (08:23)
[2022-06-14] MEDS: CHLORHEXIDINE GLUCONATE 15 ML UDC MM SCH ×2 (08:45→20:22)
[2022-06-14] MEDS: DOXYCYCLINE HYCLATE (100 MG) 100 MG TABLET PO SCH (08:46)
[2022-06-14] MEDS: MIDODRINE HCL (5MG) 5 MG TABLET GT SCH ×3 (08:46→17:25)
[2022-06-14] MEDS: METOCLOPRAMIDE HCL 10 MG TABLET GT SCH ×3 (08:46→17:25)
[2022-06-14] MEDS: PIOGLITAZONE HCL 15 MG TABLET GT SCH (08:46)
[2022-06-14] MEDS: Z GUARD REMEDY 4 OZ OINT TP SCH (09:16)
[2022-06-14] MEDS: IV 1/2NS 1000 ML 1,000 ML IV PRN (09:22)
[2022-06-14] MEDS: Magnesium 1GM/D5W 100ML PREMIX 100 ML IV SCH ×2 (10:39→11:51)
--- NOTE | 2022-06-14 11:43 | NUR ---
SUB ASSEMBLY TEAM WORKER NOTES DR. SON MADE PT ROUNDS. NOTIFIED ON ABD DRESSING WITH SMALL AMOUNT OF OOZING BLOOD HGB 7.6 , ORDERED OCCULT BLOOD STOOL SAMPLES AND DR SON WILL TALK WITH DR. GRIGSBY. BP 96/53, MD ORDERED TO CHANGE MIDODRINE 5MG FROM BID TO TID. BLOOD GRAM ANAEROBIC BLOOD CULTURE GRAM POSITIVE COCCI MD MARIAN ORDERED TO CONTINUE MAXIPINE IV. NOTED AND CARRIED OUT.
[2022-06-14 11:51] LABS: BAND % (MANUAL) 20 % (0.0-5.0); LYMPHOCYTES % (MANUAL) 17 % (16-48); MONOCYTES % (MANUAL) 3 % (0-11.0); NEUTROPHILS % (MANUAL) 60 (42-76)
[2022-06-14 12:00] VITALS: BP 110/55
--- NOTE | 2022-06-14 14:43 | NUR ---
RN NEUROSURGICAL NOTES OCCULT BLOOD STOOL SAMPLE COLLECTED ORDERED.
--- NOTE | 2022-06-14 14:47 | NUR ---
IMAGING NURSE NOTES INFORMED MD DR. SON ABOUT PT STILL HAVING EDEMA ON EXTREMITIES AND PERINEAL AREA. NO NEW ORDERS AT THIS TIME.
--- NOTE | 2022-06-14 15:07 | NUR ---
FEDERAL JUDICIAL LAW CLERK NOTES NEW ORDER FROM DR. SON TO D/C IVF. NOTED AND CARRIED OUT.
--- NOTE | 2022-06-14 15:09 | NUR ---
LEAFLET DISTRIBUTOR NOTES RELAYED LABS TO [facility] PROCALCITONIN AT 2.09H AND BLOOD CULTURE GRAM POSITIVE COCCI INCLUSTER. NEW ORDER TO D/C PICC LINE AND INSERT MIDLINE. NOTED AND CARRIED OUT.
[2022-06-14] MEDS ORDERED: PHYTONADIONE INJ 10 MG/1 ML AMPUL SQ ONE (15:30)
--- NOTE | 2022-06-14 15:57 | NUR ---
GRAPHIC DESIGN INTERN NOTE ABD US DONE ORDERED
[2022-06-14 16:00] VITALS: BP 104/47
[2022-06-14 16:18] LABS: D-DIMER 1.83 mg/L(FEU (0.17-0.50)
[2022-06-14] MEDS: VANCOMYCIN 1.25 GM in IV D5W 250 ML IV SCH (16:20)
--- NOTE | 2022-06-14 16:31 | NUR ---
FOOD COURT TEAM MEMBER NOTE UNABLE TO INSERT PERIPHERAL LINE PENNY FROM PICC LINE WILL INSERT MID LINE LATTER ON WILL F\U
--- NOTE | 2022-06-14 16:43 | NUR ---
HAND SIGN WRITER NOTES DR GRIGSBY AT BEDSIDE AND REMOVED NAHOMY FORM ABD SURGICAL SITE. NEW ORDER TO CLEAN ABD SURGICAL SITE WITH BETADINE AND PACK WET TO DRY. NOTED AND CARRIED OUT.
--- NOTE | 2022-06-14 16:50 | NUR ---
COMMUNITY MENTAL HEALTH WORKER NOTE DR GOMEZ NOTIFIED THAT PLATELETS IS 33 AWARE THAT SLIGHT OOZING BLOOD FROM SURGICAL INCISION ,NO NEW ORDER GIVEN AT THIS TIME
[2022-06-14 17:05] LABS: OCCULT BLOOD STOOL NEGATIVE (NEGATIVE)
--- NOTE | 2022-06-14 17:06 | NUR ---
FLIGHT ENGINEER PERFORMANCE QUALIFIED NOTES INFORMED DR. SON OF RICKY SWELLING. NEW ORDER TO DO A STAT ULTRASOUND OR RIGHT UPPER EXTREMITY STAT. NOTED AND CARRIED OUT.
[2022-06-14] MEDS: CYANOCOBALAMIN 500 MCG TABLET GT SCH (17:25)
[2022-06-14] MEDS: FLUDROCORTISONE 0.1 MG TABLET GT SCH (17:25)
--- NOTE | 2022-06-14 18:26 | NUR ---
SENIOR ENERGY MARKET COORDINATOR CLOSING NOTES PT IS AWAKE IN BED IN STABLE CONDITION,. NO SIGNS OF PAIN OR DISCOMFORT AT THIS TIME. PT IS ON PRESCIBRED VENT SETTINGS AND TOLERATING IT WELL. GTF RUNNING ON PRESCRIBED SETTINGS. IV ACCESS ON RICKY PICC LINE PATENT AND INTACT AWAITING MIDLINE PLACEMENT BEFORE REMOVING. HOB ELEVATED TO 30-45 DEGREES. SIDERAILS UP AT ALL TIMES. CALL LIGHT WITHIN REACH. WILL ENDORSE TO ONCOMING NURSE. Addendum: 06/14/22 at 1849 by ASPEN BAZZI LVN VICE PRESIDENT DIGITAL STRATEGIST AT BEDSIDE FOR DOPPLER SCAN OF RIGHT UPPER ARM. REPORT SHOWS NO DVT PRESENT.
--- NOTE | 2022-06-14 19:30 | NUR ---
RN opening notes Received Pt from morning nurse. Pt is obtunded. Pt is on [facility]. vent with O2 sat is 99%. No SOB. No S/S of distress noted. Tele monitor showed SR. Noted BUE and BLE sweeling. Per am nurse is aware and informed. PICC line is inplaced and will remove tonight for arm swelling. Midline will be inserted tonight per am nurse. Livingston cath is intact and draining yellow urine. Gtube feeing is running glucerna 60 ml/hr. abd dressing is intact, clean and dry. Safety precautions is maintained. Bed at low position, brakes locked, side rails upX3, hob elevated, bed alarm is on and call light is within reach. Will continue to monitor.
[2022-06-14 20:00] VITALS: BP 117/61
[2022-06-14] MEDS: ATORVASTATIN 10 MG TABLET GT SCH (22:29)
[2022-06-14] MEDS: SENNOSIDES 8.6 MG TABLET GT SCH (22:29)
--- NOTE | 2022-06-14 23:12 | NUR ---
RN notes Called and spoke with twin Dia regarding midline insertion. Radha informed midline insertion will be done tomorrow. charge nurse is aware and informed.
[2022-06-15] VITALS: BP 100/57
[2022-06-15] MEDS: ALBUTEROL FS 2.5 MG/3 ML VIAL.NEB NEB SCH ×4 (02:27→20:13)
[2022-06-15 04:00] VITALS: BP 116/64
--- NOTE | 2022-06-15 04:00 | NUR ---
RN notes SHER River at the bedside for midline insertion. VENESSA midline is clean, intact and flushes well.
[2022-06-15] MEDS: VANCOMYCIN 1.25 GM in IV D5W 250 ML IV SCH ×2 (04:01→15:13)
[2022-06-15] MEDS: HYDROCODONE/APAP 5/325MG TABLET GT SCH ×3 (04:10→21:13)
[2022-06-15] MEDS: BACLOFEN (10 MG) 10 MG TABLET GT SCH ×3 (04:10→21:13)
[2022-06-15] MEDS: BLOOD SUGAR DIAGNOSTIC 1 EACH STRIP IN SCH ×3 (05:33→17:30)
[2022-06-15] MEDS: INSULIN REGULAR, HUMAN 100 UNIT/ML 3 ML VIAL SQ PRN ×3 (05:35→17:34)
[2022-06-15] MEDS: CEFEPIME 1 GM in IV D5W 50 ML IV SCH ×3 (06:07→21:14)
--- NOTE | 2022-06-15 06:52 | NUR ---
RN closing notes Pt is resting in bed comfortably. Pt is obtunded. Pt is on [facility]. vent with O2 sat is 99%. No SOB. No S/S of distress noted. Tele monitor showed SBrady hr at 55. VENESSA midline is clean, intact and SL. PIcc removed per MD ordered. Livingston cath is intact and draining yellow urine 1700 ml. Gtube feeing is running glucerna 60 ml/hr with 0 residual. abd dressing is intact, clean and dry. Kept clean, dry and comfortable. Safety precautions is maintained. Bed at low position, brakes locked, side rails upX3, hob elevated, bed alarm is on and call light is within reach. Will endorse to am nurse for [place].
--- NOTE | 2022-06-15 07:13 | NUR ---
PATIENT IS RESTING, OPEN EYES, NON VERBAL, BUT AROUSABLE, SPO2-96% ON VENTILATOR WITH FIO2-30%
[2022-06-15 07:27] LABS: BASOPHILS % (AUTO) 0.5 % (0.0-2.0); EOSINOPHILS % (AUTO) 0.8 % (0.0-6.0); HEMATOCRIT 25 % (33-45); HEMOGLOBIN 7.7 g/dL (11.5-14.8); LYMPHOCYTES # (AUTO) 0.7 K/uL (0.8-4.8); LYMPHOCYTES % (AUTO) 16.9 % (20.0-44.0); MEAN CORPUSCULAR HGB CONC 32 g/dl (31.0-36.0); MEAN CORPUSCULAR VOLUME 88 fL (82-100); MONOCYTES # (AUTO) 0.2 K/uL (0.1-1.30); MONOCYTES % (AUTO) 4.2 % (2.0-12.0); NEUTROPHILS # (AUTO) 3.1 K/uL (1.8-8.9); NEUTROPHILS % (AUTO) 77.6 % (43.0-81.0); RED BLOOD CELL COUNT(AUTO) 2.78 MIL/uL (4.0-5.2); WHITE BLOOD COUNT (AUTO) 3.9 K/uL (4.3-11.0)
[2022-06-15 07:42] LABS: PLATELET COUNT (AUTO) 48 K/uL (150-450)
[2022-06-15 08:00] VITALS: BP 117/70
[2022-06-15 08:02] LABS: C-REACTIVE PROTEIN 5.6 mg/dL (0.0-0.9)
[2022-06-15 08:04] LABS: CALCIUM, SERUM 7.9 mg/dL (8.5-10.1); CREATININE 0.8 mg/dL (0.6-1.3); MAGNESIUM 2.2 mg/dL (1.8-2.4); PHOSPHORUS 2.8 mg/dL (2.5-4.9); POTASSIUM 4.2 mmol/L (3.5-5.1)
[2022-06-15] MEDS: METOCLOPRAMIDE HCL 10 MG TABLET GT SCH ×3 (08:05→16:06)
[2022-06-15] MEDS: PIOGLITAZONE HCL 15 MG TABLET GT SCH (08:05)
[2022-06-15] MEDS: PANTOPRAZOLE 40 MG VIAL IV SCH (08:05)
[2022-06-15] MEDS: CHLORHEXIDINE GLUCONATE 15 ML UDC MM SCH ×2 (08:05→21:14)
[2022-06-15] MEDS: MIDODRINE HCL (5MG) 5 MG TABLET GT SCH ×3 (08:12→16:06)
[2022-06-15 08:19] LABS: THYROID STIMULATING HORMONE 11.98 uIU/mL (0.358-3.74)
[2022-06-15] MEDS: Z GUARD REMEDY 4 OZ OINT TP SCH (09:07)
[2022-06-15] MEDS: LEVOTHYROXINE INJ 100 MCG VIAL IV SCH (09:31)
[2022-06-15 12:00] VITALS: BP 127/75
--- NOTE | 2022-06-15 13:54 | NUR ---
FURNITURE ARRANGER NOTES NOTED WITH ABDOMINAL FOLDS REDNESS, ORDER PLACED FOR WOUND CARE CONSULT. PICTURE TAKEN AND PLACED TO THE CHART. PLAN OF CARE CONTINUE.
[2022-06-15 16:00] VITALS: BP 124/79
[2022-06-15] MEDS: FLUDROCORTISONE 0.1 MG TABLET GT SCH (17:32)
[2022-06-15] MEDS: CYANOCOBALAMIN 500 MCG TABLET GT SCH (17:35)
--- NOTE | 2022-06-15 18:44 | NUR ---
PT IS AWAKE IN BED IN STABLE CONDITION,. NO SIGNS OF PAIN OR DISCOMFORT AT THIS TIME. PT IS ON PRESCIBRED VENT SETTINGS AND TOLERATING IT WELL. GTF RUNNING ON PRESCRIBED SETTINGS. IV ACCESS ON RICKY PICC LINE PATENT, HOB ELEVATED TO 30-45 DEGREES. SIDERAILS UP AT ALL TIMES. CALL LIGHT WITHIN REACH. WILL ENDORSE TO ONCOMING NURSE. -
--- NOTE | 2022-06-15 19:28 | NUR ---
RN OPENING NOTES; Received Pt in bed with eyes closed but easy to aroused,obtunded.on vent assist suzy well,satting 98% No sign sob/distress noted,no sign of pain/discomfort at this time, VENESSA midline patent and intact and SL. Livingston cath is intact and draining bradley urine no odor noted,. Gtube feeing is running glucerna 60 ml/hr with 0 residual.hob elevated at all time,Safety precautions is maintained. Bed at low position, brakes locked, side rails upx3.call light is within reach. Will continue to monitor.
[2022-06-15 20:00] VITALS: BP 126/71
[2022-06-15] MEDS: IPRATROPIUM NEB FS 0.5 MG/2.5 ML AMPUL.NEB NEB PRN (20:13)
[2022-06-15] MEDS: SENNOSIDES 8.6 MG TABLET GT SCH (21:14)
[2022-06-15] MEDS: ATORVASTATIN 10 MG TABLET GT SCH (21:14)
[2022-06-16] VITALS: BP 143/74
[2022-06-16] MEDS: INSULIN REGULAR, HUMAN 100 UNIT/ML 3 ML VIAL SQ PRN ×4 (00:10→17:24)
[2022-06-16] MEDS: BLOOD SUGAR DIAGNOSTIC 1 EACH STRIP IN SCH ×6 (00:12→17:24)
[2022-06-16] MEDS: ALBUTEROL FS 2.5 MG/3 ML VIAL.NEB NEB SCH ×4 (01:45→20:44)
[2022-06-16] MEDS: VANCOMYCIN 1.25 GM in IV D5W 250 ML IV SCH ×3 (03:13→16:24)
[2022-06-16 04:00] VITALS: BP 125/62
[2022-06-16 04:45] LABS: BAND % (MANUAL) 19 % (0.0-5.0); BASOPHILS % (MANUAL) 0 % (0.0-2.0); EOSINOPHILS % (MANUAL) 1 % (0-4); LYMPHOCYTES % (MANUAL) 11 % (16-48); MONOCYTES % (MANUAL) 6 % (0-11.0); NEUTROPHILS % (MANUAL) 63 (42-76)
[2022-06-16] MEDS: BACLOFEN (10 MG) 10 MG TABLET GT SCH ×3 (05:31→21:41)
[2022-06-16] MEDS: HYDROCODONE/APAP 5/325MG TABLET GT SCH ×3 (05:31→21:42)
[2022-06-16] MEDS: CEFEPIME 1 GM in IV D5W 50 ML IV SCH ×3 (05:32→20:45)
--- NOTE | 2022-06-16 06:20 | NUR ---
RN CLOSING NOTES; Pt in bed with eyes closed but easy to aroused,obtunded.on vent assist suzy well,satting 97.4% No sign sob/distress noted,no sign of pain/discomfort during shift,due meds given as order, VENESSA midline patent and intact SL. Livingston cath is intact and draining bradley urine no odor noted output 650ml, Gtube feeing is running glucerna 60 ml/hr with 0 residual.hob elevated at all time,Safety precautions is maintained. Bed at low position, brakes locked, side rails upx3.call light is within reach. Will endorsed to next shift.
[2022-06-16 06:31] LABS: BASOPHILS % (AUTO) 0.4 % (0.0-2.0); EOSINOPHILS % (AUTO) 0.6 % (0.0-6.0); HEMATOCRIT 26 % (33-45); LYMPHOCYTES # (AUTO) 0.5 K/uL (0.8-4.8); LYMPHOCYTES % (AUTO) 13.9 % (20.0-44.0); MEAN CORPUSCULAR HGB CONC 31 g/dl (31.0-36.0); MEAN CORPUSCULAR VOLUME 89 fL (82-100); MONOCYTES # (AUTO) 0.2 K/uL (0.1-1.30); MONOCYTES % (AUTO) 4.3 % (2.0-12.0); NEUTROPHILS # (AUTO) 2.9 K/uL (1.8-8.9); NEUTROPHILS % (AUTO) 80.8 % (43.0-81.0); RED BLOOD CELL COUNT(AUTO) 2.89 MIL/uL (4.0-5.2); WHITE BLOOD COUNT (AUTO) 3.6 K/uL (4.3-11.0)
[2022-06-16 06:49] LABS: PLATELET COUNT (AUTO) 24 K/uL (150-450)
[2022-06-16 07:07] LABS: IMMUNOGLOBULIN A, SERUM 381 mg/dL (87-352); IMMUNOGLOBULIN G, SERUM 1347 mg/dL (586-1602); IMMUNOGLOBULIN M, SERUM 108 mg/dL (26-217)
--- NOTE | 2022-06-16 07:45 | NUR ---
BIT WELDER OPENING NOTES RECEIVED PT ASLEEP, ROUSED BY TOUCH, AND NAME. OBTUNDED. ON MECHANICAL VENT, SATURATING 99-100%. NO S/S OR RESP DISTRESS. NO PAIN NOTED VIA FLACC AT THIS TIME. TELE MONITOR READING SINUS BRADYCARDIA, HR - 53. L UA ML, INTACT, SL. JACINTO CATH DRAINING CLEAR, DARK YELLOW, URINE. G TUBE FEEDING RUNNING GLUCERNA 1.2 @ 60ML/HR, 20 CC RESIDUAL NOTED. SAFETY MEASURES IN PLACE, HOB ELEVATED, SIDE RAILS UP X3, WILL CONT WITH PLAN OF CARE DURING SHIFT.
[2022-06-16 07:47] LABS: CALCIUM, SERUM 7.2 mg/dL (8.5-10.1); CREATININE 0.7 mg/dL (0.6-1.3); MAGNESIUM 1.8 mg/dL (1.8-2.4); PHOSPHORUS 2.7 mg/dL (2.5-4.9); POTASSIUM 4.1 mmol/L (3.5-5.1)
[2022-06-16 08:00] VITALS: BP 117/68
[2022-06-16] MEDS ORDERED: DEXTROSE 50%-WATER 50 ML DISP.SYRIN IV PRN (08:00)
[2022-06-16 08:06] LABS: *ANA ANTI-CENTROMERE B AB <0.2 AI (0.0-0.9); *ANA ANTI-DNA(DS) AB, QN <1 IU/mL (0-9); *ANA ANTI-JO-1 <0.2 AI (0.0-0.9); *ANA ANTICHROMATIN ANTIBODY <0.2 AI (0.0-0.9); *ANA RNP ANTIBODIES <0.2 AI (0.0-0.9); *ANA SJOGREN'S ANTI-SS-A <0.2 AI (0.0-0.9); *ANA SJOGREN'S ANTI-SS-B <0.2 AI (0.0-0.9); *ANAANTI-SCLERODERMA-70 AB <0.2 AI (0.0-0.9); *ANASMITH AB <0.2 AI (0.0-0.9)
[2022-06-16] MEDS: CHLORHEXIDINE GLUCONATE 15 ML UDC MM SCH ×2 (08:19→21:41)
[2022-06-16] MEDS: FERROUS SULFATE UDC 300 MG/5 ML UDC PO SCH (08:19)
[2022-06-16] MEDS: PANTOPRAZOLE 40 MG VIAL IV SCH (08:20)
[2022-06-16] MEDS: METOCLOPRAMIDE HCL 10 MG TABLET GT SCH ×3 (08:20→16:23)
[2022-06-16] MEDS: MIDODRINE HCL (5MG) 5 MG TABLET GT SCH ×3 (08:20→16:23)
[2022-06-16] MEDS: PIOGLITAZONE HCL 15 MG TABLET GT SCH (08:20)
[2022-06-16 09:24] LABS: D-DIMER 1.38 mg/L(FEU (0.17-0.50)
[2022-06-16] MEDS: Z GUARD REMEDY 4 OZ OINT TP SCH (09:29)
[2022-06-16] MEDS: LEVOTHYROXINE INJ 100 MCG VIAL IV SCH (11:48)
[2022-06-16 12:00] VITALS: BP 106/67
[2022-06-16 14:06] LABS: *SPE A/G RATIO 0.5 (0.7-1.7); *SPE ALPHA-1-GLOBULIN 0.4 g/dL (0.0-0.4); *SPE ALPHA-2-GLOBULIN 0.4 g/dL (0.4-1.0); *SPE BETA GLOBULIN 1.4 g/dL (0.7-1.3); *SPE M-SPIKE Not Observed g/dL (Not Observed)
[2022-06-16 16:00] VITALS: BP 106/67
[2022-06-16] MEDS: CYANOCOBALAMIN 500 MCG TABLET GT SCH (17:34)
[2022-06-16] MEDS: FLUDROCORTISONE 0.1 MG TABLET GT SCH (17:34)
--- NOTE | 2022-06-16 19:55 | NUR ---
TOOL REPAIRER BENCH CLOSING NOTES: PT ASLEEP, ROUSED BY TOUCH, AND NAME, OBTUNDED. ON MECHANICAL VENT, SATURATING 99-100%. NO S/S OR RESP DISTRESS. NO PAIN NOTED VIA FLACC AT THIS TIME. TELE MONITOR READING SINUS BRADYCARDIA, HR - 50. L UA ML, INTACT, SL. JACINTO CATH DRAINED CLEAR, DARK YELLOW, URINE= 1400 CC DURING SHIFT. CHANGED ABD AND G TUBE SITE DRESSING. G TUBE FEEDING RUNNING GLUCERNA 1.2 @ 60ML/HR, 20 CC RESIDUAL NOTED. KEPT PT CLEAN, DRY AND COMFORTABLE, DUE MEDS GIVEN. SAFETY MEASURES IN PLACE, HOB ELEVATED, SIDE RAILS UP X3, ENDORSED TO PM SHIFT.
[2022-06-16 20:17] LABS: BAND % (MANUAL) 18 % (0.0-5.0); LYMPHOCYTES % (MANUAL) 21 % (16-48); MONOCYTES % (MANUAL) 2 % (0-11.0); NEUTROPHILS % (MANUAL) 59 (42-76)
[2022-06-16] MEDS: SENNOSIDES 8.6 MG TABLET GT SCH (21:41)
[2022-06-16] MEDS: ATORVASTATIN 10 MG TABLET GT SCH (21:42)
[2022-06-16 22:00] VITALS: BP 132/71
[2022-06-17] MEDS: BLOOD SUGAR DIAGNOSTIC 1 EACH STRIP IN SCH ×7 (00:46→23:55)
[2022-06-17] MEDS: INSULIN REGULAR, HUMAN 100 UNIT/ML 3 ML VIAL SQ PRN ×5 (00:48→23:56)
[2022-06-17 00:52] VITALS: BP 140/69
[2022-06-17] MEDS: GLUCERNA 1.2 1,000 ML BOTTLE GT SCH (01:04)
[2022-06-17] MEDS: ALBUTEROL FS 2.5 MG/3 ML VIAL.NEB NEB SCH ×4 (01:48→20:07)
[2022-06-17] MEDS: VANCOMYCIN 1 GM in IV D5W 250ml IV SCH ×3 (04:20→16:26)
[2022-06-17] MEDS: BACLOFEN (10 MG) 10 MG TABLET GT SCH ×3 (05:11→20:44)
[2022-06-17] MEDS: HYDROCODONE/APAP 5/325MG TABLET GT SCH ×3 (05:11→20:44)
[2022-06-17] MEDS: CEFEPIME 1 GM in IV D5W 50 ML IV SCH ×3 (05:23→20:43)
[2022-06-17 05:27] VITALS: BP 143/73
--- NOTE | 2022-06-17 07:00 | NUR ---
SOFTWARE ADMINISTRATOR OPENING NOTES PATIENT LAYING IN BED, ALERT TO NAME, OBTUNDED, TOLERATING WELL ON MECHANICAL VENT, ON TELE MONITOR READING SINUS TOI 52. VENESSA MIDLINE INTACT, SALINE LOCKED. JACINTO CATHETER IN PLACE DRAINING CLEAR YELLOW URINE TO GRAVITY. G-TUBE IN PLACE RUNNING GLUCERNA 1.2 @ 60 ML/HR. SAFETY MEASURES IN PLACE: BED IN LOWEST LOCKED POSITION, SIDE RAILS UP X 2, CALL LIGHT WITHIN REACH. WILL CONTINUE TO MONITOR.
[2022-06-17 07:35] LABS: CALCIUM, SERUM 8.5 mg/dL (8.5-10.1); CREATININE 0.7 mg/dL (0.6-1.3); POTASSIUM 5.1 mmol/L (3.5-5.1)
--- NOTE | 2022-06-17 07:45 | NUR ---
WOUND CARE CONSULT: PT SEEN FOR ABDOMINAL SURGICAL WOUND. MILD ODOR NOTED WITH MOSTLY RED GRANULATION TISSUE AND SMALL AMOUNT OF YELLOW SLOUGH. DISCUSSED WOUND TREATMENT WITH SURGICAL TEAM CURRENTLY ON CASE. TREATMENT ORDERS UPDATED AND DISCUSSED WITH NURSING STAFF. IN AGREEMENT WITH PLAN OF CARE. Addendum: 06/17/22 at 0747 by JAIME ESCAMILLA WNDNU Amended: Links added.
--- NOTE | 2022-06-17 07:55 | NUR ---
END OF SHIFT REPORT Patient in bed, obtunded. Sinus lianet HR 50's in the Tele monitor. Trach intact, on mechanical vent. On IV abx. Afebrile. Gtube feeding at goal rate, tolerating well. Wound care done. Suction secretion. Livingston cath care, adequate urine output. Platelet low, no visible bleeding. Turned and repositioned q 2h. Endorsed to ALVA Rocha.
[2022-06-17 08:00] VITALS: BP 133/72
[2022-06-17] MEDS: FERROUS SULFATE UDC 300 MG/5 ML UDC PO SCH (08:46)
[2022-06-17] MEDS: PIOGLITAZONE HCL 15 MG TABLET GT SCH (08:47)
[2022-06-17] MEDS: CHLORHEXIDINE GLUCONATE 15 ML UDC MM SCH ×2 (08:49→20:44)
[2022-06-17] MEDS: MIDODRINE HCL (5MG) 5 MG TABLET GT SCH ×3 (08:49→16:31)
[2022-06-17] MEDS: PANTOPRAZOLE 40 MG VIAL IV SCH (08:49)
[2022-06-17] MEDS: METOCLOPRAMIDE HCL 10 MG TABLET GT SCH ×3 (08:50→16:30)
[2022-06-17] MEDS: DAKINS QUARTER STRENGTH (0.125%) 480 ML BOTTLE TOP SCH (08:50)
[2022-06-17] MEDS: Z GUARD REMEDY 4 OZ OINT TP SCH (08:51)
[2022-06-17] MEDS: LEVOTHYROXINE INJ 100 MCG VIAL IV SCH (08:54)
[2022-06-17 12:00] VITALS: BP 143/80
[2022-06-17] MEDS: IPRATROPIUM NEB FS 0.5 MG/2.5 ML AMPUL.NEB NEB PRN (13:42)
[2022-06-17 16:00] VITALS: BP 132/75
--- NOTE | 2022-06-17 16:26 | NUR ---
MATERIALS DIRECTOR NOTES PER PHARMACY, OK TO ADMINISTER VANCOMYCIN AT THIS TIME DUE. MEDICATION ADMINISTERED ORDERED.
[2022-06-17] MEDS: FLUDROCORTISONE 0.1 MG TABLET GT SCH (17:33)
[2022-06-17] MEDS: CYANOCOBALAMIN 500 MCG TABLET GT SCH (17:34)
--- NOTE | 2022-06-17 19:00 | NUR ---
BEAN SPROUT GROWER CLOSING NOTES PATIENT LAYING IN BED, OBTUNDED, TOLERATING WELL ON MECHANICAL VENT, ON TELE MONITOR READING SINUS RHYTHM 64. VENESSA MIDLINE INTACT, SALINE LOCKED. JACINTO CATHETER IN PLACE DRAINING CLEAR YELLOW URINE TO GRAVITY. G-TUBE IN PLACE RUNNING GLUCERNA 1.2 @ 60 ML/HR. SAFETY MEASURES IN PLACE: BED IN LOWEST LOCKED POSITION, SIDE RAILS UP X 2, CALL LIGHT WITHIN REACH. ALL NEEDS MET. TURNED Q2H. WILL ENDORSE TO TEST DIRECTOR FOR [place].
--- NOTE | 2022-06-17 19:30 | NUR ---
EVENT SALES REPRESENTATIVE OPENING NOTES RECEIVED PATIENT IN BED WITH EYES OPEN. OBTUNDED. BREATHING EVEN AND NON-LABORED. ON MECHANICAL VENT TOLERATING CURRENT SETTINGS WELL. NOT IN APPARENT DISTRESS. NO PAIN OR DISCOMFORT NOTED. ON TELE MONITOR READING SINUS BRADYCARDIA AT 56 BPM. HAS LEFT UPPER ARM MIDLINE WITH NS RUNNING TKO. NO S/S OF INFILTRATION NOTED. HAS INDWELLING JACINTO CATHETER DRAINING CLEAR YELLOW URINE TO BAG BY GRAVITY. HAS GLUCERNA G-TUBE FEEDING RUNNING AT 60 ML/HR. SAFETY PRECAUTIONS IN PLACE: BED LOCKED AND IN LOW POSITION, SIDE RAILS UP X3, CALL LIGHT WITHIN REACH. WILL CONTINUE POC.
[2022-06-17 20:00] VITALS: BP 126/76
--- NOTE | 2022-06-17 20:01 | NUR ---
HIGH SCHOOL COMBINATION TEACHER NOTES RECEIVED CALL FROM LAB, PLATELET 45. NO TRANSFUSION NEEDED AT THIS TIME. WILL CONTINUE TO MONITOR.
[2022-06-17] MEDS: SENNOSIDES 8.6 MG TABLET GT SCH (21:07)
[2022-06-17] MEDS: ATORVASTATIN 10 MG TABLET GT SCH (21:07)
[2022-06-18] VITALS: BP 130/86
[2022-06-18] MEDS: GLUCERNA 1.2 1,000 ML BOTTLE GT SCH ×2 (01:05→21:34)
[2022-06-18] MEDS: ALBUTEROL FS 2.5 MG/3 ML VIAL.NEB NEB SCH ×4 (02:01→19:38)
[2022-06-18 04:00] VITALS: BP 118/67
[2022-06-18] MEDS: VANCOMYCIN 1 GM in IV D5W 250ml IV SCH (04:00)
--- NOTE | 2022-06-18 04:01 | NUR ---
FIRE PREVENTION RESEARCH ENGINEER NOTES SPOKE W/ JAKI FROM [facility] TO VERIFY VANCO INFUSION. HOLD DOSE AT THIS TIME. NEXT THROUGH IS AT 0600.
[2022-06-18] MEDS: BACLOFEN (10 MG) 10 MG TABLET GT SCH ×3 (04:32→21:33)
[2022-06-18] MEDS: CEFEPIME 1 GM in IV D5W 50 ML IV SCH ×3 (04:33→20:59)
[2022-06-18] MEDS: HYDROCODONE/APAP 5/325MG TABLET GT SCH ×3 (04:33→21:00)
[2022-06-18] MEDS: BLOOD SUGAR DIAGNOSTIC 1 EACH STRIP IN SCH ×4 (06:06→23:58)
[2022-06-18] MEDS: INSULIN REGULAR, HUMAN 100 UNIT/ML 3 ML VIAL SQ PRN ×4 (06:17→23:53)
--- NOTE | 2022-06-18 06:46 | NUR ---
BARREL RIFLER BUTTON NOTES RESIDUAL: 0000 - 135ML, 0600 - 90ML
--- NOTE | 2022-06-18 06:59 | NUR ---
OYSTER GROWER CLOSING NOTES PATIENT IN BED, OBTUNDED. NO ACUTE EVENTS THROUGHOUT THE NIGHT. NOT IN RESPIRATORY OR CARDIAC DISTRESS. AFEBRILE. TOLERATING MECHANICAL VENT SETTINGS WELL, NO SOB OR NOTED. ON TELE MONITOR READING SINUS BRADYCARDIA AT 56 BPM. LEFT UPPER ARM MIDLINE #18G INTACT, PATENT AND FLUSHING. CLEAR YELLOW URINE OUTPUT NOTED. PEG TUBE AUSCULTATED, IRRIGATED AND FLUSHED. 135ML AND 90ML RESIDUAL NOTED. WOUND CARE RENDERED. ALL DUE MEDS GIVEN AND NEEDS ATTENDED. SAFETY PRECAUTIONS MAINTAINED. WILL ENDORSE TO NEXT SHIFT FOR [place].
[2022-06-18 07:27] LABS: BASOPHILS % (AUTO) 0.6 % (0.0-2.0); CREATININE 0.7 mg/dL (0.6-1.3); EOSINOPHILS % (AUTO) 0.5 % (0.0-6.0); HEMATOCRIT 23 % (33-45); HEMOGLOBIN 7.2 g/dL (11.5-14.8); LYMPHOCYTES # (AUTO) 0.6 K/uL (0.8-4.8); LYMPHOCYTES % (AUTO) 15.2 % (20.0-44.0); MEAN CORPUSCULAR HGB CONC 31 g/dl (31.0-36.0); MEAN CORPUSCULAR VOLUME 89 fL (82-100); MONOCYTES # (AUTO) 0.2 K/uL (0.1-1.30); MONOCYTES % (AUTO) 5.3 % (2.0-12.0); NEUTROPHILS # (AUTO) 3.2 K/uL (1.8-8.9); NEUTROPHILS % (AUTO) 78.4 % (43.0-81.0); PLATELET COUNT (AUTO) 53 K/uL (150-450); POTASSIUM 4.5 mmol/L (3.5-5.1); RED BLOOD CELL COUNT(AUTO) 2.59 MIL/uL (4.0-5.2); WHITE BLOOD COUNT (AUTO) 4.1 K/uL (4.3-11.0)
--- NOTE | 2022-06-18 07:49 | NUR ---
ACCOUNTANT CONTROLLER OPENING NOTES RECEIVED PATIENT IN BED WITH EYES OPEN. OBTUNDED. BREATHING EVEN AND NON-LABORED. ON MECHANICAL VENT TOLERATING CURRENT SETTINGS WELL. NOT IN APPARENT DISTRESS. NO PAIN OR DISCOMFORT NOTED. ON TELE MONITOR READING SINUS BRADYCARDIA AT 58 BPM. HAS LEFT UPPER ARM MIDLINE WITH NS RUNNING TKO. NO S/S OF INFILTRATION NOTED. HAS INDWELLING JACINTO CATHETER DRAINING CLEAR YELLOW URINE TO BAG BY GRAVITY. HAS GLUCERNA G-TUBE FEEDING RUNNING AT 60 ML/HR. SAFETY PRECAUTIONS IN PLACE: BED LOCKED AND IN LOW POSITION, SIDE RAILS UP X3, CALL LIGHT WITHIN REACH.
[2022-06-18 08:00] VITALS: BP 120/70
[2022-06-18] MEDS: PIOGLITAZONE HCL 15 MG TABLET GT SCH (08:09)
[2022-06-18] MEDS: PANTOPRAZOLE 40 MG VIAL IV SCH (08:09)
[2022-06-18] MEDS: FERROUS SULFATE UDC 300 MG/5 ML UDC PO SCH (08:09)
[2022-06-18] MEDS: LEVOTHYROXINE INJ 100 MCG VIAL IV SCH (08:09)
[2022-06-18] MEDS: CHLORHEXIDINE GLUCONATE 15 ML UDC MM SCH ×2 (08:09→21:33)
[2022-06-18] MEDS: MIDODRINE HCL (5MG) 5 MG TABLET GT SCH ×3 (08:09→17:20)
[2022-06-18] MEDS: DAKINS QUARTER STRENGTH (0.125%) 480 ML BOTTLE TOP SCH (08:10)
[2022-06-18] MEDS: METOCLOPRAMIDE HCL 10 MG TABLET GT SCH ×3 (08:10→17:20)
[2022-06-18] MEDS: Z GUARD REMEDY 4 OZ OINT TP SCH (08:11)
[2022-06-18 08:29] LABS: D-DIMER 1.56 mg/L(FEU (0.17-0.50)
[2022-06-18 12:00] VITALS: BP 125/71
[2022-06-18 16:00] VITALS: BP 111/59
[2022-06-18 17:10] LABS: EOSINOPHILS % (MANUAL) 1 % (0-4); LYMPHOCYTES % (MANUAL) 24 % (16-48); MONOCYTES % (MANUAL) 2 % (0-11.0); NEUTROPHILS % (MANUAL) 73 (42-76)
[2022-06-18] MEDS: FLUDROCORTISONE 0.1 MG TABLET GT SCH (17:20)
[2022-06-18] MEDS: CYANOCOBALAMIN 500 MCG TABLET GT SCH (17:20)
--- NOTE | 2022-06-18 18:30 | NUR ---
PIPELINE GANG SUPERVISOR CLOSING NOTES PATIENT IN BED, OBTUNDED. NO ACUTE EVENTS THROUGHOUT THE NIGHT. NOT IN RESPIRATORY OR CARDIAC DISTRESS. AFEBRILE. TOLERATING MECHANICAL VENT SETTINGS WELL, NO SOB OR NOTED. ON TELE MONITOR READING SINUS BRADYCARDIA AT 58 BPM. LEFT UPPER ARM MIDLINE #18G INTACT, PATENT AND FLUSHING. CLEAR YELLOW URINE OUTPUT NOTED. PEG TUBE AUSCULTATED, IRRIGATED AND FLUSHED WITH 10-5ML RESIDUAL NOTED. WOUND CARE RENDERED. ALL DUE MEDS GIVEN AND NEEDS ATTENDED. SAFETY PRECAUTIONS MAINTAINED. WILL ENDORSE TO NEXT SHIFT FOR [place].
--- NOTE | 2022-06-18 19:56 | NUR ---
TARUN/RN RECEIVED PATIENT LYING IN BED APPEARS SLEEPING, NO SIGNS OF DISTRESS NOTED, G TUBE FEEDING INFUSING, HOB ELEVATED, WILL MONITOR.
[2022-06-18 20:00] VITALS: BP 110/58
[2022-06-18] MEDS: ATORVASTATIN 10 MG TABLET GT SCH (21:33)
[2022-06-18] MEDS: SENNOSIDES 8.6 MG TABLET GT SCH (21:33)
[2022-06-19 00:08] VITALS: BP 127/66
--- NOTE | 2022-06-19 00:37 | NUR ---
TARUN/RN SLEEPING, NO CHANGE IN CONDITION. WILL CONTINUE TO MONITOR.
[2022-06-19] MEDS: ALBUTEROL FS 2.5 MG/3 ML VIAL.NEB NEB SCH ×4 (02:09→20:05)
[2022-06-19 04:00] VITALS: BP 110/58
[2022-06-19] MEDS: HYDROCODONE/APAP 5/325MG TABLET GT SCH ×3 (05:38→21:57)
[2022-06-19] MEDS: CEFEPIME 1 GM in IV D5W 50 ML IV SCH ×3 (05:39→21:57)
[2022-06-19] MEDS: BACLOFEN (10 MG) 10 MG TABLET GT SCH ×3 (05:39→21:57)
[2022-06-19] MEDS: INSULIN REGULAR, HUMAN 100 UNIT/ML 3 ML VIAL SQ PRN ×2 (06:03→17:58)
[2022-06-19] MEDS: BLOOD SUGAR DIAGNOSTIC 1 EACH STRIP IN SCH ×3 (06:03→17:23)
--- NOTE | 2022-06-19 06:20 | NUR ---
TARUN/RN PATIENT IS SLEEPING, NO SIGNS OF DISTRESS NOTED, HOB ELEVATED, G TUBE FEEDING INFUSING, REPOSITIONED Q 2 HOURS DURING THE SHIFT, ALL NEEDS ATTENDED AT THIS TIME, WILL CONTINUE TO MONITOR.
--- NOTE | 2022-06-19 07:20 | NUR ---
LINING MACHINE OPERATOR OPENING NOTES RECEIVED PATIENT IN BED ASLEEP, WOKEN UP WITH LIGHT STIMULI. PATIENT IS OBTUNDED, FLAT AFFECT ABLE TO MAKE NEEDS KNOWN. ON [facility] VENT WITH FOLLOWING SET UP FIO2 30, TV 500, AC16 PEEP 0, WELL TOLERATED, NO SOB, NO S/S RESP DISTRESS. WITH LEFT UPPER ARM MD WITH NS AT TKO, INFUSING WELL. WITH G-TUBE FEEDING OF GLUCERNA 1.2 AT 60ML/HR INFUSING WELL. WITH JACINTO CATH TO URINE BAG WITH LIGHT YELLOW URINE. SAFETY MEASURES IN PLACED: BED LOCKED AND IN LOWEST POSITION. CALL LIGHT WITHIN EASY REACH. IN STABLE CONDITION. WILL CONTINUE WITH PLAN OF CARE.
[2022-06-19 08:00] VITALS: BP 139/89
[2022-06-19] MEDS ORDERED: VANCOMYCIN 500 MG in IV D5W 100ml IV SCH (08:00)
[2022-06-19] MEDS ORDERED: VANCOMYCIN HCL 0.75 GM in IV D5W 250 ML IV SCH (08:00)
[2022-06-19 08:51] LABS: BASOPHILS % (AUTO) 0.6 % (0.0-2.0); EOSINOPHILS % (AUTO) 0.6 % (0.0-6.0); HEMATOCRIT 24 % (33-45); HEMOGLOBIN 7.6 g/dL (11.5-14.8); LYMPHOCYTES # (AUTO) 0.7 K/uL (0.8-4.8); LYMPHOCYTES % (AUTO) 22.1 % (20.0-44.0); MEAN CORPUSCULAR HGB CONC 31 g/dl (31.0-36.0); MEAN CORPUSCULAR VOLUME 89 fL (82-100); MONOCYTES # (AUTO) 0.2 K/uL (0.1-1.30); MONOCYTES % (AUTO) 6.2 % (2.0-12.0); NEUTROPHILS # (AUTO) 2.3 K/uL (1.8-8.9); NEUTROPHILS % (AUTO) 70.5 % (43.0-81.0); PLATELET COUNT (AUTO) 52 K/uL (150-450); RED BLOOD CELL COUNT(AUTO) 2.75 MIL/uL (4.0-5.2); WHITE BLOOD COUNT (AUTO) 3.2 K/uL (4.3-11.0)
[2022-06-19 08:58] LABS: CALCIUM, SERUM 8.7 mg/dL (8.5-10.1); CREATININE 0.7 mg/dL (0.6-1.3); POTASSIUM 4.8 mmol/L (3.5-5.1)
[2022-06-19 09:09] LABS: D-DIMER 1.13 mg/L(FEU (0.17-0.50)
[2022-06-19] MEDS: METOCLOPRAMIDE HCL 10 MG TABLET GT SCH ×3 (09:26→17:21)
[2022-06-19] MEDS: FERROUS SULFATE UDC 300 MG/5 ML UDC PO SCH (09:26)
[2022-06-19] MEDS: CHLORHEXIDINE GLUCONATE 15 ML UDC MM SCH ×2 (09:26→21:57)
[2022-06-19] MEDS: MIDODRINE HCL (5MG) 5 MG TABLET GT SCH ×3 (09:27→17:22)
[2022-06-19] MEDS: PIOGLITAZONE HCL 15 MG TABLET GT SCH (09:28)
[2022-06-19] MEDS: PANTOPRAZOLE 40 MG VIAL IV SCH (09:28)
[2022-06-19] MEDS: LEVOTHYROXINE INJ 100 MCG VIAL IV SCH (09:34)
[2022-06-19] MEDS: DAKINS QUARTER STRENGTH (0.125%) 480 ML BOTTLE TOP SCH (10:22)
[2022-06-19] MEDS: Z GUARD REMEDY 4 OZ OINT TP SCH (10:22)
[2022-06-19 12:00] VITALS: BP 126/77
[2022-06-19 16:00] VITALS: BP 142/80
[2022-06-19] MEDS: FLUDROCORTISONE 0.1 MG TABLET GT SCH (17:21)
[2022-06-19] MEDS: CYANOCOBALAMIN 500 MCG TABLET GT SCH (17:22)
--- NOTE | 2022-06-19 19:20 | NUR ---
INDUSTRIAL CLEANING TECHNICIAN NOTE ENDORSED TO NEXT SHIFT FOR CONTINUITY OF CARE. IN STABLE CONDITION.
--- NOTE | 2022-06-19 19:25 | NUR ---
CITY SANITARIAN OPEN NOTE: OBUTUNDED. TRACH WITH VENT WORKING AT PRESCRIBED SETTINGS. HOB ELEVATED SEMI FOWLERS POSITION. SINUS TOI 59 TELE MONITOR. LEFT UPPER ARM MIDLINE WITH NO S/S OF COMPLICATIONS. GT IN PLACE PATENT WITH GLUCERNA FORMULA. ABDOMINAL WOUND WITH A CLEAN INTACT DRESSING. JACINTO CATHETER INTACT WITH YELLOW URINE. CONTINUES WITH GENERALIZED EDEMA. NO S/S OF BLEEDING. BILATERAL HALF SIDE RAILS UPX2. BED IS LOCKED, EXIT ALARM IS ON. CALL LIGHT IN REACH. NO S/S OF PAIN OR DISCOMFORT.
[2022-06-19 20:00] VITALS: BP 147/80
[2022-06-19] MEDS: ATORVASTATIN 10 MG TABLET GT SCH (21:57)
[2022-06-19] MEDS: SENNOSIDES 8.6 MG TABLET GT SCH (21:57)
[2022-06-19] MEDS: GLUCERNA 1.2 1,000 ML BOTTLE GT SCH (22:06)
[2022-06-20] VITALS: BP 152/76
[2022-06-20] MEDS: BLOOD SUGAR DIAGNOSTIC 1 EACH STRIP IN SCH ×4 (00:20→18:00)
[2022-06-20] MEDS: INSULIN REGULAR, HUMAN 100 UNIT/ML 3 ML VIAL SQ PRN ×4 (00:28→19:08)
[2022-06-20] MEDS: ALBUTEROL FS 2.5 MG/3 ML VIAL.NEB NEB SCH ×4 (01:47→20:02)
[2022-06-20 04:00] VITALS: BP 139/78
[2022-06-20] MEDS: HYDROCODONE/APAP 5/325MG TABLET GT SCH ×3 (04:26→21:13)
[2022-06-20] MEDS: BACLOFEN (10 MG) 10 MG TABLET GT SCH ×3 (04:26→21:13)
[2022-06-20] MEDS: CEFEPIME 1 GM in IV D5W 50 ML IV SCH ×3 (04:26→21:13)
[2022-06-20 05:01] LABS: BASOPHILS % (MANUAL) 0 % (0.0-2.0); EOSINOPHILS % (MANUAL) 1 % (0-4); LYMPHOCYTES % (MANUAL) 23 % (16-48); MONOCYTES % (MANUAL) 5 % (0-11.0); NEUTROPHILS % (MANUAL) 71 (42-76)
[2022-06-20 06:46] LABS: BASOPHILS % (AUTO) 0.5 % (0.0-2.0); EOSINOPHILS % (AUTO) 0.3 % (0.0-6.0); HEMATOCRIT 25 % (33-45); HEMOGLOBIN 7.9 g/dL (11.5-14.8); LYMPHOCYTES # (AUTO) 0.6 K/uL (0.8-4.8); LYMPHOCYTES % (AUTO) 14.3 % (20.0-44.0); MEAN CORPUSCULAR HGB CONC 31 g/dl (31.0-36.0); MEAN CORPUSCULAR VOLUME 89 fL (82-100); MONOCYTES # (AUTO) 0.3 K/uL (0.1-1.30); MONOCYTES % (AUTO) 8.2 % (2.0-12.0); NEUTROPHILS % (AUTO) 76.7 % (43.0-81.0); PLATELET COUNT (AUTO) 64 K/uL (150-450); RED BLOOD CELL COUNT(AUTO) 2.83 MIL/uL (4.0-5.2); WHITE BLOOD COUNT (AUTO) 3.9 K/uL (4.3-11.0)
[2022-06-20 06:52] LABS: D-DIMER 1.04 mg/L(FEU (0.17-0.50)
--- NOTE | 2022-06-20 07:00 | NUR ---
MEDICAL OFFICE TECHNICIAN CLOSING NOTE: OBTUNDED. TRACH WITH VENT WORKING AT PRESCRIBED SETTINGS. HOB ELEVATED SEMI FOWLERS POSITION. SINUS TOI 59 TELE MONITOR. LEFT UPPER ARM MIDLINE WITH NO S/S OF COMPLICATIONS. GT IN PLACE PATENT WITH GLUCERNA FORMULA. ABDOMINAL WOUND WITH A CLEAN INTACT DRESSING. JACNITO CATHETER INTACT WITH YELLOW URINE. CONTINUES WITH GENERALIZED EDEMA. NO S/S OF BLEEDING. BILATERAL HALF SIDE RAILS UPX2. BED IS LOCKED, EXIT ALARM IS ON. CALL LIGHT IN REACH. NO S/S OF PAIN OR DISCOMFORT.
[2022-06-20 07:04] LABS: CALCIUM, SERUM 8.6 mg/dL (8.5-10.1); CREATININE 0.7 mg/dL (0.6-1.3); POTASSIUM 4.9 mmol/L (3.5-5.1)
[2022-06-20 08:00] VITALS: BP 125/72
[2022-06-20] MEDS: FERROUS SULFATE UDC 300 MG/5 ML UDC PO SCH (09:16)
[2022-06-20] MEDS: CHLORHEXIDINE GLUCONATE 15 ML UDC MM SCH ×2 (09:16→21:14)
[2022-06-20] MEDS: MIDODRINE HCL (5MG) 5 MG TABLET GT SCH ×3 (09:18→18:18)
[2022-06-20] MEDS: PIOGLITAZONE HCL 15 MG TABLET GT SCH (09:18)
[2022-06-20] MEDS: PANTOPRAZOLE 40 MG VIAL IV SCH (09:19)
[2022-06-20] MEDS: METOCLOPRAMIDE HCL 10 MG TABLET GT SCH ×3 (09:19→18:19)
[2022-06-20] MEDS: DAKINS QUARTER STRENGTH (0.125%) 480 ML BOTTLE TOP SCH (09:20)
[2022-06-20] MEDS: Z GUARD REMEDY 4 OZ OINT TP SCH (09:20)
[2022-06-20] MEDS: LEVOTHYROXINE INJ 100 MCG VIAL IV SCH (09:23)
[2022-06-20 11:05] LABS: BAND % (MANUAL) 22 % (0.0-5.0); LYMPHOCYTES % (MANUAL) 16 % (16-48); MONOCYTES % (MANUAL) 5 % (0-11.0); NEUTROPHILS % (MANUAL) 56 (42-76)
[2022-06-20 11:06] LABS: BASOPHILS % (MANUAL) 0 % (0.0-2.0); EOSINOPHILS % (MANUAL) 1 % (0-4)
[2022-06-20 12:00] VITALS: BP 135/79
[2022-06-20] MEDS ORDERED: MIDO5TAB4 PO (12:12)
[2022-06-20] MEDS ORDERED: METO-295 GT (12:12)
[2022-06-20] MEDS ORDERED: CEFE1FRO IV (12:12)
[2022-06-20] MEDS ORDERED: VANC500F2 IV (12:12)
[2022-06-20 16:00] VITALS: BP 115/60
[2022-06-20] MEDS: GLUCERNA 1.2 1,000 ML BOTTLE GT SCH (18:17)
[2022-06-20] MEDS: CYANOCOBALAMIN 500 MCG TABLET GT SCH (18:18)
[2022-06-20] MEDS: FLUDROCORTISONE 0.1 MG TABLET GT SCH (18:19)
--- NOTE | 2022-06-20 19:30 | NUR ---
STORM SASH MAKER CLOSING NOTE: OBTUNDED. TRACH WITH VENT WORKING AT PRESCRIBED SETTINGS. HOB ELEVATED SEMI FOWLERS POSITION. SINUS TOI 59 TELE MONITOR. LEFT UPPER ARM MIDLINE WITH NO S/S OF COMPLICATIONS. GT IN PLACE PATENT WITH GLUCERNA FORMULA. ABDOMINAL WOUND WITH A CLEAN INTACT DRESSING. JACINTO CATHETER INTACT WITH YELLOW URINE. CONTINUES WITH GENERALIZED EDEMA. NO S/S OF BLEEDING. BILATERAL HALF SIDE RAILS UPX2. PATIENT IS DISCHARGED BUT WHEN AMBULANCE CAME THEY DID NOT HAVE A RT WITH THEM SO THEY COULD NOT TRANSFER ER, TOMORROW AT 1430 WILL BE HERE TO TAKE HER. BED IS LOCKED, EXIT ALARM IS ON. CALL LIGHT IN REACH. NO S/S OF PAIN OR DISCOMFORT.
[2022-06-20 20:00] VITALS: BP 130/77
--- NOTE | 2022-06-20 20:08 | NUR ---
RN OPENING NOTES RECEIVED PT IN BED, ASLEEP, OPENS EYES TO TACTILE STIMULI. OBTUNDED. ON MECHANICAL VENTILATOR AND TOLERATING WELL. NO SOB NOTED. NO S/SX OF RESPIRATORY DISTRESS NOTED. TELE MONITOR DETECTS SB WITH RATE OF 50s. IV ACCESS IN VENESSA MIDLINE #18G. IV IS INTACT, PATENT, AND FLUSHING WELL. SAFETY PRECAUTIONS IN PLACE: BED IN LOWEST, LOCKED POSITION, SIDERAILS UPx2, AND BRAKES ON. TABLE AND CALL LIGHT WITHIN REACH. ALL NEEDS MET AT THIS TIME.
[2022-06-20] MEDS: SENNOSIDES 8.6 MG TABLET GT SCH (21:13)
[2022-06-20] MEDS: ATORVASTATIN 10 MG TABLET GT SCH (21:13)
[2022-06-21] VITALS: BP 123/77
[2022-06-21] MEDS: BLOOD SUGAR DIAGNOSTIC 1 EACH STRIP IN SCH ×4 (00:20→17:24)
[2022-06-21] MEDS: INSULIN REGULAR, HUMAN 100 UNIT/ML 3 ML VIAL SQ PRN ×4 (00:20→17:26)
[2022-06-21] MEDS: ALBUTEROL FS 2.5 MG/3 ML VIAL.NEB NEB SCH ×4 (02:04→19:30)
[2022-06-21 04:00] VITALS: BP 138/76
[2022-06-21] MEDS: HYDROCODONE/APAP 5/325MG TABLET GT SCH ×2 (05:07→13:02)
[2022-06-21] MEDS: BACLOFEN (10 MG) 10 MG TABLET GT SCH ×2 (05:08→12:36)
[2022-06-21] MEDS: CEFEPIME 1 GM in IV D5W 50 ML IV SCH ×2 (05:08→13:02)
[2022-06-21 06:35] LABS: BASOPHILS % (AUTO) 0.5 % (0.0-2.0); EOSINOPHILS % (AUTO) 0.5 % (0.0-6.0); HEMATOCRIT 26 % (33-45); HEMOGLOBIN 8.1 g/dL (11.5-14.8); LYMPHOCYTES # (AUTO) 0.6 K/uL (0.8-4.8); LYMPHOCYTES % (AUTO) 14.9 % (20.0-44.0); MEAN CORPUSCULAR HGB CONC 32 g/dl (31.0-36.0); MEAN CORPUSCULAR VOLUME 90 fL (82-100); MONOCYTES # (AUTO) 0.4 K/uL (0.1-1.30); MONOCYTES % (AUTO) 9.6 % (2.0-12.0); NEUTROPHILS # (AUTO) 2.8 K/uL (1.8-8.9); NEUTROPHILS % (AUTO) 74.5 % (43.0-81.0); PLATELET COUNT (AUTO) 57 K/uL (150-450); RED BLOOD CELL COUNT(AUTO) 2.85 MIL/uL (4.0-5.2); WHITE BLOOD COUNT (AUTO) 3.8 K/uL (4.3-11.0)
--- NOTE | 2022-06-21 06:41 | NUR ---
RN CLOSING NOTES PT IN BED, ASLEEP, OPENS EYES TO TACTILE STIMULI. OBTUNDED. ON MECHANICAL VENTILATOR AND TOLERATING WELL. NO SOB NOTED. NO S/SX OF RESPIRATORY DISTRESS NOTED. TELE MONITOR DETECTS SB TO SR WITH RATE OF 50-76s. IV ACCESS IN VENESSA MIDLINE #18G. IV IS INTACT, PATENT, AND FLUSHING WELL. ALL ORDERS CARRIED OUT. ALL NEEDS MET. PT KEPT CLEAN AND DRY. SAFETY PRECAUTIONS IN PLACE: BED IN LOWEST, LOCKED POSITION, SIDERAILS UPx2, AND BRAKES ON. TABLE AND CALL LIGHT WITHIN REACH. WILL ENDORSE TO ONCOMING SHIFT FOR [place].
[2022-06-21 06:47] LABS: CALCIUM, SERUM 8.5 mg/dL (8.5-10.1); CREATININE 0.7 mg/dL (0.6-1.3); POTASSIUM 4.7 mmol/L (3.5-5.1)
[2022-06-21 06:59] LABS: D-DIMER 0.85 mg/L(FEU (0.17-0.50)
--- NOTE | 2022-06-21 07:15 | NUR ---
BUFFING MACHINE TENDER OPENING NOTES RECEIVED PT AWAKE IN BED. NON VERBAL AND UNABLE TO FOLLOW COMMAND. NO SIGNS OF PAIN OR DISCOMFORT AT THIS TIME. RESPIRATIONS ARE EQUAL AND UNLABORED WITH NO SOB. PT IS ON A VENTILATOR ON PRESCRIBED SETTINGS AND TOLERATING IT WELL. GT IS PATENT AND INTACT AND GTF RUNNING ON PRESCRIBED SETTINGS. IV ACCESS ON VENESSA MIDLINE PATENT AND INTACT. HOB ELEVATED TO 30-45 DEGREES. SIDERAILS UP AT ALL TIMES. CALL LIGHT WITHIN REACH. WILL CONTINUE CURRENT PLAN OF CARE.
[2022-06-21 08:00] VITALS: BP 139/80
[2022-06-21] MEDS ORDERED: VANCOMYCIN 500 MG in IV D5W 100ml IV SCH (08:00)
[2022-06-21] MEDS: CHLORHEXIDINE GLUCONATE 15 ML UDC MM SCH (08:42)
[2022-06-21] MEDS: FERROUS SULFATE UDC 300 MG/5 ML UDC PO SCH (08:42)
[2022-06-21] MEDS: PIOGLITAZONE HCL 15 MG TABLET GT SCH (08:43)
[2022-06-21] MEDS: MIDODRINE HCL (5MG) 5 MG TABLET GT SCH ×2 (08:43→08:51)
[2022-06-21] MEDS: PANTOPRAZOLE 40 MG VIAL IV SCH (08:43)
[2022-06-21] MEDS: METOCLOPRAMIDE HCL 10 MG TABLET GT SCH ×3 (08:43→16:13)
[2022-06-21] MEDS: LEVOTHYROXINE INJ 100 MCG VIAL IV SCH (08:44)
[2022-06-21] MEDS: Z GUARD REMEDY 4 OZ OINT TP SCH (08:47)
[2022-06-21] MEDS: DAKINS QUARTER STRENGTH (0.125%) 480 ML BOTTLE TOP SCH (08:47)
--- NOTE | 2022-06-21 10:12 | NUR ---
BURNER TENDER NOTES GAVE REPORT TO ALVA CHEUNG AT [facility].
--- NOTE | 2022-06-21 11:13 | NUR ---
INTEGRATION SOFTWARE ENGINEER NOTES Abdominal tx assessed by wound care doctor Fifi. Dressing changed and cleaned, dry, and intact.
--- NOTE | 2022-06-21 12:22 | NUR ---
FELLER OPERATOR NOTES Notified Dr. Swift if it is ok to hold midrodrine due to pt BP 156/85. DR. Swift ordered to d/c medication. Noted and carried out.
[2022-06-21 13:00] VITALS: BP 156/85
--- NOTE | 2022-06-21 13:30 | NUR ---
SOUS CHEF NOTES While cleaning pt HR went bradycardic at 35. Pt repositioned and deep suction done, HR returned to sinus rhythm at 75. Charge nurse aware and notified Dr. Swift and if it is still ok for pt to be discharged to SNF. Dr. Swift said yes.
[2022-06-21 16:00] VITALS: BP 144/82
--- NOTE | 2022-06-21 16:53 | NUR ---
REECE NOTES Hai from [facility] called to inform that eta for case picker changed to 1830.
[2022-06-21] MEDS: CYANOCOBALAMIN 500 MCG TABLET GT SCH (17:06)
[2022-06-21] MEDS: FLUDROCORTISONE 0.1 MG TABLET GT SCH (17:06)
[2022-06-21 17:40] LABS: BAND % (MANUAL) 4 % (0.0-5.0); LYMPHOCYTES % (MANUAL) 15 % (16-48); METAMYELOCYTES % 1 % (0-0); MONOCYTES % (MANUAL) 6 % (0-11.0); NEUTROPHILS % (MANUAL) 74 (42-76)
--- NOTE | 2022-06-21 17:41 | NUR ---
VICE PRESIDENT & GENERAL MANAGER [employer] [place] NOTES [facility] and informed them that ETA picker tender helper is 1830.
[2022-06-21] MEDS: GLUCERNA 1.2 1,000 ML BOTTLE GT SCH (18:43)
--- NOTE | 2022-06-21 19:21 | NUR ---
RADAR SYSTEMS ENGINEER CLOSING NOTES Pt remains in stable condition. No signs of pain or discomfort at this time. Respirations are euqal and unlabored with no sob. Trach is patent, intact, and in midline position on prescribed vent settings. GTF running on prescribed settings. IV access on VENESSA midline patent and intact. HOB elevated to 30-45 degrees. Siderails up at all times. Endorsed to oncoming nurse that pt is going to be picked up by ambulance to get discharged to [facility] and awaiting keymodule assembly supervisor.
--- NOTE | 2022-06-21 22:18 | NUR ---
D/C NOTE: ENT ARRIVED TO UNIT AND REPORT GIVEN ALONG WITH D/C PACKET AND FACE SHEET. MOST RECENT V/S GIVEN AND STABLE. TELE BOX REMOVED FROM PT. JACINTO AND MIDLINE KEPT PER FACILITY REQUEST. PT LEFT VIA GURNEY AND STABLE CONDITION.
== END 2022-06-21 21:51 | DRG 951 ==
LOC: ER 19:39 → TRANSITION 05-25 08:43 → TELE1 05-25 18:50 → TELE-TD 05-25 19:16 → TELE1 05-28 11:47 → ICU 06-05 18:35 → TELE1 06-07 18:36 → TELE-TD 06-07 20:51 → TELE1 06-08 09:56 → ICU 06-08 16:54 → TELE1 06-09 18:21
PROVIDERS: ADMIT Legal Medicine; ATTEND Nurse Practitioner Acute Care
PROC: 5A1955Z Respiratory Ventilation, Greater than 96 Consecutive Hours (ICD-10-PCS; principal; 2022-05-25)
PROC: 30233N1 Transfusion of Nonautologous Red Blood Cells into Peripheral Vein, Percutaneous Approach (ICD-10-PCS; 2022-05-25)
PROC: 05H633Z Insertion of Infusion Device into Left Subclavian Vein, Percutaneous Approach (ICD-10-PCS; 2022-05-26)
PROC: B547ZZA Ultrasonography of Left Subclavian Vein, Guidance (ICD-10-PCS; 2022-05-26)
PROC: 30233R1 Transfusion of Nonautologous Platelets into Peripheral Vein, Percutaneous Approach (ICD-10-PCS; 2022-05-31)
PROC: 0DH63UZ Insertion of Feeding Device into Stomach, Percutaneous Approach (ICD-10-PCS; 2022-06-03)
PROC: 0WQF4ZZ Repair Abdominal Wall, Percutaneous Endoscopic Approach (ICD-10-PCS; 2022-06-03)
PROC: 02HV33Z Insertion of Infusion Device into Superior Vena Cava, Percutaneous Approach (ICD-10-PCS; 2022-06-05)
PROC: B548ZZA Ultrasonography of Superior Vena Cava, Guidance (ICD-10-PCS; 2022-06-05)
PROC: 05H633Z Insertion of Infusion Device into Left Subclavian Vein, Percutaneous Approach (ICD-10-PCS; 2022-06-15)
PROC: B547ZZA Ultrasonography of Left Subclavian Vein, Guidance (ICD-10-PCS; 2022-06-15)
DX: E03.5 Myxedema coma (principal); N17.0 Acute kidney failure with tubular necrosis; R57.1 Hypovolemic shock; G92.8 Other toxic encephalopathy; J69.0 Pneumonitis due to inhalation of food and vomit; K31.6 Fistula of stomach and duodenum; D61.818 Other pancytopenia; G93.1 Anoxic brain damage, not elsewhere classified; R53.2 Functional quadriplegia; G35 Multiple sclerosis; I48.91 Unspecified atrial fibrillation; R00.1 Bradycardia, unspecified; Z99.11 Dependence on respirator [ventilator] status; Z20.822 Contact with and (suspected) exposure to COVID-19; E03.9 Hypothyroidism, unspecified; E11.43 Type 2 diabetes mellitus with diabetic autonomic (poly)neuropathy; E78.5 Hyperlipidemia, unspecified; I10 Essential (primary) hypertension; J96.10 Chronic respiratory failure, unspecified whether with hypoxia or hypercapnia; Z79.4 Long term (current) use of insulin; D50.9 Iron deficiency anemia, unspecified; J90 Pleural effusion, not elsewhere classified; S41.111A Laceration without foreign body of right upper arm, initial encounter; X58.XXXA Exposure to other specified factors, initial encounter; Y93.9 Activity, unspecified; Y92.129 Unspecified place in nursing home as the place of occurrence of the external cause; D68.69 Other thrombophilia; Z74.01 Bed confinement status; G20 Parkinson's disease; R13.10 Dysphagia, unspecified; Z79.899 Other long term (current) drug therapy; Z93.0 Tracheostomy status; K31.84 Gastroparesis; L90.5 Scar conditions and fibrosis of skin; S01.00XA Unspecified open wound of scalp, initial encounter; I47.20 Ventricular tachycardia, unspecified; J98.11 Atelectasis; M81.0 Age-related osteoporosis without current pathological fracture; K94.22 Gastrostomy infection; E87.1 Hypo-osmolality and hyponatremia; E87.6 Hypokalemia; J44.9 Chronic obstructive pulmonary disease, unspecified; F02.80 Dementia in other diseases classified elsewhere, unspecified severity, without behavioral disturbance, psychotic disturbance, mood disturbance, and anxiety; Y83.8 Other surgical procedures as the cause of abnormal reaction of the patient, or of later complication, without mention of misadventure at the time of the procedure; Y73.8 Miscellaneous gastroenterology and urology devices associated with adverse incidents, not elsewhere classified
CPT/HCPCS: 31720; 36410; 36415; 36569; 71045-TC; 71250-TC; 76700-TC; 80048-TC; 80053-TC; 80076-TC; 80162-TC; 80202-TC; 82272-TC; 82533; 82607-TC; 82728-TC; 82784; 82962-TC; 83540-TC; 83605-TC; 83735-TC; 83880; 84100-TC; 84155; 84165; 84439-TC; 84443-TC; 84484-TC; 85025-TC; 85027-TC; 85045-TC; 85396; 85610-TC; 85730-TC; 86140-TC; 86225; 86235; 86334; 86431-TC; 86706; 86803; 86850-TC; 87040-TC; 87081-TC; 87340; 87806; 88305-TC; 88313-TC; 88341; 88342; 93307-TC; 93971-TC; 94002-TC; 94003-TC; 94760-TC; 94762-TC; 94799-TC; A4217; A4623; A4629; A6253; A6403; A7526; C9113; C9803; G0378; J0360; J0690; J0692; J1815; J3010; J3370; J3430; J3475; J3480; J3490; J7030; J7040; J7042; J7050; J7060; J7070; J8597; P9016; P9034

== ENCOUNTER 2022-07-15 15:24 | Inpatient (IN) | payer MEDICAID ==
[~2022-07-15] VITALS: Ht 172.7 cm; Wt 81.6 kg
[~2022-07-15 15:24] MED LIST changes: +ACET-2605 GT; +ACET650S26 GT; -ALBU4TAB6 GT; -ARGI1POW13 GT; -ASCO500C17 GT; +ASCO500T10 GT; -CALC-1180 GT; +CALC1TAB30 GT; +CEFE1FRO IV; -DOCU-141 GT; +METO-295 GT; +MIDO5TAB4 PO; +VANC500F2 IV
--- NOTE | 2022-07-15 15:30 | NUR ---
RECEIVED PT 62 YRS FEMALE BY AMBULACE AND RT WITH TRACH TRANSFER FROM [facility] FOR LOW H&H 5.5/ TRACH SHILL 8 CONECTED TO VENT SITING AC 18 TV500 FIO2 40% PEEP 5 /MIN O2 SAT 99%
--- NOTE | 2022-07-15 15:35 | NUR ---
NO ACTIVE BLEEDING
--- NOTE | 2022-07-15 15:38 | NUR ---
MOVE SHEET SUBMITTED.
--- NOTE | 2022-07-15 15:40 | NUR ---
SEEN BY DR. CARDOZA
[2022-07-15] MEDS ORDERED: FERR325T23 GT (16:02)
[2022-07-15] MEDS ORDERED: DOCU-141 GT (16:02)
--- NOTE | 2022-07-15 16:05 | NUR ---
COVID SWAB TAKEN
--- NOTE | 2022-07-15 16:28 | NUR ---
BLOOD ROW BY LACH AT bed side
[2022-07-15 16:46] LABS: BASOPHILS % (AUTO) 0.4 % (0.0-2.0); EOSINOPHILS % (AUTO) 0.7 % (0.0-6.0); LYMPHOCYTES # (AUTO) 0.6 K/uL (0.8-4.8); LYMPHOCYTES % (AUTO) 19.3 % (20.0-44.0); MEAN CORPUSCULAR HGB CONC 31 g/dl (31.0-36.0); MEAN CORPUSCULAR VOLUME 90 fL (82-100); MONOCYTES # (AUTO) 0.2 K/uL (0.1-1.30); MONOCYTES % (AUTO) 7.5 % (2.0-12.0); NEUTROPHILS # (AUTO) 2.2 K/uL (1.8-8.9); NEUTROPHILS % (AUTO) 72.1 % (43.0-81.0); WHITE BLOOD COUNT (AUTO) 3.1 K/uL (4.3-11.0)
--- NOTE | 2022-07-15 17:09 | NUR ---
RT NOTE: PATENT RECEIVED IN ER AND PLACED ON MECHANICAL VENT. SETTINGS PER MD ORDER. SUCTIONED AND LAVAGED MODERATE AMOUNT OF THICK (RED) BLOODY SECRETIONS.ALARMS SET AND AUDIBLE. AMBU BAG AT [facility].
[2022-07-15 17:12] LABS: RED BLOOD CELL COUNT(AUTO) 1.88 MIL/uL (4.0-5.2)
[2022-07-15 17:14] LABS: CALCIUM, SERUM 8.3 mg/dL (8.5-10.1); CARBON DIOXIDE 30 mmol/L (21-32); CHLORIDE 99 mmol/L (98-107); CREATININE 0.6 mg/dL (0.6-1.3); GLUCOSE 99 mg/dL (74-106); HEMATOCRIT 17 % (33-45); HEMOGLOBIN 5.3 g/dL (11.5-14.8); POTASSIUM 3.4 mmol/L (3.5-5.1); SODIUM SERUM 136 mmol/L (136-145); UREA NITROGEN, BLOOD 61 mg/dL (7-18)
--- NOTE | 2022-07-15 17:14 | NUR ---
HGB - 5.3 , HCT 17 , PLATELET 22 . MADE AWARE
[2022-07-15 17:15] LABS: PLATELET COUNT (AUTO) 22 K/uL (150-450)
[2022-07-15 17:20] LABS: ALANINE AMINOTRANSFERASE 31 U/L (12-78); ALBUMIN 1.6 g/dL (3.4-5.0); ALKALINE PHOSPHATASE 287 U/L (46-116); ASPARTATE AMINOTRANSFERASE 53 U/L (15-37); BILIRUBIN,DIRECT 0.2 mg/dL (0.0-0.2); BILIRUBIN,TOTAL 0.5 mg/dL (0.2-1.0); LIPASE 23 U/L (73-393); TOTAL PROTEIN, SERUM 6.6 g/dL (6.4-8.2)
--- NOTE | 2022-07-15 17:30 | NUR ---
CALLED DR. PASCAL [phone] NOT ELECTRONIC DEVICE MONITOR PLEASE CALL [employer].
--- NOTE | 2022-07-15 17:51 | NUR ---
BED 116 PER NURSING SUP
--- NOTE | 2022-07-15 18:21 | NUR ---
HAND OFF SHANAE RN TO ROOM 116 NO S&S GI BLEEDING
--- NOTE | 2022-07-15 18:23 | NUR ---
SPOKE TO DAUGHTER OVER THE PHONE: ANURADHA VASQUEZ [phone]. VERBAL CONSENT TO ADAMINISTER BLOOD TO THE PT GIVEN.
--- NOTE | 2022-07-15 18:55 | NUR ---
BLOOD PRODUCT OBTAINED FROM LAB.
--- NOTE | 2022-07-15 19:00 | NUR ---
STRTED 1ST UNIT OF PRBC t unite please see blood trancefution record temp 95.[address] CARDOZA arebrittany urena
--- NOTE | 2022-07-15 19:40 | NUR ---
HAND OFF ISABELLA RN
[2022-07-15] MEDS ORDERED: ACETAMINOPHEN 650 MG/20.3 ML UDC GT PRN (20:30)
--- NOTE | 2022-07-15 20:37 | NUR ---
PATIENT TRANSFERRED UNDER ACLS
--- NOTE | 2022-07-15 20:40 | NUR ---
RN NOTES ADMITTED A FEMALE PATIENT VIA GURNEY FROM ER DUE TO GI BLEED. WITH TRACH PATENT SHILEY #8 . GT PATENT FLUSHES WELL, WITH VENESSA MIDLINE PATENT RUNNING PRBC TYPE O POSITIVE NO TRANSFUSION REACTION NOTED AT THIS TIME. VITAL SIGNS TAKEN AND RECORDED TEMP 96. SAFELY TRANSFER TO BED. HOOKED TO MV WITH PRESCRIBED SETTINGS BY RT. COMPLETE BODY ASSESSMENT DONE. PICTURE TAKEN AND FILED. NO BELONGINGS NOTED. ALL SAFETY MEASURES IN PLACE AT ALL TIMES. HOB ELEVATED. CALL LIGHT WITHIN REACH. WILL CLOSELY MONITOR THE PATIENT
[2022-07-15] MEDS ORDERED: Z GUARD REMEDY 4 OZ OINT TP PRN (21:00)
[2022-07-15] MEDS ORDERED: CEFEPIME 1 GM in IV D5W 50 ML IV SCH (21:00)
[2022-07-15] MEDS ORDERED: ACETAMINOPHEN 325 MG TABLET PO PRN (21:00)
[2022-07-15] MEDS ORDERED: MAG HYDROX/AL HYDROX/SIMETH 30 ML UDC PO PRN (21:00)
[2022-07-15] MEDS ORDERED: IV NS 0.9% 1,000 ML IV ONE (21:00)
[2022-07-15] MEDS ORDERED: ZOLPIDEM TARTRATE 5 MG TABLET PO PRN (21:00)
[2022-07-15] MEDS ORDERED: MAGNESIUM HYDROXIDE 30 ML UDC PO PRN (21:00)
[2022-07-15] MEDS ORDERED: ONDANSETRON HCL/PF 4 MG/2 ML VIAL IVP PRN (21:00)
[2022-07-15] MEDS ORDERED: PANTOPRAZOLE 80 MG in IV NS 0.9% 500 ML IV PRN (21:00)
[2022-07-15 21:13] LABS: IRON, SERUM 67 ug/dl (50-175); TOTAL IRON BINDING CAPACITY 280 ug/dl (250-450)
--- NOTE | 2022-07-15 22:00 | NUR ---
RN NOTES YOUSIF MCKINNON PATIENT TEMP STILL 96.1. WILL CLOSELY MONITOR THE PATIENT
--- NOTE | 2022-07-15 22:10 | NUR ---
RN NOTES BLOOD TRANSFUSION COMPLETED. NO TRANSFUSION REACTION NOTED. BP 100/53, HR 49 TEMP 96.1.
[2022-07-15 22:12] LABS: BAND % (MANUAL) 19 % (0.0-5.0); EOSINOPHILS % (MANUAL) 1 % (0-4); LYMPHOCYTES % (MANUAL) 27 % (16-48); MONOCYTES % (MANUAL) 3 % (0-11.0); NEUTROPHILS % (MANUAL) 51 (42-76)
[2022-07-15] MEDS: CHLORHEXIDINE GLUCONATE 15 ML UDC MM SCH (22:15)
[2022-07-15] MEDS ORDERED: CEFEPIME 1 GM VIAL ONE (23:15)
--- NOTE | 2022-07-15 23:26 | NUR ---
RT NOTE RT called to bedside and Low Vt alarm noted. Pt unable to receive adequate VT. After inflating balloon, low tidal volume alarms still going off. Large leak noted coming from stoma site. Trach changed to Shiley sz 7 XLT distal. Minimal bleeding noted. Pt able to receive adequate VT and no leak noted. O2 saturation 100% and normal skin color noted. milk deliverer aware. Addendum: 07/15/22 at 2330 by HATTIE KIM RT Amended: Links added.
[2022-07-16] VITALS (41 sets, daily range): BP systolic 95–162; BP diastolic 45–93
[2022-07-16] MEDS ORDERED: PANTOPRAZOLE 80 MG in IV NS 0.9% 500 ML IV PRN (04:00)
--- NOTE | 2022-07-16 06:27 | NUR ---
RN NOTES PLATELET 1 UNIT STARTED. VITAL SIGNS TAKEN AND RECORDED. WILL CLOSELY MONITOR THE PATIENT FOR ANY TRANSFUSION REACTION
[2022-07-16 06:33] LABS: BASOPHILS % (AUTO) 0.3 % (0.0-2.0); EOSINOPHILS % (AUTO) 0.1 % (0.0-6.0); HEMATOCRIT 22 % (33-45); HEMOGLOBIN 7.1 g/dL (11.5-14.8); LYMPHOCYTES # (AUTO) 0.5 K/uL (0.8-4.8); LYMPHOCYTES % (AUTO) 10.9 % (20.0-44.0); MEAN CORPUSCULAR HGB CONC 32 g/dl (31.0-36.0); MEAN CORPUSCULAR VOLUME 88 fL (82-100); MONOCYTES # (AUTO) 0.3 K/uL (0.1-1.30); MONOCYTES % (AUTO) 6.7 % (2.0-12.0); NEUTROPHILS # (AUTO) 3.7 K/uL (1.8-8.9); RED BLOOD CELL COUNT(AUTO) 2.49 MIL/uL (4.0-5.2); WHITE BLOOD COUNT (AUTO) 4.6 K/uL (4.3-11.0)
[2022-07-16 06:51] LABS: PLATELET COUNT (AUTO) 29 K/uL (150-450)
--- NOTE | 2022-07-16 07:05 | NUR ---
RN NOTES PATIENT ON VENT WITH PRESCRIBED SETTINGS. WITH IV ACCESS AT VENESSA MIDLINE PATENT RUNNING PLATELETS NO REACTION NOTED AT THIS TIME. GT PATENT. HOB ELEVATED. CALL LIGHT WITHIN REACH. WILL ENDORSED TO MORNING SHIFT FOR [place]
--- NOTE | 2022-07-16 07:17 | NUR ---
RN NOTE RECEIVED PATIENT RESTING IN BED, OBTUNDED. ON VENT XLT 7 AC 18 TV 500 FIO2 40 AND PEEP 5. PATIENT DOES NOT SHOW ANY CURRENT SIGNS OF DISTRESS. ON TELE MONITOR. PATIENT IS CURRENTLY NPO DUE TO SUSPECTED GI BLEED. VENESSA MIDLINE CURRENTLY RUNNING 75MLS/HR. SAFETY MEASURES IN PLACE PER HOSPITAL POLICY.
[2022-07-16 08:08] LABS: CALCIUM, SERUM 8.7 mg/dL (8.5-10.1); CREATININE 0.6 mg/dL (0.6-1.3); MAGNESIUM 2.6 mg/dL (1.8-2.4); PHOSPHORUS 4.3 mg/dL (2.5-4.9); POTASSIUM 3.1 mmol/L (3.5-5.1)
[2022-07-16] MEDS: CHLORHEXIDINE GLUCONATE 15 ML UDC MM SCH ×2 (08:13→21:14)
--- NOTE | 2022-07-16 08:30 | NUR ---
RN NOTE RECEIVED CRITICAL GLUCOSE 18 CHECKED FINGER STICK RECEIVED LOW READING, INFORM LIMON MACHINE WHITENER RECEIVED ORDER FOR D50 IV ONCE AND REPLACE FLUIDS WITH D5NS AT 100MLS/HR IV FLUIDS MAINTENANCE. ORDERS PLACED AND D50 ADMINISTERED.
[2022-07-16] MEDS ORDERED: DEXTROSE 50%-WATER 50 ML DISP.SYRIN IVP ONE ×2 (09:00)
[2022-07-16] MEDS ORDERED: IV D5/ 0.9% NACL 1,000 ML IV PRN (09:00)
--- NOTE | 2022-07-16 10:40 | NUR ---
RN NOTE OKAY TO ADMIN MEDS ONLY VIA G TUBE- PER RAO LIMON OCCUPATIONAL HEALTH AND SAFETY MANAGER
[2022-07-16 10:41] LABS: BASOPHILS % (AUTO) 0.3 % (0.0-2.0); EOSINOPHILS % (AUTO) 0.3 % (0.0-6.0); HEMATOCRIT 21 % (33-45); LYMPHOCYTES # (AUTO) 0.6 K/uL (0.8-4.8); LYMPHOCYTES % (AUTO) 13.5 % (20.0-44.0); MEAN CORPUSCULAR HGB CONC 33 g/dl (31.0-36.0); MEAN CORPUSCULAR VOLUME 87 fL (82-100); MONOCYTES # (AUTO) 0.5 K/uL (0.1-1.30); MONOCYTES % (AUTO) 9.7 % (2.0-12.0); NEUTROPHILS # (AUTO) 3.6 K/uL (1.8-8.9); NEUTROPHILS % (AUTO) 76.2 % (43.0-81.0); RED BLOOD CELL COUNT(AUTO) 2.37 MIL/uL (4.0-5.2); WHITE BLOOD COUNT (AUTO) 4.7 K/uL (4.3-11.0)
[2022-07-16 10:46] LABS: HEMOGLOBIN 6.8 g/dL (11.5-14.8); PLATELET COUNT (AUTO) 37 K/uL (150-450)
--- NOTE | 2022-07-16 10:50 | NUR ---
RN NOTE HOSPITALIST [employer] NOTIFIED REGARDING CALCITONIN 2.5 HGB 6.8 - S/P ONE UNIT TRANSFUSED PLATELETS 37 S/P TRANSFUSING
[2022-07-16] MEDS ORDERED: PHARMACY TO CHANGE PO MEDS TO GT/NG XX PRN (11:00)
[2022-07-16] MEDS ORDERED: MAG HYDROX/AL HYDROX/SIMETH 30 ML UDC GT PRN (11:38)
[2022-07-16] MEDS ORDERED: MAGNESIUM HYDROXIDE 30 ML UDC GT PRN (11:39)
[2022-07-16] MEDS ORDERED: ACETAMINOPHEN 650 MG/20.3 ML UDC GT PRN (12:00)
[2022-07-16] MEDS ORDERED: DEXTROSE 50%-WATER 50 ML DISP.SYRIN IVP PRN (12:00)
[2022-07-16] MEDS ORDERED: POTASSIUM CHLORIDE 20 MEQ POWDER PACKET NG SCH (12:00)
[2022-07-16] MEDS ORDERED: CEFEPIME 1 GM in IV D5W 50 ML IV SCH (12:00)
[2022-07-16] MEDS: BLOOD SUGAR DIAGNOSTIC 1 EACH STRIP IN SCH ×6 (12:25→23:11)
--- NOTE | 2022-07-16 12:28 | NUR ---
BEDSIDE REPORT GIVEN BY SARAH REGARDING PT. TRANSFER FROM [facility] TO ICU DEPT.. WILL CONTINUE TO MONITOR PATIENT.
--- NOTE | 2022-07-16 12:30 | NUR ---
RN NOTE PATIENT TRANSFERRED TO ICU ROOM 255 DUE TO HYPOGLYCEMIA AND ORDER FOR ACCUCHECK Q2HRS. REPORT GIVEN TO GABBY CALLE.
[2022-07-16] MEDS ORDERED: VANCOMYCIN 1 GM in IV D5W 250ml IV ONE (13:00)
[2022-07-16] MEDS: Sodium Chloride 154 MEQ in IV 10% DEXTROSE 1,000 ML IV SCH (13:07)
[2022-07-16] MEDS: CEFEPIME 2 GM in IV D5W 100 ML IV SCH ×2 (13:08→20:44)
[2022-07-16 13:31] LABS: BAND % (MANUAL) 20 % (0.0-5.0); BASOPHILS % (MANUAL) 0 % (0.0-2.0); EOSINOPHILS % (MANUAL) 0 % (0-4); LYMPHOCYTES % (MANUAL) 12 % (16-48); MONOCYTES % (MANUAL) 3 % (0-11.0); NEUTROPHILS % (MANUAL) 65 (42-76)
[2022-07-16] MEDS ORDERED: PHYTONADIONE INJ 10 MG/1 ML AMPUL SQ SCH (16:00)
[2022-07-16] MEDS: ASCORBIC ACID 500 MG TABLET GT SCH (17:41)
[2022-07-16] MEDS: CALCIUM CARB 250MG /VITAMIN D 1 UDTAB GT SCH (17:42)
[2022-07-16] MEDS: PANTOPRAZOLE 40 MG VIAL IV SCH (17:42)
[2022-07-16] MEDS: FERROUS SULFATE (325 MG) 325 MG/TAB TABLET GT SCH (17:42)
[2022-07-16] MEDS: FLUDROCORTISONE 0.1 MG TABLET GT SCH (17:43)
[2022-07-16] MEDS: CYANOCOBALAMIN 500 MCG TABLET GT SCH (17:43)
[2022-07-16] MEDS: PROSOURCE / PROSTAT (PYXIS) 30 ML UDC GT SCH (17:44)
--- NOTE | 2022-07-16 18:09 | NUR ---
RN NOTE No insulin coverage scale due to patient not receive tube feedings- per Phillips GLAZIER ARTIST nursing order placed
[2022-07-16 19:06] LABS: BILIRUBIN,URINE NEGATIVE (NEGATIVE); COLOR,URINE YELLOW (YELLOW); LEUKOCYTE ESTERASE ,URINE TRACE (NEGATIVE); NITRITE, URINE NEGATIVE (NEGATIVE); PH,URINE 8.5 (5.0-8.0); PROTEIN,URINE TRACE mg/dl (NEGATIVE); UGLUCOSE NEGATIVE (NEGATIVE); UROBILINOGEN,URINE 0.2 EU/dL (0.2)
[2022-07-16 19:29] LABS: BACTERIA,URINE 1+ /HPF (None Seen); SQUAMOUS EPITHELIAL CELL,UR Few /HPF (None Seen); WBC,URINE 21-50 /HPF (0-3)
--- NOTE | 2022-07-16 19:30 | NUR ---
RN NOTES RECEIVED REPORT FROM MORNING RN. PATIENT ON TRACH CONNECTED TO MV WITH PRESCRIBED SETTINGS. NO SOB NO DISTRESS NOTED. WITH JACINTO CATHETER CONNECTED TO URINE BAG DRAINING YELLOWISH URINE OUPUT. WITH IV ACCESS AT VENESSA MIDLINE PATENT FLUSHES WELL NO INFILTRATION NOTED RUNNING D10 NACL @85ML/HR. WITH GT PATENT FLUSHES WELL. PATIENT STILL ON NPO EXCEPT MEDS. ALL SAFETY MEASURES IN PLACE AT ALL TIMES. HOB ELEVATED. WILL CLOSELY MONITOR THE PATIENT.
[2022-07-16 19:37] LABS: D-DIMER 2.25 mg/L(FEU (0.17-0.50)
[2022-07-16] MEDS: DAKINS QUARTER STRENGTH (0.125%) 480 ML BOTTLE TOP SCH (20:00)
[2022-07-16] MEDS: VANCOMYCIN HCL 0.75 GM in IV D5W 250 ML IV SCH (21:38)
--- NOTE | 2022-07-16 22:15 | NUR ---
RN NOTES BLOOD SUGAR 195 MG/DL2 2100 AND 268 MG/DL @ [address] LIMON NO INSULIN COVERAGE DT PT IS NPO
[2022-07-17] VITALS (23 sets, daily range): BP systolic 105–155; BP diastolic 63–92
[2022-07-17] MEDS: Sodium Chloride 154 MEQ in IV 10% DEXTROSE 1,000 ML IV SCH ×2 (01:09→16:00)
[2022-07-17] MEDS: BLOOD SUGAR DIAGNOSTIC 1 EACH STRIP IN SCH ×12 (01:26→23:23)
[2022-07-17 05:06] LABS: CALCIUM, SERUM 8.2 mg/dL (8.5-10.1); CREATININE 0.7 mg/dL (0.6-1.3); MAGNESIUM 2.4 mg/dL (1.8-2.4); PHOSPHORUS 4.1 mg/dL (2.5-4.9)
[2022-07-17] MEDS: VANCOMYCIN HCL 0.75 GM in IV D5W 250 ML IV SCH ×3 (05:16→21:00)
[2022-07-17 05:31] LABS: D-DIMER 2.16 mg/L(FEU (0.17-0.50)
[2022-07-17 05:43] LABS: BASOPHILS % (AUTO) 0.3 % (0.0-2.0); EOSINOPHILS % (AUTO) 0.1 % (0.0-6.0); HEMATOCRIT 26 % (33-45); HEMOGLOBIN 8.2 g/dL (11.5-14.8); LYMPHOCYTES # (AUTO) 0.4 K/uL (0.8-4.8); LYMPHOCYTES % (AUTO) 8.3 % (20.0-44.0); MEAN CORPUSCULAR HGB CONC 32 g/dl (31.0-36.0); MEAN CORPUSCULAR VOLUME 88 fL (82-100); MONOCYTES # (AUTO) 0.2 K/uL (0.1-1.30); MONOCYTES % (AUTO) 4.8 % (2.0-12.0); NEUTROPHILS # (AUTO) 4.2 K/uL (1.8-8.9); NEUTROPHILS % (AUTO) 86.5 % (43.0-81.0); RED BLOOD CELL COUNT(AUTO) 2.93 MIL/uL (4.0-5.2); WHITE BLOOD COUNT (AUTO) 4.8 K/uL (4.3-11.0)
[2022-07-17 06:06] LABS: PLATELET COUNT (AUTO) 26 K/uL (150-450)
--- NOTE | 2022-07-17 06:55 | NUR ---
RN NOTES RELAYED PLATELETS [address] WILDER, BLOOD SUGAR 319 MG/DL. WILL WQIT FOR CALL BACK. NO BLEEDING NOTED AT THIS TIME
--- NOTE | 2022-07-17 07:02 | NUR ---
RN NOTES PATIENT ON TRACH CONNECTED TO VENT WITH PRESCRIBED SETTINGS NO SOB NO DISTRESS NOTED DURING THE SHIFT. BLOOD SUGAR CHECK Q2H NO EPISODE OF HYPOGLYCEMIA. ALL SAFETY MEASURES IN PLACE. HOB ELEVATED. ENDORSED TO MORNING SHIFT FOR [place]
--- NOTE | 2022-07-17 07:30 | NUR ---
ICU OPENING NOTE RECEIVED PATIENT RESTING IN BED, OBTUNDED. ON VENT XLT 7 AC 18 TV 500 FIO2 40 AND PEEP 5 TOLERATING SETTINGS WELL. PATIENT DOES NOT SHOW ANY CURRENT SIGNS OF DISTRESS. ON TELE MONITOR SINUS TOI 69. PATIENT IS CURRENTLY NPO DUE TO SUSPECTED GI BLEED. VENESSA MIDLINE. IV PATENT, INTACT AND FLUSHING WELL. ALL SAFETY MEASURES IN PLACE. CALL LIGHT WITHIN REACH. BED LOCKED AT LOWEST POSITION. SIDE RAILS UP X2.
[2022-07-17] MEDS: PANTOPRAZOLE 40 MG VIAL IV SCH ×2 (08:02→17:31)
[2022-07-17] MEDS: CHLORHEXIDINE GLUCONATE 15 ML UDC MM SCH ×2 (08:02→21:01)
[2022-07-17] MEDS: CEFEPIME 2 GM in IV D5W 100 ML IV SCH ×2 (08:02→21:01)
[2022-07-17 08:10] LABS: BAND % (MANUAL) 4 % (0.0-5.0); LYMPHOCYTES % (MANUAL) 9 % (16-48); METAMYELOCYTES % 1 % (0-0); MONOCYTES % (MANUAL) 3 % (0-11.0); NEUTROPHILS % (MANUAL) 83 (42-76)
[2022-07-17] MEDS: DAKINS QUARTER STRENGTH (0.125%) 480 ML BOTTLE TOP SCH (09:32)
[2022-07-17] MEDS: POTASSIUM CL. PREMIX PERIPHER. 50 ML IV SCH ×6 (10:20→18:59)
--- NOTE | 2022-07-17 11:14 | NUR ---
rn note 0900 bs check 310 1100 bs check 306 per COURSE DEVELOPER mar no insulin No insulin coverage scale due to patient not receive tube feedings
--- NOTE | 2022-07-17 11:47 | NUR ---
rn note notified furniture fabricator nicki mar for clairfication if pt is npo except meds due to possible GI bleed and pending EGD. said npo no meds for now. order noted and carried out
--- NOTE | 2022-07-17 12:50 | NUR ---
rn note notified pharmacy vanco trough is 27.pharmacy said to hold dose
[2022-07-17] MEDS: ASCORBIC ACID 500 MG TABLET GT SCH (17:26)
[2022-07-17] MEDS: PROSOURCE / PROSTAT (PYXIS) 30 ML UDC GT SCH (17:26)
[2022-07-17] MEDS: CYANOCOBALAMIN 500 MCG TABLET GT SCH (17:26)
[2022-07-17] MEDS: FERROUS SULFATE (325 MG) 325 MG/TAB TABLET GT SCH (17:26)
[2022-07-17] MEDS: CALCIUM CARB 250MG /VITAMIN D 1 UDTAB GT SCH (17:26)
[2022-07-17] MEDS: FLUDROCORTISONE 0.1 MG TABLET GT SCH (17:26)
--- NOTE | 2022-07-17 18:06 | NUR ---
rn note received call lab, blood culture came back positive for gram negative rods.notified store sales manager zaid
[2022-07-17 18:49] LABS: OCCULT BLOOD STOOL NEGATIVE (NEGATIVE)
--- NOTE | 2022-07-17 19:22 | NUR ---
RIG MANAGER CLOSING NOTE PATIENT RESTING IN BED, OBTUNDED. ON VENT XLT 7 AC 18 TV 500 FIO2 40 AND PEEP 5 TOLERATING SETTINGS WELL. PATIENT DOES NOT SHOW ANY CURRENT SIGNS OF DISTRESS. ON TELE MONITOR SINUS TOI 59. PATIENT IS CURRENTLY NPO DUE TO SUSPECTED GI BLEED. VENESSA MIDLINE. IV PATENT, INTACT AND FLUSHING WELL. PT IS EDMEATOUS ON UPPER EXTREMITIES. ELEVATED EXTREMITY ON PILLOWS. ALL SAFETY MEASURES IN PLACE. CALL LIGHT WITHIN REACH. BED LOCKED AT LOWEST POSITION. SIDE RAILS UP X2. ENDORSED TO CORE DRILLER RN FOR CONTIUITY OF CARE.
--- NOTE | 2022-07-17 19:30 | NUR ---
RECEIVED PATIENT RESTING IN BED, OBTUNDED. ON VENT SETTINGS PRESCRIBED. PATIENT DOES NOT SHOW ANY CURRENT SIGNS OF DISTRESS. ON TELE MONITOR. PATIENT IS CURRENTLY NPO DUE TO SUSPECTED GI BLEED. VENESSA MIDLINE IN PLACE. PT IS EDEMATOUS ON UPPER EXTREMITIES. ELEVATED EXTREMITY ON PILLOWS. ALL SAFETY MEASURES IN PLACE. WILL CONTINUE PLAN OF CARE.
[2022-07-18] VITALS (10 sets, daily range): BP systolic 121–132; BP diastolic 68–96
[2022-07-18] MEDS: BLOOD SUGAR DIAGNOSTIC 1 EACH STRIP IN SCH ×12 (00:51→23:23)
[2022-07-18 05:55] LABS: BASOPHILS % (AUTO) 0.3 % (0.0-2.0); EOSINOPHILS % (AUTO) 0.3 % (0.0-6.0); HEMATOCRIT 27 % (33-45); HEMOGLOBIN 8.8 g/dL (11.5-14.8); LYMPHOCYTES # (AUTO) 0.3 K/uL (0.8-4.8); MEAN CORPUSCULAR HGB CONC 33 g/dl (31.0-36.0); MEAN CORPUSCULAR VOLUME 88 fL (82-100); MONOCYTES # (AUTO) 0.2 K/uL (0.1-1.30); MONOCYTES % (AUTO) 4.9 % (2.0-12.0); NEUTROPHILS # (AUTO) 4.2 K/uL (1.8-8.9); NEUTROPHILS % (AUTO) 88.5 % (43.0-81.0); RED BLOOD CELL COUNT(AUTO) 3.06 MIL/uL (4.0-5.2); WHITE BLOOD COUNT (AUTO) 4.8 K/uL (4.3-11.0)
[2022-07-18 05:58] LABS: PLATELET COUNT (AUTO) 20 K/uL (150-450)
[2022-07-18 06:09] LABS: D-DIMER 2.56 mg/L(FEU (0.17-0.50)
--- NOTE | 2022-07-18 06:22 | NUR ---
PATIENT RESTING IN BED, OBTUNDED. ON VENT SETTINGS PRESCRIBED. PATIENT DOES NOT SHOW ANY CURRENT SIGNS OF DISTRESS. ON TELE MONITOR. PATIENT IS CURRENTLY NPO DUE TO SUSPECTED GI BLEED. VENESSA MIDLINE IN PLACE. PT IS EDEMATOUS ON UPPER EXTREMITIES. ELEVATED EXTREMITY ON PILLOWS. KEPT CLEAN AND DRY. NEEDS ATTENDED. ALL SAFETY MEASURES MAINTAINED. WILL ENDORSE TO NEXT NURSE ON DUTY FOR CONTINUITY OF CARE.
[2022-07-18 06:30] LABS: CALCIUM, SERUM 8.4 mg/dL (8.5-10.1); CREATININE 0.7 mg/dL (0.6-1.3); MAGNESIUM 2.2 mg/dL (1.8-2.4); PHOSPHORUS 2.8 mg/dL (2.5-4.9)
[2022-07-18 06:46] LABS: POTASSIUM 2.8 mmol/L (3.5-5.1)
--- NOTE | 2022-07-18 07:05 | NUR ---
BLOOD SUGAR CHECK 2100 - 251; 2300 - 227, 0100 - 256, 0300 - 252, 0500 - 248
--- NOTE | 2022-07-18 07:32 | NUR ---
NUT PROCESSING SUPERVISOR OPENING NOTE RECEIVED PATIENT RESTING IN BED, OBTUNDED. ON VENT XLT 7 AC 18 TV 500 FIO2 40 AND PEEP 5 TOLERATING SETTINGS WELL. PATIENT DOES NOT SHOW ANY CURRENT SIGNS OF DISTRESS. ON TELE MONITOR SINUS TOI 55. PATIENT IS CURRENTLY NPO DUE TO SUSPECTED GI BLEED. VENESSA MIDLINE. IV PATENT, INTACT AND FLUSHING WELL. PT HAS JACINTO CATHETHER YELLOW COLOR DRAINING TO GRAVITY. ALL SAFETY MEASURES IN PLACE. CALL LIGHT WITHIN REACH. BED LOCKED AT LOWEST POSITION. SIDE RAILS UP X2.
[2022-07-18] MEDS: VANCOMYCIN HCL 0.75 GM in IV D5W 250 ML IV SCH ×3 (08:00→21:56)
[2022-07-18] MEDS: PANTOPRAZOLE 40 MG VIAL IV SCH ×2 (08:03→17:37)
[2022-07-18] MEDS: CHLORHEXIDINE GLUCONATE 15 ML UDC MM SCH ×2 (08:03→20:49)
[2022-07-18] MEDS: CEFEPIME 2 GM in IV D5W 100 ML IV SCH ×2 (08:04→21:55)
[2022-07-18 08:31] LABS: BAND % (MANUAL) 16 % (0.0-5.0); LYMPHOCYTES % (MANUAL) 4 % (16-48); METAMYELOCYTES % 2 % (0-0); MONOCYTES % (MANUAL) 4 % (0-11.0); MYELOCYTES % 2 % (0-0); NEUTROPHILS % (MANUAL) 72 (42-76)
[2022-07-18] MEDS: DAKINS QUARTER STRENGTH (0.125%) 480 ML BOTTLE TOP SCH (09:12)
--- NOTE | 2022-07-18 10:26 | NUR ---
RN NOTE NOTIFIED POTASSIUM 2.8. DR. DRIVER ORDERED [facility] 20 MEQ OVER 2 HOURS. ORDERS NOTED AND CARRIED OUT. NOTIFIED THAT PT PLATELET 20 AND HR 56 AND IF OKAY TO CONTINUE WITH PLATELET TRANSFUSION. SAID 1 UNIT. ORDER NOTED AND CARRIED OUT
--- NOTE | 2022-07-18 10:36 | NUR ---
WOUND CARE CONSULT: PT NOT TURNED AT THIS TIME FOR SKIN ASSESSMENT DUE TO PT DESATURATING WHEN TURNED (PER RN). PT FOLLOWED BY SURGICAL TEAM FOR ABDOMINAL WOUND, SCALP WOUND AND RECENTLY HEALED STAGE 4 SACRAL PRESSURE ULCER. DISCUSSED SKIN PROTECTION WITH NURSING STAFF. PT IS ON AD ISOFLEX LOW AIRLOSS BED. MD IN AGREEMENT WITH PLAN OF CARE.
[2022-07-18] MEDS: POTASSIUM CL. PREMIX PERIPHER. 50 ML IV SCH ×2 (12:43→17:38)
--- NOTE | 2022-07-18 14:48 | NUR ---
RN NOTE PLATELET TRANSFUSION STARTED. VITAL SIGNS STABLE. NO ADVERSE REACTION NOTED AT THIS TIME
--- NOTE | 2022-07-18 15:30 | NUR ---
RN NOTE PLATELET TRANSFUSION INCREASED. NO ADVERSE REACTION AT THIS TIME. VITAL SIGNS STABLE. PT TOLERATING WELL
--- NOTE | 2022-07-18 16:07 | NUR ---
RN NOTE NOTIIFED DR. DRIVER THAT PT HAS PO MEDS DUE BUT PENDING EGD AND IF OKAY TO HOLD PO MEDS FOR NOW. SAID OKAY TO HOLD PO MEDS FOR NOW. ORDER NOTED AND CARRIED OUT.
--- NOTE | 2022-07-18 16:20 | NUR ---
RN NOTE PLATELET TRANSFUSION COMPLETED. VITAL SIGNS REMAIN STABLE AND NO ADVERSE REACTION NOTED.
[2022-07-18] MEDS: ASCORBIC ACID 500 MG TABLET GT SCH (17:33)
[2022-07-18] MEDS: PROSOURCE / PROSTAT (PYXIS) 30 ML UDC GT SCH (17:33)
[2022-07-18] MEDS: FERROUS SULFATE (325 MG) 325 MG/TAB TABLET GT SCH (17:33)
[2022-07-18] MEDS: FLUDROCORTISONE 0.1 MG TABLET GT SCH (17:33)
[2022-07-18] MEDS: CALCIUM CARB 250MG /VITAMIN D 1 UDTAB GT SCH (17:33)
[2022-07-18] MEDS: CYANOCOBALAMIN 500 MCG TABLET GT SCH (17:33)
[2022-07-18] MEDS: Sodium Chloride 154 MEQ in IV 10% DEXTROSE 1,000 ML IV SCH (17:37)
--- NOTE | 2022-07-18 20:21 | NUR ---
COMPOSITE WORKER CLOSING NOTE PATIENT RESTING IN BED, OBTUNDED. ON VENT XLT 7 AC 18 TV 500 FIO2 40 AND PEEP 5 TOLERATING SETTINGS WELL. PATIENT DOES NOT SHOW ANY CURRENT SIGNS OF DISTRESS. ON TELE MONITOR SINUS TOI. PATIENT IS CURRENTLY NPO DUE TO SUSPECTED GI BLEED. VENESSA MIDLINE. IV PATENT, INTACT AND FLUSHING WELL. PT HAS JACINTO CATHETHER YELLOW COLOR DRAINING TO GRAVITY. ALL SAFETY MEASURES IN PLACE. CALL LIGHT WITHIN REACH. BED LOCKED AT LOWEST POSITION. SIDE RAILS UP X2. ENDORSED TO FASHION SUPERVISOR RN FOR CONUTITY OF CARE
[2022-07-19] VITALS (7 sets, daily range): BP systolic 114–137; BP diastolic 70–81
[2022-07-19] MEDS: BLOOD SUGAR DIAGNOSTIC 1 EACH STRIP IN SCH ×8 (01:00→23:39)
[2022-07-19 06:39] LABS: D-DIMER 1.65 mg/L(FEU (0.17-0.50)
[2022-07-19 06:46] LABS: CALCIUM, SERUM 7.9 mg/dL (8.5-10.1); CREATININE 0.6 mg/dL (0.6-1.3); MAGNESIUM 2.1 mg/dL (1.8-2.4); PHOSPHORUS 2.8 mg/dL (2.5-4.9); POTASSIUM 3.1 mmol/L (3.5-5.1)
--- NOTE | 2022-07-19 07:10 | NUR ---
RN OPEN NOTE: RECEIVED PATIENT IN BED. OBTUNDED. TRACH WITH VENT AT PRESCRIBED SETTINGS. EARTH MOVING TECHNICIAN ON WITH SINUS TOI [address] CLAMPED. LEFT UPPER ARM MIDLINE IN PLACE PATENT NO S/S OF COMPLICATIONS WITH IVF OF SODIUM CHLORIDE 154MEQ AND D10% AT40ML/HR. TRAN HUG BLANKET ON. ABDOMINAL WOUND WITH CLEAN DRESSING. JACINTO CATHETER WITH YELLOW URINE. HOB ELEVATED AT SEMI-FOWLERS POSITION. BILATERAL HALF SIDE RAILS UP X2. BED IN LOW POSITION, LOCKED, EXIT ALARM ON. CALL LIGHT IN REACH. NO S/S OF PAIN OR DISCOMFORT. Addendum: 07/19/22 at 0804 by REGISTRY [facility] INPATIENT RN4 RN WRONG ENTRY
--- NOTE | 2022-07-19 07:10 | NUR ---
RN OPEN NOTE: RECEIVED PATIENT IN BED. OBTUNDED. TRACH WITH VENT AT PRESCRIBED SETTINGS. ROLL SHEETING CUTTER ON WITH SINUS TOI [address] GT [address] CLAMPED. LEFT UPPER ARM MIDLINE IN PLACE PATENT NO S/S OF COMPLICATIONS WITH IVF OF SODIUM CHLORIDE 154MEQ AND D10% AT40ML/HR. TRAN HUG BLANKET ON. ABDOMINAL WOUND WITH CLEAN DRESSING. JACINTO CATHETER WITH YELLOW URINE. HOB ELEVATED AT SEMI-FOWLERS POSITION. BILATERAL HALF SIDE RAILS UP X2. BED IN LOW POSITION, LOCKED, EXIT ALARM ON. CALL LIGHT IN REACH. NO S/S OF PAIN OR DISCOMFORT.
[2022-07-19 07:19] LABS: BASOPHILS % (AUTO) 0.3 % (0.0-2.0); EOSINOPHILS % (AUTO) 0.9 % (0.0-6.0); HEMATOCRIT 25 % (33-45); LYMPHOCYTES # (AUTO) 0.5 K/uL (0.8-4.8); LYMPHOCYTES % (AUTO) 10.7 % (20.0-44.0); MEAN CORPUSCULAR HGB CONC 32 g/dl (31.0-36.0); MEAN CORPUSCULAR VOLUME 88 fL (82-100); MONOCYTES # (AUTO) 0.3 K/uL (0.1-1.30); MONOCYTES % (AUTO) 6.4 % (2.0-12.0); NEUTROPHILS # (AUTO) 3.6 K/uL (1.8-8.9); NEUTROPHILS % (AUTO) 81.7 % (43.0-81.0); RED BLOOD CELL COUNT(AUTO) 2.86 MIL/uL (4.0-5.2); WHITE BLOOD COUNT (AUTO) 4.4 K/uL (4.3-11.0)
[2022-07-19 07:27] LABS: PLATELET COUNT (AUTO) 25 K/uL (150-450)
--- NOTE | 2022-07-19 07:30 | NUR ---
RECEIVED A CALL FROM KATELYN CORDOVA) WITH A PLATELET RESULT OF 25 WILL FOLLOW UP WITH . Addendum: 07/19/22 at 1134 by CAYETANO EASON RN PLATELETS TRANDING UP. NO S/S OF BLEEDING.
--- NOTE | 2022-07-19 07:30 | NUR ---
RECEIVED A CALL FROM RADHA FROM LAB PLATELETS 25 WILL FOLLOW UP WITH . Addendum: 07/19/22 at 0804 by REGISTRY [facility] CRYSTAL RN4 RN WRONG ENTRY.
[2022-07-19] MEDS: CEFEPIME 2 GM in IV D5W 100 ML IV SCH ×3 (08:06→23:26)
[2022-07-19] MEDS: CHLORHEXIDINE GLUCONATE 15 ML UDC MM SCH ×2 (09:04→20:26)
[2022-07-19] MEDS: PANTOPRAZOLE 40 MG VIAL IV SCH ×2 (09:04→17:38)
[2022-07-19] MEDS: DAKINS QUARTER STRENGTH (0.125%) 480 ML BOTTLE TOP SCH (09:25)
[2022-07-19 09:43] LABS: BAND % (MANUAL) 24 % (0.0-5.0); LYMPHOCYTES % (MANUAL) 14 % (16-48); METAMYELOCYTES % 1 % (0-0); MONOCYTES % (MANUAL) 5 % (0-11.0); MYELOCYTES % 1 % (0-0); NEUTROPHILS % (MANUAL) 55 (42-76)
--- NOTE | 2022-07-19 12:58 | NUR ---
DR. PASCAL[facility] INFOR[facility] NO EDOSCOPY ORDERS, AND OF PLATELETS 25, PLATELETS WERE 20 YESTERDAY S/P PLATELET TRANSFUSION YESTERDAY. CONTINUES WITH GENERALIZED EDEMA. NO FEEDING FORMULA, NPO EXEPT MEDS, CONTINUES ON SODIUM CHLORIDE WITH 10% NS AT 40ML/HR AND ACCUCHECKS EVERY 2 HOURS, BLOOD GLUCOSE ABOVE 200'S, WITH ORDERS FOR DIETARY CONSULT TO RESTART FEEDINGS, AND ONCE GT FEEDING FORMULA STARTS TO DC SODIUM CHLORIDE WITH D10%. TO DC ACCUCHECKS [id number], AND ACCUCHECKS [id number] WITH SLIDING SCALE, AND TO MONITOR PLATELETS IF ABOVE 20 AND NO ACTIVE BLEEDING NO ORDERS. TOTAL CARE PROVIDED. WOUND CARE DONE ORDERED.
[2022-07-19] MEDS ORDERED: DEXTROSE 50%-WATER 50 ML DISP.SYRIN IV PRN ×2 (13:00)
[2022-07-19] MEDS ORDERED: INSULIN REGULAR, HUMAN 100 UNIT/ML 3 ML VIAL SQ PRN (13:00)
[2022-07-19] MEDS ORDERED: GLUCERNA 1.2 1,000 ML BOTTLE NG PRN (14:00)
[2022-07-19] MEDS: GLUCERNA 1.2 1,000 ML BOTTLE GT PRN (14:37)
[2022-07-19] MEDS: PROSOURCE / PROSTAT (PYXIS) 30 ML UDC GT SCH ×2 (14:57→17:56)
[2022-07-19] MEDS: POTASSIUM CL. PREMIX PERIPHER. 50 ML IV SCH ×4 (14:58→17:56)
[2022-07-19] MEDS: FERROUS SULFATE (325 MG) 325 MG/TAB TABLET GT SCH (17:38)
[2022-07-19] MEDS: CALCIUM CARB 250MG /VITAMIN D 1 UDTAB GT SCH (17:38)
[2022-07-19] MEDS: CYANOCOBALAMIN 500 MCG TABLET GT SCH (17:39)
[2022-07-19] MEDS: ASCORBIC ACID 500 MG TABLET GT SCH (17:39)
[2022-07-19] MEDS: FLUDROCORTISONE 0.1 MG TABLET GT SCH (17:40)
[2022-07-19] MEDS: INSULIN REGULAR, HUMAN 100 UNIT/ML 3 ML VIAL SQ PRN ×2 (18:00→23:45)
[2022-07-19] MEDS ORDERED: BLOOD SUGAR DIAGNOSTIC 1 EACH STRIP IN SCH (18:00)
--- NOTE | 2022-07-19 19:00 | NUR ---
RN CLOSING NOTE: PATIENT IN BED. OBTUNDED. TRACH WITH VENT AT PRESCRIBED SETTINGS. APPLICATION INTEGRATION SPECIALIST ON WITH SINUS TOI 60'S. RHYTHM. GT IN PLACE CLAMPED. LEFT UPPER ARM MIDLINE IN PLACE PATENT NO S/S OF COMPLICATIONS. TRAN HUG BLANKET REMOVED. T 99.[address] PATENT. GT FEEDING FORMULA AT 20 ML/HR. ASPIRATION PRECAUTIONS MAINTAINED. BLOOD SUGAR CHECKED AND COVERED ORDERED. ABDOMINAL WOUND CARE DONE ORDERED. JACINTO CATHETER WITH YELLOW URINE. HOB ELEVATED AT SEMI-FOWLERS POSITION. BILATERAL HALF SIDE RAILS UP X2. BED IN LOW POSITION, LOCKED, EXIT ALARM ON. CALL LIGHT IN REACH. NO S/S OF PAIN OR DISCOMFORT. NO S/S OF GI BLEED. CONTINUES WITH GENERALIZED EDEMA. TURNED AND REPOSITIONED. KEPT CLEAN AND DRY.
--- NOTE | 2022-07-19 19:30 | NUR ---
WIRE BENDER OPENING NOTE RECEIVED PT AWAKE IN BED. OBTUNDED. ON MECH VENT TO PRESCRIBED SETTINGS, TOLERATING WELL. NO SOB OR S/S OF RESPIRATORY DISTRESS. BREATHING EVEN AND UNLABORED. ON EXTERNAL SHEETMETAL TRADES WORKER READING SR 64 BPM. IV ACCESS VENESSA ML, INTACT AND PATENT. WITH GTUBE RUNNING GLUCERNA @ 20 ML/HR, INTACT AND PATENT, NO RESIDUAL. WITH JACINTO, INTACT AND PATENT, DRAINING CLEAR ROLDAN URINE BY GRAVITY. SAFETY PRECAUTIONS IN PLACE. BED IN LOWEST LOCKED POSITION, HOB ELEVATED, SIDE RAILS UP X3, AND CALL LIGHT AND TABLE WITHIN REACH. ALL NEEDS MET AT THIS TIME.
--- NOTE | 2022-07-19 21:35 | NUR ---
Patient received on vent via trach Shiley XLT 7. On vent settings AC 18, 500, 40%, +5. Ambu bag and spare trach at bedside. Alarms set an audible. Trach secure via trach tie. Suctioned mod. amt of pale yellow, thick secretion. Head of bed at 30 degrees. Addendum: 07/19/22 at 2142 by VIKKI BROWN RT Amended: Links added.
[2022-07-20] VITALS: BP 128/67
[2022-07-20 04:00] VITALS: BP 137/80
[2022-07-20] MEDS: BLOOD SUGAR DIAGNOSTIC 1 EACH STRIP IN SCH ×3 (05:23→17:50)
[2022-07-20 06:12] LABS: D-DIMER 2.32 mg/L(FEU (0.17-0.50)
[2022-07-20 06:13] LABS: CALCIUM, SERUM 8.2 mg/dL (8.5-10.1); CREATININE 0.8 mg/dL (0.6-1.3); POTASSIUM 3.3 mmol/L (3.5-5.1)
--- NOTE | 2022-07-20 06:36 | NUR ---
BIOLOGY ADJUNCT INSTRUCTOR CLOSING NOTE PT AWAKE IN BED. OBTUNDED. ON MECH VENT TO PRESCRIBED SETTINGS, TOLERATING WELL. NO SOB OR S/S OF RESPIRATORY DISTRESS. BREATHING EVEN AND UNLABORED. ON EXTERNAL SIDE PULLER READING SB 56 BPM. IV ACCESS VENESSA ML, INTACT AND PATENT. WITH GTUBE RUNNING GLUCERNA @ 50 ML/HR, INTACT AND PATENT, NO RESIDUAL. WITH JACINTO, INTACT AND PATENT, DRAINING CLEAR ROLDAN URINE BY GRAVITY, DRAINED 300 ML THIS SHIFT. ALL DUE MEDS GIVEN ORDERED. KEPT CLEAN AND DRY. TURNED AND REPOSITIONED Q2H. SAFETY PRECAUTIONS IN PLACE AT ALL TIMES. BED IN LOWEST LOCKED POSITION, HOB ELEVATED, SIDE RAILS UP X3, AND CALL LIGHT AND TABLE WITHIN REACH. ALL NEEDS MET AT THIS TIME AND WILL ENDORSE TO ONCOMING NURSE FOR [place].
--- NOTE | 2022-07-20 07:22 | NUR ---
AGRICULTURAL CROP FARM MANAGER OPEN NOTE PT AWAKE IN BED. OBTUNDED. ON MECH VENT TO PRESCRIBED SETTINGS, TOLERATING WELL. NO SOB OR S/S OF RESPIRATORY DISTRESS. BREATHING EVEN AND UNLABORED. ON EXTERNAL ELECTRONICS DETAIL DRAFTSPERSON READING SB 62 BPM. IV ACCESS VENESSA ML, INTACT AND PATENT. WITH GTUBE RUNNING GLUCERNA @ 50 ML/HR, INTACT AND PATENT, NO RESIDUAL. WITH JACINTO, INTACT AND PATENT, DRAINING CLEAR ROLDAN URINE BY GRAVITY, DRAINED 300 ML THIS SHIFT. ALL DUE MEDS GIVEN ORDERED. KEPT CLEAN AND DRY. TURNED AND REPOSITIONED Q2H. SAFETY PRECAUTIONS IN PLACE AT ALL TIMES. BED IN LOWEST LOCKED POSITION, HOB ELEVATED, SIDE RAILS UP X3, AND CALL LIGHT AND TABLE WITHIN REACH. WILL CONTINUE TO MONITOR
[2022-07-20] MEDS: CEFEPIME 2 GM in IV D5W 100 ML IV SCH ×2 (07:35→16:40)
[2022-07-20] MEDS: PROSOURCE / PROSTAT (PYXIS) 30 ML UDC GT SCH ×3 (08:03→17:13)
[2022-07-20] MEDS: DAKINS QUARTER STRENGTH (0.125%) 480 ML BOTTLE TOP SCH (08:03)
[2022-07-20] MEDS: CHLORHEXIDINE GLUCONATE 15 ML UDC MM SCH ×2 (08:03→21:21)
[2022-07-20] MEDS: PANTOPRAZOLE 40 MG VIAL IV SCH ×2 (08:03→17:13)
[2022-07-20 08:17] VITALS: BP 133/87
[2022-07-20 08:39] LABS: BASOPHILS % (AUTO) 0.4 % (0.0-2.0); EOSINOPHILS % (AUTO) 0.6 % (0.0-6.0); HEMATOCRIT 26 % (33-45); LYMPHOCYTES # (AUTO) 0.9 K/uL (0.8-4.8); LYMPHOCYTES % (AUTO) 16.6 % (20.0-44.0); MEAN CORPUSCULAR HGB CONC 31 g/dl (31.0-36.0); MEAN CORPUSCULAR VOLUME 90 fL (82-100); MONOCYTES # (AUTO) 0.3 K/uL (0.1-1.30); MONOCYTES % (AUTO) 6.2 % (2.0-12.0); NEUTROPHILS # (AUTO) 3.9 K/uL (1.8-8.9); NEUTROPHILS % (AUTO) 76.2 % (43.0-81.0); RED BLOOD CELL COUNT(AUTO) 2.83 MIL/uL (4.0-5.2); WHITE BLOOD COUNT (AUTO) 5.1 K/uL (4.3-11.0)
[2022-07-20 09:10] LABS: PLATELET COUNT (AUTO) 25 K/uL (150-450)
[2022-07-20] MEDS: POTASSIUM CL. PREMIX PERIPHER. 50 ML IV SCH ×2 (10:05→11:07)
[2022-07-20] MEDS ORDERED: SULFAMETHOXAZOLE/TRIMETHOPRIM 5 ML in IV D5W 250 ML IV SCH (11:00)
--- NOTE | 2022-07-20 11:00 | NUR ---
blood culture positive for gramnegative rods md notified.
[2022-07-20 11:17] LABS: BAND % (MANUAL) 17 % (0.0-5.0); BASOPHILS % (MANUAL) 0 % (0.0-2.0); EOSINOPHILS % (MANUAL) 0 % (0-4); LYMPHOCYTES % (MANUAL) 16 % (16-48); MONOCYTES % (MANUAL) 3 % (0-11.0); NEUTROPHILS % (MANUAL) 64 (42-76)
[2022-07-20] MEDS: INSULIN REGULAR, HUMAN 100 UNIT/ML 3 ML VIAL SQ PRN ×2 (11:59→17:50)
[2022-07-20 12:01] VITALS: BP 130/81
[2022-07-20] MEDS: SULFAMETHOXAZOLE/TRIMETHOPRIM 5 ML in IV D5W 250 ML IV SCH (15:27)
[2022-07-20 16:56] VITALS: BP 133/80
[2022-07-20] MEDS: FERROUS SULFATE (325 MG) 325 MG/TAB TABLET GT SCH (17:13)
[2022-07-20] MEDS: FLUDROCORTISONE 0.1 MG TABLET GT SCH (17:13)
[2022-07-20] MEDS: CYANOCOBALAMIN 500 MCG TABLET GT SCH (17:13)
[2022-07-20] MEDS: ASCORBIC ACID 500 MG TABLET GT SCH (17:13)
[2022-07-20] MEDS: CALCIUM CARB 250MG /VITAMIN D 1 UDTAB GT SCH (17:13)
--- NOTE | 2022-07-20 18:41 | NUR ---
ADMISSIONS CLINICIAN closing NOTE PT AWAKE IN BED. OBTUNDED. ON MECH VENT TO PRESCRIBED SETTINGS, TOLERATING WELL. NO SOB OR S/S OF RESPIRATORY DISTRESS. BREATHING EVEN AND UNLABORED. ON EXTERNAL BOAT HOIST OPERATOR READING SB 68 BPM. IV ACCESS VENESSA ML, INTACT AND PATENT. WITH GTUBE RUNNING GLUCERNA @ 60 ML/HR, INTACT AND PATENT, NO RESIDUAL. WITH JACINTO, INTACT AND PATENT, DRAINING CLEAR ROLDAN URINE BY GRAVITY, DRAINED 550 ML THIS SHIFT. ALL DUE MEDS GIVEN ORDERED. KEPT CLEAN AND DRY. TURNED AND REPOSITIONED Q2H. SAFETY PRECAUTIONS IN PLACE AT ALL TIMES. BED IN LOWEST LOCKED POSITION, HOB ELEVATED, SIDE RAILS UP X3, AND CALL LIGHT AND TABLE WITHIN REACH. WILL endorse nightclub manager nurse to fallow poc
[2022-07-20 20:00] VITALS: BP 132/78
--- NOTE | 2022-07-20 20:10 | NUR ---
Received patient trach yosef 7 xlt. Patient tolerating vent settings. Sx'd mod amt of thick yellow secretions. Vent alarms set and audible ambu bag at bedside. Continue to monitor. Addendum: 07/20/22 at 2010 by OCHOA EDEN RT Amended: Links added.
--- NOTE | 2022-07-20 21:09 | NUR ---
Sputum sample collected. RN notified.
--- NOTE | 2022-07-20 21:15 | NUR ---
RN NOTE LAB CALLED FOR SPUTUM CULTURE REGIONAL DEDICATED TRUCK DRIVER.
[2022-07-20] MEDS: GLUCERNA 1.2 1,000 ML BOTTLE GT PRN (21:29)
--- NOTE | 2022-07-20 22:06 | NUR ---
PROFESSIONAL SKATEBOARDER OPENING NOTE PT RECEIVED IN BED, OBTUNDED, NON-VERBAL, OPENS EYES. PT ON XLT #7, AC 18, TV 500, 40% FIO2, PEEP 5 WITH CURRENT O2SAT OF 100%; NO S/S OF RESP DISTRESS, NO SOB OR COUGH, NON-LABORED AND EQUAL BREATHING; COUGH AND GAG REFLEX PRESENT. JACINTO INTACT AND PATENT, DRAINING CLEAR AND ROLDAN URINE. GTD C/D/I WITH GLUCERNA RUNNING AT 75 ML/HR; NO RESIDUAL NOTED. VENESSA MIDLINE INTACT AND PATENT, FLUSHES EASILY WITH NO RESISTANCE; NO MEDS/FLUIDS INFUSING THROUGH. BED IN LOWEST POSITION, CALL LIGHT WITHIN REACH, SIDE RAILS UP X3. WILL CONTINUE TO MONITOR THROUGHOUT THE NIGHT.
[2022-07-21] VITALS: BP 134/94
[2022-07-21] MEDS: SULFAMETHOXAZOLE/TRIMETHOPRIM 5 ML in IV D5W 250 ML IV SCH ×2 (00:16→08:13)
[2022-07-21] MEDS: CEFEPIME 2 GM in IV D5W 100 ML IV SCH ×4 (00:16→23:02)
[2022-07-21] MEDS: INSULIN REGULAR, HUMAN 100 UNIT/ML 3 ML VIAL SQ PRN ×5 (00:31→23:20)
[2022-07-21] MEDS: BLOOD SUGAR DIAGNOSTIC 1 EACH STRIP IN SCH ×5 (00:31→23:18)
[2022-07-21 04:00] VITALS: BP 125/67
[2022-07-21 06:27] LABS: D-DIMER 1.48 mg/L(FEU (0.17-0.50)
--- NOTE | 2022-07-21 06:36 | NUR ---
REPOSSESSION AGENT CLOSING NOTE PT REMAINS IN BED, OBTUNDED, OPENS EYES, NON-VERBAL. CONTINUES TO BE ON SAME VENT SETTINGS, TOLERATED VENT SETTINGS WELL WITH O2SAT STABLE AT 100% THROUGHOUT THE NIGHT. ATTACHED TO EXTERNAL MONITOR, SR WITH HR RANGING FROM 63-71. JACINTO IN PLACE, DRAINING CLEAR AND YELLOW URINE. GTD CHANGED AND IS C/D/I WITH GLUCERNA RUNNING AT 75 ML/HR; TOLERATED GTF WELL WITH NO RESIDUALS. VENESSA MIDLINE INTACT AND PATENT, FLUSHES EASILY WITH NO RESISTANCE; NO MEDS/FLUIDS INFUSING THROUGH. WOUNDS CLEANSED AND NEW DRESSINGS APPLIED. ALL DUE MEDS ADMINISTERED DURING THE NIGHT. BED IN LOWEST POSITION, CALL LIGHT WITHIN REACH, SIDE RAILS UP X3. WILL ENDORSE TO DAYSHIFT NURSE TO CONTINUE CARE.
--- NOTE | 2022-07-21 07:15 | NUR ---
COMMUNICABLE DISEASE SPECIALIST OPEN NOTE PT REMAINS IN BED, OBTUNDED, OPENS EYES, NON-VERBAL. CONTINUES TO BE ON SAME VENT SETTINGS, TOLERATED VENT SETTINGS WELL ATTACHED TO EXTERNAL MONITOR, SR JACINTO IN PLACE, DRAINING CLEAR AND YELLOW URINE. GTD CHANGED AND IS C/D/I WITH GLUCERNA RUNNING AT 75 ML/HR; TOLERATED GTF WELL WITH NO RESIDUALS. VENESSA MIDLINE INTACT AND PATENT, FLUSHES EASILY WITH NO RESISTANCE; BED IN LOWEST POSITION, CALL LIGHT WITHIN REACH, SIDE RAILS UP X3. WILL CONTINUE TO MONITOR
[2022-07-21 08:00] VITALS: BP 129/72
[2022-07-21] MEDS ORDERED: SULFAMETHOXAZOLE/TRIMETHOPRIM 10 ML in IV D5W 250 ML IV SCH ×2 (08:06→16:00)
[2022-07-21 08:12] LABS: BASOPHILS % (AUTO) 0.6 % (0.0-2.0); HEMATOCRIT 26 % (33-45); HEMOGLOBIN 8.2 g/dL (11.5-14.8); LYMPHOCYTES # (AUTO) 0.8 K/uL (0.8-4.8); LYMPHOCYTES % (AUTO) 12.8 % (20.0-44.0); MEAN CORPUSCULAR HGB CONC 32 g/dl (31.0-36.0); MEAN CORPUSCULAR VOLUME 91 fL (82-100); MONOCYTES # (AUTO) 0.3 K/uL (0.1-1.30); NEUTROPHILS # (AUTO) 5.3 K/uL (1.8-8.9); NEUTROPHILS % (AUTO) 80.6 % (43.0-81.0); RED BLOOD CELL COUNT(AUTO) 2.84 MIL/uL (4.0-5.2); WHITE BLOOD COUNT (AUTO) 6.6 K/uL (4.3-11.0)
[2022-07-21] MEDS: CHLORHEXIDINE GLUCONATE 15 ML UDC MM SCH ×2 (08:16→20:49)
[2022-07-21] MEDS: PROSOURCE / PROSTAT (PYXIS) 30 ML UDC GT SCH ×3 (08:16→16:07)
[2022-07-21] MEDS: PANTOPRAZOLE 40 MG VIAL IV SCH (08:16)
[2022-07-21 08:21] LABS: PLATELET COUNT (AUTO) 19 K/uL (150-450)
[2022-07-21] MEDS: DAKINS QUARTER STRENGTH (0.125%) 480 ML BOTTLE TOP SCH (08:22)
--- NOTE | 2022-07-21 09:13 | NUR ---
RN NOTE PATIENT HAS AM LAB ABNORMAL RESULT PLATLETS 19 , POTASSIUM 3.3 DR PASCAL WAS NOTIFIED
[2022-07-21] MEDS ORDERED: POTASSIUM CHLORIDE 20 MEQ POWDER PACKET GT ONE (10:00)
[2022-07-21 12:12] VITALS: BP 134/74
[2022-07-21 12:34] LABS: BAND % (MANUAL) 10 % (0.0-5.0); BASOPHILS % (MANUAL) 0 % (0.0-2.0); EOSINOPHILS % (MANUAL) 0 % (0-4); LYMPHOCYTES % (MANUAL) 12 % (16-48); MONOCYTES % (MANUAL) 4 % (0-11.0); NEUTROPHILS % (MANUAL) 74 (42-76)
[2022-07-21] MEDS ORDERED: SULFAMETHOXAZOLE/TRIMETHOPRIM 25 ML in IV D5W 500 ML IV SCH (14:30)
[2022-07-21 16:00] VITALS: BP 134/78
[2022-07-21] MEDS ORDERED: TRIMETHOPRIM IV SCH (16:00)
[2022-07-21] MEDS ORDERED: SULFAMETHOXAZOLE IV SCH (16:00)
[2022-07-21] MEDS ORDERED: D5W IV SCH (16:00)
[2022-07-21] MEDS: PANTOPRAZOLE 40 MG/PACK PACK GT SCH (16:07)
[2022-07-21] MEDS: SULFAMETHOXAZOLE/TRIMETHOPRIM 25 ML in IV D5W 500 ML IV SCH ×2 (16:07→23:39)
[2022-07-21] MEDS: ASCORBIC ACID 500 MG TABLET GT SCH (17:06)
[2022-07-21] MEDS: FERROUS SULFATE (325 MG) 325 MG/TAB TABLET GT SCH (17:06)
[2022-07-21] MEDS: CYANOCOBALAMIN 500 MCG TABLET GT SCH (17:06)
[2022-07-21] MEDS: CALCIUM CARB 250MG /VITAMIN D 1 UDTAB GT SCH (17:06)
[2022-07-21] MEDS: FLUDROCORTISONE 0.1 MG TABLET GT SCH (17:06)
--- NOTE | 2022-07-21 18:32 | NUR ---
SOFTWARE PUBLISHER CLOSING NOTE PT REMAINS IN BED, OBTUNDED, OPENS EYES, NON-VERBAL. CONTINUES TO BE ON SAME VENT SETTINGS, TOLERATED VENT SETTINGS WELL WITH O2SAT STABLE AT 100% THROUGHOUT THE day. ATTACHED TO EXTERNAL MONITOR, SR WITH HR RANGING FROM 67-75. JACINTO IN PLACE, DRAINING CLEAR AND YELLOW URINE. GTD CHANGED AND IS C/D/I WITH GLUCERNA RUNNING AT 75 ML/HR; TOLERATED GTF WELL WITH NO RESIDUALS. VENESSA MIDLINE INTACT AND PATENT, FLUSHES EASILY WITH NO RESISTANCE; WOUNDS CLEANSED AND NEW DRESSINGS APPLIED. ALL DUE MEDS ADMINISTERED DURING THE day. BED IN LOWEST POSITION, CALL LIGHT WITHIN REACH, SIDE RAILS UP X3. WILL ENDORSE TO NIGHT NURSE TO CONTINUE CARE.
--- NOTE | 2022-07-21 19:30 | NUR ---
BULKHEAD CARPENTER OPENING NOTE RECEIVED PATIENT IN BED, WITH HOB ELEVATED, WITH EYES OPEN. AFEBRILE AND NOT IN ANY FORM OF ACUTE DISTRESS. ON MECHANICAL VENT WITH THE FOLLOWING SETTING: Fi02- 40%, VT- 500, R- 18 PEEP- 5, TOLERATING WELL. ON G-TUBE FEEDING OF GLUCERNA AT 75ML/HR. WITH IV ACCESS ON VENESSA MIDLINE RUNNING-SL. WITH INTACT JACINTO CATHETER, DRAINING WITH YELLOW URINE OUTPUT, NO HEMATURIA OR SEDIMENTS NOTED. SAFETY MEASURES IN PLACE. KEPT BED IN LOCKED AND IN LOW POSITION. SIDE RAILS UP X2. CALL LIGHT WITHIN EASY REACH.
[2022-07-21 20:00] VITALS: BP 135/73
[2022-07-22] VITALS: BP 125/73
[2022-07-22 04:00] VITALS: BP 130/72
[2022-07-22] MEDS: BLOOD SUGAR DIAGNOSTIC 1 EACH STRIP IN SCH ×3 (05:22→18:02)
[2022-07-22] MEDS: INSULIN REGULAR, HUMAN 100 UNIT/ML 3 ML VIAL SQ PRN ×3 (05:32→18:47)
--- NOTE | 2022-07-22 06:31 | NUR ---
CLIENT STRATEGIST CLOSING NOTE PATIENT IN BED, WITH HOB ELEVATED, EYES OPEN AND RESPONDS TO TACTILE STIMULI. AFEBRILE AND NOT IN ANY FORM OF ACUTE DISTRESS. ON MECHANICAL VENT WITH THE FOLLOWING SETTING: Fi02- 40%, VT- 500, R- 18 PEEP- 5, TOLERATING WELL. ON G-TUBE FEEDING OF GLUCERNA AT 75ML/HR. WITH IV ACCESS ON VENESSA MIDLINE RUNNING-SL. WITH INTACT JACINTO CATHETER, DRAINING WITH YELLOW URINE OUTPUT, NO HEMATURIA OR SEDIMENTS NOTED. MONITORED FOR ANY S/SX. OF HYPO/HYPERGLYCEMIA. MEDICATED ORDERED. CONTINUOUS ON IV ATB, MONITORED FOR ANY ADVERSE REACTION. SAFETY MEASURES IN PLACE. KEPT BED IN LOCKED AND IN LOW POSITION. SIDE RAILS UP X2. CALL LIGHT WITHIN EASY REACH. ALL NURSING NEEDS ATTENDED. ENDORSED TO INCOMING SHIFT FOR CONTINUITY OF CARE.
[2022-07-22 08:00] VITALS: BP 139/87
--- NOTE | 2022-07-22 08:25 | NUR ---
RN NOTE 0800 IV MEDS ON HOLD UNTIL NEW MIDLINE IS INSERTED, INNIE WITH PHARMACY AWARE. CHARGE NURSE AWARE.
[2022-07-22] MEDS: DAKINS QUARTER STRENGTH (0.125%) 480 ML BOTTLE TOP SCH (09:26)
[2022-07-22] MEDS: PROSOURCE / PROSTAT (PYXIS) 30 ML UDC GT SCH ×3 (09:45→17:51)
[2022-07-22] MEDS: CHLORHEXIDINE GLUCONATE 15 ML UDC MM SCH ×2 (09:45→20:59)
[2022-07-22] MEDS: PANTOPRAZOLE 40 MG/PACK PACK GT SCH ×2 (09:45→18:06)
[2022-07-22 12:00] VITALS: BP 147/77
[2022-07-22] MEDS: SULFAMETHOXAZOLE/TRIMETHOPRIM 25 ML in IV D5W 500 ML IV SCH ×2 (12:07→16:00)
[2022-07-22] MEDS: CEFEPIME 2 GM in IV D5W 100 ML IV SCH ×3 (15:45→23:58)
[2022-07-22 16:00] VITALS: BP 126/77
[2022-07-22] MEDS: FERROUS SULFATE (325 MG) 325 MG/TAB TABLET GT SCH (18:06)
[2022-07-22] MEDS: ASCORBIC ACID 500 MG TABLET GT SCH (18:06)
[2022-07-22] MEDS: FLUDROCORTISONE 0.1 MG TABLET GT SCH (18:06)
[2022-07-22] MEDS: CALCIUM CARB 250MG /VITAMIN D 1 UDTAB GT SCH (18:07)
[2022-07-22] MEDS: CYANOCOBALAMIN 500 MCG TABLET GT SCH (18:07)
--- NOTE | 2022-07-22 19:09 | NUR ---
MANPOWER DEVELOPMENT ADVISOR CLOSING NOTE PATIENT IN BED, WITH HOB ELEVATED, EYES OPEN AND RESPONDS TO TACTILE STIMULI. AFEBRILE AND NOT IN ANY FORM OF ACUTE DISTRESS. ON MECHANICAL VENT WITH THE FOLLOWING SETTING: Fi02- 40%, VT- 500, R- 18 PEEP- 5, TOLERATING WELL. ON G-TUBE FEEDING OF GLUCERNA ON HOLD AT THIS TIME. WITH IV ACCESS ON RICKY MIDLINE RUNNING-SL. WITH INTACT JACINTO CATHETER, DRAINING WITH YELLOW URINE OUTPUT. MONITORED FOR ANY S/SX. OF HYPO/HYPERGLYCEMIA. MEDICATED ORDERED. CONTINUOUS ON IV ATB, MONITORED FOR ANY ADVERSE REACTION. SAFETY MEASURES IN PLACE. KEPT BED IN LOCKED AND IN LOW POSITION. SIDE RAILS UP X2. CALL LIGHT WITHIN EASY REACH. ALL NURSING NEEDS ATTENDED. ENDORSED TO INCOMING SHIFT FOR CONTINUITY OF CARE.
--- NOTE | 2022-07-22 19:30 | NUR ---
RN NOTES RECEIVED REPORT FROM MORNING RN. PATIENT IN BED A/O X1 FAMILY AT BEDSIDE. WITH OXYGEN INHALATION AT 2LPM VIA NASAL CANULA TOLERATING WELL SATING 98% NO SOB NO DISTRESS NOTEF AT THIS TIME. WITH RICKY MIDLINE PATENT FLUSHES WELL NO REDNEDD NO INFILTRATION NOTED AT THIS TIME RUNNING D5W @ 75ML/HR. WITH JACINTO CATHETER CONNECTED TO URINE BAG DRAINING YELLOWISH URINE OUTPUT. VITAL SIGNS TAKEN AND RECORDED AFEBRILE. NOTED WITH DISTENDED ABDOMEN MORNING RN GAVE MOM AND SPENCER WILL CONTINUE TO MONITOR. ALL SAFETY MEASURES IN PLACE AT ALL TIMES. HOB ELEVATED. WILL CLOSELY MONITOR THE PATIENT Addendum: 07/23/22 at 0704 by SULAIMAN ISRAEL RN WRONG PATIENT CHARTING
--- NOTE | 2022-07-22 19:30 | NUR ---
RN NOTES RECEIVED REPORT FROM MORNING RN. PATIENT IN BED OBTUNDED, WITH TRACH XLT7 PATENT CONNECTED TO MV WITH PRESCRIBED SETTINGS. WITH GT INTACT PATENT CONNECTED TO TF. IV ACCESS AT RICKY MIDLINE PATENT FLUSHES WELL. WITH JACINTO PATENT CONNECTED TO URINE BAG DRAINING YELLOWISH URINE OUTPUT. VITAL SIGNS TAKEN AND RECORDED. AFEBRILE. ALL SAFETY MEASURES IN PLACE. HOB ELEVATED. WILL CLOSELY MONITOR THE PATIENT
[2022-07-22 20:00] VITALS: BP 127/63
[2022-07-23] VITALS: BP 125/71
[2022-07-23] MEDS: BLOOD SUGAR DIAGNOSTIC 1 EACH STRIP IN SCH ×4 (00:08→17:39)
[2022-07-23] MEDS: INSULIN REGULAR, HUMAN 100 UNIT/ML 3 ML VIAL SQ PRN ×4 (00:11→17:18)
[2022-07-23] MEDS: SULFAMETHOXAZOLE/TRIMETHOPRIM 25 ML in IV D5W 500 ML IV SCH ×3 (00:21→15:35)
[2022-07-23 04:00] VITALS: BP 99/59
[2022-07-23 06:51] LABS: BASOPHILS % (AUTO) 0.6 % (0.0-2.0); EOSINOPHILS % (AUTO) 1.3 % (0.0-6.0); HEMATOCRIT 22 % (33-45); LYMPHOCYTES # (AUTO) 0.8 K/uL (0.8-4.8); LYMPHOCYTES % (AUTO) 20.4 % (20.0-44.0); MEAN CORPUSCULAR HGB CONC 32 g/dl (31.0-36.0); MEAN CORPUSCULAR VOLUME 88 fL (82-100); MONOCYTES # (AUTO) 0.3 K/uL (0.1-1.30); MONOCYTES % (AUTO) 6.7 % (2.0-12.0); NEUTROPHILS # (AUTO) 2.9 K/uL (1.8-8.9); RED BLOOD CELL COUNT(AUTO) 2.45 MIL/uL (4.0-5.2); WHITE BLOOD COUNT (AUTO) 4.1 K/uL (4.3-11.0)
--- NOTE | 2022-07-23 07:04 | NUR ---
RN NOTES PATIENT REMAINS STABLE NO SIGNIFICANT CHANGES IN HEALTH CONDITION. ALL DUE MEDS GIVEN. ON VENT WITH PRESCRIBED SETTINGS. GT PATENT ON CONTINUOS GT FEEDING. JACINTO PATENT DRAINING WELL, IV ACCESS AT RICKY MIDLINE PATENT FLUSHES WELL. ALL SAFETY MEASURES IN PLACE. WILL CLOSELY MONITOR THE PATIENT
[2022-07-23 07:05] LABS: CALCIUM, SERUM 8.5 mg/dL (8.5-10.1); CREATININE 0.6 mg/dL (0.6-1.3); POTASSIUM 3.8 mmol/L (3.5-5.1)
[2022-07-23 07:25] LABS: D-DIMER 1.53 mg/L(FEU (0.17-0.50)
[2022-07-23 07:26] LABS: PLATELET COUNT (AUTO) 22 K/uL (150-450)
[2022-07-23 08:00] VITALS: BP 131/58
[2022-07-23] MEDS: CHLORHEXIDINE GLUCONATE 15 ML UDC MM SCH (08:17)
[2022-07-23] MEDS: PANTOPRAZOLE 40 MG/PACK PACK GT SCH ×2 (08:17→16:29)
[2022-07-23] MEDS: PROSOURCE / PROSTAT (PYXIS) 30 ML UDC GT SCH ×3 (08:18→16:28)
[2022-07-23] MEDS: DAKINS QUARTER STRENGTH (0.125%) 480 ML BOTTLE TOP SCH (08:18)
[2022-07-23] MEDS: CEFEPIME 2 GM in IV D5W 100 ML IV SCH ×2 (08:18→15:42)
[2022-07-23] MEDS ORDERED: PHYTONADIONE INJ 10 MG/1 ML AMPUL SQ ONE (12:00)
[2022-07-23] MEDS ORDERED: CEFE2FRO IV (13:16)
--- NOTE | 2022-07-23 14:28 | NUR ---
PATIENT FOR DC,CM NOTIFIED.AWAITS BED SNF.
[2022-07-23 16:12] LABS: BAND % (MANUAL) 5 % (0.0-5.0); EOSINOPHILS % (MANUAL) 2 % (0-4); LYMPHOCYTES % (MANUAL) 21 % (16-48); MONOCYTES % (MANUAL) 7 % (0-11.0); NEUTROPHILS % (MANUAL) 65 (42-76)
[2022-07-23] MEDS: CALCIUM CARB 250MG /VITAMIN D 1 UDTAB GT SCH (17:17)
[2022-07-23] MEDS: CYANOCOBALAMIN 500 MCG TABLET GT SCH (17:17)
[2022-07-23] MEDS: FERROUS SULFATE (325 MG) 325 MG/TAB TABLET GT SCH (17:17)
[2022-07-23] MEDS: FLUDROCORTISONE 0.1 MG TABLET GT SCH (17:17)
[2022-07-23] MEDS: ASCORBIC ACID 500 MG TABLET GT SCH (17:39)
--- NOTE | 2022-07-23 18:00 | NUR ---
STAY CUTTER NOTE PATIENT DC TO [facility] BY AMBULANCE. PATIENT STABLE IN HER OWN CONDITION NO S/S DISTRESS OR SOB. VITAL SIGNS WNL. ALL DISCHARGE INSTRUCTION INCLUDING MED RECONCILE GIVEN TO PURCHASING ANALYST. PATIENT WITH JACINTO CATHETER YELLOW URINE. 2 MID LINES ON LEFT AND RIGHT UPPER ARM DID NOT REMOVE PATIENT HAS ABX FOR ANOTHER 7 DAYS.
--- NOTE | 2022-07-24 10:00 | NUR ---
DR. GOINS ID DOCTOR ORDERED TO CALL AND FAX TO SNF WHERE PT. DISCHARGE TO D/C CEFEPIME AND IV BACTRIM AND CHANGE TO MEROPENEM I GRAM IV Q 8 HOURS X 14 DAYS,REPEAT BLOOD CULTURES IN 48 HOURS.
--- NOTE | 2022-07-24 10:03 | NUR ---
SPOKE WITH LARS CALLE FROM [facility] AND RELAYED AND FAXED THE NEW ORDERS.DR. PASCAL ALSO NOTIFIED.
--- NOTE | 2022-07-24 10:04 | NUR ---
CONFIRMED FACILITY RECEIVED FAXED NEW ORDERS VIA RECEIPT/RETURNED CONFIRMATION FAX.
== END 2022-07-23 18:11 | DRG 130 ==
LOC: ER 15:30 → TELE1 18:25 → TELE-TD 07-16 11:33 → ICU 07-16 11:50 → TELE1 07-17 13:21
PROVIDERS: ADMIT Nurse Practitioner Acute Care; ATTEND Legal Medicine
PROC: 5A1955Z Respiratory Ventilation, Greater than 96 Consecutive Hours (ICD-10-PCS; principal; 2022-07-15)
PROC: 30233N1 Transfusion of Nonautologous Red Blood Cells into Peripheral Vein, Percutaneous Approach (ICD-10-PCS; 2022-07-15)
PROC: 30233R1 Transfusion of Nonautologous Platelets into Peripheral Vein, Percutaneous Approach (ICD-10-PCS; 2022-07-16)
PROC: 05HD33Z Insertion of Infusion Device into Right Cephalic Vein, Percutaneous Approach (ICD-10-PCS; 2022-07-23)
DX: J95.851 Ventilator associated pneumonia (principal); E03.5 Myxedema coma; N17.0 Acute kidney failure with tubular necrosis; J69.0 Pneumonitis due to inhalation of food and vomit; G92.8 Other toxic encephalopathy; L89.154 Pressure ulcer of sacral region, stage 4; D61.818 Other pancytopenia; R78.81 Bacteremia; K92.2 Gastrointestinal hemorrhage, unspecified; R18.8 Other ascites; R53.2 Functional quadriplegia; J90 Pleural effusion, not elsewhere classified; D68.59 Other primary thrombophilia; E11.36 Type 2 diabetes mellitus with diabetic cataract; I48.91 Unspecified atrial fibrillation; Z99.11 Dependence on respirator [ventilator] status; Z93.0 Tracheostomy status; E86.0 Dehydration; F02.83 Dementia in other diseases classified elsewhere, unspecified severity, with mood disturbance; E87.6 Hypokalemia; D62 Acute posthemorrhagic anemia; Z20.822 Contact with and (suspected) exposure to COVID-19; G20 Parkinson's disease; Z93.1 Gastrostomy status; R13.10 Dysphagia, unspecified; E03.9 Hypothyroidism, unspecified; E78.5 Hyperlipidemia, unspecified; I10 Essential (primary) hypertension; G35 Multiple sclerosis; Z86.73 Personal history of transient ischemic attack (TIA), and cerebral infarction without residual deficits; Z74.01 Bed confinement status; F09 Unspecified mental disorder due to known physiological condition; Z88.8 Allergy status to other drugs, medicaments and biological substances; Z79.51 Long term (current) use of inhaled steroids; Z79.4 Long term (current) use of insulin; Z79.83 Long term (current) use of bisphosphonates; Z79.899 Other long term (current) drug therapy; J44.9 Chronic obstructive pulmonary disease, unspecified; M81.0 Age-related osteoporosis without current pathological fracture; J96.11 Chronic respiratory failure with hypoxia; D69.6 Thrombocytopenia, unspecified; D68.9 Coagulation defect, unspecified; R74.01 Elevation of levels of liver transaminase levels; J98.11 Atelectasis; D50.9 Iron deficiency anemia, unspecified; S31.109A Unspecified open wound of abdominal wall, unspecified quadrant without penetration into peritoneal cavity, initial encounter; X58.XXXA Exposure to other specified factors, initial encounter; Y92.129 Unspecified place in nursing home as the place of occurrence of the external cause; L92.9 Granulomatous disorder of the skin and subcutaneous tissue, unspecified; Y95 Nosocomial condition; K80.20 Calculus of gallbladder without cholecystitis without obstruction; B96.89 Other specified bacterial agents as the cause of diseases classified elsewhere; Y84.8 Other medical procedures as the cause of abnormal reaction of the patient, or of later complication, without mention of misadventure at the time of the procedure; F32.A Depression, unspecified
CPT/HCPCS: 31720; 36410; 36415; 71045-TC; 76770-TC; 80048-TC; 80061-TC; 80076-TC; 80202-TC; 81001; 82272-TC; 82728-TC; 82962-TC; 83540-TC; 83690-TC; 83735-TC; 84100-TC; 84484-TC; 85025-TC; 85396; 85730-TC; 86850-TC; 87040-TC; 87081-TC; 87086-TC; 94002-TC; 94003-TC; 94760-TC; 94762-TC; 94799-TC; 99082-TC; A4217; A6253; A6403; A7526; C9113; C9803; G0378; J0692; J1815; J3370; J3430; J3480; J3490; J7030; J7040; J7042; J7050; J7060; P9016; P9034